=== PATIENT | male | born 1960 | race Caucasian/White ===

== ENCOUNTER → 2018-10-28 14:53 | Outpatient (CLI) | payer OTHER, SELFPAY ==
[2018-10-21 13:32] VITALS: BMI 32.8
[2018-10-28 18:16] LABS: Hemoglobin A1c 12.7 % (4.2-6.3)
[2018-10-28 18:32] LABS: Free T3 0.7 pg/mL (2.18-3.98); T4 Total, Thyroxin 1.6 ug/dL (4.5-12.1)
== END ==
PROVIDERS: Family Provider Family Medicine; PCP Family Medicine; Visit Provider Nurse Practitioner Family
DX: E89.0 Postprocedural hypothyroidism (principal); E11.9 Type 2 diabetes mellitus without complications
CPT/HCPCS: 36415; 83036; 84436; 84443; 84481

== ENCOUNTER 2018-11-03 07:32 | Observation (INO) | payer OTHER, SELFPAY ==
[2018-10-21 13:32] VITALS: BMI 32.8
[2018-11-03] VITALS (12 sets, daily range): BP systolic 90–141; BP diastolic 55–97; PULSE 57–110; RESP 10–18; TEMP 36.4–36.6; O2SAT 94–99; BMI 31.8; BMI 32.2
[2018-11-03 07:51] LABS: Bedside Glucose 177 mg/dL (70-110)
--- NOTE | 2018-11-03 07:53 | EKG12_ITS ---
Test Reason : NEURO Blood Pressure : / mmHG Vent. Rate : 104 BPM Atrial Rate : 104 BPM P-R Int : 180 ms QRS Dur : 088 ms QT Int : 304 ms P-R-T Axes : 075 -51 082 degrees QTc Int : 399 ms Sinus tachycardia Low voltage QRS Left anterior fascicular block Nonspecific T wave abnormality Abnormal ECG Confirmed by KB BENITEZ, LILY ([id number]), news assignment editor JENNY MARTINEZ ([id number]) on 11/05/2018 1:26:40 PM Referred By: Confirmed By:LILY QUILES MD
--- NOTE | 2018-11-03 07:54 | ED.DCSUM_ITS ---
- ER Visit Summary Date of Service: 11/03/18 Chief Complaint: Near syncope History of Present Illness: The patient is a 57 M who presents the emergency department with near syncope. From reviewing the chart and piecing together the patient's story-going the following. On October 21 he began Augmentin for a sinusitis. That was 13 days ago. 4 days ago (on ) he was at work coworkers stated that he did not look well and he had red spots on him. He was experiencing nausea. Later that day he was told that he had a reaction to the Augmentin and was placed on an unknown antibiotic for 3 days and some nausea medication. Over the next couple days he experienced lightheadedness and near syncopal symptoms. Continued nausea and sweating at times. He also notes at times he has a pulsing headache. He does not currently have a headache he spent a significant amount of time in bed. Once again today he got up use the bathroom and felt like he was going to pass out. So he out of fear of falling came to the emergency department. He also notes that he saw his doctor and was told his hemoglobin A1c was 12.7. He tells me that he had not been taking his diabetes medication because of the prohibitive cost. He has since restarted that medication beginning . He denies any diarrhea states he has not had a bowel movement for 2 days. He denies any abdominal or chest pain. No shortness of breath. He denies black or bloody stools. He states that he works at our to [employer] the office but is still warm he does not drink as much water as he should. Physical Examination: 125/89 heart rate of 101 respirations are 14 pulse ox 98% on room air temperature 97.8 Gen: Well-nourished well-developed Head: Normocephalic atraumatic Eyes: Perrl EOMI ENT: TMs clear no rhinorrhea moist mucous membranes Neck: Supple no lymphadenopathy no JVD nontender CVS: Regular rate tachycardic rhythm no murmurs normal S1-S2 Respiratory: No distress clear to auscultation bilaterally chest nontender Abdomen: Soft nontender nondistended normal bowel sounds no masses Back: Nontender Extremity: Nontender no edema Skin: Normal color no rash Neuro: alert orientated ?3 CN II-XII intact normal strength sensation cerebellar (specifically I do not see any facial droop on dynamic testing. The patient speaks out of the left side of his mouth and I suspect that this gives the appearance of a facial droop. Patient himself has not noticed any facial droop was Psych: Normal affect normal mood Test Results: Accu-Chek at 177. EKG sinus tachycardia at 104. There is no ectopy or concerning features of ACS. Emergency Department Course and Treatment: Pretreatment orthostatics are positive. Laying down 113/90 heart rate 97. Sitting up 94/74 heart rate 105. Standing 90/70 heart rate 110 with symptoms of nausea and lightheadedness. Patient is received over 2 L of normal saline fluids. He continues to feel symptomatic and blood pressure in the 90s with standing. Patient notes after being interviewed by Dr. Drake that he has been taking his Synthroid variably. Currently he is taking 2 pills a day. Could this be hyperthyroidism? We will add on TSH and T4. We will be observing in the hospital Impression: 1. Orthostatic hypotension This note was generated with [employer] dictation software. It may contain incorrect words, spelling, and punctuation that were not noted in review of the chart prior to signing ED Disposition - Plan for ED Patient: Referrals: Fabiana Peña MD [Primary Care Provider] -
[2018-11-03 08:04] LABS: Bacteria 0 SEEN /hpf (None Seen); Mucous, Urine 0 SEEN /hpf (<or=2+); Red Blood Cells-Urine 0 SEEN /hpf (0-5); Squamous Epithelial Cells - UA 0 SEEN /hpf (0-5); White Blood Cells 0 SEEN /hpf (0-5)
--- NOTE | 2018-11-03 08:05 | RAD_ITS ---
STUDY: X-RAY CHEST REASON FOR EXAM: Male, 57 years old. Weakness. TECHNIQUE: Single frontal view of the chest. COMPARISON: None. FINDINGS: The lungs are clear and expanded. There is no demonstrated pleural abnormality. Normal size heart. Normal mediastinum and colton. Normal visualized pulmonary arteries. There is atherosclerotic calcification of the aortic arch with tortuosity. Normal visualized thoracic spine. Likely old lateral seventh rib fracture with acute on chronic injury not excluded. There is no demonstrated abnormality of the visualized soft tissue structures of the upper abdomen. RAD/Chest 1 View (Portable) IMPRESSION: No evidence of acute cardiopulmonary process with likely left lateral seventh rib old injury with acute on chronic injury not excluded, clinically correlate. Electronically Signed: Mina Rodriguez DO at 8:25 EDT , Service support ,
[2018-11-03 08:10] LABS: Absolute Lymphocyte Count 2.47 X10^3/uL (0.83-4.51); Absolute Neutrophil Count 5.8 X10^3/uL (2.0-7.7); Basophil# 0.03 X10^3/uL; Basophil% 0.3 % (0-1); Eosinophil# 0.03 X10^3/uL; Eosinophils% 0.3 % (0-5); Hematocrit 43.3 % (40-54); Hemoglobin 14.3 g/dL (13.0-16.5); Lymphocyte # 2.47 X10^3/ul (4.0); Lymphocyte % 27.7 % (19-41); Mean Corpuscular Hgb 30.8 pg (27.0-32.0); Mean Corpuscular Volume 93.3 fL (80-94); Mean Platelet Vol. 10.1 fl (6.2-12.0); Monocyte% 5.6 % (0-10); NRBC Flagged by Analyzer 0 % (0-5); Neutrophil # 5.84 X10^3/uL (2.7-7.7); Neutrophil % 65.7 % (47-70); Platelet Count 233 K/mm3 (150-450); RBC Distribution Width CV 13.9 % (11.6-14.6); RBC Distribution Width SD 47.8 fl (35.1-43.9); Red Blood Count 4.64 M/mm3 (4.6-6.2); White Blood Count 8.9 K/mm3 (4.4-11.0)
[2018-11-03 08:23] LABS: AST(SGOT) 23 U/L (15-37); Alanine Aminotransfer ALT/SGPT 28 U/L (16-61); Albumin, Serum 3.5 g/dL (3.2-5.0); Alkaline Phosphatase 67 U/L (45-117); Anion Gap 7 (5-15); BUN 24 mg/dL (7-18); BUN/Creat Ratio 14.9 RATIO (10-20); Bilirubin, Direct 0.16 mg/dL (0.00-0.30); Calcium,Total 8.6 mg/dL (8.5-10.1); Chloride 97 mmol/L (98-107); Creatinine, Serum 1.61 mg/dL (0.70-1.30); EST Glomerular Filtration Rate 47 mL/min (>60); Est Glom Filt Rate - Afr Amer 57 mL/min (>60); Globulin 3.8 g/dL (2.2-4.2); Glucose 181 mg/dL (74-106); Lipase 62 U/L (73-393); Potassium 4.3 mmol/L (3.5-5.1); Protein, Total 7.3 g/dL (6.4-8.2); Sodium Level 133 mmol/L (136-145)
[2018-11-03] MEDS: 0.9% Normal Saline 1,000 ML 1000 ML IV (08:26)
[2018-11-03 09:09] LABS: Lactic Acid 0.9 mmol/L (0.4-2.0)
[2018-11-03 09:43] LABS: Color, Urine Yellow (Yellow); Glucose, Dipstick Normal (Normal); Ketone-Dipstick Negative (Negative); Leukocyte Esterase-Dipstick Negative /ul (Negative); Nitrite-Dipstick Negative (Negative); Occult Blood-Urine Negative /ul (Negative); Protein-Dipstick Negative (Negative); Specific Gravity, Urine 1.025 (1.002-1.030); Urine Bilirubin Dipstick Negative (Negative); Urine Clarity Clear (Clear); Urine Urobilinogen Normal (Normal)
[2018-11-03] MEDS: 0.9% Normal Saline 1,000 ML 200 ML IV ×2 (10:50→11:49)
--- NOTE | 2018-11-03 10:50 | ED.RN ---
dr fofana informed of + ortho's. new order to admin 1l ns bolus.
[2018-11-03 12:54] LABS: T4 Free Direct 0.64 ng/dL (0.76-1.46)
--- NOTE | 2018-11-03 13:07 | HP.PCM_ITS ---
<Justine Peoples - Last Filed: 11/03/18 13:21> Problem List (1) Sinusitis, acute Status: Resolved (2) Type 2 diabetes mellitus Status: Chronic (3) Hypothyroidism Status: Chronic (4) HTN (hypertension) Status: Chronic (5) Pre-syncope Status: Acute History of Present Illness Date of Admission: 11/03/18 Chief Complaint: Pre-syncope. The patient is a 57 year old M who presents to the ER due to pre-syncope. Patient reports he has felt lightheaded for the past two days and has been feeling like he was going to pass out. He reports he has not been taking his prescribed medications consistently due to caring for a grandson who has medical problems. He reports he recently started taking levothyroxine again and is unsure of what dose he is to be taking. He had also not been taking his diabetic medications. He denies loss of consciousness, chest pain or shortness of breath. Denies other associated symptoms. He does reports he had been on Augmentin for sinus infection and 7 days into taking the antibiotic he developed a rash and has had some nausea since that time. He was seen at urgent care 10/31/2018 and was told to discontinue Augmentin and given 3 days of prednisone. He has a past medical history of hypertension, type 2 diabetes mellitus, hypothyroidism status post thyroidectomy. Past Medical History Past Medical History (Chronic Problems): Chronic Problems (Last Reviewed 10/21/18 @ 13:40 by Isabell Cano) Type 2 diabetes mellitus (Chronic) Hypothyroidism (Chronic) HTN (hypertension) (Chronic) Medical History: Medical History (Last Reviewed 10/21/18 @ 13:40 by Isabell Cano) Diabetes E11.9 Diarrhea R19.7 Thyroid disease E07.9 Allergies amoxicillin Adverse Reaction (Verified 11/03/18 07:37) Nausea Home Medications: Ambulatory Orders Medication Instructions Recorded Aspirin E.C. [Ecotrin] 81 mg PO DAILY@0800 06/02/16 Dulaglutide [Trulicity] 1.5 mg SQ QWEEK 06/02/16 Ergocalciferol [Vitamin D] 50,000 unit PO QWEEK 06/02/16 Insulin Human 75/25 [Humalog Mix 18 unit SQ BID 06/02/16 75-25 Kwikpen] Lisinopril/Hydrochlorothiazide 1 tab PO DAILY 06/02/16 [Zestoretic 20/12.5 Tablet] metFORMIN (XR) [Glucophage Xr] 2,000 mg PO DAILY 06/02/16 ondansetron HCl 4 mg tablet 4 mg PO TID-QID PRN #20 tab 04/29/18 Levothyroxine Sodium [Levoxyl] 200 mcg PO DAILY 11/03/18 Surgical History: Surgical History (Last Reviewed 10/21/18 @ 13:40 by Isabell Cano) History of thyroidectomy Z98.890 Surgical History: - - Thyroidectomy, multiple sinus surgeries, left AC area laceration repair with tendon repair. Psychiatric History: No pertinent psych hx Lives: Spouse/ Significant Other Smoking Status: Current some day smoker Tobacco Use: Cigarettes Alcohol: None Drugs: None - *Family History Maternal History Items: - - Denies known maternal medical history including cardiac hist ory. Paternal History Items: - - Denies known paternal medical history including cardiac history. Review of Systems Constitutional: Denies: Chills, Fever, Weight Change HEENT: Denies: Head Aches, Sinus Congestion, Sinus Drainage Cardiovascular: Reports: Light Headedness, Syncope - Presyncope. Denies: Chest Pain, Edema, Palpitations Respiratory: Denies: Cough, Shortness of breath at rest, Sputum production Gastrointestinal: Denies: Abdominal Pain, Nausea, Vomiting Genitourinary: Denies: Dysuria Musculoskeletal: Denies: Joint Pain, Joint Tenderness Skin: Denies: Rash, Wounds Neurological: Denies: Numbness, Tingling, Focal weakness Psychiatric: Denies: Anxiety, Depression, Homicidal Ideations, Suicidal Ideations Hematologic/ Lymphatic: Denies: Easy Bruising, Easy Bleeding VTE Information - Inpt Only VTE Present on Admission: No VTE Mechan Device Prophylaxis: None VTE Pharm Prophylaxis ordered?: Yes Patient Problems: Active and Suspected Problems (Last Reviewed 10/21/18 @ 13:40 by Isabell Cano) Pre-syncope (Acute) - Physical Exam General: Alert, Oriented x3, Cooperative HEENT: Atraumatic, PERRLA, EOMI, Normocephalic Oral: Dry Mucosa Neck: Supple, No JVD, Negative Carotid Bruits Lungs: Clear to auscultation, Normal air movement Cardiovascular: Regular rate, Regular Rhythm, Normal S1, Normal S2, No murmurs Abdomen: Bowel Sounds Present, Soft, Non Tender, Non-Distended, Obese Extremities: No clubbing, No cyanosis, No edema, Capillary Refill Less than 3 Seconds Skin: No rashes, No breakdown Musculoskeletal: No Tenderness to Palpation of Joints or Extremities Neurological: Cranial nerves II-XII grossly intact, Neuro grossly intact Psych/Mental Status: Normal Affect, Appropriate Vital Signs Temp Pulse Resp BP Pulse Ox 97.8 F 89 11 L 103/78 97 11/03/18 07:33 11/03/18 12:04 11/03/18 12:04 11/03/18 12:04 11/03/18 12:04 Oxygen Delivery Method Room Air Weight: 255 lb 1.197 oz Body Mass Index (BMI) 31.8 Finger Stick Blood Glucose 177 Laboratory Tests Past 24 Hrs 11/03/18 11/03/18 11/03/18 07:40 07:40 07:40 WBC 8.9 RBC 4.64 Hgb 14.3 Hct 43.3 MCV 93.3 MCH 30.8 MCHC 33.0 RDW Std Deviation 47.8 H RDW Coeff of Marcellus 13.9 Plt Count 233 MPV 10.1 Immature Gran % (Auto) 0.400 Neut % (Auto) 65.7 Lymph % (Auto) 27.7 Powell % (Auto) 5.6 Eos % (Auto) 0.3 Baso % (Auto) 0.3 Absolute Neuts (auto) 5.8 Absolute Lymphs (auto) 2.47 Nucleated RBC % 0 Sodium 133 L Potassium 4.3 Chloride 97 L Carbon Dioxide 29.0 Anion Gap 7 BUN 24 H Creatinine 1.61 H Estim Creat Clear Calc 60.50 Est GFR (MDRD) Af Amer 57 L Est GFR (MDRD) Non-Af 47 L BUN/Creatinine Ratio 14.9 Glucose 181 H Lactic Acid Calcium 8.6 Total Bilirubin 0.70 Direct Bilirubin 0.16 AST 23 ALT 28 Alkaline Phosphatase 67 Troponin I < 0.015 Total Protein 7.3 Albumin 3.5 Globulin 3.8 Lipase 62 L TSH Free T4 Urine Color Yellow Urine Clarity Clear Urine pH 5.0 Ur Specific [place] 1.025 Urine Protein Negative Urine Glucose (UA) Normal Urine Ketones Negative Urine Occult Blood Negative Urine Nitrite Negative Urine Bilirubin Negative Urine Urobilinogen Normal Ur Leukocyte Esterase Negative Urine RBC 0 SEEN Urine WBC 0 SEEN Ur Squamous Epith Cells 0 SEEN Urine Bacteria 0 SEEN Urine Mucus 0 SEEN 11/03/18 11/03/18 07:40 08:25 WBC RBC Hgb Hct MCV MCH MCHC RDW Std Deviation RDW Coeff of Marcellus Plt Count MPV Immature Gran % (Auto) Neut % (Auto) Lymph % (Auto) Powell % (Auto) Eos % (Auto) Baso % (Auto) Absolute Neuts (auto) Absolute Lymphs (auto) Nucleated RBC % Sodium Potassium Chloride Carbon Dioxide Anion Gap BUN Creatinine Estim Creat Clear Calc Est GFR (MDRD) Af Amer Est GFR (MDRD) Non-Af BUN/Creatinine Ratio Glucose Lactic Acid 0.9 Calcium Total Bilirubin Direct Bilirubin AST ALT Alkaline Phosphatase Troponin I Total Protein Albumin Globulin Lipase TSH 35.40 H Free T4 0.64 L Urine Color Urine Clarity Urine pH Ur Specific [place] Urine Protein Urine Glucose (UA) Urine Ketones Urine Occult Blood Urine Nitrite Urine Bilirubin Urine Urobilinogen Ur Leukocyte Esterase Urine RBC Urine WBC Ur Squamous Epith Cells Urine Bacteria Urine Mucus POC Glucose 11/03/18 07:46 POC Glucose 177 H Assessment/Plan All Active Problems (Last Reviewed 10/21/18 @ 13:40 by Isabell Cano) Pre-syncope (Acute) Sinusitis, acute (Resolved) 1. Presyncope, orthostatic hypotension-suspect secondary to hypovolemia. IV fluids. Repeat orthostatic vitals in a.m. Trend enzymes. Obtain echocardiogram. 2. Acute kidney injury suspected secondary to dehydration-IV fluids, trend BMP. 3. Hypertension-hold home UGERLINE inhibitor given acute kidney injury. PRN hydra lazine for systolic blood pressure greater than 160. 4. Type 2 diabetes mellitus-hold oral regimen. Accu-Cheks before meals at bedtime with sliding scale insulin. 5. Hypothyroidism status post thyroidectomy-unclear what dose of levothyroxine patient is to be taking. TSH 35, free T4 0.64. Continue levothyroxine 200 mcg daily. 6. Obesity-encouraged diet lifestyle modifications. DVT prophylaxis- Lovenox sc This patient was seen by REKHA Olivarez under the supervision of Dr. Drake. <Edinson Drake - Last Filed: 11/03/18 14:14> History of Present Illness The patient is a 57 year old M [] Past Medical History Medical History: Medical History (Last Reviewed 10/21/18 @ 13:40 by Isabell Cano) Diabetes E11.9 Diarrhea R19.7 Thyroid disease E07.9 Allergies amoxicillin Adverse Reaction (Verified 11/03/18 07:37) Nausea Surgical History: Surgical History (Last Reviewed 10/21/18 @ 13:40 by Isabell Cano) History of thyroidectomy Z98.890 - Physical Exam Vital Signs Temp Pulse Resp BP Pulse Ox 97.6 F L 95 18 141/97 H 99 11/03/18 13:30 11/03/18 13:30 11/03/18 13:30 11/03/18 13:30 11/03/18 13:30 Oxygen Delivery Method Room Air Weight: 257 lb 14.4 oz Body Mass Index (BMI) 32.2 Finger Stick Blood Glucose 177 Intake and Output for Last 24 Hours 11/01/18 11/02/18 11/03/18 23:59 23:59 23:59 Output Total 700 / 700 Balance -700 / -700 Laboratory Tests Past 24 Hrs 11/03/18 11/03/18 11/03/18 07:40 07:40 07:40 WBC 8.9 RBC 4.64 Hgb 14.3 Hct 43.3 MCV 93.3 MCH 30.8 MCHC 33.0 RDW Std Deviation 47.8 H RDW Coeff of Marcellus 13.9 Plt Count 233 MPV 10.1 Immature Gran % (Auto) 0.400 Neut % (Auto) 65.7 Lymph % (Auto) 27.7 Powell % (Auto) 5.6 Eos % (Auto) 0.3 Baso % (Auto) 0.3 Absolute Neuts (auto) 5.8 Absolute Lymphs (auto) 2.47 Nucleated RBC % 0 Sodium 133 L Potassium 4.3 Chloride 97 L Carbon Dioxide 29.0 Anion Gap 7 BUN 24 H Creatinine 1.61 H Estim Creat Clear Calc 60.50 Est GFR (MDRD) Af Amer 57 L Est GFR (MDRD) Non-Af 47 L BUN/Creatinine Ratio 14.9 Glucose 181 H Lactic Acid Calcium 8.6 Total Bilirubin 0.70 Direct Bilirubin 0.16 AST 23 ALT 28 Alkaline Phosphatase 67 Troponin I < 0.015 Total Protein 7.3 Albumin 3.5 Globulin 3.8 Lipase 62 L TSH Free T4 Urine Color Yellow Urine Clarity Clear Urine pH 5.0 Ur Specific [place] 1.025 Urine Protein Negative Urine Glucose (UA) Normal Urine Ketones Negative Urine Occult Blood Negative Urine Nitrite Negative Urine Bilirubin Negative Urine Urobilinogen Normal Ur Leukocyte Esterase Negative Urine RBC 0 SEEN Urine WBC 0 SEEN Ur Squamous Epith Cells 0 SEEN Urine Bacteria 0 SEEN Urine Mucus 0 SEEN 11/03/18 11/03/18 07:40 08:25 WBC RBC Hgb Hct MCV MCH MCHC RDW Std Deviation RDW Coeff of Marcellus Plt Count MPV Immature Gran % (Auto) Neut % (Auto) Lymph % (Auto) Powell % (Auto) Eos % (Auto) Baso % (Auto) Absolute Neuts (auto) Absolute Lymphs (auto) Nucleated RBC % Sodium Potassium Chloride Carbon Dioxide Anion Gap BUN Creatinine Estim Creat Clear Calc Est GFR (MDRD) Af Amer Est GFR (MDRD) Non-Af BUN/Creatinine Ratio Glucose Lactic Acid 0.9 Calcium Total Bilirubin Direct Bilirubin AST ALT Alkaline Phosphatase Troponin I Total Protein Albumin Globulin Lipase TSH 35.40 H Free T4 0.64 L Urine Color Urine Clarity Urine pH Ur Specific [place] Urine Protein Urine Glucose (UA) Urine Ketones Urine Occult Blood Urine Nitrite Urine Bilirubin Urine Urobilinogen Ur Leukocyte Esterase Urine RBC Urine WBC Ur Squamous Epith Cells Urine Bacteria Urine Mucus POC Glucose 11/03/18 07:46 POC Glucose 177 H Code Visit Addendum: Dr. Drake I personally examined the patient and reviewed the chart. I agree with the above. 57-year-old male with diabetes, hypertension, hypothyroidism secondary to thyroidectomy presents with lightheadedness and dizziness for several days. He states that he has been not taking his medication secondary to expenses and only recently started taking his medications on . He presented to the ER with orthostatic hypotension and dizziness. He was given multiple liters of fluid and continued to be dizzy. He also states that he has been getting conflicting information in terms of his Synthroid prescription dosing and a TSH and a free T4 were obtained which demonstrated significant hypothyroidism. We will proceed with IV fluids and restarting all of his home medications as well as obtaining an echo tomorrow. Plan will be to discharge tomorrow if his symptoms resolve. OBSV E&M: [id number] Initial observation care L3
[2018-11-03] MEDS: Insulin Lispro 100 UNIT/ML INSULN.PEN SC (16:41)
[2018-11-03] MEDS: 0.9% Normal Saline 1,000 ML 125 ML IV (16:42)
[2018-11-03] MEDS: Insulin Human 75/25 Kwickpen 18 UNIT SC (16:42)
[2018-11-03 16:50] LABS: Bedside Glucose 262 mg/dL (70-110)
[2018-11-03 22:26] LABS: Bedside Glucose 73 mg/dL (70-110)
[2018-11-04] VITALS (7 sets, daily range): BP systolic 82–131; BP diastolic 53–84; PULSE 88–110; RESP 16–18; TEMP 36.6–36.8; O2SAT 92–98
[2018-11-04] MEDS: 0.9% Normal Saline 1,000 ML 125 ML IV ×2 (00:22→07:54)
[2018-11-04 02:21] LABS: Bedside Glucose 82 mg/dL (70-110)
[2018-11-04] MEDS: Levothyroxine 100 MCG Tablet 200 MCG PO (05:19)
[2018-11-04 05:39] LABS: Absolute Neutrophil Count 5.3 X10^3/uL (2.0-7.7); Basophil# 0.05 X10^3/uL; Basophil% 0.6 % (0-1); Eosinophil# 0.06 X10^3/uL; Eosinophils% 0.7 % (0-5); Hematocrit 40.3 % (40-54); Hemoglobin 13.3 g/dL (13.0-16.5); Lymphocyte % 29.3 % (19-41); Mean Corpuscular Hgb 30.8 pg (27.0-32.0); Mean Corpuscular Volume 93.3 fL (80-94); Mean Platelet Vol. 9.9 fl (6.2-12.0); Monocyte# 0.54 X10^3/uL; Monocyte% 6.3 % (0-10); NRBC Flagged by Analyzer 0 % (0-5); Neutrophil # 5.34 X10^3/uL (2.7-7.7); Neutrophil % 62.6 % (47-70); Platelet Count 197 K/mm3 (150-450); RBC Distribution Width CV 13.9 % (11.6-14.6); RBC Distribution Width SD 47.9 fl (35.1-43.9); Red Blood Count 4.32 M/mm3 (4.6-6.2); White Blood Count 8.5 K/mm3 (4.4-11.0)
[2018-11-04 05:55] LABS: Anion Gap 5 (5-15); BUN 21 mg/dL (7-18); BUN/Creat Ratio 13.2 RATIO (10-20); Calcium,Total 7.9 mg/dL (8.5-10.1); Chloride 105 mmol/L (98-107); Creatinine, Serum 1.59 mg/dL (0.70-1.30); EST Glomerular Filtration Rate 48 mL/min (>60); Est Glom Filt Rate - Afr Amer 58 mL/min (>60); Estimated Creatinine Clearance 61.26 ml/min; Glucose 75 mg/dL (74-106); Potassium 4.1 mmol/L (3.5-5.1); Sodium Level 139 mmol/L (136-145)
--- NOTE | 2018-11-04 05:55 | ECHOD_ITS ---
Reason For Study: Syncope Procedure This was a 2D Doppler, Color Flow transthoracic echocardiogram. Exam performed portable in patient room. Left Ventricle Normal LV size. The estimated ejection fraction is 30 %. Stage 3 diastolic dysfunction. There is moderate to severe global hypokinesis of the left ventricle. Right Ventricle Normal RV size. Mild hypertrophy of the right ventricle. Normal systolic function. Atria Normal left atrium. Normal right atrium. Mild collapse/invagination of the right atrium. Mitral Valve There is mild to moderate mitral annular calcification. Mild (1+) eccentric mitral valve insufficiency. Tricuspid Valve Normal tricuspid valve. Aortic Valve Trisinus/trileaflet aortic valve. Great Vessels Normal aortic root. The pulmonary artery is normal size. Normal inferior vena cava. Pericardium/Pleural Moderate pericardial effusion. Circumferential effusion. No obvious tamponade findings though early RA invagination is noted. MMode/2D Measurements & Calculations LVIDd: 5.7 cm IVSd: 1.1 cm Ao root diam: 4.0 cm LVIDs: 4.7 cm LVPWd: 1.5 cm RVDd: 3.4 cm FS: 17.3 % LAV(MOD-sp4): 49.8 ml LA A4 area: 18.5 cm2 LA dimension(2D): 3.7 cm RA A4 area: 10.7 cm2 Time Measurements MV dec time: 0.09 sec Doppler Measurements & Calculations MV E max eulogio: 88.4 cm/sec Lat Peak E' Eulogio: 3.9 cm/sec Med Peak E' Eulogio: 8.2 cm/sec MV A max eulogio: 40.8 cm/sec E/E' lat: 22.5 E/E' med: 10.8 MV E/A: 2.2 Ao V2 max: 69.6 cm/sec LV V1 max: 59.7 cm/sec TR max eulogio: 154.0 cm/sec Ao max P.9 mmHg LV V1 max P.4 mmHg TR max P.5 mmHg Interpretation Summary Normal LV size. The estimated ejection fraction is 30 %. Stage 3 diastolic dysfunction. Moderate pericardial effusion. Circumferential effusion. No obvious tamponade findings though early RA invagination is noted Ordering Physician: Edinson Drake Referring Physician: Fabiana Peña M.D. Performed By: Magy Minor RDCS, RVT
[2018-11-04] MEDS: Insulin Human 75/25 Kwickpen 18 UNIT SC (07:55)
[2018-11-04] MEDS: Aspirin E.C. 81 MG Tablet PO (07:55)
[2018-11-04] MEDS: Enoxaparin 40 MG/0.4 ML Syringe SC (07:56)
[2018-11-04 08:16] LABS: Bedside Glucose 98 mg/dL (70-110)
--- NOTE | 2018-11-04 10:03 | PCM.DC ---
- Discharge Diagnoses Current Active Problems: Current Active and Chronic Problems (Last Reviewed 10/21/18 @ 13:40 by Isabell Cano) Type 2 diabetes mellitus (Chronic) Hypothyroidism (Chronic) HTN (hypertension) (Chronic) Pre-syncope (Acute) You will use the following diet at home:: Calorie/Carbohydrate Controlled (specify 1200, 1400, etc), Cardiac Discharge Activity: Return to Normal Activity Call your doctor if you observe: Shortness of breath, Dizziness, Fainting spells, Chest pain Allergies/Adverse Reactions: Allergies amoxicillin Adverse Reaction (Verified 11/03/18 07:37) Nausea Medications to take at Discharge Aspirin E.C. [Ecotrin] 81 mg PO DAILY@0800 06/02/16 Dulaglutide [Trulicity] 1.5 mg SQ QWEEK 06/02/16 Ergocalciferol [Vitamin D] 50,000 unit PO QWEEK 06/02/16 Insulin Human 75/25 [Humalog Mix 75-25 Kwikpen] 18 unit SQ BID 06/02/16 Lisinopril/Hydrochlorothiazide [Zestoretic 20/12.5 Tablet] 1 tab PO DAILY 06/02/16 ondansetron HCl 4 mg tablet 4 mg PO TID-QID PRN #20 tab 04/29/18 Levothyroxine Sodium [Levoxyl] 200 mcg PO DAILY 11/03/18 Levothyroxine [Synthroid] 200 mcg PO DAILY@0600 #30 tab 11/04/18 metFORMIN (XR) [Glucophage Xr] 2,000 mg PO DAILY #60 tab 11/04/18 The following prescriptions were given: metFORMIN (XR) [Glucophage Xr] 2,000 mg PO DAILY #60 tab Transmission Status: Pending to [id number] Levothyroxine [Synthroid] 200 mcg PO DAILY@0600 #30 tab Transmission Status: Pending to [id number] Primary Care Physician: Fabiana Peña MD [Primary Care Provider] - Please follow up with your Primary Care Physician in: 1 Week Test Results: Test results from this visit will be discussed in further detail at your follow-up appointment, if applicable. Proposed Discharge Date: 11/04/18
--- NOTE | 2018-11-04 10:06 | DS.PCM_ITS ---
<Justine Peoples - Last Filed: 11/04/18 12:57> Discharge Date and Diagnosis Date of Admission: 11/03/18 Date of Discharge: 11/04/18 - Primary Discharge Diagnosis Active and Suspected Problems (Last Reviewed 10/21/18 @ 13:40 by Isabell Cano) 1. Presyncope, orthostatic hypotension-secondary to hypovolemia. 2. Acute kidney injury secondary to dehydration 3. Hypertension 4. Type 2 diabetes mellitus 5. Hypothyroidism status post thyroidectomy, significantly elevated TSH secondary to not taking thyroid medications for over 1 year 6. Obesity - Secondary Discharge Diagnosis Chronic Problems (Last Reviewed 10/21/18 @ 13:40 by Isabell Cano) Type 2 diabetes mellitus (Chronic) Hypothyroidism (Chronic) HTN (hypertension) (Chronic) Hospital Course and Treatment Imaging Results: Diagnostic Data Chest X-Ray 11/03/18 08:05 IMPRESSION: No evidence of acute cardiopulmonary process with likely left lateral seventh rib old injury with acute on chronic injury not excluded, clinically correlate. Electronically Signed: Mina Rodriguez DO at 8:25 EDT , Service support , Operations: None Procedures: 2-D Echocardiogram Summary of Care Provided: The patient is a 57 year old M admitted 11/03/2018 due to presyncope. 1. Presyncope, orthostatic hypotension-suspect secondary to hypovolemia. Patient received IV fluids. Repeat orthostatic vitals negative. Echocardiogram completed, report pending, will be reviewed prior to discharge. Suspect symptoms may also be secondary to severe hypothyroidism due to patient not taking his thyroid medication for over a year, he is status post thyroidectomy. TSH on admission 35. He is now back on thyroid medication and will need close outpatient follow-up. Follow-up with primary care physician in 1 week. 2. Acute kidney injury suspected secondary to dehydration-improved with IV fluids. Recommend repeat BMP by primary care provider in 1 week. 3. Hypertension-stable, continue home regimen. 4. Type 2 diabetes mellitus-continue home oral regimen. 5. Hypothyroidism status post thyroidectomy- TSH 35, free T4 0.64. Continue levothyroxine 200 mcg daily. Patient had been off of thyroid medication for over a year, just started taking again last week. Recommend repeat TSH by primary care provider in 4 weeks. Patient is going to establish with [facility] endocrinology in December. 6. Obesity-encouraged diet lifestyle modifications. General: Alert, Oriented x3, Cooperative HEENT: Atraumatic, PERRLA, EOMI, Normocephalic Oral: Dry Mucosa Neck: Supple, No JVD, Negative Carotid Bruits Lungs: Clear to auscultation, Normal air movement Cardiovascular: Regular rate, Regular Rhythm, Normal S1, Normal S2, No murmurs Abdomen: Bowel Sounds Present, Soft, Non Tender, Non-Distended, Obese Extremities: No clubbing, No cyanosis, No edema, Capillary Refill Less than 3 Seconds Skin: No rashes, No breakdown Musculoskeletal: No Tenderness to Palpation of Joints or Extremities Neurological: Cranial nerves II-XII grossly intact, Neuro grossly intact Psych/Mental Status: Normal Affect, Appropriate Patient seen and examined prior to discharge. Physical assessment as noted above. Patient is stable for discharge with follow up recommendations as noted above. This patient was seen by REKHA Olivarez under the supervision of Dr. Drake. - Physical Exam Vital Signs Temp Pulse Resp BP Pulse Ox 98.2 F 90 18 127/84 H 98 11/04/18 07:51 11/04/18 07:51 11/04/18 07:51 11/04/18 07:51 11/04/18 07:51 Oxygen Delivery Method Room Air Weight: 257 lb 14.4 oz Body Mass Index (BMI) 32.2 Finger Stick Blood Glucose 177 Orthostatic Vital Signs Start: 11/03/18 18:20 Freq: q24h Status: Active Protocol: Activity Type Activity Date Activity User E-Sign Co-Sign Detail Recorded Client Recorded Date Recorded By Document 11/04/18 02:00 [facility] [id number] 11/04/18 02:07 [facility] 11/04/18 02:00 Orthostatic Vitals Standing -Blood Pressure (90/60-120/80) 82/53 L -Extremity Use Right Arm -Pulse Rate (60-100) 104 H Sitting -Blood Pressure (90/60-120/80) 92/57 L -Extremity Use Right Arm -Pulse Rate (60-100) 98 Lying -Blood Pressure (90/60-120/80) 104/75 -Extremity Use Right Arm -Pulse Rate (60-100) 89 Intake and Output for Last 24 Hours 11/02/18 11/03/1811/04/19 23:59 23:59 23:59 Intake Total 2131 / 2131 796 / 796 Output Total 1825 / 1825 875 / 875 Balance 306 / 306 -79 / -79 Laboratory Tests Past 24 Hrs 11/03/18 11/04/18 11/04/18 07:40 05:05 05:05 WBC 8.5 RBC 4.32 L Hgb 13.3 Hct 40.3 MCV 93.3 MCH 30.8 MCHC 33.0 RDW Std Deviation 47.9 H RDW Coeff of Marcellus 13.9 Plt Count 197 MPV 9.9 Immature Gran % (Auto) 0.500 Neut % (Auto) 62.6 Lymph % (Auto) 29.3 [place] % (Auto) 6.3 Eos % (Auto) 0.7 Baso % (Auto) 0.6 Absolute Neuts (auto) 5.3 Absolute Lymphs (auto) 2.50 Nucleated RBC % 0 Sodium 139 Potassium 4.1 Chloride 105 Carbon Dioxide 29.0 Anion Gap 5 BUN 21 H Creatinine 1.59 H Estim Creat Clear Calc 61.26 Est GFR (MDRD) Af Amer 58 L Est GFR (MDRD) Non-Af 48 L BUN/Creatinine Ratio 13.2 Glucose 75 Calcium 7.9 L TSH 35.40 H Free T4 0.64 L POC Glucose 11/04/18 11/04/18 11/03/18 07:49 02:14 22:13 POC Glucose 98 82 73 11/03/18 16:36 POC Glucose 262 H Discharge Diet: Low fat/ Low Cholesterol, Carb Control Diet Discharge Activity: Return to Normal Activity Call your doctor if you observe: Shortness of breath, Dizziness, Fainting spells, Chest pain Home Medications: Medications to take at Discharge Aspirin E.C. [Ecotrin] 81 mg PO DAILY@0800 06/02/16 Dulaglutide [Trulicity] 1.5 mg SQ QWEEK 06/02/16 Ergocalciferol [Vitamin D] 50,000 unit PO QWEEK 06/02/16 Insulin Human 75/25 [Humalog Mix 75-25 Kwikpen] 18 unit SQ BID 06/02/16 Lisinopril/Hydrochlorothiazide [Zestoretic 20/12.5 Tablet] 1 tab PO DAILY 06/02/16 ondansetron HCl 4 mg tablet 4 mg PO TID-QID PRN #20 tab 04/29/18 Levothyroxine [Synthroid] 200 mcg PO DAILY@0600 #30 tab 11/04/18 metFORMIN (XR) [Glucophage Xr] 2,000 mg PO DAILY #60 tab 11/04/18 Following Prescrptions Were Given to Patient: metFORMIN (XR) [Glucophage Xr] 2,000 mg PO DAILY #60 tab Transmission Status: Received by [id number] Levothyroxine [Synthroid] 200 mcg PO DAILY@0600 #30 tab Transmission Status: Received by [id number] Primary Care Physician: Fabiana Peña MD [Primary Care Provider] - Please follow up with your Primary Care Physician in: 1 Week Disposition: Home Minutes spent on discharge:: 35 Patient Condition:: Stable Medical Necessity - Tobacco Use Smoking Status: Current some day smoker Tobacco Use: Cigarettes Meaningful Use Info Meaningful Use Diagnoses (Choose all that apply): None applicable <Edinson Drake - Last Filed: 11/04/18 13:31> Discharge Date and Diagnosis - Secondary Discharge Diagnosis Chronic Problems (Last Reviewed 10/21/18 @ 13:40 by Isabell Cano) Type 2 diabetes mellitus (Chronic) Hypothyroidism (Chronic) HTN (hypertension) (Chronic) Hospital Course and Treatment Imaging Results: 11/04/18 05:55 Echo Complete [ECHO] AM (NON MEDS) Summary of Care Provided: The patient is a 57 year old M [] - Physical Exam Vital Signs Temp Pulse Resp BP Pulse Ox 98.2 F 95 18 107/63 98 11/04/18 07:51 11/04/18 10:48 11/04/18 07:51 11/04/18 10:48 11/04/18 07:51 Oxygen Delivery Method Room Air Weight: 257 lb 14.4 oz Body Mass Index (BMI) 32.2 Finger Stick Blood Glucose 177 Orthostatic Vital Signs Start: 11/03/18 18:20 Freq: q24h Status: Active Protocol: Activity Type Activity Date Activity User E-Sign Co-Sign Detail Recorded Client Recorded Date Recorded By Document 11/04/18 10:48 [facility] [id number] 11/04/18 10:53 [facility] 11/04/18 10:48 Orthostatic Vitals Standing -Blood Pressure (90/60-120/80) 95/75 -Extremity Use Right Arm -Pulse Rate (60-100) 110 H Sitting -Blood Pressure (90/60-120/80) 106/70 -Extremity Use Right Arm -Pulse Rate (60-100) 101 H Lying -Blood Pressure (90/60-120/80) 107/63 -Extremity Use Right Arm -Pulse Rate (60-100) 95 Intake and Output for Last 24 Hours 11/02/18 11/03/18 11/04/18 23:59 23:59 23:59 Intake Total 2131 / 2131 2160 / 2160 Output Total 1825 / 1825 1850 / 1850 Balance 306 / 306 310 / 310 Laboratory Tests Past 24 Hrs 11/04/18 11/04/18 05:05 05:05 WBC 8.5 RBC 4.32 L Hgb 13.3 Hct 40.3 MCV 93.3 MCH 30.8 MCHC 33.0 RDW Std Deviation 47.9 H RDW Coeff of Marcellus 13.9 Plt Count 197 MPV 9.9 Immature Gran % (Auto) 0.500 Neut % (Auto) 62.6 Lymph % (Auto) 29.3 [place] % (Auto) 6.3 Eos % (Auto) 0.7 Baso % (Auto) 0.6 Absolute Neuts (auto) 5.3 Absolute Lymphs (auto) 2.50 Nucleated RBC % 0 Sodium 139 Potassium 4.1 Chloride 105 Carbon Dioxide 29.0 Anion Gap 5 BUN 21 H Creatinine 1.59 H Estim Creat Clear Calc 61.26 Est GFR (MDRD) Af Amer 58 L Est GFR (MDRD) Non-Af 48 L BUN/Creatinine Ratio 13.2 Glucose 75 Calcium 7.9 L POC Glucose 11/04/18 11/04/18 11/04/18 11:22 07:49 02:14 POC Glucose 61 L 98 82 11/03/18 11/03/18 22:13 16:36 POC Glucose 73 262 H Code Visit Addendum: Dr. Drake I personally examined the patient and reviewed the chart. I agree with the above. 57-year-old male with diabetes, hypertension, hypothyroidism secondary to thyroidectomy presents with lightheadedness and dizziness for several days. He states that he has been not taking his medication secondary to expenses and only recently started taking his medications on . He presented to the ER with orthostatic hypotension and dizziness. He was given multiple liters of fluid and continued to be dizzy. He also states that he has been getting conflicting information in terms of his Synthroid prescription dosing and a TSH and a free T4 were obtained which demonstrated significant hypothyroidism. He does feel little bit better today, and his echo is pending. He would for to go home today and therefore we will discharge him on his Synthroid 200 mcg daily until he follows up with a repeat TSH in 4 to 6 weeks as an outpatient. OBSV E&M: [id number] Observation care discharge
--- NOTE | 2018-11-04 11:06 | PHA.DC.MR ---
Pharmacy Service has performed discharge medication reconciliation for this patient. No new medications added to the patient's profile, medications reviewed based on previously reported medications. The patient's discharge medication list was reviewed for discrepancies and discrepancies were resolved. Home Medications Aspirin E.C. [Ecotrin] 81 mg PO DAILY@0800 06/02/16 Dulaglutide [Trulicity] 1.5 mg SQ QWEEK 06/02/16 Ergocalciferol [Vitamin D] 50,000 unit PO QWEEK 06/02/16 Insulin Human 75/25 [Humalog Mix 75-25 Kwikpen] 18 unit SQ BID 06/02/16 Lisinopril/Hydrochlorothiazide [Zestoretic 20/12.5 Tablet] 1 tab PO DAILY 06/02/16 ondansetron HCl 4 mg tablet 4 mg PO TID-QID PRN #20 tab 04/29/18 Levothyroxine [Synthroid] 200 mcg PO DAILY@0600 #30 tab 11/04/18 metFORMIN (XR) [Glucophage Xr] 2,000 mg PO DAILY #60 tab 11/04/18
[2018-11-04 11:51] LABS: Bedside Glucose 61 mg/dL (70-110)
--- NOTE | 2018-11-04 12:52 | PCM.WORK.EX ---
Work/School Excuse Work/School Excuse for:: Patient Please excuse this person from:: Work From: 11/03/18 through: 11/11/18
--- NOTE | 2018-11-04 15:13 | PCM.PROGNOTE ---
Subjective: Patient seen and examined. Feels improved. Denies further significant dizziness, lightheadedness. Denies chest pain, shortness of breath. - Physical Exam General: Alert, Oriented x3, Cooperative HEENT: Atraumatic, PERRLA, EOMI, Normocephalic Neck: Supple, No JVD, Negative Carotid Bruits Lungs: Clear to auscultation, Normal air movement Cardiovascular: Regular rate, Regular Rhythm, Normal S1, Normal S2, No murmurs Abdomen: Bowel Sounds Present, Soft, Non Tender, Non-Distended Extremities: No clubbing, No cyanosis, No edema, Capillary Refill Less than 3 Seconds Skin: No rashes, No breakdown Musculoskeletal: No Tenderness to Palpation of Joints or Extremities Neurological: Cranial nerves II-XII grossly intact, Neuro grossly intact Psych/Mental Status: Normal Affect, Appropriate Vital Signs Temp Pulse Resp BP Pulse Ox 98.2 F 94 16 131/75 H 97 11/04/18 13:47 11/04/18 13:47 11/04/18 13:47 11/04/18 13:47 11/04/18 13:47 Oxygen Delivery Method Room Air Weight: 257 lb 14.4 oz Body Mass Index (BMI) 32.2 Finger Stick Blood Glucose 177 Orthostatic Vital Signs Start: 11/03/18 18:20 Freq: q24h Status: Active Protocol: Activity Type Activity Date Activity User E-Sign Co-Sign Detail Recorded Client Recorded Date Recorded By Document 11/04/18 10:48 CAB [id number] 11/04/18 10:53 CAB 11/04/18 10:48 Orthostatic Vitals Standing -Blood Pressure (90/60-120/80 mm Hg) 95/75 -Extremity Use Right Arm -Pulse Rate (60-100 beats/min) 110 H Sitting -Blood Pressure (90/60-120/80 mm Hg) 106/70 -Extremity Use Right Arm -Pulse Rate (60-100 beats/min) 101 H Lying -Blood Pressure (90/60-120/80 mm Hg) 107/63 -Extremity Use Right Arm -Pulse Rate (60-100 beats/min) 95 Intake and Output for Last 24 Hours 11/02/18 11/03/18 11/04/18 23:59 23:59 23:59 Intake Total 2131 / 2131 2160 / 2160 Output Total 1825 / 1825 1850 / 1850 Balance 306 / 306 310 / 310 Laboratory Tests Past 24 Hrs 11/04/18 11/04/18 05:05 05:05 WBC 8.5 RBC 4.32 L Hgb 13.3 Hct 40.3 MCV 93.3 MCH 30.8 MCHC 33.0 RDW Std Deviation 47.9 H RDW Coeff of Marcellus 13.9 Plt Count 197 MPV 9.9 Immature Gran % (Auto) 0.500 Neut % (Auto) 62.6 Lymph % (Auto) 29.3 [place] % (Auto) 6.3 Eos % (Auto) 0.7 Baso % (Auto) 0.6 Absolute Neuts (auto) 5.3 Absolute Lymphs (auto) 2.50 Nucleated RBC % 0 Sodium 139 Potassium 4.1 Chloride 105 Carbon Dioxide 29.0 Anion Gap 5 BUN 21 H Creatinine 1.59 H Estim Creat Clear Calc 61.26 Est GFR (MDRD) Af Amer 58 L Est GFR (MDRD) Non-Af 48 L BUN/Creatinine Ratio 13.2 Glucose 75 Calcium 7.9 L POC Glucose 11/04/18 11/04/18 11/04/18 11:22 07:49 02:14 POC Glucose 61 L 98 82 11/03/18 11/03/18 22:13 16:36 POC Glucose 73 262 H Medical Necessity - Tobacco Use Smoking Status: Current some day smoker Tobacco Use: Cigarettes Assessment/Plan All Active Problems (Last Reviewed 10/21/18 @ 13:40 by Isabell Cano) Pre-syncope (Acute) Sinusitis, acute (Resolved) 1. Presyncope, orthostatic hypotension-suspect secondary to hypovolemia. Patient received IV fluids. Repeat orthostatic vitals negative. Echocardiogram completed, report pending. Suspect symptoms may also be secondary to severe hypothyroidism due to patient not taking his thyroid medication for over a year, he is status post thyroidectomy. TSH on admission 35. He is now back on thyroid medication and will need close outpatient follow-up. Further disposition pending echo results. 2. Acute kidney injury suspected secondary to dehydration-improved with IV fluids. Trend BMP. 3. Hypertension-stable, continue home regimen. 4. Type 2 diabetes mellitus-hold oral regimen. Accucheck ACHS with SSI. 5. Hypothyroidism status post thyroidectomy- TSH 35, free T4 0.64. Continue levothyroxine 200 mcg daily. Patient had been off of thyroid medication for over a year, just started taking again last week. Recommend repeat TSH by primary care provider in 4 weeks. 6. Obesity-encouraged diet and lifestyle modifications. DVT prophylaxis-Lovenox subcu This patient was seen by REKHA Olivarez under the supervision of Dr. Drake.
== END 2018-11-04 10:03 | disposition home or self-care (01) ==
LOC: PCU 11-04 07:33 → ED 11-05 11:06 → PCU 11-05 11:06
PROVIDERS: Admitting Provider Family Medicine; Emergency Provider Emergency Medicine; Family Provider Family Medicine; PCP Family Medicine; Visit Provider Family Medicine
DX: R55 Syncope and collapse (principal); N17.9 Acute kidney failure, unspecified; I10 Essential (primary) hypertension; E11.9 Type 2 diabetes mellitus without complications; E03.9 Hypothyroidism, unspecified; E55.9 Vitamin D deficiency, unspecified; Z68.31 Body mass index [BMI] 31.0-31.9, adult; Z79.82 Long term (current) use of aspirin; Z79.899 Other long term (current) drug therapy; Z79.84 Long term (current) use of oral hypoglycemic drugs; F17.210 Nicotine dependence, cigarettes, uncomplicated
CPT/HCPCS: 36415; 71045; 80048; 80076; 81001; 82962; 83605; 83690; 84439; 84443; 84484; 85025; 93005; 93306; 96360; 96361; 99218; 99285; 99406; J7030; J7040; A4216; G0378

== ENCOUNTER 2018-11-13 20:17 | Emergency (ER) | payer OTHER, SELFPAY ==
[2018-11-03 13:35] VITALS: BMI 32.2
[2018-11-13 20:17] VITALS: BP 90/55; PULSE 109; RESP 18; TEMP 36.1; O2SAT 98; BMI 30.6
--- NOTE | 2018-11-13 20:40 | RAD_ITS ---
STUDY: X-RAY - ABDOMEN/PELVIS REASON FOR EXAM: Male, 57 years old. Constipation TECHNIQUE: KUB COMPARISON: None. FINDINGS: Normal visualized lung bases. Nonspecific ileus with diffuse fecal retention in the colon.. There is no demonstrated free abdominal air. The visualized liver, spleen and kidneys are grossly normal in size and morphology. Normal soft tissue structures. Lumbar spine demonstrates mild scoliosis and degenerative change. RAD/Abdomen Single View IMPRESSION: Nonspecific ileus with diffuse fecal retention in the colon Electronically Signed: Caesar Hernandez MD at 21:02 EDT , Service support ,
--- NOTE | 2018-11-13 21:09 | ED.DCSUM_ITS ---
- ER Visit Summary Date of Service: 11/13/18 Chief Complaint: Abdominal pain History of Present Illness: The patient is a 57 M who has abdominal pain and constipation. He has had this for a couple of weeks. He has diffuse abdominal cramping. Nothing makes better or worse. Denies nausea, vomiting or diarrhea. His last good bowel movement was 2 weeks ago. He had a small bowel movement this morning but still feels like he is full of stool. He has tried ClearLax and milk of magnesia without any relief. He was hospitalized 2 weeks ago for near syncopal-like symptoms. He has no history of abdominal surgeries Physical Examination: Vital signs reviewed. HEENT exam unremarkable. Heart is regular rate and rhythm without murmurs. Lungs are clear to auscultation. Abdomen is soft and nontender. Bowel sounds are hyperactive. Extremities reveal no edema. Skin exam normal. Neurologic exam normal. Test Results: Abdominal x-ray reveals constipation Emergency Department Course and Treatment: The etiology of the patient's symptoms is likely constipation. His abdominal exam is benign. I will send him home with magnesium citrate to help get his bowels moving. He will call his doctor tomorrow for follow-up Treatment Plan: [] Disposition: Discharge Impression: Constipation This note was generated with [employer] dictation software. It may contain incorrect words, spelling, and punctuation that were not noted in review of the chart prior to signing ED Disposition - Plan for ED Patient: Referrals: Fabiana Peña MD [Primary Care Provider] -
--- NOTE | 2018-11-13 21:10 | ED.DEP ---
ED Disposition - Plan for ED Patient: Disposition: Home or Assisted Living Instructions: CONSTIPATION (Adult) Referrals: Fabiana Peña MD [Primary Care Provider] -
[2018-11-13] MEDS: Magnesium Citrate 300 ML PO (21:18)
[2018-11-13 21:19] VITALS: BP 105/80; PULSE 96; RESP 16; O2SAT 95
--- NOTE | 2018-11-13 21:19 | ED.RN ---
ENTERED ROOM TO D/C PT. PT STATES AREN'T YOU GOING TO DO SOMETHING ABOUT THE TINGLING IN MY FEET. PT STATES HE DID NOT TALK TO DOCTOR ABOUT THIS. NOTIFIED DR. HOYOS WHO STATES FOR PT TO FOLLOW UP WITH PCP. REVIEWED D/C INSTRUCTIONS, FOLLOW UP CARE, AND S/S THAT WOULD WARRANT A RETURN TO THE ED WITH PT. PT VERBALIZED AN UNDERSTANDING AND DENIES FURTHER QUESTIONS FOR THIS RN. PT SKIN P/W/D, REPS EVEN AND UNLABORED, PT A&O X 3, NO DISTRESS NOTED. PT AMBULATED OUT OF ED, GAIT STEADY.
== END 2018-11-13 21:22 | disposition home or self-care (01) ==
LOC: ED 21:13
PROVIDERS: Emergency Provider Emergency Medicine; Family Provider Family Medicine; PCP Family Medicine
DX: K59.00 Constipation, unspecified (principal); E11.9 Type 2 diabetes mellitus without complications; Z79.4 Long term (current) use of insulin; Z79.84 Long term (current) use of oral hypoglycemic drugs
CPT/HCPCS: 74018; 99282

== ENCOUNTER 2018-11-18 10:47 | Emergency (ER) | payer OTHER, SELFPAY ==
[2018-11-18 10:48] VITALS: BP 105/68; PULSE 110; RESP 17; TEMP 36.3; O2SAT 98; BMI 31.4
[2018-11-18 12:32] LABS: Absolute Lymphocyte Count 2.28 X10^3/uL (0.83-4.51); Absolute Neutrophil Count 2.7 X10^3/uL (2.0-7.7); Basophil# 0.03 X10^3/uL; Basophil% 0.5 % (0-1); Eosinophil# 0.12 X10^3/uL; Eosinophils% 2.2 % (0-5); Hematocrit 38.9 % (40-54); Hemoglobin 12.8 g/dL (13.0-16.5); Lymphocyte # 2.28 X10^3/ul (4.0); Mean Corp Hgb Conc 32.9 g/dL (32-36); Mean Corpuscular Hgb 30.8 pg (27.0-32.0); Mean Corpuscular Volume 93.7 fL (80-94); Mean Platelet Vol. 9.5 fl (6.2-12.0); Monocyte# 0.43 X10^3/uL; Monocyte% 7.7 % (0-10); NRBC Flagged by Analyzer 0 % (0-5); Neutrophil # 2.68 X10^3/uL (2.7-7.7); Neutrophil % 48.2 % (47-70); Platelet Count 181 K/mm3 (150-450); RBC Distribution Width CV 13.9 % (11.6-14.6); Red Blood Count 4.15 M/mm3 (4.6-6.2); White Blood Count 5.6 K/mm3 (4.4-11.0)
[2018-11-18 12:54] LABS: Anion Gap 5 (5-15); BUN 13 mg/dL (7-18); BUN/Creat Ratio 9.8 RATIO (10-20); Calcium,Total 8.3 mg/dL (8.5-10.1); Chloride 101 mmol/L (98-107); Creatinine, Serum 1.33 mg/dL (0.70-1.30); EST Glomerular Filtration Rate 59 mL/min (>60); Est Glom Filt Rate - Afr Amer 71 mL/min (>60); Estimated Creatinine Clearance 73.24 ml/min; Glucose 89 mg/dL (74-106); Potassium 4.2 mmol/L (3.5-5.1); Sodium Level 134 mmol/L (136-145)
[2018-11-18 14:18] VITALS: BP 110/83; RESP 18; O2SAT 92
--- NOTE | 2018-11-18 15:04 | ED.VISSUMM ---
- ER Visit Summary Date of Service: 11/18/18 Chief Complaint: Generalized malaise. History of Present Illness: The patient is a 57 M history of diabetes, hypertension and hypothyroidism. Had taken himself off his diabetic and thyroid medications but is recently been back on them. States he just has not felt well for last several weeks. Denies any chest pain. He was seen and had some constipation recently. Denies any dysuria. Denies any melena or fever. Physical Examination: White male. Vital signs are stable afebrile. He does not look septic toxic. No acute distress. HEENT exam unremarkable. Neck nontender no lymphadenopathy. Lungs clear to auscultation bilaterally. Heart regular rhythm no murmur rate about 100. Abdomen is soft and nontender normal bowel sounds no peritoneal signs. Extremities moves all 4. Calves nontender no edema. Neurologically is awake alert with no focal motor deficits. Test Results: CBC shows white count of 5. Hemoglobin 12.8. Electrolytes are unremarkable BUN 13 creatinine 1.3 normal gap. Glucose of 89. I did check a TSH is 18.4. Prior month it was 35 so it is actually improving and he is taking his thyroid medication now. Emergency Department Course and Treatment: Repeat exam patient is doing well at 1458. He and I discussed all his test results. He will continue his current medications. He has already doubled up on the thyroid medication his primary care physician has prescribed. Treatment Plan: Follow-up with PCP. Disposition: Discharge Impression: Acute malaise and generalized weakness secondary to hypothyroidism This note was generated with [employer] dictation software. It may contain incorrect words, spelling, and punctuation that were not noted in review of the chart prior to signing ED Disposition - Plan for ED Patient: Referrals: Fabiana Peña MD [Primary Care Provider] -
--- NOTE | 2018-11-18 15:10 | ED.DEP ---
ED Disposition - Plan for ED Patient: Disposition: Home or Assisted Living Diagnosis: Hypothyroidism Referrals: Fabiana Peña MD [Primary Care Provider] - 10-14 Days if not better Additional Instructions: Her current medications and the thyroid medication the dose that you are currently taking. I think a lot of your symptoms are from your thyroid and that will improve the longer you are on the medication. They can recheck it in 1 month. It has greatly improved from 1 month ago.
[2018-11-18 15:24] VITALS: BP 110/81; PULSE 79; RESP 14; O2SAT 97
== END 2018-11-18 15:25 | disposition home or self-care (01) ==
PROVIDERS: Emergency Provider Emergency Medicine; Family Provider Family Medicine; PCP Family Medicine
DX: E03.9 Hypothyroidism, unspecified (principal); E11.9 Type 2 diabetes mellitus without complications; I10 Essential (primary) hypertension; Z79.899 Other long term (current) drug therapy; Z79.4 Long term (current) use of insulin; Z79.82 Long term (current) use of aspirin; Z72.0 Tobacco use
CPT/HCPCS: 80048; 84443; 85025; 99283; A4216

== ENCOUNTER 2018-11-30 10:06 | Inpatient (IN) | payer OTHER, SELFPAY ==
[2018-11-30] VITALS (11 sets, daily range): BP systolic 88–127; BP diastolic 58–98; PULSE 98–115; RESP 14–28; TEMP 36.1–36.7; O2SAT 97–100; BMI 29.8; BMI 29.9
--- NOTE | 2018-11-30 10:28 | EKG12_ITS ---
Test Reason : FALL Blood Pressure : / mmHG Vent. Rate : 101 BPM Atrial Rate : 101 BPM P-R Int : 186 ms QRS Dur : 088 ms QT Int : 372 ms P-R-T Axes : 054 -46 079 degrees QTc Int : 482 ms Sinus tachycardia Left anterior fascicular block T wave abnormality, consider anterior ischemia Abnormal ECG Confirmed by SIMON BENITEZ, AMY ([id number]), photographic editor RIKY BOYD ([id number]) on 12/03/2018 11:52:18 AM Referred By: Josue Barnes Confirmed By:CRISPIN MONTES MD
--- NOTE | 2018-11-30 10:35 | RAD_ITS ---
STUDY: X-RAY CHEST REASON FOR EXAM: Male, 58 years old. Pain TECHNIQUE: 2 AP portable views of the chest. COMPARISON: May 06, 2018 chest x-ray FINDINGS: The lung markings are stable when compared to prior study there is minimal linear density or scarring within the right lower lobe. There is no demonstrated pleural abnormality. Normal size heart. Normal mediastinum and colton. Normal visualized pulmonary arteries. Normal visualized aortic arch and descending thoracic aorta. Normal visualized thoracic spine. Is an old left seventh rib fracture.. There is no demonstrated abnormality of the visualized soft tissue structures of the upper abdomen. RAD/Chest 1 View (Portable) IMPRESSION: Stable chest no evidence of acute focal infiltrate. Electronically Signed: Melissa Lucio MD at 11:30 EDT Tel , Service support ,
[2018-11-30 11:02] LABS: Absolute Lymphocyte Count 1.68 X10^3/uL (0.83-4.51); Absolute Neutrophil Count 3.1 X10^3/uL (2.0-7.7); Basophil# 0.03 X10^3/uL; Basophil% 0.6 % (0-1); Eosinophil# 0.06 X10^3/uL; Eosinophils% 1.1 % (0-5); Hematocrit 38.4 % (40-54); Hemoglobin 12.5 g/dL (13.0-16.5); Lymphocyte # 1.68 X10^3/ul (4.0); Lymphocyte % 31.2 % (19-41); Mean Corp Hgb Conc 32.6 g/dL (32-36); Mean Corpuscular Hgb 30.9 pg (27.0-32.0); Mean Corpuscular Volume 94.8 fL (80-94); Mean Platelet Vol. 9.3 fl (6.2-12.0); Monocyte# 0.53 X10^3/uL; Monocyte% 9.9 % (0-10); NRBC Flagged by Analyzer 0 % (0-5); Neutrophil # 3.07 X10^3/uL (2.7-7.7); Platelet Count 218 K/mm3 (150-450); RBC Distribution Width CV 13.6 % (11.6-14.6); RBC Distribution Width SD 47.8 fl (35.1-43.9); Red Blood Count 4.05 M/mm3 (4.6-6.2); White Blood Count 5.4 K/mm3 (4.4-11.0)
[2018-11-30] MEDS: 0.9% Normal Saline 1,000 ML 999 ML IV ×2 (11:11→11:12)
[2018-11-30 11:26] LABS: Anion Gap 5 (5-15); BUN 17 mg/dL (7-18); BUN/Creat Ratio 13.1 RATIO (10-20); Calcium,Total 8.7 mg/dL (8.5-10.1); Chloride 105 mmol/L (98-107); EST Glomerular Filtration Rate 60 mL/min (>60); Est Glom Filt Rate - Afr Amer 73 mL/min (>60); Estimated Creatinine Clearance 74.03 ml/min; Glucose 129 mg/dL (74-106); Potassium 4.1 mmol/L (3.5-5.1); Sodium Level 138 mmol/L (136-145); Thyroid Stim Hormone (TSH) 3.11 uIU/mL (0.358-3.74)
--- NOTE | 2018-11-30 13:13 | ED.VISSUMM ---
- ER Visit Summary Date of Service: 11/30/18 Chief Complaint: Near syncope History of Present Illness: The patient is a 58 M with near syncope. He has been having symptoms for days. He is having dizziness, nausea. He is falling at home. Today he caught himself from falling. He was recently admitted less than a month ago for similar symptoms. He was found to have a low ejection fraction which was attributed to untreated or undertreated hypothyroidism. He has a history of diabetes, hypertension. He takes no medications for hypertension. He is not on blood thinners. He was discharged and advised to follow-up with cardiology, he has not done so. He followed up with his primary care doctor. They are changing his diabetes medications. He increased his thyroid medication on his own. He increased from 100 mcg daily to 200 mcg daily. This was not under advisement by his physician. Physical Examination: Afebrile and vital signs unremarkable except for heart rate of 115. Patient in no acute distress. Head and neck atraumatic. Heart regular. Lungs clear. Abdomen soft. Extremities nontender. Test Results: EKG showed sinus rhythm at a rate of 101 with nonspecific T wave changes. Similar to previous. Hemoglobin 12.5. Glucose 129. Troponin normal. TSH decreased to 3.11. Chest x-ray stable. Emergency Department Course and Treatment: Patient was placed on a monitor. His orthostatics were positive. He was treated with 2 L of normal saline. On reevaluation, patient was still having dizziness and lightheadedness. His repeat orthostatics had improved. They dropped by less than 20 points. He was having dizziness still. I reviewed his previous admission and his symptoms with the hospitalist. He will need admission for further care. He will need evaluation for his low ejection fraction. He will be admitted to the PCU. Treatment Plan: As above Disposition: Admission Impression: 1. Orthostatic hypotension 2. Near syncope This note was generated with [employer] dictation software. It may contain incorrect words, spelling, and punctuation that were not noted in review of the chart prior to signing ED Disposition - Plan for ED Patient: Referrals: Fabiana Peña MD [Primary Care Provider] -
--- NOTE | 2018-11-30 13:14 | NURSING ---
PCU LIA NEAR SYNCOPE
[2018-11-30 15:30] LABS: Bedside Glucose 107 mg/dL (70-110)
[2018-11-30] MEDS: 0.9% Normal Saline 1,000 ML 100 ML IV (15:35)
--- NOTE | 2018-11-30 16:09 | HP.PCM_ITS ---
Problem List (1) Type 2 diabetes mellitus Status: Chronic (2) Hypothyroidism Status: Chronic (3) HTN (hypertension) Status: Chronic (4) Pre-syncope Status: Acute (5) Sinusitis, acute Status: Resolved Qualifiers: History of Present Illness Date of Admission: 11/30/18 Chief Complaint: Dizziness, recurrent falls. The patient is a 58 year old M who presents emergency room due to dizziness with recurrent falls. Patient reports this has been ongoing since his recent adm ission in October. He denies dizziness upon standing although reports his dizziness and falls typically occur while he is walking or standing. He denies injury related to fall or passing out. He denies chest pain, shortness of breath, palpitations. Patient was recently discharged October 2018 for presyncope where he was found to have orthostatic hypotension. He was also noted to have a TSH of 35 at that time. Echocardiogram demonstrated patient to have an EF of 30%, stage III diastolic dysfunction. Plan at that time was to treat hypothyroidism and repeat echocardiogram in 1 to 2 weeks. Patient reports he followed up with primary care physician and was told echocardiogram did not needed completed that soon. He has a past medical history of hypertension, chronic kidney disease stage II, type 2 diabetes mellitus, hypothyroidism and tobacco dependence. Past Medical History Past Medical History (Chronic Problems): Chronic Problems (Last Reviewed 10/21/18 @ 13:40 by Isabell Cano) Type 2 diabetes mellitus (Chronic) Hypothyroidism (Chronic) HTN (hypertension) (Chronic) Medical History: Medical History (Last Reviewed 10/21/18 @ 13:40 by Isabell Cano) Diabetes E11.9 Diarrhea R19.7 Thyroid disease E07.9 Allergies amoxicillin Adverse Reaction (Verified 11/30/18 10:06) Nausea Home Medications: Ambulatory Orders Medication Instructions Recorded Aspirin E.C. [Ecotrin] 81 mg PO DAILY@0800 06/02/16 Dulaglutide [Trulicity] 1.5 mg SQ QWEEK 06/02/16 Insulin Human 75/25 [Humalog Mix 18 unit SQ BID 06/02/16 75-25 Kwikpen] Levothyroxine [Synthroid] 200 mcg PO DAILY@0600 #30 tab 11/04/18 metFORMIN (XR) [Glucophage Xr] 2,000 mg PO DAILY #60 tab 11/04/18 Surgical History: Surgical History (Last Reviewed 10/21/18 @ 13:40 by Isabell Cano) History of thyroidectomy Z98.890 Surgical History: - - Thyroidectomy, multiple sinus surgeries, left AC area laceration repair with tendon repair. Psychiatric History: No pertinent psych hx Lives: Spouse/ Significant Other Smoking Status: Current every day smoker Tobacco Use: Cigarettes Alcohol: None Drugs: None - *Family History Maternal History Items: - - Denies known maternal medical history including cardiac history. Paternal History Items: - - Denies known paternal medical history including cardiac history. Review of Systems Constitutional: Denies: Chills, Fever, Weight Change HEENT: Denies: Head Aches, Sinus Congestion, Sinus Drainage Cardiovascular: Denies: Chest Pain, Palpitations Respiratory: Denies: Cough, Shortness of breath at rest, Sputum production Gastrointestinal: Denies: Abdominal Pain, Nausea, Vomiting Genitourinary: Denies: Dysuria Musculoskeletal: Denies: Joint Pain, Joint Tenderness Skin: Denies: Rash, Wounds Neurological: Reports: Balance problems, Incoordination. Denies: Double vision, Slurred speech, Focal weakness Psychiatric: Denies: Anxiety, Depression, Homicidal Ideations, Suicidal Ideations Hematologic/ Lymphatic: Denies: Easy Bruising, Easy Bleeding VTE Information - Inpt Only VTE Present on Admission: No VTE Mechan Device Prophylaxis: None VTE Pharm Prophylaxis ordered?: Yes - Physical Exam General: Alert, Oriented x3, Cooperative HEENT: Atraumatic, PERRLA, EOMI, Normocephalic Neck: Supple, No JVD, Negative Carotid Bruits Lungs: Clear to auscultation, Normal air movement Cardiovascular: Regular rate, Regular Rhythm, Normal S1, Normal S2, No murmurs Abdomen: Bowel Sounds Present, Soft, Non Tender, Non-Distended Extremities: No clubbing, No cyanosis, No edema, Capillary Refill Less than 3 Seconds Skin: No rashes, No breakdown Musculoskeletal: No Tenderness to Palpation of Joints or Extremities Neurological: Cranial nerves II-XII grossly intact, Neuro grossly intact Psych/Mental Status: Normal Affect, Appropriate Vital Signs Temp Pulse Resp BP Pulse Ox 97.0 F L 108 H 16 106/64 98 11/30/18 14:13 11/30/18 14:13 11/30/18 14:13 11/30/18 14:13 11/30/18 14:13 Oxygen Flow Rate (L/min) 2 Oxygen Delivery Method Room Air Weight: 239 lb Body Mass Index (BMI) 29.8 Finger Stick Blood Glucose 177 Intake and Output for Last 24 Hours 11/28/18 11/29/18 11/30/18 23:59 23:59 23:59 Intake Total 1016.65 / 1016.65 Balance 1016.65 / 1016.65 Laboratory Tests Past 24 Hrs 11/30/18 11/30/18 10:52 10:52 WBC 5.4 RBC 4.05 L Hgb 12.5 L Hct 38.4 L MCV 94.8 H MCH 30.9 MCHC 32.6 RDW Std Deviation 47.8 H RDW Coeff of [place] 13.6 Plt Count 218 MPV 9.3 Immature Gran % (Auto) 0.200 Neut % (Auto) 57.0 Lymph % (Auto) 31.2 [place] % (Auto) 9.9 Eos % (Auto) 1.1 Baso % (Auto) 0.6 Absolute Neuts (auto) 3.1 Absolute Lymphs (auto) 1.68 Nucleated RBC % 0 Sodium 138 Potassium 4.1 Chloride 105 Carbon Dioxide 28.0 Anion Gap 5 BUN 17 Creatinine 1.30 Estim Creat Clear Calc 74.03 Est GFR (MDRD) Af Amer 73 Est GFR (MDRD) Non-Af 60 BUN/Creatinine Ratio 13.1 Glucose 129 H Calcium 8.7 Troponin I 0.020 TSH 3.11 POC Glucose 11/30/18 15:23 POC Glucose 107 Assessment/Plan All Active Problems (Last Reviewed 10/21/18 @ 13:40 by Isabell Cano) Pre-syncope (Acute) Sinusitis, acute (Resolved) 1. Presyncope, orthostatic hypotension-initial orthostatic vitals in ER positive. Patient received IV fluids, repeat orthostatic vitals negative. Continue IV fluids. Repeat in a.m. cardiology following. Cortisol level ordered. Cardiology following. If patient continues to have orthostatic hypotension despite fluid replacement, may need treatment with midodrine or Florinef pending further test results. Given dizziness with recurrent falls, feel patient should undergo brain CT. 2. Cardiomyopathy-echocardiogram October 2017 with EF 30%, stage III diastolic dysfunction, moderate pericardial effusion. No prior studies for comparison. Cardiology following. Plan for repeat echocardiogram on Sunday. Further evaluation pending results of repeat echocardiogram. 3. CKD stage II-at baseline. 4. Hypertension-no longer on regimen. 5. Type 2 diabetes mellitus-hold oral regimen. Accu-Cheks ACHS with sliding scale insulin. Continue home scheduled insulin regimen. 6. Hypothyroidism status post thyroidectomy-TSH 11/18/18 18. Now 3.1. Continue Synthroid 100 mcg daily. 7. Obesity-encouraged diet lifestyle modifications. DVT prophylaxis-heparin subcu. This patient was seen by REKHA Olivarez under the supervision of Dr. Barnes.
--- NOTE | 2018-11-30 16:44 | PCM.CONS.C ---
Problem List (1) Pre-syncope Status: Acute Reason for Consult Date of Consultation: 11/30/18 History of Present Illness: The patient is a 58 M with near syncope. He has been having symptoms for days. He is having dizziness, nausea. He is falling at home. Today he caught himself from falling. He was recently admitted less than a month ago for similar symptoms. He was found to have a low ejection fraction which was attributed to untreated or undertreated hypothyroidism. He has a history of diabetes, hypertension. He takes no medications for hypertension. He is not on blood thinners. He was discharged and advised to follow-up with cardiology, he has not done so. He followed up with his primary care doctor. They are changing his diabetes medications. He increased his thyroid medication on his own. He increased from 100 mcg daily to 200 mcg daily. This was not under advise by his physician. In the ER he had orthostatic drop in blood pressure. He was given IV fluids and his dizziness has improved. His TSH is now within normal limits. Review of systems: All systems reviewed. All else is negative except that in the HPI. [] Past Medical History Allergies/Adverse Reactions: Allergies amoxicillin Adverse Reaction (Verified 11/30/18 10:06) Nausea Home Medications: Ambulatory Orders Medication Instructions Recorded Aspirin E.C. [Ecotrin] 81 mg PO DAILY@0800 06/02/16 Dulaglutide [Trulicity] 1.5 mg SQ QWEEK 06/02/16 Insulin Human 75/25 [Humalog Mix 18 unit SQ BID 06/02/16 75-25 Kwikpen] Levothyroxine [Synthroid] 200 mcg PO DAILY@0600 #30 tab 11/04/18 metFORMIN (XR) [Glucophage Xr] 2,000 mg PO DAILY #60 tab 11/04/18 Past Medical History (Chronic Problems): Chronic Problems (Last Reviewed 10/21/18 @ 13:40 by Isabell Cano) Type 2 diabetes mellitus (Chronic) Hypothyroidism (Chronic) HTN (hypertension) (Chronic) Surgical History: - - Thyroidectomy, multiple sinus surgeries, left AC area laceration repair with tendon repair. Psychiatric History: No pertinent psych hx - *Family History Maternal History Items: - - Denies known maternal medical history including cardiac history. Paternal History Items: - - Denies known paternal medical history including cardiac history. Lives: Spouse/ Significant Other Smoking Status: Current every day smoker Tobacco Use: Cigarettes Alcohol: None Drugs: None Objective: Vital Signs Temp Pulse Resp BP Pulse Ox 97.0 F L 105 H 16 106/64 98 11/30/18 14:13 11/30/18 16:13 11/30/18 14:13 11/30/18 14:13 11/30/18 14:13 Oxygen Flow Rate (L/min) 2 Oxygen Delivery Method Room Air Weight: 239 lb Body Mass Index (BMI) 29.8 Finger Stick Blood Glucose 177 Intake and Output for Last 24 Hours 11/28/18 11/29/18 11/30/18 23:59 23:59 23:59 Intake Total 1016.65 / 1016.65 Balance 1016.65 / 1016.65 General: Awake, Alert, Oriented x 3 HEENT: Atraumatic Oral: Moist Mucosa Neck: Supple Lungs: Clear to auscultation Cardiovascular: Regular Rhythm, Normal S1, Normal S2 Abdomen: Soft Extremities: No edema Skin: No Rashes Psych/Mental Status: Appropriate 11/30/18 10:52: WBC 5.4, RBC 4.05 L, Hgb 12.5 L, Hct 38.4 L, MCV 94.8 H, MCH 30.9, MCHC 32.6, Plt Count 218, MPV 9.3, Immature Gran % (Auto) 0.200, Neut % (Auto) 57.0, Lymph % (Auto) 31.2, [place] % (Auto) 9.9, Eos % (Auto) 1.1, Baso % (Auto) 0.6, Absolute Neuts (auto) 3.1, Nucleated RBC % 0 11/30/18 10:52: Sodium 138, Potassium 4.1, Chloride 105, Carbon Dioxide 28.0, Anion Gap 5, BUN 17, Creatinine 1.30, Est GFR (MDRD) Af Amer 73, Est GFR (MDRD) Non-Af 60, BUN/Creatinine Ratio 13.1, Glucose 129 H, Calcium 8.7, Troponin I 0.020 Rhythm: EKG: ECHO: Stress Test: Cardiac Cath: PCI: CT Surgery: Holter monitor: EPS: PPM: CXR: Chest CT Scan: Assessment/Plan 1. Dizziness: This is orthostatic by history. He had orthostatic drop in blood pressure in the emergency room and is responding well to IV fluids. I will order an a.m. cortisol level. Because of his orthostatic hypotension we are unable to start him on any GUERLINE inhibitors or beta-blockers for his low EF. He may need Florinef or Midodrine if he continues to have orthostatic dizziness despite IV fluid replacement. 2. LV dysfunction: Patient had an EF of 30% at the time of last admission. His TSH at that time was over 30. The plan was to first treat as hypothyroidism and then recheck an echocardiogram. Currently his TSH is within normal limits. I will go ahead and order a 2D echo. If he has persistent LV dysfunction then he may need coronary angiography. As mentioned above due to orthostatic hypotension we are unable to start him on GUERLINE or beta blockers at this time.
[2018-11-30 17:21] LABS: Bedside Glucose 150 mg/dL (70-110)
[2018-11-30 18:11] LABS: Bedside Glucose 143 mg/dL (70-110)
[2018-11-30] MEDS: Heparin Injection (Vial) 5,000 UNIT/ML VIAL 5000 UNIT SC (22:50)
[2018-11-30 23:01] LABS: Bedside Glucose 135 mg/dL (70-110)
[2018-12-01] VITALS (9 sets, daily range): BP systolic 92–129; BP diastolic 68–92; PULSE 104–116; RESP 14–25; TEMP 36.6–36.9; O2SAT 96–98
[2018-12-01] MEDS: 0.9% Normal Saline 1,000 ML 100 ML IV ×2 (01:28→12:17)
[2018-12-01] MEDS: Levothyroxine 100 MCG Tablet PO (05:45)
--- NOTE | 2018-12-01 05:49 | NURSING ---
Pt placed call light on from bathroom, pt assisted back to bed. This nurse noted pt's face w/a slight droop. All lights turned on for examination, right eyebrow noted w/lower height and less ability to close right eye tightly. Smile uneven, w/greater curvature on the left and tongue deviates toward the left when protruded. Jonathan shoulder shrugs equal, hand television engineer equal, no ataxia, no aphasia. Pt questioned regarding past medical history:pt denies ever having a stroke, no TIAs, no migraines, no neuro events of any kind. Pt informed that current assessment was new to this nurse and needed to be shared w/ hospitalist on duty in order to protect/prevent possible future deficits.
[2018-12-01 05:51] LABS: Bedside Glucose 129 mg/dL (70-110)
--- NOTE | 2018-12-01 05:54 | CT_ITS ---
We are attempting to reach an attending provider to discuss findings. An addendum with communication details will be sent when the communication is complete. STUDY: CT BRAIN WITHOUT CONTRAST REASON FOR EXAM: Male, 58 years old. Possible stroke RADIATION DOSAGE (If Supplied By Facility): CTDIvol = ( 44.99 ) mGy, DLP = ( 846.73 ) mGycm TECHNIQUE: Transaxial CT imaging of the brain was performed without administration of intravenous contrast material. Individualized dose optimization techniques were used for this CT. COMPARISON: No relevant priors. FINDINGS: Normal soft tissue structures. Normal calvarium. Normal size ventricles and extra-axial spaces for the patient's age. Normal white matter tracts of the cerebral hemispheres. Normal basal ganglia and thalami. Normal brainstem. Normal cerebellum. There is no intracranial hemorrhage. There are no findings of an acute ischemic infarction. There is postsurgical changes right mastoid air cells and/or congenital deformity. There is soft tissue density within the right middle ear likely cerumen. There is deformity of middle ear structures, postsurgical and/or infectious/inflammatory dystrophic changes.. CT/Brain/Head without Contrast IMPRESSION: Normal unenhanced CT scan of the brain. If there is clinical concern for acute infarct further evaluation with MRI brain could be performed. postsurgical changes right mastoid air cells and/or congenital deformity. There is soft tissue density within the right middle ear likely cerumen. There is deformity of middle ear structures, postsurgical and/or infectious/inflammatory dystrophic changes Electronically Signed: Vish De Luna, at 6:26 EDT Tel , Service support ,
--- NOTE | 2018-12-01 06:00 | CT_ITS ---
STUDY: CTA HEAD AND NECK WITH CONTRAST REASON FOR EXAM: Male, 58 years old. Right-sided facial droop RADIATION DOSAGE (If Supplied By Facility): CTDIvol = ( 34.76 ) mGy, DLP = ( 837.47 ) mGycm TECHNIQUE: CT angiography was performed with a multi-detector CT scanner. Data acquisition was obtained from the skull base through the vertex following intravenous administration of 100CC IV Isovue 370. MIP images were reconstructed from the axial data set. Post-processing of the angiographic images was performed, with multiplanar reformation and 3D reconstruction. Individualized dose optimization techniques were used for this CT. COMPARISON: Head CT same day FINDINGS: Normal bilateral petrous carotid arteries. There is calcified plaques with mild atheromatous bilateral narrowing of the cavernous and supraclinoid internal carotid arteries Normal right A1 segments of the anterior cerebral artery. Normal left A1 segments of the anterior cerebral artery. Hypoplastic anterior communicating artery. Normal bilateral A2 segments of the anterior cerebral arteries. Normal right M1 and M2 segments of the middle cerebral arteries, with a normal M1 bifurcation. Normal left M1 and M2 segments of the middle cerebral arteries, with a normal M1 bifurcation. Normal right posterior communicating artery (PCOM). Normal left posterior communicating artery (PCOM). Normal bilateral vertebral arteries. Normal basilar artery with a normal basilar bifurcation. The visualized bilateral superior cerebellar (SCA) arteries are normal. Normal bilateral P1, P2 and visualized P3 segments of the posterior cerebral arteries. There is no demonstrated aneurysm of the [place]. There is no demonstrated abnormality of the visualized brain. AORTIC ARCH: Normal visualized aortic arch. Normal origins of the brachiocephalic, left common carotid, and left subclavian arteries. RIGHT CAROTID ARTERIES: Normal right common carotid artery (CCA). Normal right common carotid bulb. Normal origin of the right internal carotid (ICA) artery without a hemodynamically significant stenosis. Normal visualized cervical portion of the right internal carotid artery. Normal origin of the right external carotid artery (ECA). LEFT CAROTID ARTERIES: Normal left common carotid artery (CCA). Normal left common carotid bulb. Normal origin of the left internal carotid (ICA) artery without a hemodynamically significant stenosis. Normal visualized cervical portion of the left internal carotid artery. Normal origin of the left external carotid artery (ECA). VERTEBRAL ARTERIES: Normal bilateral vertebral arteries. CT/CTA Head AND Neck W/ Contrast IMPRESSION: No significant stenoses within the head or neck, no aneurysms calcified plaques with mild atheromatous bilateral narrowing of the cavernous and supraclinoid internal carotid arteries Electronically Signed: Vish De Luna, at 7:21 EDT Tel , Service support ,
--- NOTE | 2018-12-01 06:01 | NURSING ---
returned page; notified of pt's current assessment findings, but lacking any other deficit than facial droop and deviating tongue. ordered a stat head CT and she would meet this nurse and pt in CT.
--- NOTE | 2018-12-01 06:08 | PCM.HOSP.N ---
Hospitalist Note RN call with concern for new onset R facial droop. Noted last normal 4-4:30 pm, noted upon patient attempted synthroid administration, ~ 5:55 am. Immediately requested STROKE call and transport patient to the CT scan. Review of history with ASA only, normal renal function, added CTA head and neck. Upon evaluation R facial droop completely resolved, patient admits to prior similar history with quick resolution.
--- NOTE | 2018-12-01 06:27 | MRI_ITS ---
STUDY: MRI BRAIN WITHOUT CONTRAST REASON FOR EXAM: Male, 58 years old. Right facial droop this a.m., syncope and dizziness. TECHNIQUE: Standardized multiplanar fat and water weighted pulse sequences were obtained. COMPARISON: [address] head FINDINGS: Normal size of the ventricles and extra-axial spaces for the patient's age. There are a limited number of small white matter hyperintensities, distributed throughout the deep white matter tracts of the cerebral hemispheres, consistent with mild chronic white matter ischemic changes. Within the DWI images there are punctate regions of increased DWI signal within the left inferior and posterior cerebral abdominal as seen on series 4 image 8 with largest measuring approximately 3 to 4 mm. Normal T2* images of the brain without demonstrated susceptibility artifact. There is no demonstrated hemosiderin stain. Normal bilateral basal ganglia. Normal thalami. There is no extra-axial fluid accumulation. Normal flow voids within the major intracranial circulation suggesting patency by spin echo criteria. Normal sella turcica, pituitary gland, infundibular stalk, optic chiasm and hypothalamus. Normal tectal plate and pineal gland. Normal midbrain, [place] and medulla. Normal cerebellum. Normal basal cisterns. Normal bilateral temporal bones. Normal bilateral internal auditory canals. No demonstrated orbital abnormality, within the constraints of a routine brain study. Normal visualized paranasal sinuses. Normal calvarium and skull base. Normal visualized soft tissue structures. Normal visualized upper cervical spine. MRI/Brain without Contrast IMPRESSION: 1. Punctate DWI signal within the left inferior posterior cerebellum consistent with small distal infarcts possibly secondary to emboli given appearance. No evidence of large territorial ischemia on DWI imaging. Additional senescent changes as above. Electronically Signed: Mina Rodriguez DO at 10:33 EDT , Service support ,
[2018-12-01] MEDS: 0.9% Normal Saline 1,000 ML 999 ML IV (10:29)
[2018-12-01] MEDS: Aspirin 81 MG TAB.CHEW PO (10:30)
[2018-12-01] MEDS: Heparin Injection (Vial) 5,000 UNIT/ML VIAL 5000 UNIT SC (10:30)
[2018-12-01] MEDS: 0.9% NaCl Peripheral Flush Adult/Peds IV (10:30)
[2018-12-01 12:30] LABS: Bedside Glucose 121 mg/dL (70-110)
--- NOTE | 2018-12-01 14:10 | PCM.DC.SUM ---
Discharge Date and Diagnosis Date of Admission: 11/30/18 Date of Discharge: 12/01/18 - Primary Discharge Diagnosis 1. Acute stroke 2. Presyncope, orthostatic hypotension 3. Cardiomyopathy-EF 30% 4. CKD stage II 5. Hypertension 6. Type 2 diabetes mellitus 7. Hypothyroidism status post thyroidectomy 8. Obesity - Secondary Discharge Diagnosis Chronic Problems (Last Reviewed 10/21/18 @ 13:40 by Isabell Cano) Type 2 diabetes mellitus (Chronic) Hypothyroidism (Chronic) HTN (hypertension) (Chronic) Hospital Course and Treatment Imaging Results: Diagnostic Data Chest X-Ray 11/30/18 10:35 IMPRESSION: Stable chest no evidence of acute focal infiltrate. Electronically Signed: Melissa Lucio MD at 11:30 EDT Tel , Service support , Brain CT 12/01/18 05:54 IMPRESSION: Normal unenhanced CT scan of the brain. If there is clinical concern for acute infarct further evaluation with MRI brain could be performed. postsurgical changes right mastoid air cells and/or congenital deformity. There is soft tissue density within the right middle ear likely cerumen. There is deformity of middle ear structures, postsurgical and/or infectious/inflammatory dystrophic changes Electronically Signed: Vish De Luna at 6:26 EDT Tel , Service support , ADDENDUM: 12/01/18 0653 IMPRESSION: Normal unenhanced CT scan of the brain. If there is clinical concern for acute infarct further evaluation with MRI brain could be performed. postsurgical changes right mastoid air cells and/or congenital deformity. There is soft tissue density within the right middle ear likely cerumen. There is deformity of middle ear structures, postsurgical and/or infectious/inflammatory dystrophic changes N.B. : The above information has been verbally conveyed by Vish De Luna to Rosi Garcia on 12/01/2018 06:46:55 (ET). Electronically Signed: Vish De Luna at 6:26 EDT Tel , Service support , Head/Neck CTA 12/01/18 06:00 IMPRESSION: No significant stenoses within the head or neck, no aneurysms calcified plaques with mild atheromatous bilateral narrowing of the cavernous and supraclinoid internal carotid arteries Electronically Signed: Vish De Luna, at 7:21 EDT Tel , Service support , Brain MRI 12/01/18 06:27 IMPRESSION: 1. Punctate DWI signal within the left inferior posterior cerebellum consistent with small distal infarcts possibly secondary to emboli given appearance. No evidence of large territorial ischemia on DWI imaging. Additional senescent changes as above. Electronically Signed: Mina Rodriguez, DO at 10:33 EDT , Service support , Dr. Almanza-Cardiology Operations: None Procedures: None Summary of Care Provided: The patient is a 58 year old M admitted 11/30/2018 due to dizziness, recurrent falls. 1. Acute stroke-stroke alert called during admission due to new onset right facial droop. Brain CT normal. MRI of the brain showed small distal infarcts within the left inferior posterior cerebellum, suspected embolic in nature. Head and neck CTA showed no significant stenosis. Given no neurology coverage, transfer initiated to [facility] for further evaluation. 2. Presyncope, orthostatic hypotension-Continue IV fluids. Cortisol level pending. Cardiology following. If patient continues to have orthostatic hypotension despite fluid replacement, may need treatment with midodrine or Florinef pending further test results. 3. Cardiomyopathy-echocardiogram October 2017 with EF 30%, stage III diastolic dysfunction, moderate pericardial effusion. No prior studies for comparison. Initially plan for repeat echocardiogram, cardiology following during admission however transfer as noted above. 4. CKD stage II-at baseline. 5. Hypertension-no longer on regimen. 6. Type 2 diabetes mellitus-hold oral regimen. Accu-Cheks ACHS with sliding scale insulin. Continue home scheduled insulin regimen. 7. Hypothyroidism status post thyroidectomy-TSH 11/18/18 18. Now 3.1. Continue Synthroid 100 mcg daily. 8. Obesity-encouraged diet lifestyle modifications. General: Alert, Oriented x3, Cooperative HEENT: Atraumatic, PERRLA, EOMI, Normocephalic Neck: Supple, No JVD, Negative Carotid Bruits Lungs: Clear to auscultation, Normal air movement Cardiovascular: Regular rate, Regular Rhythm, Normal S1, Normal S2, No murmurs Abdomen: Bowel Sounds Present, Soft, Non Tender, Non-Distended Extremities: No clubbing, No cyanosis, No edema, Capillary Refill Less than 3 Seconds Skin: No rashes, No breakdown Musculoskeletal: No Tenderness to Palpation of Joints or Extremities Neurological: Cranial nerves II-XII grossly intact, minimal right facial droop, neuro otherwise grossly intact. Psych/Mental Status: Normal Affect, Appropriate Patient seen and examined prior to discharge. Physical assessment as noted above. Stable at time of transfer to [facility] for further neurologic evaluation. This patient was seen by REKHA Olivarez under the supervision of Dr. Barnes. - Physical Exam Vital Signs Temp Pulse Resp BP Pulse Ox 98.1 F 115 H 16 125/80 H 97 12/01/18 12:00 12/01/18 12:00 12/01/18 12:00 12/01/18 13:32 12/01/18 12:00 Oxygen Flow Rate (L/min) 2 Oxygen Delivery Method Room Air Weight: 238 lb 15.697 oz Body Mass Index (BMI) 29.8 Finger Stick Blood Glucose 129 Intake and Output for Last 24 Hours 11/29/18 11/30/18 12/01/18 23:59 23:59 23:59 Intake Total 1496.65 / 1496.65 3428.33 / 3428.33 Output Total 700 / 700 Balance 1496.65 / 1096.65 2728.33 / 2728.33 Laboratory Tests Past 24 Hrs 12/01/18 05:58 Cortisol Pending POC Glucose 12/01/18 12/01/18 11/30/18 12:14 05:43 22:49 POC Glucose 121 H 129 H 135 H 11/30/18 11/30/18 11/30/18 18:03 17:13 15:23 POC Glucose 143 H 150 H 107 Home Medications: Medications to take at Discharge Aspirin E.C. [Ecotrin] 81 mg PO DAILY@0800 06/02/16 Dulaglutide [Trulicity] 1.5 mg SQ QWEEK 06/02/16 Insulin Human 75/25 [Humalog Mix 75-25 Kwikpen] 18 unit SQ BID 06/02/16 Levothyroxine [Synthroid] 200 mcg PO DAILY@0600 #30 tab 11/04/18 metFORMIN (XR) [Glucophage Xr] 2,000 mg PO DAILY #60 tab 11/04/18 Primary Care Physician: Fabiana Peña MD [Primary Care Provider] - Disposition: Acute care Hospital Minutes spent on discharge:: 35 Patient Condition:: Stable Medical Necessity - Tobacco Use Smoking Status: Current every day smoker Tobacco Use: Cigarettes Meaningful Use Info Meaningful Use Diagnoses (Choose all that apply): Ischemic CVA - CVA Therapy Assessed for PT,OT and/or ST?: Yes - Ischemic Stroke Antithrombotic order at d/c?: Yes Dx of Atrial fib/flutter?: No Statins at discharge?: Yes Primary Dx Acute Ischemic CVA?: Yes IV tPA ordered during stay?: No Reason IV t-PA not ordered: Medical Contraindication
== END 2018-12-01 14:58 | disposition short-term general hospital (02) | DRG 65 ==
LOC: ED 11:01 → PCU 13:54
PROVIDERS: Specialist; Admitting Provider Internal Medicine; Emergency Provider Emergency Medicine; Family Provider Family Medicine; PCP Family Medicine; Referring Provider Internal Medicine; Visit Provider Internal Medicine
DX: I63.442 Cerebral infarction due to embolism of left cerebellar artery (principal); I42.9 Cardiomyopathy, unspecified; I13.0 Hypertensive heart and chronic kidney disease with heart failure and stage 1 through stage 4 chronic kidney disease, or unspecified chronic kidney disease; R29.810 Facial weakness; E11.22 Type 2 diabetes mellitus with diabetic chronic kidney disease; N18.2 Chronic kidney disease, stage 2 (mild); I95.1 Orthostatic hypotension; R29.6 Repeated falls; E89.0 Postprocedural hypothyroidism; F17.210 Nicotine dependence, cigarettes, uncomplicated; E66.9 Obesity, unspecified; Z68.29 Body mass index [BMI] 29.0-29.9, adult; Z79.82 Long term (current) use of aspirin; Z79.4 Long term (current) use of insulin; Z79.84 Long term (current) use of oral hypoglycemic drugs; Z79.899 Other long term (current) drug therapy
CPT/HCPCS: 36415; 70450; 70496; 70498; 70551; 71045; 80048; 82533; 82962; 84443; 84484; 85025; 92610; 93005; 97162; 97166; 97802; 99285; 99406; J7030; Q9967; A4216

== ENCOUNTER 2018-12-13 08:50 | Day surgery (SDC) | payer OTHER, SELFPAY ==
[2018-12-11 10:39] VITALS: BMI 28.2
[2018-12-11 14:08] LABS: Absolute Lymphocyte Count 2.23 X10^3/uL (0.83-4.51); Absolute Neutrophil Count 4.4 X10^3/uL (2.0-7.7); Basophil# 0.04 X10^3/uL; Basophil% 0.5 % (0-1); Eosinophil# 0.08 X10^3/uL; Eosinophils% 1.1 % (0-5); Hematocrit 41.4 % (40-54); Hemoglobin 13.4 g/dL (13.0-16.5); Lymphocyte # 2.23 X10^3/ul (4.0); Lymphocyte % 29.5 % (19-41); Mean Corp Hgb Conc 32.4 g/dL (32-36); Mean Corpuscular Hgb 29.9 pg (27.0-32.0); Mean Corpuscular Volume 92.4 fL (80-94); Mean Platelet Vol. 9.7 fl (6.2-12.0); Monocyte% 10.6 % (0-10); NRBC Flagged by Analyzer 0 % (0-5); Neutrophil # 4.39 X10^3/uL (2.7-7.7); Platelet Count 323 K/mm3 (150-450); RBC Distribution Width CV 13.3 % (11.6-14.6); RBC Distribution Width SD 45.3 fl (35.1-43.9); Red Blood Count 4.48 M/mm3 (4.6-6.2); White Blood Count 7.6 K/mm3 (4.4-11.0)
[2018-12-11 14:14] LABS: Prothrombin Time (Protime)PT. 13.4 SECONDS (11.7-14.9)
[2018-12-11 14:15] LABS: Partial Thromboplast Time 32.6 Seconds (24.1-36.2)
[2018-12-11 14:47] LABS: Anion Gap 5 (5-15); BUN 13 mg/dL (7-18); BUN/Creat Ratio 11.5 RATIO (10-20); Calcium,Total 8.9 mg/dL (8.5-10.1); Chloride 101 mmol/L (98-107); Creatinine, Serum 1.13 mg/dL (0.70-1.30); EST Glomerular Filtration Rate 71 mL/min (>60); Est Glom Filt Rate - Afr Amer 86 mL/min (>60); Glucose 80 mg/dL (74-106); Potassium 3.8 mmol/L (3.5-5.1); Sodium Level 135 mmol/L (136-145)
[2018-12-13] VITALS (20 sets, daily range): BP systolic 98–131; BP diastolic 76–94; PULSE 92–101; RESP 10–19; TEMP 36.4–36.6; O2SAT 94–100; BMI 28.2; BMI 28.5
--- NOTE | 2018-12-13 12:00 | EKG12_ITS ---
Test Reason : AM EKG Blood Pressure : / mmHG Vent. Rate : 099 BPM Atrial Rate : 099 BPM P-R Int : 190 ms QRS Dur : 088 ms QT Int : 384 ms P-R-T Axes : 055 -46 075 degrees QTc Int : 492 ms Normal sinus rhythm Left anterior fascicular block Prolonged QT Abnormal ECG Confirmed by REJI BENITEZ, CHRISTINE ([id number]), slot editor JOSE CALDERÓN ([id number]) on 12/25/2018 2:22:58 PM Referred By: Sebastián Almanza Confirmed By:CHRISTINE MENDOZA MD
[2018-12-13] MEDS: 0.9% Normal Saline 1,000 ML 60 ML IV (12:45)
[2018-12-13 13:23] LABS: Hematocrit 43.7 % (40-54); Hemoglobin 13.9 g/dL (13.0-16.5); Mean Corp Hgb Conc 31.8 g/dL (32-36); Mean Corpuscular Hgb 29.6 pg (27.0-32.0); Mean Corpuscular Volume 93.2 fL (80-94); Mean Platelet Vol. 9.1 fl (6.2-12.0); Platelet Count 322 K/mm3 (150-450); RBC Distribution Width CV 13.2 % (11.6-14.6); RBC Distribution Width SD 45.2 fl (35.1-43.9); Red Blood Count 4.69 M/mm3 (4.6-6.2); White Blood Count 8.3 K/mm3 (4.4-11.0)
--- NOTE | 2018-12-13 14:54 | CRPHASE1 ---
Patient Communication Former Patient:: Phase I, Phase II PHII Cardiac Rehab Discussed with Patient:: Yes Guide to Cardiac Rehab Given to Patient:: Yes Cardiac Rehab Facility Choice List Given to Patient:: Yes Choice Program [facility] CR PHII:: Communication Given to CR, Refer to [facility] Choice Program Other:: Communication Given to CR, With permission faxed order and referral information Textile Machine Mechanic:: Sebastián Almanza Refer Phase II Cardiac Rehab:: Yes Sessions:: 36 sessions - 3 days/wk, 12 weeks Risk Factors/Lifestyle Smoking Status: Former smoker Hx Diabetes Mellitus Type 2: Yes Hx Metabolic Disorders: Yes Hx Dyslipidemia: No Hx Obesity: Yes Height: 6 ft 3 in - BMI 28.6 Risk Factor for Sedentary Lifestyle: Moderate Risk Family History: Family History (Last Reviewed 12/11/18 @ 16:34 by Sebastián Almanza MD) Mother Arrhythmia Father CAD (coronary artery disease) Phase I Education Given On:: [place], Nutrition, Antiplatelet medication, Diabetes - Type II Issues Affecting Care:: None Knowledge of Condition:: Yes Learning Preferences: Verbal, Written Hospital Course Presenting Symptoms:: ABNORMAL STRESS Medical/Surgical History NC:: No CAD:: No Diabetes:: Yes Diabetes Type II:: Yes Hypertension:: Yes Dyslipidemia:: No CEA:: Yes - HX Thyroid:: Yes - HYPO Discharge/Home/Social Eval Discharge Disposition: Home Cardiac Rehabilitation Info Cardiac Rehabilitation Program Information: Cardiac Rehabilitation is important for patients like you who are recovering from a heart problem. Cardiac rehabilitation programs are recognized as integral to the continued care of the patient with coronary heart disease. The cardiac rehabilitation program is designed to optimize a patient's physical, psychological, and social functioning. Health lawn care professional work in cardiac rehabilitation programs and assist you with getting the treatments you need to get stronger and healthier - like exercise, healthy eating habits, and medications. Cardiac rehabilitation has been show to help people with heart problems live longer and have better life enjoyment than people who do not go to cardiac rehabilitation. Please contact the Cardiac Rehabilitation Program at [facility] at in two weeks if you have not heard from them.
--- NOTE | 2018-12-13 14:57 | CRPH1.INSTRU ---
General Education CAD and cardiac anatomy and function:: Patient communicates acknowledgment Explanation of diagnoses and procedures:: Patient communicates acknowledgment Sign/Symptoms of [place]:: Patient communicates acknowledgment Antiplatelet therapy: Patient communicates acknowledgment Proper use of NTG-SL: Not instructed Emergency procedures and activation of EMS: Patient communicates acknowledgment Compliance of all prescribed medications: Patient communicates acknowledgment Smoking Recommendations Include:: Previous smoker; encourage continued cessation Nicotine/Smoking Response Code:: Patient communicates acknowledgment Dyslipidemia Patient Dyslipidemia Risk Factors Are:: HDL Recommendations Include:: Lipid profile provided, Reviewed NCEP/ATP guidelines, Therapeutic Lifestyle Change dietary guidelines Dyslipidemia Response Code:: Patient communicates acknowledgment Overweight/Obesity Patient Overweight/Obesity Risk Factors Are:: Overweight = 26-29 Recommendations Include:: Weight loss of 5-10%, Reduced calorie diet, Exercise 5-7 times/week Overweight/Obesity:: Patient communicates acknowledgment Hypertension Patient Hypertension Risk Factors Are:: No documented hx of HTN Heart Disease Heart Disease Response Code:: Patient communicates acknowledgment Diabetes Patient Diabetes Risk Factors Are:: Elevated blood sugars Date of HgbA1c:: 03/27/17 - 12.7 Recommendations Include:: Maintain fasting blood sugars 70-110 md/dL, Maintain HgbA1c of 6% or less, Monitor blood sugar as prescribed, Diabetic dietary guidelines, Decrease/maintain body weight Diabetes:: Patient communicates acknowledgment Metabolic Syndrome Patient Metabolic Syndrome Risk Factors Are [3 of 5]:: Fasting blood sugar > 100 mg/dL, Hypertension, Low HDL <40 [male] or < 50 [female] Recommendations Include:: Reinforce compliance to risk factor modifications, Patient is diabetic, Encouraged follow-up with Primary Care Physician Metabolic Syndrome Response Code:: Patient communicates acknowledgment Sedentary Patient Sedentary Risk Factors Are:: Lack of regular exercise Recommendations Include:: Aerobic exercise 5-7 times/week for 20-30 minutes continuously, Benefits of regular exercise, Discussed home walking program, Monitored Outpatient Cardiac Rehab Sedentary Response Code:: Patient communicates acknowledgment Stress Recommendations Include:: Identification of stressors, and assessment of coping skills, Stress management techniques Stress Response Code:: Patient communicates acknowledgment
--- NOTE | 2018-12-13 15:14 | PCM.DC.CCA ---
<Jagdeep Parish - Last Filed: 12/13/18 15:14> Discharge Diet: Low fat/ Low Cholesterol Discharge Activity: Return to Normal Activity May shower in (days): 1 - no tub baths for 5 days Lifting Restrictions: Do not lifting anything greater than 10 pounds for 3 days Call your doctor if your incision/area has: Continuous Slow Oozing, Sudden Increased Bleeding, Increased Pain/ Swelling, Increased Redness, Foul Smelling Discharge, Swelling at the incision site Call your doctor if you observe: Fever of 101 or Higher, Shortness of breath, Chest pain Remove Dressing in (days):: 1 Cleanse incision/area with: Soap & Water Additional Instructions: He will continue with aspirin and Plavix therapy. You will remain on Plavix for at least one year. If any when asked you to stop your Plavix please call the [facility] office at [phone]. You are scheduled for an office appointment on 12/25/[address] at [address] Almanza. Allergies/Adverse Reactions: Allergies amoxicillin Adverse Reaction (Verified 12/11/18 10:43) Nausea Medications to take at Discharge Aspirin E.C. [Ecotrin] 81 mg PO DAILY@0800 06/02/16 Dulaglutide [Trulicity] 1.5 mg SQ QWEEK 06/02/16 Insulin Human 75/25 [Humalog Mix 75-25 Kwikpen] 18 unit SQ BID 06/02/16 metFORMIN (XR) [Glucophage Xr] 2,000 mg PO DAILY #60 tab 11/04/18 nitroglycerin 0.4 mg sublingual tablet 0.4 mg SUBLINGUAL Q5-15M PRN 12/10/18 levothyroxine 100 mcg tablet 100 mcg PO DAILY@0600 tab 12/11/18 metoclopramide 5 mg tablet 5 mg PO Q6H PRN tab 12/11/18 ondansetron HCl 4 mg tablet 4 mg PO Q6H PRN tab 12/11/18 Atorvastatin Calcium [Lipitor] 40 mg PO QHS #30 tab 12/14/18 Clopidogrel Bisulfate [Plavix] 75 mg PO DAILY #30 tab 12/14/18 The following prescriptions were given: Atorvastatin Calcium [Lipitor] 40 mg PO QHS #30 tab Transmission Status: Pending to [id number] Clopidogrel Bisulfate [Plavix] 75 mg PO DAILY #30 tab Transmission Status: Pending to [id number] Primary Care Physician: Fabiana Peña MD [Primary Care Provider] - Test Results: Test results from this visit will be discussed in further detail at your follow-up appointment, if applicable. Please Follow Up With: Sebastián Almanza MD When: 12/25/2018 at 10 AM Proposed Discharge Date: 12/14/18 Cardiac Rehabilitation Info Cardiac Rehabilitation Program Information: Cardiac Rehabilitation is important for patients like you who are recovering from a heart problem. Cardiac rehabilitation programs are recognized as integral to the continued care of the patient with coronary heart disease. The cardiac rehabilitation program is designed to optimize a patient's physical, psychological, and social functioning. Health healthcare consultant work in cardiac rehabilitation programs and assist you with getting the treatments you need to get stronger and healthier - like exercise, healthy eating habits, and medications. Cardiac rehabilitation has been show to help people with heart problems live longer and have better life enjoyment than people who do not go to cardiac rehabilitation. Please contact the Cardiac Rehabilitation Program at [facility] at in two weeks if you have not heard from them. <Arnold Duke - Last Filed: 12/14/18 11:30> Discharge Diet: 1800 Calorie Control Diet Additional Instructions: Medications: Hold metformin until 12/16/2018 and then resume. Blood test: Obtained blood test (BMP: Arranged by the outpatient office) on 12/16/2018. Test Results: Test results from this visit will be discussed in further detail at your follow-up appointment, if applicable. Cardiac Rehabilitation Info Cardiac Rehabilitation Program Information: Cardiac Rehabilitation is important for patients like you who are recovering from a heart problem. Cardiac rehabilitation programs are recognized as integral to the continued care of the patient with coronary heart disease. The cardiac rehabilitation program is designed to optimize a patient's physical, psychological, and social functioning. Health healthcare consultant work in cardiac rehabilitation programs and assist you with getting the treatments you need to get stronger and healthier - like exercise, healthy eating habits, and medications. Cardiac rehabilitation has been show to help people with heart problems live longer and have better life enjoyment than people who do not go to cardiac rehabilitation. Please contact the Cardiac Rehabilitation Program at [facility] at in two weeks if you have not heard from them.
--- NOTE | 2018-12-13 18:12 | CL.I_ITS ---
Patient Name: DEREK PINA Study Date: 12/13/2018 Performing: Chino Almanza MD Ht: 75 inches 191 cm : 1960 Wt: 221.3 lbs 100.24 kg Age: 58 Gender: male BSA: 2.29 PROCEDURE(S) PERFORMED NM87-QEX/COR/LV EX86-OPW W OR WO PTCA, SINGLE CORONARY ARTERY CLINICAL PROFILE AND CO-MORBIDITIES Indications: Cardiomyopathy Heart Failure: NYHA Class: 2, Newly Diagnosed: Yes, Heart Failure Type: Systolic Stress/Imaging Stress Test w/SPECT MPI: Yes Result: Positive High Risk Stress Test with SPECT MPI : Positive High Risk CAD Presentations: Other: CHF CONCLUSIONS CAD as described. Severe LV dysfunction out of proportion to CAD. No significant or MR. Successful PCI of dLCx with FELY RECOMMENDATIONS ASA Indefinitley Plavix for at least 12 months Routine post interventional care Follow up with primary farm management teacher DESCRIPTION OF PROCEDURE The patient arrived to the procedure lab. The risks and benefits of the procedure as well as a full d escription of our services here and lack of surgical backup were fully explained to the patient and/o r their significant other prior to the catheterization. The Timeout was completed, verifying the breonna ect patient and procedure. The patient's procedural site was prepped and draped in the usual fashion. Local anesthetic was given subcutaneously to right radial region with Lidocaine 2%. Using a modified Seldinger technique, arterial access was obtained via the right radial artery, a 6Fr sheath was inse rted.. Left Coronary Artery selective angiography was performed in multiple views using a 5 Fr. JL3. 5 catheter. Left Ventriculography was performed in MARION projection using a 5 Fr. JR4. LV to AO pullbac k pressures were then recorded. Right Coronary Artery selective angiography was then performed in mul tiple views using a 5 Fr. JR 4 catheterThe images were reviewed and options discussed. A decision was then made to proceed with an Intervention, IVUS or other adjunct procedure. XB 3.5 Guide catheter was inserted and engaged into the LCA. [employer] [place] Guide wire was advance d to the Circumflex. Emerge 2.0 x 15 Balloon catheter was inserted. Balloon catheter was advanced acr oss lesion in the circumflex, distal. PTCA balloon inflated at 10 atms for 20 secs. PTCA balloon infl ated at 10 atms for 22 secs. Angiogram performed post balloon dilatation. Elunir 2.5 x 33 Drug Elutin g stent was inserted. Drug Eluting stent was advanced across the lesion in the circumflex, distal. An giogram performed pre stent deployment. Angiogram performed post stent deployment. The arterial she ath was pulled and a TR Band was applied for hemostasis CORONARY ANGIOGRAPHY DOMINANCE: Left Dominant LEFT HEART ASSESSMENT Left Ventricular Ejection Fraction: by LV Gram 20 % Global Hypokinesis - Severe LEFT MAIN: Mild luminal irregularities LEFT ANTERIOR DESCENDING ARTERY: MID LAD: 60 % Stenosis CIRCUMFLEX ARTERY: DISTAL CIRC: 95 % Stenosis RIGHT CORONARY ARTERY: MID RCA: 65 % Stenosis VALVE FINDINGS: No Aortic Valve Stenosis No Mitral Insufficency INTERVENTION INFORMATION LESION SITE: Circumflex (Distal) Lesion Complexity: High/C, chronic total occlusion: No, lesion at bifurcation: No, thrombus present: No, lesion length: 30 mm, culprit lesion: Yes, Previously treated lesion: No Pre Stenosis: 95 % Pre intervention HARJINDER flow: 3 PROCEDURE: Drug Eluting Stent with pre dilatation. Post Stenosis: 0 % Post intervention HARJINDER flow: 3 Lesion Devices: Cordis 6 Fr XB3.5 100cm Guide Catheter Esquivel .014 [employer] [place] Straight 190cm Trey Sci EMERGE MR 2.00x15 BALLOON Cardinal Elunir FELY RX 2.5x33 COMPLICATIONS No Complications PROCEDURE MEDICATIONS Fentanyl 50 mcg IV Versed 1 mg IV Versed 1 mg IV Oxygen: 2 L/min via nasal cannula Heparin given IA 12/13/2018 10:36:54 Heparin 4000 unit(s) IV 12/13/2018 10:50:12 Plavix 600 mg PO 12/13/2018 11:13:37 Verapamil 2.5mg, Ntg 100mcgs, 3000 units of Heparin given IA 12/13/2018 10:36:54 IV Bolus: .9 NaCl 300 ml total 12/13/2018 11:33:11 SUMMARY OF HEMODYNAMIC DATA Time AIR REST ECG 09:09:19 AO 83/52 (65) SA 10:39:11 LV 95/-1, 8 10:45:51 LV 93/-2, 5 10:45:58 LV 94/-2, 7 10:46:41 LV 92/-1, 6 10:46:47 LVp 100/-1, 5 10:46:53 AO 86/64 (72) 10:46:58 AO 95/74 (82) 10:54:44 Signed By Chino Almanza MD On 12/13/2018 6:11:18 PM Chino Almanza MD
[2018-12-13 18:20] LABS: Bedside Glucose 96 mg/dL (70-110)
[2018-12-13] MEDS: Atorvastatin Calcium 40 MG Tablet PO (20:43)
[2018-12-13] MEDS: Docusate Sodium 100 MG Capsule PO (22:56)
[2018-12-13] MEDS: Temazepam 15 MG Capsule PO (22:56)
[2018-12-14] VITALS (12 sets, daily range): BP systolic 90–139; BP diastolic 59–98; PULSE 98–107; RESP 13–17; TEMP 36.6–36.7; O2SAT 94–99
[2018-12-14 04:41] LABS: Hemoglobin 13.3 g/dL (13.0-16.5); Mean Corp Hgb Conc 33.3 g/dL (32-36); Mean Corpuscular Hgb 30.2 pg (27.0-32.0); Mean Corpuscular Volume 90.7 fL (80-94); Mean Platelet Vol. 9.2 fl (6.2-12.0); Platelet Count 273 K/mm3 (150-450); RBC Distribution Width CV 13.1 % (11.6-14.6); RBC Distribution Width SD 43.9 fl (35.1-43.9); Red Blood Count 4.41 M/mm3 (4.6-6.2); White Blood Count 7.2 K/mm3 (4.4-11.0)
[2018-12-14 05:01] LABS: ALB/GLOB Ratio 0.9 RATIO (0.9-2.4); AST(SGOT) 16 U/L (15-37); Alanine Aminotransfer ALT/SGPT 17 U/L (16-61); Albumin, Serum 3.3 g/dL (3.2-5.0); Alkaline Phosphatase 88 U/L (45-117); Anion Gap 9 (5-15); BUN 11 mg/dL (7-18); Calcium,Total 8.2 mg/dL (8.5-10.1); Chloride 103 mmol/L (98-107); Creatinine, Serum 0.92 mg/dL (0.70-1.30); EST Glomerular Filtration Rate 90 mL/min (>60); Est Glom Filt Rate - Afr Amer 109 mL/min (>60); Globulin 3.5 g/dL (2.2-4.2); Glucose 103 mg/dL (74-106); Potassium 4.1 mmol/L (3.5-5.1); Protein, Total 6.8 g/dL (6.4-8.2); Sodium Level 136 mmol/L (136-145)
[2018-12-14] MEDS: Levothyroxine 100 MCG Tablet PO (06:34)
[2018-12-14 06:46] LABS: Bedside Glucose 100 mg/dL (70-110)
[2018-12-14] MEDS: Clopidogrel Bisulfate 75 MG Tablet PO (11:07)
[2018-12-14] MEDS: Aspirin E.C. 81 MG Tablet PO (11:07)
--- NOTE | 2018-12-14 11:30 | PCM.DC.SUM ---
Discharge Date and Diagnosis Date of Admission: 12/13/18 Date of Discharge: 12/14/18 - Primary Discharge Diagnosis CAD status post PCI - Secondary Discharge Diagnosis Chronic Problems (Last Reviewed 12/11/18 @ 16:34 by Sebastián Almanza MD) Chronic combined systolic and diastolic heart failure (Chronic) Essential hypertension (Chronic) Hospital Course and Treatment Operations: None Procedures: Cardiac catheterization, - - Cardiac intervention Summary of Care Provided: The patient is a 58 year old white male with a history of an underlying cardiomyopathy presented for further evaluation with diagnostic cardiac catheterization. Dr. Almanza performed diagnostic cardiac catheterization which subsequently led to LCx PCI/FELY. The patient was monitored in the hospital overnight. He appeared to be symptomatically and hemodynamically stable. On 12-14-18 it was felt the patient could be released home for continued outpatient cardiovascular follow-up. [] Subjective: The patient appears to be awake and alert and in no acute distress. - Physical Exam General: Alert, Oriented x3, Cooperative, No apparent distress HEENT: Atraumatic, PERRLA, Normocephalic Oral: Moist Mucosa Neck: Supple Lungs: Clear to auscultation Cardiovascular: Regular rate, Normal S1, Normal S2 Abdomen: Bowel Sounds Present, Soft, Non Tender Extremities: No edema Neurological: Neuro grossly intact Psych/Mental Status: Normal Affect Comment: Right radial artery area: Pulse 2+/4+; no bruit; no hematoma Vital Signs Temp Pulse Resp BP Pulse Ox 97.9 F 103 H 13 139/96 H 99 12/14/18 04:00 12/14/18 11:00 12/14/18 11:00 12/14/18 11:00 12/14/18 11:00 Oxygen Flow Rate (L/min) 97 Oxygen Delivery Method Room Air Weight: 229 lb 11.547 oz Body Mass Index (BMI) 28.5 Finger Stick Blood Glucose 129 Intake and Output for Last 24 Hours 12/12/18 12/13/18 12/14/18 23:59 23:59 23:59 Intake Total 955 / 1697 982 / 982 Output Total 550 / 800 600 / 600 Balance 405 / 897 382 / 382 Laboratory Tests Past 24 Hrs 12/13/18 12/14/18 12/14/18 13:00 04:25 04:25 WBC 8.3 7.2 RBC 4.69 4.41 L Hgb 13.9 13.3 Hct 43.7 40.0 MCV 93.2 90.7 MCH 29.6 30.2 MCHC 31.8 L 33.3 RDW Std Deviation 45.2 H 43.9 RDW Coeff of Marcellus 13.2 13.1 Plt Count 322 273 MPV 9.1 9.2 Sodium 136 Potassium 4.1 Chloride 103 Carbon Dioxide 24.0 Anion Gap 9 BUN 11 Creatinine 0.92 Estim Creat Clear Calc 104.60 Est GFR (MDRD) Af Amer 109 Est GFR (MDRD) Non-Af 90 BUN/Creatinine Ratio 12.0 Glucose 103 Calcium 8.2 L Total Bilirubin 0.90 AST 16 ALT 17 Alkaline Phosphatase 88 Total Protein 6.8 Albumin 3.3 Globulin 3.5 Albumin/Globulin Ratio 0.9 POC Glucose 12/14/18 12/13/18 06:34 18:16 POC Glucose 100 96 Discharge Diet: 1800 Calorie Control Diet Discharge Activity: Return to Normal Activity May shower in (days): 1 - no tub baths for 5 days Call your doctor if your incision/area has: Continuous Slow Oozing, Sudden Increased Bleeding, Increased Pain/ Swelling, Increased Redness, Foul Smelling Discharge, Swelling at the incision site Call your doctor if you observe: Fever of 101 or Higher, Shortness of breath, Chest pain Remove Dressing in (days):: 1 Cleanse incision/area with: Soap & Water Home Medications: Medications to take at Discharge Aspirin E.C. [Ecotrin] 81 mg PO DAILY@0800 06/02/16 Dulaglutide [Trulicity] 1.5 mg SQ QWEEK 06/02/16 Insulin Human 75/25 [Humalog Mix 75-25 Kwikpen] 18 unit SQ BID 06/02/16 metFORMIN (XR) [Glucophage Xr] 2,000 mg PO DAILY #60 tab 11/04/18 nitroglycerin 0.4 mg sublingual tablet 0.4 mg SUBLINGUAL Q5-15M PRN 12/10/18 levothyroxine 100 mcg tablet 100 mcg PO DAILY@0600 tab 12/11/18 metoclopramide 5 mg tablet 5 mg PO Q6H PRN tab 12/11/18 ondansetron HCl 4 mg tablet 4 mg PO Q6H PRN tab 12/11/18 Atorvastatin Calcium [Lipitor] 40 mg PO QHS #30 tab 12/14/18 Clopidogrel Bisulfate [Plavix] 75 mg PO DAILY #30 tab 12/14/18 Following Prescrptions Were Given to Patient: Atorvastatin Calcium [Lipitor] 40 mg PO QHS #30 tab Transmission Status: Pending to [facility] [id number] Clopidogrel Bisulfate [Plavix] 75 mg PO DAILY #30 tab Transmission Status: Pending to [facility] [id number] Primary Care Physician: Fabiana Peña MD [Primary Care Provider] - Please Follow Up With: Sebastián Almanza MD When: 12/25/2018 at 10 AM Additional Instructions: Medications: Hold metformin until 12/16/2018 and then resume. Blood test: Obtained blood test (BMP: Arranged by the outpatient office) on 12/16/2018. Disposition: Home Minutes spent on discharge:: 45 Patient Condition:: Stable Medical Necessity - Tobacco Use Smoking Status: Former smoker Meaningful Use Info Meaningful Use Diagnoses (Choose all that apply): None applicable
== END 2018-12-14 11:29 | disposition home or self-care (01) ==
LOC: CLSP 08:50 → ICU 11:30
PROVIDERS: Family Provider Family Medicine; PCP Family Medicine; Referring Provider Specialist; Visit Provider Specialist
DX: I25.10 Atherosclerotic heart disease of native coronary artery without angina pectoris (principal); I11.0 Hypertensive heart disease with heart failure; I50.42 Chronic combined systolic (congestive) and diastolic (congestive) heart failure; I42.9 Cardiomyopathy, unspecified; R42 Dizziness and giddiness; R94.39 Abnormal result of other cardiovascular function study; E03.9 Hypothyroidism, unspecified; E11.9 Type 2 diabetes mellitus without complications; Z79.02 Long term (current) use of antithrombotics/antiplatelets; Z79.82 Long term (current) use of aspirin; Z79.4 Long term (current) use of insulin; Z79.84 Long term (current) use of oral hypoglycemic drugs; Z79.899 Other long term (current) drug therapy; Z87.891 Personal history of nicotine dependence; Z86.73 Personal history of transient ischemic attack (TIA), and cerebral infarction without residual deficits
CPT/HCPCS: 36415; 80048; 80053; 82962; 85025; 85027; 85610; 85730; 92928; 93005; 93458; 99152; 99153; J7030; J7040; C1725; C1769; C1874; C1887; C1894; C9600; J1327; Q9967

== ENCOUNTER → 2018-12-16 13:22 | Outpatient (CLI) | payer OTHER, SELFPAY ==
[2018-12-13 11:40] VITALS: BMI 28.5
[2018-12-16 14:55] LABS: Anion Gap 7 (5-15); BUN 14 mg/dL (7-18); BUN/Creat Ratio 12.8 RATIO (10-20); Calcium,Total 8.7 mg/dL (8.5-10.1); Chloride 105 mmol/L (98-107); Creatinine, Serum 1.09 mg/dL (0.70-1.30); EST Glomerular Filtration Rate 74 mL/min (>60); Est Glom Filt Rate - Afr Amer 89 mL/min (>60); Glucose 111 mg/dL (74-106); Potassium 3.9 mmol/L (3.5-5.1); Sodium Level 136 mmol/L (136-145)
== END ==
PROVIDERS: Family Provider Family Medicine; PCP Family Medicine; Referring Provider Specialist; Visit Provider Specialist
DX: I25.10 Atherosclerotic heart disease of native coronary artery without angina pectoris (principal); I11.0 Hypertensive heart disease with heart failure; I50.42 Chronic combined systolic (congestive) and diastolic (congestive) heart failure; Z95.5 Presence of coronary angioplasty implant and graft
CPT/HCPCS: 36415; 80048

== ENCOUNTER → 2018-12-24 10:36 | Outpatient (CLI) | payer OTHER, SELFPAY ==
[2018-12-13 11:40] VITALS: BMI 28.5
--- NOTE | 2018-12-24 10:39 | NM_ITS ---
CLINICAL: 58-year-old diabetic male with reported history of postprandial nausea. SEMI-SOLID PHASE 99m Tc SULFUR COLLOID GASTRIC EMPTYING STUDY COMPARISON: None available FINDINGS: The patient was administered 1.0 mCi of 99m Tc sulfur colloid mixed with oatmeal and consumed per os. Image acquisitions in the anterior-posterior projections for a total of 60 minutes. There is prompt visualization of the stomach. There is no gastroesophageal reflux identified. The T1/2 linear fit was calculated to be 50.06 minutes, (Normal: 12-56 minutes). NM/Gastric Emptying Study IMPRESSION: 1. NORMAL 99m Tc sulfur colloid semi-solid phase (oatmeal) gastric emptying imaging examination. A. There is normal and preserved semi-solid phase gastric emptying compared to normal controls. (Maryam et al, J Nucl Med Tech 38: 186, 2010). Electronically Signed: Quentin Rosales DO at 23:48 EDT Tel , Service support ,
== END ==
PROVIDERS: Family Provider Family Medicine; PCP Family Medicine; Referring Provider Internal Medicine Endocrinology, Diabetes & Metabolism; Visit Provider Internal Medicine Endocrinology, Diabetes & Metabolism
DX: R68.81 Early satiety (principal); E11.65 Type 2 diabetes mellitus with hyperglycemia
CPT/HCPCS: 78264; A9541

== ENCOUNTER → 2019-01-07 09:44 | Outpatient (CLI) | payer OTHER, SELFPAY ==
[2018-12-25 10:17] VITALS: BMI 28.3
[2019-01-07 12:57] LABS: Absolute Lymphocyte Count 2.12 X10^3/uL (0.83-4.51); Absolute Neutrophil Count 3.8 X10^3/uL (2.0-7.7); Basophil# 0.06 X10^3/uL; Basophil% 0.9 % (0-1); Eosinophil# 0.19 X10^3/uL; Eosinophils% 2.9 % (0-5); Hematocrit 40.3 % (40-54); Hemoglobin 13.1 g/dL (13.0-16.5); Lymphocyte # 2.12 X10^3/ul (4.0); Lymphocyte % 31.9 % (19-41); Mean Corp Hgb Conc 32.5 g/dL (32-36); Mean Corpuscular Hgb 29.7 pg (27.0-32.0); Mean Corpuscular Volume 91.4 fL (80-94); Mean Platelet Vol. 9.7 fl (6.2-12.0); Monocyte# 0.52 X10^3/uL; Monocyte% 7.8 % (0-10); NRBC Flagged by Analyzer 0 % (0-5); Neutrophil # 3.75 X10^3/uL (2.7-7.7); Neutrophil % 56.3 % (47-70); Platelet Count 229 K/mm3 (150-450); RBC Distribution Width CV 13.5 % (11.6-14.6); RBC Distribution Width SD 45.5 fl (35.1-43.9); Red Blood Count 4.41 M/mm3 (4.6-6.2); White Blood Count 6.7 K/mm3 (4.4-11.0)
[2019-01-07 13:07] LABS: Vitamin B12 462 pg/mL (211-911)
[2019-01-07 13:21] LABS: Microalbumin:Creatinine Ratio 11.4 mg/g CRE (<30 mg/g CRE)
[2019-01-07 14:22] LABS: AST(SGOT) 14 U/L (15-37); Alanine Aminotransfer ALT/SGPT 20 U/L (16-61); Albumin, Serum 3.5 g/dL (3.2-5.0); Alkaline Phosphatase 75 U/L (45-117); Anion Gap 9 (5-15); BUN 14 mg/dL (7-18); BUN/Creat Ratio 14.5 RATIO (10-20); Calcium,Total 8.7 mg/dL (8.5-10.1); Chloride 103 mmol/L (98-107); Creatinine, Serum 0.97 mg/dL (0.70-1.30); EST Glomerular Filtration Rate 85 mL/min (>60); Est Glom Filt Rate - Afr Amer 103 mL/min (>60); Ferritin 196 ng/mL (26-388); Free T3 1.9 pg/mL (2.18-3.98); Globulin 3.4 g/dL (2.2-4.2); Glucose 103 mg/dL (74-106); Iron 49 ug/dL (65-175); Iron Binding Capacity,Total 295 ug/dL (250-450); PERCENT IRON SATURATION 16.6 % (15.0-55.0); Potassium 4.1 mmol/L (3.5-5.1); Protein, Total 6.9 g/dL (6.4-8.2); Sodium Level 135 mmol/L (136-145)
[2019-01-08 22:03] LABS: Anti-Thyroglobulin AB < 1.0 IU/mL (0.0-0.9); Thyroglobulin, Serum Qt. 3.9 ng/mL (1.4-29.2)
[2019-01-10 11:37] LABS: ANTINUCLEAR ANTIBODIES DIRECT NEGATIVE
[2019-01-10 11:38] LABS: Methylmalonic Acid Bld 201
== END ==
PROVIDERS: Family Provider Family Medicine; PCP Family Medicine; Referring Provider Family Medicine; Visit Provider Internal Medicine Endocrinology, Diabetes & Metabolism
DX: G62.9 Polyneuropathy, unspecified (principal); E89.0 Postprocedural hypothyroidism
CPT/HCPCS: 36415; 80053; 82043; 82533; 82570; 82607; 82728; 82746; 83540; 83550; 83921; 84432; 84443; 84481; 85025; 86038; 86800

== ENCOUNTER → 2019-01-08 16:19 | Outpatient (CLI) | payer OTHER, SELFPAY ==
[2019-01-07 13:27] VITALS: BMI 28.5
[2019-01-10 16:08] LABS: Folate, RBC (Hct) Test 37.9 % (37.5-51.0)
[2019-01-13 13:20] LABS: Folates, RBC Test 995 ng/mL (>498)
== END ==
PROVIDERS: Family Provider Family Medicine; PCP Family Medicine; Referring Provider Family Medicine; Visit Provider Internal Medicine Endocrinology, Diabetes & Metabolism
DX: G62.9 Polyneuropathy, unspecified (principal); E89.0 Postprocedural hypothyroidism
CPT/HCPCS: 82747; 85014

== ENCOUNTER → 2019-01-14 11:14 | Outpatient (CLI) | payer OTHER, SELFPAY ==
[2019-01-07 13:27] VITALS: BMI 28.5
[2019-01-14 12:08] LABS: T4 Free Direct 1.18 ng/dL (0.76-1.46)
== END ==
PROVIDERS: Family Provider Family Medicine; PCP Family Medicine; Referring Provider Internal Medicine Endocrinology, Diabetes & Metabolism; Visit Provider Internal Medicine Endocrinology, Diabetes & Metabolism
DX: E89.0 Postprocedural hypothyroidism (principal)
CPT/HCPCS: 36415; 84439; 84443; 84481

== ENCOUNTER → 2019-01-14 11:27 | Outpatient (CLI) | payer OTHER, SELFPAY ==
[2019-01-07 13:27] VITALS: BMI 28.5
--- NOTE | 2019-01-14 11:32 | CR.HP_ITS ---
CR - History & Physical - General Arrival date:: 01/14/19 Arrival time:: 11:30 Date of Referral:: 12/13/18 Date of CR Evaluation:: 01/14/19 Referring Physician: DR ALMANZA Primary Diagnosis: STENT X1 - History of Present Cardiac Event Onset Date: Enter Onset Date of cardiac illnesses in Comment field below Current stable Angina Pectoris:: No Acute Myocardial Infarction within 12 months:: No Coronary Artery Bypass Graft:: No Heart valve replacement or repair:: No PTCA or coronary stenting:: Yes - X1 Heart or Heart-Lung Transplant:: No Heart Failure EF <35%:: Yes Type of Symptoms:: HAD 2 STROKES, THEN HEART CATH Interventions with present event:: STENT X1 Were there any complications?: NONE - Medications Home Medications: Ambulatory Orders Medication Instructions Recorded Aspirin E.C. [Ecotrin] 81 mg PO DAILY@0800 06/02/16 nitroglycerin 0.4 mg sublingual 0.4 mg SUBLINGUAL Q5-15M PRN 12/10/18 tablet metoclopramide 5 mg tablet 5 mg PO Q6H PRN tab 12/11/18 ondansetron HCl 4 mg tablet 4 mg PO Q6H PRN tab 12/11/18 Atorvastatin Calcium [Lipitor] 40 mg PO QHS #30 tab 12/14/18 Clopidogrel Bisulfate [Plavix] 75 mg PO DAILY #30 tab 12/14/18 insulin lispro protamine-lispro 28 unit SC TID ml 12/25/18 100 unit/mL (75-25) subcutaneous pen meclizine 25 mg tablet 25 mg PO TID PRN 12/25/18 metformin ER 500 mg 500 mg PO BID tab 12/25/18 tablet,extended release 24 hr midodrine 10 mg tablet 10 mg PO TID #90 tab 12/25/18 fludrocortisone 0.1 mg tablet 0.1 mg PO DAILY #30 tab 01/07/19 Liothyronine Sodium 25 PO BID 01/14/19 - Allergies Allergies/Adverse Reactions: Allergies amoxicillin Adverse Reaction (Verified 01/07/19 13:35) Nausea - Sleep Disorder Evaluation Hx of Sleep Apnea: No Do you snore loudly (louder than talking or can be heard through closed doors)?: No Do you often feel tired/ fatigued/ sleepy during daytime?: No Has anyone observed you stop breathing during sleep?: No History of Hypertension (for STOP score): Yes STOP Results: Negative Advanced Directives - Advanced Directives Power of Motorcycle Delivery Driver: No Living Will: No Advance Directives Information Provided: Yes Advance Directives on File: No DNR Order?:: No Past Medical History - Past Medical Illness Medical History: Past Medical History (Last Reviewed 01/07/19 @ 14:25 by Sebastián Almanza MD) Atherosclerosis of coronary artery of [place] heart without angina pectoris (Chronic) I25.10 2.5 x 33 mm Elunir FELY to dLCx 12/13/18 Abnormal stress test (Chronic) R94.39 Chronic combined systolic and diastolic heart failure (Chronic) I50.42 CVA (cerebral vascular accident) (Chronic) I63.9 Essential hypertension (Chronic) I10 Hypothyroidism E03.9 Nausea & vomiting R11.2 Nicotine use disorder F17.200 Type 2 diabetes mellitus without complication E11.9 Diarrhea R19.7 Pre-syncope (Resolved) R55 Sinusitis, acute (Resolved) J01.90 Thyroid disease E07.9 - Past Surgical History Surgical History: Past Surgical History (Last Reviewed 01/07/19 @ 14:25 by Sebastián Almanza MD) Presence of stent in coronary artery (Chronic) Z95.5 2.5 x 33 mm Elunir FELY to dLCx 12/13/18 History of ear surgery Z98.890 inner ear reconstruction as a child History of surgery on arm Z98.890 artery and tendon repair after industrial accident History of thyroidectomy Z98.890 Surgical History: - - Thyroidectomy, multiple sinus surgeries, left AC area laceration repair with tendon repair. - Family History Summary Family History: Family History (Last Reviewed 01/07/19 @ 14:25 by Sebastián Almanza MD) Mother Arrhythmia Father CAD (coronary artery disease) possible bypass Social History - Smoking History Smoking Status: Former smoker Years Smokin Packs Smoked per Day: 1 Hx Smoking Cessation Date: 12/13/2018 - Alcohol Use Alcohol Usage: Yes - JUAR OCCASIONAL - Substance Abuse Hx Substance Use: No - Occupation Occupation (List type of work in comments):: Employed - [employer] Hours worked per day:: 8 - Hobbies, Recreation, Social Activities Hobbies: Watch TV Recreational Activities: I am able to engage in a few activities Social Environment - Status Marital Status: - Current Living Arrangements Living Environment:: Spouse - Children How many children do you have?: 3 Do any of your children live nearby?: Yes - Safety Do you feel safe in your surroundings?: Yes - Assistance Do you need any assistance at home?: CANE OR WALKER PERIODICALLY Review of Systems - Review of Systems Hints: Right click = Denies (Slash). Left click = Reports ([place]) Review of Present Symptoms: Reports: Dizziness/Lightheadedness - PT HAD LIGHTHEADED/DIZZINESS PRIOR TO STENT, Appetite - Normal. Denies: Shortness of Breath at Rest, Shortness of Breath with Exertion, PVD, Operative Discomfort, Angina, Wound Healing, Fatigue, Heart Arrhythmia/Irregularities, Sleep - Normal - DIFFICULT TIME STAYING ASLEEP, AVE 2 HRS PER NIGHT - Pain Is Patient Pain Free?: Yes Risk Factor Assessment - Chief Complaint Chief Complaint: CURRENT PCI PT WHO PRESENTS TODAY FOR CR INITIAL EVALUATION - Vital Signs Temperature: 98.6 F Respiratory Rate: 16 Nailbeds:: PINK - Pulse Pulse Rhythm: Regular - Hypertension How long have you been treated?: 'YEARS' On medication(s)?: NONE AT PRESENT Blood Pressure Sitting - Left Arm: 100/76 - Stress Stress: Recent, Long-standing, Work-related, Home/Family - Diabetes Diabetic History: Type II Nutrition Referral for Diabetes: No - Obesity Height: 6 ft 3 in Weight:: 228 lb Weight in Pounds: 228.0 lbs Body Mass Index (BMI): 28.5 Nutritional Referral for Obesity: No - Physical Inactivity Physical Inactivity: Physically demanding job - AT TIMES - Risk Stratification Risk Guidelines: Lowest Risk: Risk Factor for Smoking, Risk Factor for Obesity, Risk Factor for Hypertension, Risk Factor for Sedentary Lifestyle, Risk Factor for Depression, Highest Risk: Risk Factor for Diabetes - For Smoking Smoking Risk Guidelines: Smoking Low Risk: None or quit greater than 6 months ago. Smoking Moderate Risk: Smoker or quit 6 months or less ago. Smoking High Risk: Smoker - For Dyslipidemia Dyslipidemia Risk Guidelines: Low Risk: Moderate Risk: High Risk: 15-25% fat 25.1-29% fat >/= 30% fat. <7% sat fat 7-9% sat fat >9% sat fat. <150 mg chol 150-299 mg chol >/= 300 mg chol. LDL <100 LDL 100-129 LDL >/= 130. Chol/HDL ratio <5.0 Chol/HDL ratio 5.0-6.0 Chol/HDL ratio >6.0. Triglycerides <100 Triglycerides 100- 149 Triglycerides >/= 150 - For Diabetes Mellitus Diabetes Risk Guidelines: Diabetes Low Risk: HgA1c <6.5% and/or FBG <120. Diabetes Moderate Risk: HgA1c 6.6-7.9% and/or FBG 120-180. Diabetes High Risk: HgA1c >/= 8% and/or FBG >180 - For Obesity/Overweight Obesity/Overweight Risk Guidelines: Obesity Low Risk: BMI <25.0. Obesity Moderate Risk: BMI 25-29.9. Obesity High Risk: BMI >/= 30.0 - For Hypertension Hypertension Risk Guidelines: Hypertension Low Risk: Systolic <120 and Diastolic <80. Hypertension Moderate Risk: Systolic 120-139 and Diastolic 80-89. Hypertension High Risk: Systolic >/= 140 and Diastolic >/= 90 - For Sedentary Lifestyle Sedentary Lifestyle Risk Guidelines: Sedentary Lifestyle Low Risk: >/= 1,500 kcal/week. Sedentary Lifestyle Moderate Risk: 700-1,499 kcal/week. Sedentary Lifestyle High Risk: < 700 kcal/week - For Depression Depression Risk Guidelines: Depression Low Risk: Not clinically depressed. Depression Moderate Risk: Mildly depressed. Depression High Risk: Clinically depressed - Family History Family History: Family History (Last Reviewed 01/07/19 @ 14:25 by Sebastián Almanza MD) Mother Arrhythmia Father CAD (coronary artery disease) Motivation - Motivation to Participate On a scale of 1 to 10, how prepared are you to commit to attending program?: 10 What do you see as barriers to successfully being able to complete the program?: NONE What do you see as the benefits of succesfully completing the program? In other words, what do you hope to get out of participating in the program?: GET HEALTHY AGAIN Are there issues you are dealing with that will interfere with completing the program?: LOSS OF BALANCE Do you have a spouse or signficant other, family or friends who will help support you to complete the program?: SPOUSE
[2019-01-14 12:04] VITALS: BP 100/76; RESP 16; TEMP 37; BMI 28.5
--- NOTE | 2019-01-14 12:07 | CR.ITP_ITS ---
General Information - General Information Admitting Diagnosis: PCI WITH STENT - Education/Goals Barriers to Learning: None Individual Counseling: Initial Assessment: Diabetes, Stress Cardiac Rehabilitation Goals: 1. Maintain the individual as the primary focus of care. 2. To improve the patient's quality of life. 3. Identification of cardiac risk factors and provide cardiac risk factor management. 4. Enhance the psychosocial status of the patient. 5. Reconditioning enough to allow the patient to resume customary activities. 6. Control symptoms of cardiac disease Scale for measuring improvement of personal goals: Enter appropriate number in Comments. 2 = Unchanged. 3 = Slightly Better. 4 = Moderate Improvement. 5 = Met my Goal Personal Goals: Initial Assessment: Improve energy level, Get back to work, or to resume activities faster, Improve knowledge of cardiac disease, Improve muscle strength and endurance, Improve diet and eating habits (eat healthier), Control risk factors (learn risk factor modification) Exercise - Initial Assessment - Visit Date of Eval: 01/14/19 - Stages of Change Stages of Change:: Action - Physician Prescribed Exercise Modalities: Biodyne, Airdyne, NuStep, SciFit - PT HAS DIZZINESS/LIGHTHEADED AND USES AND AND WALKER AT TIMES FOR STABILITY Frequency (days/week): 3x/week for 12 weeks [36 sessions] Intensity: 60-80% maximum heart rate reserve from GXT Target Heart Rate:: 105-138 - Hypertension Do any of the following apply?: Yes - PT IS CURRENTLY OFF MEDICATION DUE TO LOW B/P Resting Blood Pressure:: 100/76 - Intervention Home Exercise/Activity Goal:: Sitting Time <3 hrs/day - Education Goals:: Warm-up, RPE ADIEL Scale, S/S, Safe Exercise, Self-Monitoring Nutrition - Initial Assessment - Program Goals Nutrition Program Goals: LDL <70. Total Cholesterol <200. HDL >45. Triglycerides <150. HgbA1C <7%. BMI <25 - Stages of Change Stages of Change:: Action - Diabetes Diabetes:: Yes Hgb A1C: 7.8 Insulin: Yes Do you monitor your blood sugar at home?: Yes - YES AND ENCOURAGE TO BRING TO CR - Weight Management Height: 6 ft 3 in Weight:: 228 lb - Intervention Referral to dietitian:: No Referral to Diabetic Clinic:: No Will attend diet classes:: Yes - CR CLASSES - Education Gave educational materials for:: Signs & symptoms of hypoglycemia, Signs & symptoms of hyperglycemia, Relate diabetes to coronary artery disease, Healthy eating - INFORMED ABOUT CR EDUCATION ON-LINE AVAILABLE ON WEB-SITE Tobacco - Initial Assessment - Program Goals Tobacco Program Goals: Complete smoking cessation. Attend education classes. Improve Knowledge Test score - Stage of Change Stages of Change:: Action - Learning Barriers Learning Barriers: Ready to Learn - Family Support Do you have family support?: Yes - Tobacco Use Tobacco Use: Non-smoker - QUIT IN SEPT THIS YEAR How long ago did you quit using tobacco products?: Less than 6 months ago How many cigarettes do you smoke per day?: 20 Years Smokin - Intervention Smoking Cessation Referral:: No - PT DOES NOT WANT AT THIS TIME Education Schedule Given:: Yes Psychosocial - Initial Assess - Target Goals Target Goals: Assess presence or absence of depression. Using a valid screening tool, maximizes coping skills. Positive support system - Stages of Change Stages of Change:: Action - Psychosocial Test Tool Used:: HANDS Depression Questionnaire - Intervention PS - Interventions: Yes Attend Stress Management Classes - CR CVLASSES, Yes Uses Stress Management Skills - CR CLASSES, No Referral to Mental Health, No Referral to [facility] Case Management, No Referral to Physician - Patient/Program Goal Preventative Medication(s):: Aspirin, Clopidogrel, Statin/lipid - Assistive Devices Assistive Devices:: Cane, Walker - USES NEEDED FOR BALANCE Fall Risk Assessed:: Yes - PT USES CANE/WALKER NEEDED WHEN 'BALANCE OFF' Patient Health Questionnaire Initial Assessment 1. Little interest or pleasure in doing things: Several days 2. Feeling down, depressed, or hopeless: Several days 3. Trouble falling or staying asleep, or sleeping too much: Nearly every day 4. Feeling tired or having little energy: Several days 5. Poor appetite or overeating: Not at all 6. Feeling bad about yourself -- or that you are a failure or have let yourself or your family down: More than half the days 7. Trouble concentrating on things, such as reading the newspaper or watching television: Several days 8. Moving or speaking so slowly that other people could have noticed. Or the opposite - being so fidgety or restless that you have been moving around a lot more than usual: Several days 9. Thoughts that you would be better off , or of hurting yourself in some way: Not at all How difficult have these problems made it for you to do your work, take care of things at home, or get along with other people?: Somewhat difficult Total Score: 10 ESTEE-Q SV Test - Statements CAD is a disease of the arteries in the heart: I Don't Know Examples of risk factors for heart disease: True Angina is chest pain or discomfort: I Don't Know The benefits of resistance training include: True Eating more meat and dairy products: True Anti-platelet medications such as aspirin are important: I Don't Know The only effective way to manage stress: False An exercise warm-up slowly increases heart rate: True Prepared, processed foods usually have high sodium: True Depression is common after a heart attack: I Don't Know The statin medications lower cholesterol: I Don't Know To control blood pressure, lower the amount of sodium: True If someone gets chest discomfort during walking: True Transfats are partially hydrogenated vegetable oils: I Don't Know Sleep apnea that is not treated increases the risk: I Don't Know To control cholesterol, one should become a vegetarian: False Someone knows if he/she is exercising at the right level: True Diabetes cannot be prevented with exercise & health eating: False Stress is a large risk for heart attack: True A diet that can help lower blood pressure is rich in: True - Total Score Total Correct Responses: 11 Self-Efficacy Initial Assessment We would like to know how confident you are in doing certain activities. Please select your confidence level for:: Select your confidence level for the following using the scale 1-10 where 1 is not at all confident and 10 is totally confident. Your score is the average of all 6 responses. Fatigue: How confident are you that you can keep the fatigue caused by your disease from interfering with the things you want to do? Select Number: 7 Physical Discomfort or Pain: How confident are you that you can keep the physical discomfort or pain of your disease from interfering with the things you want to do? Select Number: 7 Emotional Distress: How confident are you that you can keep the emotional distress caused by your disease from interfering with the things you want to do? Select Number: 7 Other Symptoms or Health Problems: How confident are you that you can keep other symptoms or health problems from interfering with the things you want to do? Select Number: 9 Different Tasks and Activities: How confident are you that you can do the different tasks and activities needed to manage your health condition so as to reduce your need to see a doctor? Select Number: 9 Medication: How confident are you that you can do things other than just taking medication to reduce how much your illness affects your everyday life? Select Number: 9 Total Score:: 8 Nutrition Survey - Nutrition Survey Instructions Scoring Instructions: Scoring is as follows: Yes = 1 points. No = 0 point. Patient score that is >/=12 is considered to be at potential nutritional risk and could benefit from a referral to a registered dietitian. - Nutrition Survey Initial Have you lost >10 lbs over the past 2 months without trying?: Yes Are you following a special diet at home for diabetes, low fat, or low salt?: Yes Are you interested in meeting with a dietitian for help understanding your diet?: Yes Do you eat less than 3 meals a day?: Yes Do you eat fatty meats (novak, sausage, ribs, etc), fried foods, desserts, large amounts of salad dressings, margarine, butter, or cheese most days?: Yes Do you have food allergies? [Enter types in comment field]: No Do you eat in restaurants more than 3 times a week?: No Do you season food with salt, seasoning salt, or garlic salt?: Yes Do you used canned, boxed, frozen meals, or soups, seasoning packets?: Yes Total Score:: 7
[2019-01-14 12:21] VITALS: BP 100/76
== END ==
PROVIDERS: Family Provider Family Medicine; PCP Family Medicine; Visit Provider Specialist
DX: Z95.5 Presence of coronary angioplasty implant and graft (principal)

== ENCOUNTER 2019-01-20 10:43 | Outpatient (RCR) | payer OTHER, SELFPAY ==
[2019-01-14 12:04] VITALS: BMI 28.5
[2019-01-19 09:23] VITALS: BMI 28.5
== END 2019-02-15 23:59 ==
LOC: CR 10:43
PROVIDERS: Family Provider Family Medicine; PCP Family Medicine; Referring Provider Specialist; Visit Provider Specialist
DX: I25.10 Atherosclerotic heart disease of native coronary artery without angina pectoris (principal); I11.0 Hypertensive heart disease with heart failure; I50.42 Chronic combined systolic (congestive) and diastolic (congestive) heart failure; Z95.5 Presence of coronary angioplasty implant and graft
CPT/HCPCS: 93798

== ENCOUNTER → 2019-01-22 11:25 | Outpatient (CLI) | payer OTHER, SELFPAY ==
[2019-01-14 12:04] VITALS: BMI 28.5
[2019-01-19 09:23] VITALS: BMI 28.5
--- NOTE | 2019-01-22 11:31 | US_ITS ---
STUDY: THYROID ULTRASOUND REASON FOR EXAM: Male, 58 years old. Status post thyroidectomy. TECHNIQUE: Ultrasound evaluation of the thyroid was performed with real-time and static mcnally-scale imaging. COMPARISON: July 03, 2016 FINDINGS: The thyroid is absent keeping with history of thyroidectomy. In the left thyroid bed there is a hypoechoic lesion measuring 0.8 x 0.5 x 0.6 cm thought to represent a lymph node. This appears decreased in size when compared to the previous examination. US/Thyroid IMPRESSION: No evidence of recurrent disease. Electronically Signed: Avinash Cedillo DO at 17:49 EST Tel [phone], Service support ,
== END ==
PROVIDERS: Family Provider Family Medicine; PCP Family Medicine; Referring Provider Internal Medicine Endocrinology, Diabetes & Metabolism; Visit Provider Internal Medicine Endocrinology, Diabetes & Metabolism
DX: E89.0 Postprocedural hypothyroidism (principal)
CPT/HCPCS: 76536

== ENCOUNTER → 2019-02-19 10:05 | Outpatient (CLI) | payer OTHER, SELFPAY ==
[2019-02-10 13:25] VITALS: BMI 27.1
--- NOTE | 2019-02-19 10:08 | NM_ITS ---
CLINICAL: 58-year-old male with reported history of primary thyroid carcinoma status post I-131 ablation, presenting for restaging examination. I-131 WHOLE BODY SCINTIGRAPHY COMPARISON: None available FINDINGS: Following the oral administration of 4.1 mCi of I-131, whole body images obtained at 48 hours post radiopharmaceutical administration reveal: 1. There is no definitive scintigraphic evidence of abnormal increased radiopharmaceutical concentration on review of whole body acquisitions. 2. Normal physiologic distribution of the radiopharmaceutical is identified in the oral cavity, distribution of the right-left parotid glands, stomach and urinary bladder. NM/Thyroid Whole Body I-131 Scan IMPRESSION: 1. NEGATIVE EXAMINATION. There is no definitive scintigraphic evidence of iodine avid local regional-distant metastatic disease on the current evaluation. Electronically Signed: Quentin Rosales DO at 10:58 EST Tel , Service support ,
== END ==
PROVIDERS: Family Provider Family Medicine; PCP Family Medicine; Referring Provider Internal Medicine Endocrinology, Diabetes & Metabolism; Visit Provider Internal Medicine Endocrinology, Diabetes & Metabolism
DX: C73 Malignant neoplasm of thyroid gland (principal)
CPT/HCPCS: 78018; A9528

== ENCOUNTER → 2019-02-21 11:37 | Outpatient (CLI) | payer OTHER, SELFPAY ==
[2019-02-10 13:25] VITALS: BMI 27.1
[2019-02-24 17:26] LABS: Anti-Thyroglobulin AB < 1.0 IU/mL (0.0-0.9); Thyroglobulin, Serum Qt. 6.1 ng/mL (1.4-29.2); Thyroid Peroxidase AB 15 IU/mL (0-34)
== END ==
PROVIDERS: Family Provider Family Medicine; PCP Family Medicine; Referring Provider Internal Medicine Endocrinology, Diabetes & Metabolism; Visit Provider Internal Medicine Endocrinology, Diabetes & Metabolism
DX: E11.65 Type 2 diabetes mellitus with hyperglycemia (principal)
CPT/HCPCS: 36415; 84432; 86376; 86800

== ENCOUNTER 2019-03-06 08:30 | Outpatient (RCR) | payer OTHER, SELFPAY ==
[2019-01-19 09:23] VITALS: BMI 28.5
--- NOTE | 2019-01-31 13:50 | HP.PTEVAL_ITS ---
Patient's Visit Information DEREK PINA is a 58 year old M referred to Physical Therapy by Willem Collins MD with a diagnosis of ataxia. Date of Evaluation: 01/31/19 Physical Therapist: Vidal Stephenson DPT, OCS, CSCS - Visit Plan Frequency: 2x /Week Duration: 2 Months Plan: 2x/week for 4-8 weeks for. balance and gait on faom and with head movements, bending. progression of adaptation VOR ex via HEP as tolerated. - Subjective Findings: Was in hospital mid November for unsteady gait and losing balance and said he had two strokes in hospital. Fell a couple time uncharacteristically prior to hospital stay. Strokes caused imblaance and nausea. Sent to [place] and back to [place] for heart stent. saw neurology. Doesn't feel unsteady now but more nauseous. Taking meclizine daily. No spinning or dizzyness but does get nauseous. Gets it every otherday when up and about alot. R arm numb, no numbness in legs. Sleep isn't good. Work as [employer] on feet 50% [employer] 8 hour shifts. 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 Working from home right now starting this week. is 60% better. 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 - Objective Walks I on firm flat surface, Trasnfers I sit adn supine. c/s aROM mod limited to 30 ext adn 40 rotation but no symptoms. LE reflexes patella adna chilles 2/3. Sensation LE WNL to gross light touch. strength LE 4/5 B. Ocuomotor: no nystagmus with gaze or head shake. pursuit adn saccades appear normal. VOR give symptoms 7/10 after 30 seconds horiz for 1-2 minutes. - head thrust. - skew eyedeviation - Balance Scores Functional Gait Assessment Score: 25 % Disability: 16.6700 CATSIB Score (Max score 120 seconds): 102 - Goals Goal 1:: 2930 FGA to return to work safely. Goal Time Frame: 6-8 Weeks Goal 2:: Patient feel nausea 90% better Goal Time Frame: 6-8 Weeks Goal 3:: DHI < 10% disability. Goal Time Frame: 4-6 Weeks - Rehabilitation Potential Physical Therapy Diagnosis: Unsteady gait adn nausea Rehabilitation Potential: Fair - Anticipated Interventions Patient/Client Instruction: Educate patient on: Condition, Plan of Care For the Purpose of:: To increase tolerance to activity/condition/position, To improve ability of physical actions for home/community/work/leisure, To improve balance Therapeutic Exercise to Include: Balance training Comment: adapataion For the Purpose of:: To increase tolerance to activity/condition/position, To decrease level of supervision to perform tasks, To improve balance, To improve safety with gait Thank you for the opportunity to evaluate your patient. For Medicare and Medicare HMO plans, please review the plan of care and approve it. It will need to be FAXED BACK to us at [phone] for Medicare purposes. For Medicare only, by signing this I certify the plan of care. Please let me know if there are questions or concerns regarding this plan of care. Physician Signature: Date:
--- NOTE | 2019-04-25 07:26 | HP.PT.NRP ---
HP - Discharge Summary (1) - Patient Information DEREK PINA was seen in my office for initial evaluation on 01/31/19. The following Plan of Care was established for this patient: Initial Frequency: 2x /Week Initial Duration: 2 Months - Anticipated Interventions Patient/Client Instruction: Educate patient on: Condition, Plan of Care For the Purpose of:: To increase tolerance to activity/condition/position, To improve ability of physical actions for home/community/work/leisure, To improve balance Therapeutic Exercise to Include: Balance training For the Purpose of:: To increase tolerance to activity/condition/position, To decrease level of supervision to perform tasks, To improve balance, To improve safety with gait This patient was last seen in our office 03/06/19. Pertinent comments regarding their Physical therapy will appear below: Pt seen 6 visits of POC but no showed for his last visit and neglected to reschedule. At this point, it has been nearly two months and I will discontinue due to nonattendance. At this point I will be discontinuing this patient from physical therapy. I would be happy to see this patient again in the future if found appropriate by the physician. Thank you! Vidal Stephenson, DPT, OCS, CSCS
== END 2019-03-06 19:00 | disposition home or self-care (01) ==
LOC: PT 08:30
PROVIDERS: Family Provider Family Medicine; PCP Family Medicine; Referring Provider Psychiatry & Neurology Neurology; Visit Provider Psychiatry & Neurology Neurology
DX: R27.0 Ataxia, unspecified (principal)
CPT/HCPCS: 97110; 97162; 97530

== ENCOUNTER → 2019-03-25 08:39 | Outpatient (CLI) | payer OTHER, SELFPAY ==
[2019-02-10 13:25] VITALS: BMI 27.1
[2019-03-25 10:09] LABS: Anion Gap 2 (5-15); BUN 14 mg/dL (7-18); BUN/Creat Ratio 14.7 RATIO (10-20); Calcium,Total 8.1 mg/dL (8.5-10.1); Chloride 113 mmol/L (98-107); Creatinine, Serum 0.96 mg/dL (0.70-1.30); EST Glomerular Filtration Rate 86 mL/min (>60); Est Glom Filt Rate - Afr Amer 104 mL/min (>60); Glucose 122 mg/dL (74-106); Potassium 3.5 mmol/L (3.5-5.1); Sodium Level 143 mmol/L (136-145)
== END ==
LOC: LAB.FUTURE 08:40 → LAB 03-26 06:24
PROVIDERS: Family Provider Family Medicine; PCP Family Medicine; Referring Provider Internal Medicine Endocrinology, Diabetes & Metabolism; Visit Provider Internal Medicine Endocrinology, Diabetes & Metabolism
DX: C73 Malignant neoplasm of thyroid gland (principal)
CPT/HCPCS: 36415; 80048

== ENCOUNTER → 2019-03-25 16:43 | Outpatient (CLI) | payer OTHER, SELFPAY ==
--- NOTE | 2019-03-25 15:15 | ASPS_PTH ---
PATIENT: DEREK PINA LOC: [facility] U#:[id number] AGE/SX: 64/M ROOM: RE03/25/[address]: Dr. Vish Warner MD : 1960 BED: DIS: SPEC #: [id number] RECD: 03/25/19 16:39 STATUS: KAYCEE HOA #: [id number] DENZEL: 03/25/19 15:[address]: Vish Warner DEPT: CYTOLOGY RECD BY: Navneet Anthony ENTERED: 03/26/19 10:28 SP TYPE: ASPIRATION OTHR DR: Dr. Fabiana Peña MD Tissues: Thyroid gland, NOS Procedures: Special Stain Group II Cytology Other HEADER OPERATION: Left thyroid FNA PRE-OP DIAGNOSIS: Left thyroid nodule TISSUE SUBMITTED: Left thyroid (8 slides) DIAGNOSIS CYTOLOGY Left thyroid nodule, FNA (smears): Lymph node tissue, positive for malignant cells consistent with metastatic papillary carcinoma of thyroid. Adequate for evaluation. See comment. SUNDAY:rg 03/27/19 COMMENT Immediate cytologic evaluation to determine adequacy is not applicable. Please make reference to previous specimen ([id number]) central compartment lymph nodes, biopsy with diagnosis of two out of five lymph nodes positive for metastatic carcinoma, left inferior lymph node, biopsy with diagnosis of one lymph node positive for metastatic carcinoma and thyroid, total thyroidectomy with diagnosis of papillary carcinoma, multifocal and two out of three lymph nodes positive for metastatic carcinoma. Case has been reviewed in consultation with Dr. Archibald who concurs with the above diagnosis. IDC:AM CYTOLOGY STUDY Slides are reviewed. CYTOLOGY GROSS Received are 8 smears labeled with the patient's name and designated per the requisition as left thyroid. Submitted for staining. / cc 03/26/19 TC:0 CPT: 84441
[2019-03-25 15:40] VITALS: BMI 32.6
== END ==
PROVIDERS: Family Provider Family Medicine; PCP Family Medicine; Referring Provider Surgery; Visit Provider Surgery
DX: E04.1 Nontoxic single thyroid nodule (principal)
CPT/HCPCS: 88161; 88313

== ENCOUNTER → 2019-04-09 09:38 | Outpatient (CLI) | payer OTHER, SELFPAY ==
[2019-03-31 14:33] VITALS: BMI 32.4
[2019-04-09 10:40] LABS: Absolute Lymphocyte Count 1.53 X10^3/uL (0.83-4.51); Absolute Neutrophil Count 4.1 X10^3/uL (2.0-7.7); Basophil# 0.04 X10^3/uL; Basophil% 0.6 % (0-1); Eosinophil# 0.12 X10^3/uL; Eosinophils% 1.9 % (0-5); Hemoglobin 12.4 g/dL (13.0-16.5); Lymphocyte # 1.53 X10^3/ul (4.0); Lymphocyte % 24.4 % (19-41); Mean Corpuscular Hgb 27.7 pg (27.0-32.0); Mean Corpuscular Volume 89.3 fL (80-94); Mean Platelet Vol. 10.8 fl (6.2-12.0); Monocyte# 0.47 X10^3/uL; Monocyte% 7.5 % (0-10); NRBC Flagged by Analyzer 0 % (0-5); Neutrophil # 4.09 X10^3/uL (2.7-7.7); Neutrophil % 65.3 % (47-70); Platelet Count 198 K/mm3 (150-450); RBC Distribution Width CV 15.9 % (11.6-14.6); RBC Distribution Width SD 52.8 fl (35.1-43.9); Red Blood Count 4.48 M/mm3 (4.6-6.2); White Blood Count 6.3 K/mm3 (4.4-11.0)
[2019-04-09 11:08] LABS: Hemoglobin A1c 6.8 % (4.2-6.3)
[2019-04-09 11:13] LABS: AST(SGOT) 34 U/L (15-37); Alanine Aminotransfer ALT/SGPT 51 U/L (16-61); Albumin, Serum 2.9 g/dL (3.2-5.0); Alkaline Phosphatase 116 U/L (45-117); Anion Gap 3 (5-15); BUN 15 mg/dL (7-18); BUN/Creat Ratio 15.1 RATIO (10-20); Calcium,Total 7.9 mg/dL (8.5-10.1); Chloride 109 mmol/L (98-107); Creatinine, Serum 0.99 mg/dL (0.70-1.30); EST Glomerular Filtration Rate 82 mL/min (>60); Est Glom Filt Rate - Afr Amer 100 mL/min (>60); Free T3 3.1 pg/mL (2.18-3.98); Glucose 168 mg/dL (74-106); Potassium 3.7 mmol/L (3.5-5.1); Protein, Total 5.9 g/dL (6.4-8.2); Sodium Level 143 mmol/L (136-145); T4 Free Direct 1.57 ng/dL (0.76-1.46)
== END ==
PROVIDERS: PCP Family Medicine; Referring Provider Internal Medicine Endocrinology, Diabetes & Metabolism; Visit Provider Internal Medicine Endocrinology, Diabetes & Metabolism
DX: E11.65 Type 2 diabetes mellitus with hyperglycemia (principal); C73 Malignant neoplasm of thyroid gland
CPT/HCPCS: 36415; 80053; 83036; 84439; 84443; 84481; 85025

== ENCOUNTER → 2019-06-10 10:59 | Outpatient (CLI) | payer OTHER, SELFPAY ==
[2019-05-06 13:00] VITALS: BMI 28.2
--- NOTE | 2019-06-10 11:18 | US_ITS ---
STUDY: THYROID ULTRASOUND REASON FOR EXAM: Male, 58 years old. X THYROID CA S/P THYROIDECTOMY TECHNIQUE: Ultrasound evaluation of the thyroid was performed with real-time and static mcnally-scale imaging. COMPARISON: Comparison is made with prior study dated January 22, 2019. FINDINGS: Once again, the patient is status post bilateral thyroidectomy. There is a 1.5 cm x 0.8 cm x 0.2 cm benign-appearing lymph node in the right cervical region. 2. Lymph nodes are also seen in the left cervical region.. US/Thyroid IMPRESSION: Status post total thyroidectomy. Small bilateral cervical lymphadenopathy. Electronically Signed: Evgeny Corral, at 13:21 EDT , Service support ,
[2019-06-10 12:38] LABS: Vitamin D,25 Hydroxy 57.3 ng/mL
[2019-06-10 13:09] LABS: ALB/GLOB Ratio 0.9 RATIO (0.9-2.4); AST(SGOT) 16 U/L (15-37); Alanine Aminotransfer ALT/SGPT 20 U/L (16-61); Albumin, Serum 3.2 g/dL (3.2-5.0); Alkaline Phosphatase 92 U/L (45-117); Anion Gap 8 (5-15); BUN 17 mg/dL (7-18); BUN/Creat Ratio 20.6 RATIO (10-20); Calcium,Total 8.3 mg/dL (8.5-10.1); Chloride 106 mmol/L (98-107); Cholesterol 117 mg/dL (200); Creatinine, Serum 0.83 mg/dL (0.70-1.30); EST Glomerular Filtration Rate 102 mL/min (>60); Est Glom Filt Rate - Afr Amer 123 mL/min (>60); Ferritin 158 ng/mL (26-388); Globulin 3.4 g/dL (2.2-4.2); Glucose 250 mg/dL (74-106); High Density Lipoprotein 36 mg/dL; Iron 85 ug/dL (65-175); Iron Binding Capacity,Total 308 ug/dL (250-450); PERCENT IRON SATURATION 27.6 % (15.0-55.0); Potassium 3.7 mmol/L (3.5-5.1); Protein, Total 6.6 g/dL (6.4-8.2); Sodium Level 140 mmol/L (136-145); T4 Free Direct 2.06 ng/dL (0.76-1.46); Thyroid Stim Hormone (TSH) < 0.01 uIU/mL (0.358-3.74); Triglycerides 121 mg/dL; Very Low Density Lipoprotein 24 mg/dL (5-40)
[2019-06-10 17:43] LABS: Hemoglobin A1c 7.6 % (4.2-6.3)
[2019-06-11 14:35] LABS: Anti-Thyroglobulin AB < 1.0 IU/mL (0.0-0.9); Thyroglobulin, Serum Qt. 1.2 ng/mL (1.4-29.2); Thyroid Peroxidase AB 9 IU/mL (0-34)
== END ==
PROVIDERS: PCP Family Medicine; Referring Provider Internal Medicine Endocrinology, Diabetes & Metabolism; Visit Provider Internal Medicine Endocrinology, Diabetes & Metabolism
DX: C73 Malignant neoplasm of thyroid gland (principal); E55.9 Vitamin D deficiency, unspecified; D64.9 Anemia, unspecified; E89.0 Postprocedural hypothyroidism; E11.65 Type 2 diabetes mellitus with hyperglycemia
CPT/HCPCS: 36415; 76536; 80053; 80061; 82306; 82728; 83036; 83540; 83550; 84432; 84439; 84443; 84481; 86376; 86800

== ENCOUNTER → 2019-09-15 12:30 | Outpatient (CLI) | payer OTHER, SELFPAY ==
[2019-08-18 08:48] VITALS: BMI 32.6
[2019-09-15 16:38] LABS: Microalbumin,Random Urine < 5.0 mg/L (NO RANGE EST.)
[2019-09-15 16:39] LABS: ALB/GLOB Ratio 0.9 RATIO (0.9-2.4); AST(SGOT) 22 U/L (15-37); Alanine Aminotransfer ALT/SGPT 28 U/L (16-61); Albumin, Serum 3.4 g/dL (3.2-5.0); Alkaline Phosphatase 105 U/L (45-117); Anion Gap 7 (5-15); BUN 16 mg/dL (7-18); Calcium,Total 8.2 mg/dL (8.5-10.1); Chloride 104 mmol/L (98-107); Creatinine, Serum 1.07 mg/dL (0.70-1.30); EST Glomerular Filtration Rate 75 mL/min (>60); Est Glom Filt Rate - Afr Amer 91 mL/min (>60); Free T3 2.7 pg/mL (2.18-3.98); Globulin 3.6 g/dL (2.2-4.2); Glucose 259 mg/dL (74-106); Potassium 3.8 mmol/L (3.5-5.1); Sodium Level 139 mmol/L (136-145); T4 Free Direct 1.74 ng/dL (0.76-1.46); Thyroid Stim Hormone (TSH) < 0.01 uIU/mL (0.358-3.74)
== END ==
PROVIDERS: PCP Family Medicine; Referring Provider Internal Medicine Endocrinology, Diabetes & Metabolism; Visit Provider Internal Medicine Endocrinology, Diabetes & Metabolism
DX: C73 Malignant neoplasm of thyroid gland (principal); E89.0 Postprocedural hypothyroidism; Z79.4 Long term (current) use of insulin; Z91.19 Patient's noncompliance with other medical treatment and regimen
CPT/HCPCS: 36415; 80053; 82043; 83036; 84439; 84443; 84481

== ENCOUNTER → 2019-12-29 13:14 | Outpatient (CLI) | payer OTHER, SELFPAY ==
[2019-10-15 13:15] VITALS: BMI 28.7
[2019-12-29 14:33] LABS: Hemoglobin A1c 9.4 % (3.8-5.6)
[2019-12-29 14:34] LABS: AST(SGOT) 21 U/L (15-37); Alanine Aminotransfer ALT/SGPT 36 U/L (16-61); Albumin, Serum 3.5 g/dL (3.2-5.0); Alkaline Phosphatase 114 U/L (45-117); Anion Gap 3 (5-15); BUN 23 mg/dL (7-18); BUN/Creat Ratio 22.5 RATIO (10-20); Calcium,Total 8.3 mg/dL (8.5-10.1); Chloride 106 mmol/L (98-107); Cholesterol 133 mg/dL (200); Creatinine, Serum 1.02 mg/dL (0.70-1.30); EST Glomerular Filtration Rate 79 mL/min (>60); Est Glom Filt Rate - Afr Amer 96 mL/min (>60); Globulin 3.6 g/dL (2.2-4.2); Glucose 179 mg/dL (74-106); High Density Lipoprotein 47 mg/dL; Potassium 3.9 mmol/L (3.5-5.1); Protein, Total 7.1 g/dL (6.4-8.2); Sodium Level 138 mmol/L (136-145); T4 Free Direct 1.28 ng/dL (0.76-1.46); Thyroid Stim Hormone (TSH) < 0.01 uIU/mL (0.358-3.74); Triglycerides 68 mg/dL; Very Low Density Lipoprotein 14 mg/dL (5-40)
[2019-12-31 09:07] LABS: Thyroid Peroxidase AB < 9 IU/mL (0-34)
[2019-12-31 12:07] LABS: Thyroglobulin Antibody < 1.0 IU/mL (0.0-0.9)
[2019-12-31 16:10] LABS: Anti-Thyroglobulin AB < 1.0 IU/mL (0.0-0.9); Thyroglobulin, Serum Qt. 1.5 ng/mL (1.4-29.2)
== END ==
PROVIDERS: PCP Family Medicine; Referring Provider Internal Medicine Endocrinology, Diabetes & Metabolism; Visit Provider Internal Medicine Endocrinology, Diabetes & Metabolism
DX: C73 Malignant neoplasm of thyroid gland (principal); E11.65 Type 2 diabetes mellitus with hyperglycemia; E03.9 Hypothyroidism, unspecified; E55.9 Vitamin D deficiency, unspecified; Z79.4 Long term (current) use of insulin
CPT/HCPCS: 36415; 80053; 80061; 83036; 84432; 84439; 84443; 84481; 86376; 86800

== ENCOUNTER → 2020-03-22 14:36 | Outpatient (CLI) | payer OTHER, SELFPAY ==
[2019-10-15 13:15] VITALS: BMI 28.7
[2020-03-22 18:07] LABS: Hemoglobin A1c 9.1 % (3.8-5.6)
[2020-03-22 18:40] LABS: ALB/GLOB Ratio 0.9 RATIO (0.9-2.4); AST(SGOT) 20 U/L (15-37); Albumin, Serum 3.5 g/dL (3.2-5.0); Alkaline Phosphatase 134 U/L (45-117); BUN 22 mg/dL (7-18); BUN/Creat Ratio 19.1 RATIO (10-20); Calcium,Total 8.3 mg/dL (8.5-10.1); Creatinine, Serum 1.15 mg/dL (0.70-1.30); EST Glomerular Filtration Rate 69 mL/min (>60); Est Glom Filt Rate - Afr Amer 84 mL/min (>60); Globulin 3.9 g/dL (2.2-4.2); Glucose 163 mg/dL (74-106); Protein, Total 7.4 g/dL (6.4-8.2)
[2020-03-22 18:41] LABS: Alanine Aminotransfer ALT/SGPT 37 U/L (16-61); Anion Gap 9 (5-15); Chloride 105 mmol/L (98-107); Free T3 2.2 pg/mL (2.18-3.98); Potassium 3.5 mmol/L (3.5-5.1); Sodium Level 141 mmol/L (136-145); T4 Free Direct 1.57 ng/dL (0.76-1.46); Thyroid Stim Hormone (TSH) < 0.01 uIU/mL (0.358-3.74)
[2020-03-24 16:08] LABS: Thyroid Peroxidase AB 11 IU/mL (0-34)
[2020-03-24 21:03] LABS: Thyroglobulin Antibody < 1.0 IU/mL (0.0-0.9)
[2020-03-24 21:05] LABS: Anti-Thyroglobulin AB < 1.0 IU/mL (0.0-0.9); Thyroglobulin, Serum Qt. 1.4 ng/mL (1.4-29.2); Thyroid Peroxidase AB 10 IU/mL (0-34)
== END ==
PROVIDERS: PCP Family Medicine; Referring Provider Internal Medicine Endocrinology, Diabetes & Metabolism; Visit Provider Internal Medicine Endocrinology, Diabetes & Metabolism
DX: C73 Malignant neoplasm of thyroid gland (principal); E11.65 Type 2 diabetes mellitus with hyperglycemia; E03.9 Hypothyroidism, unspecified; E55.9 Vitamin D deficiency, unspecified; Z79.4 Long term (current) use of insulin
CPT/HCPCS: 36415; 80053; 83036; 84432; 84439; 84443; 84481; 86376; 86800

== ENCOUNTER → 2020-05-07 14:49 | Outpatient (CLI) | payer OTHER, SELFPAY ==
[2020-04-26 15:04] VITALS: BMI 32.6
[2020-05-07 17:54] LABS: PSA,Total - Annual Screen 1.42 ng/mL (0.00-4.00)
== END ==
PROVIDERS: PCP Family Medicine; Referring Provider Family Medicine; Visit Provider Family Medicine
DX: Z00.00 Encounter for general adult medical examination without abnormal findings (principal)
CPT/HCPCS: 36415; 84153; G0103

== ENCOUNTER → 2020-05-25 13:20 | Outpatient (CLI) | payer OTHER, SELFPAY ==
[2020-05-24 14:44] VITALS: BMI 32.8
== END ==
PROVIDERS: PCP Family Medicine; Visit Provider Physician Assistant Medical
DX: I25.10 Atherosclerotic heart disease of native coronary artery without angina pectoris (principal); I42.9 Cardiomyopathy, unspecified; I10 Essential (primary) hypertension; I48.91 Unspecified atrial fibrillation
CPT/HCPCS: 93225; 93226

== ENCOUNTER → 2020-06-18 08:43 | Outpatient (CLI) | payer OTHER, SELFPAY ==
[2019-10-15 13:15] VITALS: BMI 28.7
[2020-05-24 14:44] VITALS: BMI 32.8
--- NOTE | 2020-06-18 08:58 | ECHOD_ITS ---
Reason For Study: CMP Procedure This was a 2D Doppler, Color Flow transthoracic echocardiogram. Myocardial strain analysis was performed in this exam to aid in the assessment of cardiac function. The exam was of adequate technical quality. Exam performed in department. Left Ventricle Normal LV size. Left ventricular systolic function is lower limits of normal. The estimated ejection fraction is 50 %. The global longitudinal strain = -14% (abnormal). Transmitral doppler flow suggestive of impaired relaxation of left ventricle. No regional wall motion abnormalities noted. Right Ventricle Normal RV size. Normal systolic function. Atria Normal left atrium. Normal right atrium. No doppler evidence for ASD. Mitral Valve There is mild mitral annular calcification. Normal mitral valve. Mild (1+) mitral valve insufficiency. Tricuspid Valve Normal tricuspid valve. Trivial tricuspid valve insufficiency. Unable to estimate RV systolic pressure due to insufficient tricuspid regurgitant envelope. Aortic Valve Trisinus/trileaflet aortic valve. Moderate focal aortic valve calcification. Pulmonic Valve The pulmonic valve is not well visualized. Trivial pulmonic valve insufficiency. Great Vessels Mildly dilated aortic root. Pericardium/Pleural Trivial pericardial effusion. There are no echocardiographic indications of cardiac tamponade. MMode/2D Measurements & Calculations LVIDd: 5.4 cm IVSd: 1.1 cm Ao root diam: 4.0 cm LVIDs: 3.8 cm LVPWd: 1.1 cm RVDd: 3.0 cm FS: 30.6 % LAV(MOD-bp): 56.4 ml LA A4 area: 18.2 cm2 LA dimension(2D): 4.1 cm LAV(MOD-bp) Indexed: 22.9 ml/m2 LAV(MOD-sp2): 58.3 ml LAV(MOD-sp4): 50.3 ml RA A4 area: 14.6 cm2 Time Measurements MV dec time: 0.29 sec Doppler Measurements & Calculations MV E max eulogio: 78.2 cm/sec Lat Peak E' Eulogio: 7.5 cm/sec Med Peak E' Eulogio: 6.0 cm/sec MV A max eulogio: 123.9 cm/sec E/E' lat: 10.4 E/E' med: 13.0 MV E/A: 0.63 Ao V2 max: 131.8 cm/sec LV V1 max: 100.9 cm/sec PA V2 max: 93.2 cm/sec Ao max P.0 mmHg LV V1 max P.1 mmHg ECHO/Echo Complete Interpretation Summary Left ventricular systolic function is lower limits of normal. The estimated ejection fraction is 50 %. The global longitudinal strain = -14% (abnormal). There is mild mitral annular calcification. Mild (1+) mitral valve insufficiency. Trivial tricuspid valve insufficiency. Moderate focal aortic valve calcification. Trivial pulmonic valve insufficiency. Mildly dilated aortic root. Trivial pericardial effusion. There are no echocardiographic indications of cardiac tamponade. Unable to estimate RV systolic pressure due to insufficient tricuspid regurgita nt envelope. Transmitral doppler flow suggestive of impaired relaxation of left ventricle Ordering Physician: Jessy Harris Referring Physician: PHYLLIS SEO Performed By: Magy Minor, JIHAN, RVT
--- NOTE | 2020-06-18 08:59 | US_ITS ---
INDICATION: HX OF THYROID CANCER and thyroidectomy EXAMINATION: US Thyroid (eg thyroid, parathyroid, parotid) TECHNIQUE: Barrera scale and color doppler imaging was performed of the thyroid gland. COMPARISON: 06/10/2019. FINDINGS: Status post total thyroidectomy. In the left thyroid bed there is a hypoechoic lesion measuring 0.7 x 0.5 x 0.5 cm. Bilateral non-enlarged cervical lymph nodes are seen. US/Thyroid IMPRESSION: In the left thyroid bed there is a 7 mm hypoechoic lesion, similar in appearance to prior studies, most likely a lymph node. Recommend close attention on follow up. Otherwise, no evidence of recurrent disease. Electronically Signed: Macario Farley MD at 18:01 EDT Tel , Service support ,
[2020-06-18 09:42] LABS: Hemoglobin A1c 8.6 % (3.8-5.6)
[2020-06-18 10:19] LABS: Vitamin D,25 Hydroxy 33.7 ng/mL
[2020-06-18 10:23] LABS: ALB/GLOB Ratio 0.9 RATIO (0.9-2.4); AST(SGOT) 15 U/L (15-37); Alanine Aminotransfer ALT/SGPT 34 U/L (16-61); Albumin, Serum 3.4 g/dL (3.2-5.0); Alkaline Phosphatase 124 U/L (45-117); Anion Gap 5 (5-15); BUN 23 mg/dL (7-18); BUN/Creat Ratio 23.5 RATIO (10-20); Calcium,Total 8.4 mg/dL (8.5-10.1); Chloride 108 mmol/L (98-107); Cholesterol 140 mg/dL (200); Creatinine, Serum 0.98 mg/dL (0.70-1.30); EST Glomerular Filtration Rate 83 mL/min (>60); Est Glom Filt Rate - Afr Amer 101 mL/min (>60); Globulin 3.9 g/dL (2.2-4.2); Glucose 182 mg/dL (74-106); High Density Lipoprotein 43 mg/dL; Protein, Total 7.3 g/dL (6.4-8.2); Sodium Level 141 mmol/L (136-145); Thyroid Stim Hormone (TSH) 0.02 uIU/mL (0.358-3.74); Triglycerides 71 mg/dL; Very Low Density Lipoprotein 14 mg/dL (5-40)
== END ==
PROVIDERS: Internal Medicine Endocrinology, Diabetes & Metabolism; PCP Family Medicine; Referring Provider Physician Assistant Medical; Visit Provider Physician Assistant Medical
DX: C73 Malignant neoplasm of thyroid gland (principal); E11.65 Type 2 diabetes mellitus with hyperglycemia; E03.9 Hypothyroidism, unspecified; E55.9 Vitamin D deficiency, unspecified; I42.9 Cardiomyopathy, unspecified
CPT/HCPCS: 36415; 76536; 80053; 80061; 82306; 83036; 84439; 84443; 84481; 93306

== ENCOUNTER → 2020-09-27 16:19 | Outpatient (CLI) | payer OTHER, SELFPAY ==
[2020-08-31 14:41] VITALS: BMI 33.0
[2020-09-27 17:39] LABS: Hemoglobin A1c 9.3 % (3.8-5.6)
[2020-09-27 17:52] LABS: AST(SGOT) 16 U/L (15-37); Alanine Aminotransfer ALT/SGPT 23 U/L (16-61); Albumin, Serum 3.7 g/dL (3.2-5.0); Alkaline Phosphatase 123 U/L (45-117); Anion Gap 7 (5-15); BUN 22 mg/dL (7-18); BUN/Creat Ratio 15.9 RATIO (10-20); Calcium,Total 8.4 mg/dL (8.5-10.1); Chloride 105 mmol/L (98-107); Creatinine, Serum 1.38 mg/dL (0.70-1.30); EST Glomerular Filtration Rate 56 mL/min (>60); Est Glom Filt Rate - Afr Amer 68 mL/min (>60); Free T3 1.9 pg/mL (2.18-3.98); Globulin 3.7 g/dL (2.2-4.2); Glucose 241 mg/dL (74-106); Potassium 3.8 mmol/L (3.5-5.1); Protein, Total 7.4 g/dL (6.4-8.2); Sodium Level 140 mmol/L (136-145)
[2020-09-29 16:09] LABS: Thyroid Peroxidase AB 15 IU/mL (0-34)
[2020-09-30 16:08] LABS: Anti-Thyroglobulin AB < 1.0 IU/mL (0.0-0.9); Thyroglobulin, Serum Qt. 1.5 ng/mL (1.4-29.2); Thyroid Peroxidase AB 19 IU/mL (0-34)
[2020-09-30 16:22] LABS: Thyroglobulin Antibody < 1.0 IU/mL (0.0-0.9)
== END ==
PROVIDERS: PCP Family Medicine; Visit Provider Internal Medicine Endocrinology, Diabetes & Metabolism
DX: E11.65 Type 2 diabetes mellitus with hyperglycemia (principal); C73 Malignant neoplasm of thyroid gland; E03.9 Hypothyroidism, unspecified; E55.9 Vitamin D deficiency, unspecified
CPT/HCPCS: 36415; 80053; 83036; 84432; 84439; 84443; 84481; 86376; 86800

== ENCOUNTER 2020-11-23 07:34 | Inpatient (IN) | payer OTHER, SELFPAY ==
[2020-11-23] VITALS (34 sets, daily range): BP systolic 77–151; BP diastolic 53–93; PULSE 80–942; RESP 15–23; TEMP 35.6–37.1; O2SAT 96–100; BMI 32.3; BMI 31.1
[2020-11-23 08:13] LABS: Absolute Lymphocyte Count 2.99 X10^3/uL (0.83-4.51); Absolute Neutrophil Count 8.8 X10^3/uL (2.0-7.7); Basophil# 0.06 X10^3/uL; Basophil% 0.5 % (0-1); Eosinophil# 0.23 X10^3/uL; Eosinophils% 1.8 % (0-5); Hematocrit 28.7 % (40-54); Hemoglobin 9.4 g/dL (13.0-16.5); Lymphocyte # 2.99 X10^3/ul (0.83-4.51); Lymphocyte % 23.2 % (19-41); Mean Corp Hgb Conc 32.8 g/dL (32-36); Mean Corpuscular Hgb 29.7 pg (27.0-32.0); Mean Corpuscular Volume 90.5 fL (80-94); Mean Platelet Vol. 10.2 fl (6.2-12.0); Monocyte% 6.2 % (0-10); NRBC Flagged by Analyzer 0 % (0-5); Neutrophil # 8.75 X10^3/uL (2.7-7.7); Neutrophil % 67.8 % (47-70); Platelet Count 176 K/mm3 (150-450); Red Blood Count 3.17 M/mm3 (4.6-6.2); White Blood Count 12.9 K/mm3 (4.4-11.0)
[2020-11-23 08:31] LABS: ALB/GLOB Ratio 0.9 RATIO (0.9-2.4); AST(SGOT) 15 U/L (15-37); Alanine Aminotransfer ALT/SGPT 25 U/L (16-61); Alkaline Phosphatase 93 U/L (45-117); Anion Gap 5 (5-15); BUN 31 mg/dL (7-18); BUN/Creat Ratio 29.2 RATIO (10-20); Calcium,Total 7.6 mg/dL (8.5-10.1); Chloride 104 mmol/L (98-107); Creatinine, Serum 1.06 mg/dL (0.70-1.30); EST Glomerular Filtration Rate 76 mL/min (>60); Est Glom Filt Rate - Afr Amer 92 mL/min (>60); Estimated Creatinine Clearance 92.12 ml/min; Globulin 3.5 g/dL (2.2-4.2); Glucose 227 mg/dL (74-106); Potassium 3.8 mmol/L (3.5-5.1); Protein, Total 6.5 g/dL (6.4-8.2); Sodium Level 134 mmol/L (136-145)
[2020-11-23 08:39] LABS: International Normalized Ratio 1.2; Prothrombin Time (Protime)PT. 14.1 SECONDS (11.7-14.9)
--- NOTE | 2020-11-23 08:58 | EX.ED.DYSGE1 ---
HPI History of Present Illness Chief Complaint: GI Bleed Narrative Narrative: Patient is on Eliquis for atrial fibrillation, he presents with dark stools and now dark black diarrhea, he does feel somewhat lightheaded. He has no abdominal pain. He has no back pain or tearing sensation he tells me he is allergic to ibuprofen but may have taken something similar to it in the past few days. He denies alcohol. No fever or chills. No chest pain or shortness of breath. [facility] Medical History (Updated 11/23/20 @ 09:[address] Arnold Verdin MD) Atherosclerosis of coronary artery of [place] heart without angina pectoris Cardiomyopathy Chronic combined systolic and diastolic heart failure CVA (cerebral vascular accident) Diarrhea Essential hypertension Hypothyroidism Nausea & vomiting Nicotine use disorder PAF (paroxysmal atrial fibrillation) Pre-syncope Sinusitis, acute Thyroid cancer (03/25/19) Thyroid disease Type 2 diabetes mellitus without complication Vasectomy planned Home Medications aspirin 81 mg PO DAILY@0800 06/02/16 [History Last Taken 12/13/18] folic acid 400 mcg tablet 800 mcg PO DAILY 03/31/19 [History Last Taken Unknown] cholecalciferol (vitamin D3) 125 mcg (5,000 unit) tablet 125 mcg PO DAILY 07/16/19 [History Last Taken Unknown] mecobalamin (vitamin B12) 1,000 mcg disintegrating tablet,sublingual 1,000 mcg SUBLINGUAL DAILY 07/16/19 [History Last Taken Unknown] metformin 500 mg tablet,extended release 24 hr 1,000 mg PO BID tab 07/16/19 [History Last Taken Unknown] NeuropAway 1 tab PO BID 10/15/19 [History Last Taken Unknown] dapagliflozin 5 mg tablet 5 mg PO DAILY tab 10/15/19 [History Last Taken Unknown] insulin lispro protamine-lispro 100 unit/mL (75-25) subcutaneous pen 24 unit SC TID ml 10/15/19 [History Last Taken Unknown] apixaban 5 mg tablet 5 mg PO BID #60 tab 05/24/20 [Rx Last Taken Unknown] pregabalin 100 mg capsule 150 mg PO BID cap 05/24/20 [History Last Taken Unknown] levothyroxine 200 mcg tablet 200 mcg PO DAILY tab 08/31/20 [History Last Taken Unknown] atorvastatin 40 mg tablet 40 mg PO QHS #90 tab 11/05/20 [Rx Last Taken Unknown] carvedilol 25 mg tablet 25 mg PO BID #180 tab 11/05/20 [Rx Last Taken Unknown] furosemide 40 mg tablet 40 mg PO DAILY #90 tab 11/05/20 [Rx Last Taken Unknown] Allergy/AdvReac Type Severity Reaction Status Date / Time No Known Allergies Allergy Verified 11/23/20 07:38 Family History (Updated 11/11/20 @ 14:18 by Carlotta Washington) Mother Arrhythmia Father CAD (coronary artery disease) possible bypass Other Cancer Diabetes Heart disease Thyroid disorder Surgical History History of ear surgery History of surgery on arm History of thyroidectomy Presence of stent in coronary artery Social History Smoking Status: Current every day smoker tobacco type: cigarettes how long ago did patient quit smokin year ago alcohol intake: current alcohol intake frequency: holidays/special occasions only substance use type: does not use caffeine: Yes Type: carbonated beverages ROS ROS ED ROS Narrative Past medical history: Reviewed, includes A. fib, history of cardiomyopathy, hypertension and hypercholesterolemia, diabetes CHF. Medications: Reviewed Social history: Noncontributory Review of systems: All systems negative except as indicated General: No fever Eyes: No visual changes ENT: No upper airway congestion, normal voice Neck: No neck pain Cardiovascular: No chest pain Respiratory: No shortness of breath or cough Gastrointestinal: No abdominal pain. Nausea as in HPI. Rectal bleeding as in HPI Genitourinary: No dysuria Musculoskeletal: Denies myalgias no difficulty with ambulation Skin: No rash Neurological: No memory loss, confusion or any focal weakness Psych: No recent behavioral changes Hematologic: No easy bleeding or easy bruising EXAM Physical Exam Narrative Exam Narrative: Physical exam General: Well nourished, Well developed, No Acute Distress Head: Normocephalic, Atraumatic Eyes: Conjunctiva slightly pale ENT: Moist mucous membranes Neck: Supple, Nontender, No lymphadenopathy Cardiovascular: Regular rate, Regular rhythm Respiratory: No distress, CTA bilaterally Abdomen: Soft, Nontender, Nondistended Rectal: No hemorrhoids, black stool noted. Back: Nontender, Normal Inspection. Negative for: CVA tenderness Extremities: Nontender, No edema Skin: Normal color, No rash Neurological: Alert, Normal Strength, Normal Sensation Psychological: Normal affect Const Vital Signs: 11/23/20 07:35 Temperature 98.2 F Temperature Source Temporal Pulse Rate 100 Respiratory Rate 16 Blood Pressure 151/93 H Blood Pressure Mean 112 Pulse Ox 100 Oxygen Delivery Method Room Air MDM MDM MDM Narrative Medical decision making narrative: Patient has a drop in hemoglobin from prior hemoglobin however he does not meet criteria for transfusion. Protonix IV was given. I discussed with surgery and medicine for admission. He is lightheaded when he stands up thus he I believe clinically he is orthostatically positive. He has no risk factors for varicosities, I believe this is likely peptic ulcer in origin. Lab Data Labs: Laboratory Results - last 24 hr 11/23/20 11/23/20 11/23/20 07:50 07:50 07:50 WBC 12.9 H RBC 3.17 L Hgb 9.4 L Hct 28.7 L MCV 90.5 MCH 29.7 MCHC 32.8 RDW Std Deviation 46.0 H RDW Coeff of Marcellus 14.0 Plt Count 176 MPV 10.2 Immature Gran % (Auto) 0.500 Neut % (Auto) 67.8 Lymph % (Auto) 23.2 Troup % (Auto) 6.2 Eos % (Auto) 1.8 Baso % (Auto) 0.5 Absolute Neuts (auto) 8.8 H Absolute Lymphs (auto) 2.99 Nucleated RBC % 0 PT INR Sodium 134 L Potassium 3.8 Chloride 104 Carbon Dioxide 25.0 Anion Gap 5 BUN 31 H Creatinine 1.06 Estim Creat Clear Calc 92.12 Est GFR (MDRD) Af Amer 92 Est GFR (MDRD) Non-Af 76 BUN/Creatinine Ratio 29.2 H Glucose 227 H Calcium 7.6 L Total Bilirubin 0.40 AST 15 ALT 25 Alkaline Phosphatase 93 Total Protein 6.5 Albumin 3.0 L Globulin 3.5 Albumin/Globulin Ratio 0.9 Blood Type A POSITIVE Antibody Screen NEGATIVE 11/23/20 08:20 WBC RBC Hgb Hct MCV MCH MCHC RDW Std Deviation RDW Coeff of Marcellus Plt Count MPV Immature Gran % (Auto) Neut % (Auto) Lymph % (Auto) Troup % (Auto) Eos % (Auto) Baso % (Auto) Absolute Neuts (auto) Absolute Lymphs (auto) Nucleated RBC % PT 14.1 INR 1.2 Sodium Potassium Chloride Carbon Dioxide Anion Gap BUN Creatinine Estim Creat Clear Calc Est GFR (MDRD) Af Amer Est GFR (MDRD) Non-Af BUN/Creatinine Ratio Glucose Calcium Total Bilirubin AST ALT Alkaline Phosphatase Total Protein Albumin Globulin Albumin/Globulin Ratio Blood Type Antibody Screen Critical Care Time Critical care time (excluding procedures): - (Critical care time of 30 minutes. Patient has GI bleed with drop in hemoglobin. I spent time discussing with the patient, at the bedside, documenting and discussing with consultants.) Discharge Plan Triage Chief Complaint: GI Bleed ED Provider: Arnold Verdin Dx/Rx/DC Orders Clinical Impression: Acute upper GI bleed Prescriptions: No Action metformin 500 mg tablet extended release 24 hr 1,000 mg PO BID RF: 0 folic acid 400 mcg tablet 800 mcg PO DAILY RF: 0 mecobalamin (vitamin B12) 1,000 mcg tablet,disintegrating 1,000 mcg SUBLINGUAL DAILY RF: 0 cholecalciferol (vitamin D3) 125 mcg (5,000 unit) tablet 125 mcg PO DAILY RF: 0 dapagliflozin 5 mg tablet 5 mg PO DAILY RF: 0 NeuropAway tablet 1 tab PO BID RF: 0 levothyroxine 200 mcg tablet 200 mcg PO DAILY RF: 0 pregabalin 100 mg capsule 150 mg PO BID RF: 0 Eliquis 5 mg tablet 5 mg PO BID Qty: 60 RF: 6 aspirin 81 MG tablet 81 mg PO DAILY@0800 RF: 0 insulin lispro protamin-lispro 100 unit/mL (75-25) insulin pen 24 unit SC TID RF: 0 atorvastatin 40 mg tablet 40 mg PO QHS Qty: 90 RF: 3 carvedilol 25 mg tablet 25 mg PO BID Qty: 180 RF: 3 furosemide 40 mg tablet 40 mg PO DAILY Qty: 90 RF: 3 Primary Care Provider: Fabiana Peña Referrals: Fabiana Peña MD [Primary Care Provider] - Disposition Disposition: Acute Care [facility]
--- NOTE | 2020-11-23 09:09 | NURSING ---
DR RAFA CEJA
--- NOTE | 2020-11-23 09:34 | NURSING ---
DR CRAIG IN ER
--- NOTE | 2020-11-23 09:46 | HP.PCM.HOS_ITS ---
[facility] - General General Date of Admission: 11/23/20 HPI Narrative DEREK PINA, is a 59 M who presented to the emergency department [facility] on 11/23/2020 with a chief complaint of melena. The patient is on Eliquis for atrial fibrillation at baseline which she started in May. He also takes aspirin. Upon presentation he stated that he had maroon-colored stool starting on Sunday for which he started taking Pepto-Bismol for and now they are dark and tarry. He has had frequent bowel movements. He complained of some mild abdominal pain and nausea but no emesis. He reports lightheadedness when he is standing and walking. He has been taking something for pain but is unclear exactly what it is. He has no chest pain or shortness of breath, no vomiting or hematemesis, no tingling numbness or weakness. He was hemodynamically stable in the emergency department. Orthostatic vitals were not assessed. CBC showed a mild leukocytosis which I expect is reactive and a drop in hemoglobin from 9.4 from 12.4 a year and a half ago. His INR was within normal limits. His CBC shows mild hyponatremia with a serum sodium of 134 and an elevated BUN with a normal serum creatinine which I expect is related to an upper GI bleed. His LFTs were within normal limits. In the emergency department he was given IV Protonix in the case was discussed with general surgery who agreed to be on consult with admission. He will be admitted to the ICU as stepdown status for further work-up and evaluation [facility] Medical History Atherosclerosis of coronary artery of [place] heart without angina pectoris Cardiomyopathy Chronic combined systolic and diastolic heart failure CVA (cerebral vascular accident) Diarrhea Essential hypertension Hypothyroidism Nausea & vomiting Nicotine use disorder PAF (paroxysmal atrial fibrillation) Pre-syncope Sinusitis, acute Thyroid cancer (03/25/19) Thyroid disease Type 2 diabetes mellitus without complication Vasectomy planned Home Medications aspirin 81 mg PO DAILY@0800 06/02/16 [History Last Taken 12/13/18] folic acid 400 mcg tablet 800 mcg PO DAILY 03/31/19 [History Last Taken Unknown] cholecalciferol (vitamin D3) 125 mcg (5,000 unit) tablet 125 mcg PO DAILY 07/16/19 [History Last Taken Unknown] mecobalamin (vitamin B12) 1,000 mcg disintegrating tablet,sublingual 1,000 mcg SUBLINGUAL DAILY 07/16/19 [History Last Taken Unknown] metformin 500 mg tablet,extended release 24 hr 1,000 mg PO BID tab 07/16/19 [History Last Taken Unknown] NeuropAway 1 tab PO BID 10/15/19 [History Last Taken Unknown] dapagliflozin 5 mg tablet 5 mg PO DAILY tab 10/15/19 [History Last Taken Unkno wn] insulin lispro protamine-lispro 100 unit/mL (75-25) subcutaneous pen 24 unit SC TID ml 10/15/19 [History Last Taken Unknown] apixaban 5 mg tablet 5 mg PO BID #60 tab 05/24/20 [Rx Last Taken Unknown] pregabalin 100 mg capsule 150 mg PO BID cap 05/24/20 [History Last Taken Unknown] levothyroxine 200 mcg tablet 200 mcg PO DAILY tab 08/31/20 [History Last Taken Unknown] atorvastatin 40 mg tablet 40 mg PO QHS #90 tab 11/05/20 [Rx Last Taken Unknown] carvedilol 25 mg tablet 25 mg PO BID #180 tab 11/05/20 [Rx Last Taken Unknown] furosemide 40 mg tablet 40 mg PO DAILY #90 tab 11/05/20 [Rx Last Taken Unknown] Allergy/AdvReac Type Severity Reaction Status Date / Time No Known Allergies Allergy Verified 11/23/20 07:38 Family History Mother Arrhythmia Father CAD (coronary artery disease) possible bypass Other Cancer Diabetes Heart disease Thyroid disorder Surgical History History of ear surgery History of surgery on arm History of thyroidectomy Presence of stent in coronary artery Social History (Updated 11/23/20 @ 09:[address] Junie Tatum DO) Smoking Status: Former smoker how long ago did patient quit smokin year ago alcohol intake: current alcohol intake frequency: holidays/special occasions only substance use type: does not use caffeine: Yes Type: carbonated beverages ROS Constitutional Constitutional: Reports weakness; Denies anorexia, change in weight, chills, fatigue, fever(s), malaise, night sweats or other Eyes Eyes: Denies blurry vision, change in eye color, change in vision, discharge from eye(s), double vision, erythema, eye pain, loss of vision or other ENT HEENT: Denies abnormal hearing, dysphagia, ear pain, epistaxis, headache(s), hearing loss, nasal congestion, nasal discharge, post nasal drip, sinus pressure, sore throat or other Cardiovascular Cardiovascular: Reports lightheadedness; Denies chest pain, claudication, dys pnea on exertion, edema, orthopnea, palpitations, paroxysmal nocturnal dyspnea, rapid heart rate, syncope or other Respiratory/Chest Respiratory/Chest: Denies cough, dyspnea, excessive phlegm production, hemoptysis, productive cough, shortness of breath at rest, shortness of breath with exertion, wheezing or other Gastrointestinal Gastrointestinal: Reports abdominal pain, diarrhea, dyspepsia, loose stools, melena and nausea; Denies coffee ground emesis, constipation, hematemesis, hematochezia, vomiting or other Genitourinary Genitourinary: Denies burning urination, difficulty urinating, dysuria, hematuria, nocturia, urinary frequency, urinary hesitancy, urinary incontinence, urinary urgency or other Musculoskeletal Musculoskeletal: Reports joint pain and joint stiffness; Denies arthralgias, back pain, joint swelling, myalgias, neck pain or other Neurologic Neurologic: Denies abnormal gait, abnormal speech, confusion, disequilibrium, dizziness, focal weakness, headache(s), numbness, paresthesias, seizure-like activity, seizures, syncope, tingling, tremor(s) or other Psychiatric Psychiatric: Denies anxiety, depression, homicidal ideation, suicidal ideation or other Endocrine Endocrinology: Denies change in body appearance, cold intolerance, excessive sweating, heat intolerance, polydipsia, polyuria or other Hematologic/Lymphatic Hematologic/Lymphatic: Denies anemia, easy bleeding, easy bruising, lymphadenopathy or other Allergic/Immunologic Allergic/Immunologic: Denies rhinitis, hives, eczemia, asthma or other Vital Signs Vital Signs Vital Signs: 11/23/20 07:35 Temperature 98.2 F Temperature Source Temporal Pulse Rate 100 Respiratory Rate 16 Blood Pressure 151/93 H Blood Pressure Mean 112 Pulse Ox 100 Oxygen Delivery Method Room Air Weight Weight: 120.656 kg Body Mass Index (BMI) 32.3 Physical Exam Const alert and oriented x3 Constitutional Narrative: Overweight, upper middle-aged white male sitting in bed, appears older than stated age, nontoxic HEENT normocephalic, head/scalp atraumatic, hearing grossly normal bilaterally, moist oral mucous membranes and oropharynx normal HEENT Narrative: Mallampati 2, no thrush Mouth: oral and palatal mucosa normal Eyes PERRL and EOMs intact bilaterally Eyes Narrative: Pale conjunctiva Neck no lymphadenopathy, supple and no JVD Neck Narrative: Trachea midline Resp normal respiratory effort, no retractions, no use of accessory muscles and clear to auscultation bilaterally Resp Narrative: Diffusely diminished but clear Auscultation: Negative for crackles, rales, rhonchi or wheezes Cardio regular rate, regular rhythm, S1 normal heart sound, S2 normal heart sound, no murmurs, no rub, no gallops, no clicks and no JVD GI normal to inspection, nondistended, normoactive bowel sounds and soft to palpation GI Narrative: Mild epigastric tenderness Auscultation: hyperactive bowel sounds Palpation: tender; Negative for guarding or hernia Extremity no clubbing, cyanosis or edema Peripheral Pulses: Yes pulses 2+ throughout Skin no rashes or lesions noted, no wounds, skin turgor normal, no jaundice, no petechiae and no mottling Neuro oriented x3, CN's II-XII intact bilaterally, moves all extremities and no focal motor deficits Sensorium / Orientation: awake and alert Speech: speech normal Psych Mood & Affect: anxious Results Lab / Micro Data Result Diagrams: 11/23/20 07:50 11/23/20 07:50 Labs: Laboratory Results - last 24 hr 11/23/20 07:50: WBC 12.9 H, RBC 3.17 L, Hgb 9.4 L, Hct 28.7 L, MCV 90.5, MCH 29.7, MCHC 32.8, RDW Std Deviation 46.0 H, RDW Coeff of Marcellus 14.0, Plt Count 176, MPV 10.2, Immature Gran % (Auto) 0.500, Neut % (Auto) 67.8, Lymph % (Auto) 23.2, [place] % (Auto) 6.2, Eos % (Auto) 1.8, Baso % (Auto) 0.5, Absolute Neuts (auto) 8.8 H, Absolute Lymphs (auto) 2.99, Nucleated RBC % 0 11/23/20 07:50: Sodium 134 L, Potassium 3.8, Chloride 104, Carbon Dioxide 25.0, Anion Gap 5, BUN 31 H, Creatinine 1.06, Estim Creat Clear Calc 92.12, Est GFR (MDRD) Af Amer 92, Est GFR (MDRD) Non-Af 76, BUN/Creatinine Ratio 29.2 H, Glucose 227 H, Calcium 7.6 L, Total Bilirubin 0.40, AST 15, ALT 25, Alkaline Phosphatase 93, Total Protein 6.5, Albumin 3.0 L, Globulin 3.5, Albumin/Globulin Ratio 0.9 11/23/20 07:50: Blood Type A POSITIVE, Antibody Screen NEGATIVE 11/23/20 08:20: PT 14.1, INR 1.2 Micro: Microbiology 11/23/20 08:35 Nasal Secretion SARS-CoV-2 Antigen (Rapid) - Final 11/23/20 07:45 Stool Stool Occult Blood (MARCELL) - Final Occult Blood Positive Assessment & Plan Assessment/Plan (1) Acute upper GI bleed: (2) Acute blood loss anemia: (3) Leukocytosis: (4) Hyponatremia: (5) PAF (paroxysmal atrial fibrillation): PLAN: Acute upper GI bleed -IV Protonix drip -Bolus was given in the emergency department -Every 4 hour H&H -N.p.o. -Last dose of Eliquis was last evening -Type and screen completed -Transfuse for rapid bleed or hemoglobin less than 7 -Check orthostatic vitals with lightheadedness -Hold aspirin and Eliquis -Consult general surgery for scope Acute blood loss anemia -Hemoglobin 1.5 years ago was 12.4 and today hemoglobin is 9.4 -Cycle H&H every 4 hours -Transfuse as noted above Leukocytosis -Suspect reactive -Continue to monitor -No signs of infection Mild hyponatremia -Continue to monitor -Sodium was 134 -May be related to volume depletion with frequent stools Paroxysmal atrial fibrillation -Currently in normal sinus rhythm -Hold Eliquis -Patient is currently hemodynamically stable and therefore we will continue carvedilol at this point History of cardiomyopathy -Patient has had a repeat echocardiogram that shows an EF of 50% done in June of this year -Continue goal-directed therapy -Appears that patient had a previous EF of 30% History of thyroid cancer/hypothyroidism -Patient with history of total thyroidectomy in 2019 -Continue Synthroid -Follows as an outpatient CAD/HPL/HTN -Hold apixaban secondary to bleed -Hold aspirin secondary to bleed -Continue atorvastatin -Continue carvedilol 25 mg twice daily but watch pressures closely -Continue home Lasix DM-2 uncontrolled -Post recent hemoglobin A1c was 9.3 (10/06) -Continue home subcu insulin 75/25 -We will half the dose for now as patient is n.p.o. to 12 units 3 times daily from 24 units 3 times daily -Accu-Cheks every 6 while n.p.o. -Low moderate dose sliding scale every 6 while n.p.o. -Hold Metformin -Hold dapagliflozin Diabetic neuropathy -Continue Lyrica DVT prophylaxis -SCDs CODE STATUS -Full code Charges/Coding Visit Charges Inpatient E&M: 71796 Init Hosp L3
--- NOTE | 2020-11-23 09:49 | NURSING ---
ICU 7
[2020-11-23] MEDS: 0.9% Normal Saline 1,000 ML 50 ML IV ×2 (11:45→23:21)
[2020-11-23 12:16] LABS: Hematocrit 25.4 % (40-54)
[2020-11-23 12:16] LABS: Bedside Glucose 146 mg/dL (70-110)
--- NOTE | 2020-11-23 12:35 | HP.PCM_ITS ---
HPI - General General Date of Admission: 11/23/20 HPI Narrative DEREK VO, is a 59 M who presented to [facility] ER early this morning with complaints of GI bleed and lightheadedness. Patient states that this issue began 3 days ago with bloody bowel movements. However it was just yesterday that he began with the lightheadedness. Laboratories drawn in the ER were consistent with a progressive anemia. Patient's hemoglobin was 9.4 grams per deciliter today from a 2020 level of 12.4 g/dL. Mr. Vo exhibits no acute distress, but expresses frustration that this issue has ruined his weekend and anniversary. He does state that he has had 2 additional bloody bowel movements since his ER evaluation this morning. Mr. Vo denies any vomiting of blood or coffee grounds. He states that he was using NSAIDs for a short while as he had developed a musculoskeletal pain of his right shoulder. He has not had any ibuprofen though for the last 2 to 3 weeks. Mr. Vo states this is not the first time that he is dealt with this issue. He reports that it last occurred approximately 10 years ago on . With that episode, however, he had bleeding which developed quickly but just as quickly stopped. A subsequent colonoscopy with Dr. Warner did not demonstrate a clear cause of bleeding. 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 Mr. Vo admits he has not been on any fiber supplementation aside from 1 dose yesterday. Mr. Vo denies any significant alcohol intake. He states his last drink was a couple weeks ago. Historically he admits to more frequent drinking, but never to any excessive degree. [facility] Medical History Atherosclerosis of coronary artery of [place] heart without angina pectoris Cardiomyopathy Chronic combined systolic and diastolic heart failure CVA (cerebral vascular accident) Diarrhea Essential hypertension Hypothyroidism Nausea & vomiting Nicotine use disorder PAF (paroxysmal atrial fibrillation) Pre-syncope Sinusitis, acute Thyroid cancer (03/25/19) Thyroid disease Type 2 diabetes mellitus without complication Vasectomy planned Home Medications aspirin 81 mg PO DAILY@0800 06/02/16 [History Last Taken 12/13/18] folic acid 400 mcg tablet 800 mcg PO DAILY 03/31/19 [History Last Taken Unknown] cholecalciferol (vitamin D3) 125 mcg (5,000 unit) tablet 125 mcg PO DAILY 07/16/19 [History Last Taken Unknown] mecobalamin (vitamin B12) 1,000 mcg disintegrating tablet,sublingual 1,000 mcg SUBLINGUAL DAILY 07/16/19 [History Last Taken Unknown] metformin 500 mg tablet,extended release 24 hr 1,000 mg PO BID tab 07/16/19 [History Last Taken Unknown] NeuropAway 1 tab PO TID 10/15/19 [History Last Taken Unknown] dapagliflozin 5 mg tablet 5 mg PO DAILY tab 10/15/19 [History Last Taken Unknown] insulin lispro protamine-lispro 100 unit/mL (75-25) subcutaneous pen 24 unit SC TID ml 10/15/19 [History Last Taken Unknown] apixaban 5 mg tablet 5 mg PO BID #60 tab 05/24/20 [Rx Last Taken Unknown] pregabalin 100 mg capsule 150 mg PO BID cap 05/24/20 [History Last Taken Unknown] levothyroxine 200 mcg tablet 200 mcg PO DAILY tab 08/31/20 [History Last Taken Unknown] atorvastatin 40 mg tablet 40 mg PO QHS #90 tab 11/05/20 [Rx Last Taken Unknown] carvedilol 25 mg tablet 25 mg PO BID #180 tab 11/05/20 [Rx Last Taken Unknown] furosemide 40 mg tablet 40 mg PO DAILY #90 tab 11/05/20 [Rx Last Taken Unknown] Allergy/AdvReac Type Severity Reaction Status Date / Time No Known Allergies Allergy Verified 11/23/20 07:38 Family History Mother Arrhythmia Father CAD (coronary artery disease) possible bypass Other Cancer Diabetes Heart disease Thyroid disorder Surgical History History of ear surgery History of surgery on arm History of thyroidectomy Presence of stent in coronary artery Social History (Updated 11/23/20 @ 09:[address] Junie Tatum DO) Smoking Status: Light Smoker (<10/day) how long ago did patient quit smokin year ago alcohol intake: current alcohol intake frequency: holidays/special occasions only substance use type: does not use caffeine: Yes Type: carbonated beverages Vital Signs Vital Signs Vital Signs: 11/23/20 07:35 11/23/20 10:32 11/23/20 12:19 Temperature 98.2 F 97.6 F L Temperature Source Temporal Oral Pulse Rate 100 87 Pulse Rate [Lying] 87 Pulse Rate [Sitting] 102 H Pulse Rate [Standing] 106 H Respiratory Rate 16 16 Blood Pressure 151/93 H 121/72 H Blood Pressure [Lying] 124/73 H Blood Pressure [Sitting] 96/62 Blood Pressure [Standing] 77/53 L Blood Pressure Mean 112 88 Blood Pressure Mean [Lying] 90 Blood Pressure Mean [Sitting] 73 Blood Pressure Mean [Standing] 61 Pulse Ox 100 97 Oxygen Delivery Method Room Air Weight Weight: 255 lb 11.779 oz Body Mass Index (BMI) 31.1 Physical Exam Const alert, oriented x3 and no apparent distress General Appearance: cooperative GI soft to palpation, non-tender and non-distended GI Narrative: No scar, no hernia Inspection: Negative for abdominal distention Palpation: Negative for guarding Results Lab / Micro Data Result Diagrams: 11/23/20 12:00 11/23/20 07:50 Labs: Laboratory Results - last 24 hr 11/23/20 07:50: WBC 12.9 H, RBC 3.17 L, Hgb 9.4 L, Hct 28.7 L, MCV 90.5, MCH 29.7, MCHC 32.8, RDW Std Deviation 46.0 H, RDW Coeff of Marcellus 14.0, Plt Count 176, MPV 10.2, Immature Gran % (Auto) 0.500, Neut % (Auto) 67.8, Lymph % (Auto) 23.2, [place] % (Auto) 6.2, Eos % (Auto) 1.8, Baso % (Auto) 0.5, Absolute Neuts (auto) 8.8 H, Absolute Lymphs (auto) 2.99, Nucleated RBC % 0 11/23/20 07:50: Sodium 134 L, Potassium 3.8, Chloride 104, Carbon Dioxide 25.0, Anion Gap 5, BUN 31 H, Creatinine 1.06, Estim Creat Clear Calc 92.12, Est GFR (MDRD) Af Amer 92, Est GFR (MDRD) Non-Af 76, BUN/Creatinine Ratio 29.2 H, Glucose 227 H, Calcium 7.6 L, Total Bilirubin 0.40, AST 15, ALT 25, Alkaline Phosphatase 93, Total Protein 6.5, Albumin 3.0 L, Globulin 3.5, Albumin/Globulin Ratio 0.9 11/23/20 07:50: Blood Type A POSITIVE, Antibody Screen NEGATIVE 11/23/20 08:20: PT 14.1, INR 1.2 11/23/20 12:00: Hgb 8.0 L, Hct 25.4 L 11/23/20 12:09: POC Glucose 146 H Micro: Microbiology 11/23/20 08:35 Nasal Secretion SARS-CoV-2 Antigen (Rapid) - Final 11/23/20 07:45 Stool Stool Occult Blood (MARCELL) - Final Occult Blood Positive Assessment & Plan Assessment/Plan (1) Acute blood loss anemia: PLAN: Patient is a 59-year-old male who presents with acute blood loss anemia secondary to GI source. He is currently anticoagulated with apixaban for history of paroxysmal atrial fibrillation. Last dose was the evening of 11/22/2020. Bleeding began approximately 3 days ago. Patient now symptomatic with some presyncope. Losses ongoing with 2 bowel movements already today. Patient's history does not clearly point to upper or lower source since he states bowel movements begin bloody, but became darker after initiating Pepto- Bismol. He does have a history of this problem and underwent colonoscopy approximately 9 years ago where he was found to have significant diverticulosis. Therefore this must be included in the differential. The following plan is recommended: ?Agree with serial H&H's ?Agree with transfusion threshold ?Agree with Protonix drip and holding anticoagulation ?Plan for upper and lower endoscopy on 11/25/2020 for the patient's anticoagulated status. Patient may begin a clear liquid diet if hemoglobin stabilizes. We will hold on initiating a prep and reevaluate this tomorrow. Charges/Coding Visit Charges Inpatient E&M: 68163 Init Hosp L3
--- NOTE | 2020-11-23 14:16 | CASEMGMT ---
As per RN, pt's grandson is in the ED with pt's , and is being sent to [facility] for heart issues. He and the grandmother have custody of this grandson Je. SW spoke w/pt in room in regard to grandson, support given. Pt explains Je is 4, has been in the hospital in the past for heart issues. He was in [facility] for 22 days at one point, said he had Fontan. SW spoke w/pt about both his grandson's health issues and his own issues. SW will continue to follow, remains available for support to pt. JUD Chou
[2020-11-23 17:10] LABS: Bedside Glucose 146 mg/dL (70-110)
[2020-11-23] MEDS: Bisacodyl 5 MG Tablet 20 MG PO (17:13)
[2020-11-23] MEDS: Insulin Human 75/25 Kwickpen 12 UNIT SC (17:14)
[2020-11-23] MEDS: Polyethylene Glycol 3350 BOWEL PREP PO (17:54)
[2020-11-23 19:28] LABS: Hematocrit 25.1 % (40-54)
[2020-11-23] MEDS: Atorvastatin Calcium 40 MG Tablet PO (21:27)
[2020-11-23] MEDS: Pregabalin 75 MG Capsule 150 MG PO (21:27)
[2020-11-23] MEDS: Carvedilol 25 MG Tablet PO (21:27)
--- NOTE | 2020-11-23 22:22 | NURSING ---
pt up to bsc . c/o feeling dizzy. pt asst back to bed. bedpan placed. pt had 600ml of red black liquid stool. pt cleaned up and diaper applied
[2020-11-23] MEDS: HUMAN PROTHROMBIN COMPLX(PCC) 3,500 UNIT in Viaflex Bag 1 BAG 8.4 UNIT IV (22:33)
[2020-11-23] MEDS: Insulin Lispro 100 UNIT/ML INSULN.PEN SC (23:27)
[2020-11-23 23:31] LABS: Bedside Glucose 203 mg/dL (70-110)
[2020-11-24] VITALS (26 sets, daily range): BP systolic 96–142; BP diastolic 48–88; PULSE 63–84; RESP 16–23; TEMP 36.2–36.8; O2SAT 97–100
[2020-11-24 02:17] LABS: Absolute Lymphocyte Count 2.03 X10^3/uL (0.83-4.51); Absolute Neutrophil Count 6.9 X10^3/uL (2.0-7.7); Basophil# 0.04 X10^3/uL; Basophil% 0.4 % (0-1); Eosinophil# 0.07 X10^3/uL; Eosinophils% 0.7 % (0-5); Hematocrit 27.7 % (40-54); Hemoglobin 9.1 g/dL (13.0-16.5); Lymphocyte # 2.03 X10^3/ul (0.83-4.51); Lymphocyte % 20.6 % (19-41); Mean Corp Hgb Conc 32.9 g/dL (32-36); Mean Corpuscular Hgb 29.8 pg (27.0-32.0); Mean Corpuscular Volume 90.8 fL (80-94); Mean Platelet Vol. 10.1 fl (6.2-12.0); Monocyte# 0.84 X10^3/uL; Monocyte% 8.5 % (0-10); NRBC Flagged by Analyzer 0 % (0-5); Neutrophil # 6.85 X10^3/uL (2.7-7.7); Neutrophil % 69.5 % (47-70); Platelet Count 134 K/mm3 (150-450); RBC Distribution Width CV 14.3 % (11.6-14.6); RBC Distribution Width SD 47.8 fl (35.1-43.9); Red Blood Count 3.05 M/mm3 (4.6-6.2); White Blood Count 9.9 K/mm3 (4.4-11.0)
[2020-11-24 02:45] LABS: ALB/GLOB Ratio 0.8 RATIO (0.9-2.4); AST(SGOT) 14 U/L (15-37); Alanine Aminotransfer ALT/SGPT 19 U/L (16-61); Albumin, Serum 2.3 g/dL (3.2-5.0); Alkaline Phosphatase 69 U/L (45-117); Anion Gap 4 (5-15); BUN 22 mg/dL (7-18); BUN/Creat Ratio 26.1 RATIO (10-20); Calcium,Total 6.7 mg/dL (8.5-10.1); Chloride 112 mmol/L (98-107); Creatinine, Serum 0.84 mg/dL (0.70-1.30); EST Glomerular Filtration Rate 99 mL/min (>60); Est Glom Filt Rate - Afr Amer 119 mL/min (>60); Estimated Creatinine Clearance 113.17 ml/min; Globulin 2.8 g/dL (2.2-4.2); Glucose 174 mg/dL (74-106); Magnesium 1.8 mg/dL (1.6-2.6); Phosphorus 2.8 mg/dL (2.5-4.9); Potassium 3.4 mmol/L (3.5-5.1); Protein, Total 5.1 g/dL (6.4-8.2); Sodium Level 140 mmol/L (136-145); Thyroid Stim Hormone (TSH) 0.15 uIU/mL (0.358-3.74)
[2020-11-24] MEDS: 0.9% Saline Lock 10 ML Syringe IV ×2 (05:14→08:40)
[2020-11-24] MEDS: Levothyroxine 100 MCG Tablet 200 MCG PO (05:14)
[2020-11-24 05:26] LABS: Bedside Glucose 140 mg/dL (70-110)
[2020-11-24 05:28] LABS: Hematocrit 27.4 % (40-54); Hemoglobin 8.9 g/dL (13.0-16.5)
--- NOTE | 2020-11-24 08:14 | PCM.PN.SRG ---
Subjective Subjective Patient seen and examined during AM rounds. He reports an uneventful overnight course. He states he stopped consuming his bowel prep approximately midnight and has not had a bowel movement since 1 AM. He is frustrated with his inability to find sleep, but is otherwise feeling fine. He has not attempted to ambulate today. He is eager to join his in the care of their grandson who is currently hospitalized. Objective Data Objective Data Vital Signs: Vital Signs Temp Pulse Resp BP Pulse Ox 97.7 F L 76 21 H 111/77 100 11/24/20 03:08 11/24/20 05:00 11/24/20 05:00 11/24/20 05:00 11/24/20 05:00 Oxygen Flow Rate (L/min) 2 Oxygen Delivery Method Room Air Weight: 264 lb 15.93 oz Body Mass Index (BMI) 31.1 Intake & Output: Intake and Output for Last 24 Hours 11/22/20 11/23/20 11/24/20 23:59 23:59 23:59 Intake Total 1861 / 1861 150 / 150 Output Total 3600 / 3600 1000 / 1000 Balance -1739 / -1739 -850 / -850 Lab / Micro Data Result Diagrams: 11/24/20 05:15 11/24/20 02:10 Labs: Laboratory Results - last 24 hr 11/23/20 07:50: Sodium 134 L, Potassium 3.8, Chloride 104, Carbon Dioxide 25.0, Anion Gap 5, BUN 31 H, Creatinine 1.06, Estim Creat Clear Calc 92.12, Est GFR (MDRD) Af Amer 92, Est GFR (MDRD) Non-Af 76, BUN/Creatinine Ratio 29.2 H, Glucose 227 H, Calcium 7.6 L, Total Bilirubin 0.40, AST 15, ALT 25, Alkaline Phosphatase 93, Total Protein 6.5, Albumin 3.0 L, Globulin 3.5, Albumin/Globulin Ratio 0.9 11/23/20 07:50: Blood Type A POSITIVE, Antibody Screen NEGATIVE 11/23/20 07:50: Crossmatch See Detail 11/23/20 07:50: Crossmatch See Detail 11/23/20 08:20: PT 14.1, INR 1.2 11/23/20 12:00: Hgb 8.0 L, Hct 25.4 L 11/23/20 12:09: POC Glucose 146 H 11/23/20 17:05: POC Glucose 146 H 11/23/20 19:10: Hgb 8.0 L, Hct 25.1 L 11/23/20 23:24: POC Glucose 203 H 11/24/20 02:10: WBC 9.9, RBC 3.05 L, Hgb 9.1 L, Hct 27.7 L, MCV 90.8, MCH 29.8, MCHC 32.9, RDW Std Deviation 47.8 H, RDW Coeff of Marcellus 14.3, Plt Count 134 L, MPV 10.1, Immature Gran % (Auto) 0.300, Neut % (Auto) 69.5, Lymph % (Auto) 20.6, [place] % (Auto) 8.5, Eos % (Auto) 0.7, Baso % (Auto) 0.4, Absolute Neuts (auto) 6.9, Absolute Lymphs (auto) 2.03, Nucleated RBC % 0 11/24/20 02:10: Sodium 140, Potassium 3.4 L, Chloride 112 H, Carbon Dioxide 24.0, Anion Gap 4 L, BUN 22 H, Creatinine 0.84, Estim Creat Clear Calc 113.17, Est GFR (MDRD) Af Amer 119, Est GFR (MDRD) Non-Af 99, BUN/Creatinine Ratio 26.1 H, Glucose 174 H, Calcium 6.7 L, Phosphorus 2.8, Magnesium 1.8, Total Bilirubin 0.60, AST 14 L, ALT 19, Alkaline Phosphatase 69, Total Protein 5.1 L, Albumin 2.3 L, Globulin 2.8, Albumin/Globulin Ratio 0.8 L, TSH 0.15 L 11/24/20 05:15: Hgb 8.9 L, Hct 27.4 L 11/24/20 05:17: POC Glucose 140 H Micro: Microbiology 11/23/20 08:35 Nasal Secretion SARS-CoV-2 Antigen (Rapid) - Final 11/23/20 07:45 Stool Stool Occult Blood (MARCELL) - Final Occult Blood Positive Physical Exam Const oriented x3 and no apparent distress Resp normal respiratory effort Resp Narrative: On room air GI soft to palpation and non-tender GI Narrative: Slight abdominal distention Inspection: abdominal distention Assessment & Plan Assessment/Plan (1) GI bleed: QUALIFIERS: GI bleed type/associated pathology: unspecified gastrointestinal hemorrhage type Qualified Code(s): K92.2 - Gastrointestinal hemorrhage, unspecified PLAN: Patient is hospital day 2 for admission for gastrointestinal bleed. Yesterday I took the patient for an emergent EGD given concerns for more rapid blood loss. Unfortunately there were no findings to point to an etiology for his bleed with this exam. Patient was thus returned to the ICU and initiated on a bowel prep in anticipation of a colonoscopy this afternoon. Patient was also administered 3 units of packed RBCs and Kcentra to assist with his anemia and anticoagulation status, respectively. Patient appears to be clinically stable. However, he had an inappropriate response to the transfusions noted above with his hemoglobin returning this morning at 8.9 g/dL. ?Maintain n.p.o. ?Could consider transition off of Protonix drip to 40 mg daily given the negative EGD yesterday ?Transfusion threshold of 7 g/dL or with increased outputs ?Planning for diagnostic colonoscopy this afternoon Charges/Coding Visit Charges Inpatient E&M: 80449 Subs Hosp L2
[2020-11-24 08:22] LABS: T4 Free Direct 1.24 ng/dL (0.76-1.46)
[2020-11-24] MEDS: Potassium Chloride 10mEq/100mL 10 MEQ/100 ML IV.SOLN. 100 MEQ IV BOLUS ×4 (09:38→13:24)
[2020-11-24] MEDS: Carvedilol 25 MG Tablet PO ×2 (09:38→21:12)
[2020-11-24] MEDS: Folic Acid 1 MG Tablet PO (09:38)
[2020-11-24] MEDS: Furosemide 40 MG Tablet PO (09:38)
[2020-11-24] MEDS: Pregabalin 75 MG Capsule 150 MG PO ×2 (09:40→21:12)
--- NOTE | 2020-11-24 10:00 | CASEMGMT ---
RN CAYLA Face to Face with patient for initial transition planning/care coordination assessment. RN CM introduced self and role at [facility]. Patient lying in bed, alert and oriented. Patient willing to participate in assessment and is able to answer all questions appropriately. Care providers, pharmacy, and demographics verified. Patient wishes to discharge home, denies need for home health at this time. Patient states he has no further needs or concerns at this time. CM to follow for discharge planning needs that may arise. 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 Patient states he is independent at home and able to ambulate stairs. Transportation: self, DME/HHC: Patient states he has cane and walker at home. Patient denied further DME. No previous HHC Disposition Plan: Patient to discharge home with family support and follow-up plans in place. Lor FERRARA, RN, CM
--- NOTE | 2020-11-24 13:50 | PN.HOSP_ITS ---
Subjective Subjective Patient states he is feeling much better since his blood transfusion. He would like to be able to go home today but understands that that is likely not possible. He has completed prep for colonoscopy which is later this afternoon. Objective Data Objective Data Vital Signs: Vital Signs Temp Pulse Resp BP Pulse Ox 98.1 F 74 18 125/54 H 100 11/24/20 11:35 11/24/20 12:12 11/24/20 12:12 11/24/20 12:12 11/24/20 12:12 Oxygen Flow Rate (L/min) 2 Oxygen Delivery Method Room Air Weight: 120.2 kg Body Mass Index (BMI) 31.1 Intake & Output: Intake and Output for Last 24 Hours 11/22/20 11/23/20 11/24/20 23:59 23:59 23:59 Intake Total 1861 / 1861 1210 / 1210 Output Total 3600 / 3600 1999 Balance -1739 / -1739 -790 / -790 Lab / Micro Data Result Diagrams: 11/24/20 05:15 11/24/20 02:10 Labs: Laboratory Results - last 24 hr 11/23/20 07:50: Crossmatch See Detail 11/23/20 07:50: Crossmatch See Detail 11/23/20 17:05: POC Glucose 146 H 11/23/20 19:10: Hgb 8.0 L, Hct 25.1 L 11/23/20 23:24: POC Glucose 203 H 11/24/20 02:10: WBC 9.9, RBC 3.05 L, Hgb 9.1 L, Hct 27.7 L, MCV 90.8, MCH 29.8, MCHC 32.9, RDW Std Deviation 47.8 H, RDW Coeff of Marcellus 14.3, Plt Count 134 L, MPV 10.1, Immature Gran % (Auto) 0.300, Neut % (Auto) 69.5, Lymph % (Auto) 20.6, [place] % (Auto) 8.5, Eos % (Auto) 0.7, Baso % (Auto) 0.4, Absolute Neuts (auto) 6.9, Absolute Lymphs (auto) 2.03, Nucleated RBC % 0 11/24/20 02:10: Sodium 140, Potassium 3.4 L, Chloride 112 H, Carbon Dioxide 24.0, Anion Gap 4 L, BUN 22 H, Creatinine 0.84, Estim Creat Clear Calc 113.17, Est GFR (MDRD) Af Amer 119, Est GFR (MDRD) Non-Af 99, BUN/Creatinine Ratio 26.1 H, Glucose 174 H, Calcium 6.7 L, Phosphorus 2.8, Magnesium 1.8, Total Bilirubin 0.60, AST 14 L, ALT 19, Alkaline Phosphatase 69, Total Protein 5.1 L, Albumin 2.3 L, Globulin 2.8, Albumin/Globulin Ratio 0.8 L, TSH 0.15 L 11/24/20 02:10: Free T4 1.24 11/24/20 05:15: Hgb 8.9 L, Hct 27.4 L 11/24/20 05:17: POC Glucose 140 H Micro: Microbiology 11/23/20 08:35 Nasal Secretion SARS-CoV-2 Antigen (Rapid) - Final 11/23/20 07:45 Stool Stool Occult Blood (MARCELL) - Final Occult Blood Positive Physical Exam Const alert, oriented x3, no apparent distress and average body habitus Constitutional Narrative: Overweight, upper middle-aged white male sitting in bed, appears older than stated age, nontoxic, appears more comfortable than yesterday Exam Limitations: no limitations Nutritional Appearance: obese HEENT normocephalic, head/scalp atraumatic, hearing grossly normal bilaterally, moist oral mucous membranes and oropharynx normal Head and Scalp: normocephalic Resp normal respiratory effort, no retractions, no use of accessory muscles and clear to auscultation bilaterally Resp Narrative: Diffusely diminished but clear Auscultation: Negative for crackles, rales, rhonchi or wheezes Cardio regular rate, regular rhythm, S1 normal heart sound, S2 normal heart sound, no murmurs, no rub, no gallops, no clicks and no JVD GI normal to inspection, nondistended, normoactive bowel sounds and soft to palpation GI Narrative: Mild epigastric tenderness Auscultation: hyperactive bowel sounds Palpation: tender; Negative for guarding or hernia Extremity no clubbing, cyanosis or edema Neuro oriented x3, moves all extremities and no focal motor deficits Sensorium / Orientation: awake and alert Speech: speech normal Psych affect normal Assessment & Plan Assessment/Plan (1) GI bleed: QUALIFIERS: GI bleed type/associated pathology: unspecified gastrointestinal hemorrhage type Qualified Code(s): K92.2 - Gastrointestinal hemorrhage, unspecified (2) Acute blood loss anemia: (3) Acute upper GI bleed: (4) Leukocytosis: (5) Hyponatremia: (6) PAF (paroxysmal atrial fibrillation): PLAN: GI bleed -Discontinue Protonix -Discontinue serial H&H's as hemoglobin appears to have stabilized -Continue n.p.o. until colonoscopy can be performed -EGD done 11/23/2020 and showed no source of bleeding -Last dose of Eliquis was p.m. of 11/22/2020 -Patient was given Kcentra as he had continued bleeding -Status post transfusion of 3 units -Continue to hold aspirin and Eliquis -Colonoscopy later today Acute blood loss anemia -Hemoglobin 1.5 years ago was 12.4 and today hemoglobin is 9.4 -Hemoglobin continued to drop and therefore the patient was transfused with a total of 3 units packed red blood cells -It appears that his bleeding has at this time ceased as his hemoglobin appears to have stabilized -Continue to monitor Leukocytosis -Resolved -Suspect reactive from bleed Thrombocytopenia -Mild -Suspect consumptive -Repeat in a.m. Mild hyponatremia -Resolved Hypokalemia -IV 40 mEq since patient is n.p.o. -Repeat in a.m. -Mag levels within normal limits Hypocalcemia -A.m. calcium was 6.7 -2 g calcium gluconate and repeat in a.m. Paroxysmal atrial fibrillation -Remains in normal sinus rhythm -Hold Eliquis -Patient is currently hemodynamically stable and therefore we will continue carvedilol at this point History of cardiomyopathy -Patient has had a repeat echocardiogram that shows an EF of 50% done in June of this year -Continue goal-directed therapy -Appears that patient had a previous EF of 30% History of thyroid cancer/hypothyroidism -Patient with history of total thyroidectomy in 2019 -Continue Synthroid -Follows as an outpatient CAD/HPL/HTN -Hold apixaban secondary to bleed -Hold aspirin secondary to bleed -Continue atorvastatin -Continue carvedilol 25 mg twice daily -Continue home Lasix DM-2 uncontrolled -Post recent hemoglobin A1c was 9.3 (10/06) -Continue home subcu insulin 75/25 -We will half the dose for now as patient is n.p.o. to 12 units 3 times daily from 24 units 3 times daily -Will start regular dosing once patient is back on regular diet -Accu-Cheks every 6 while n.p.o. -Low moderate dose sliding scale every 6 while n.p.o. -Hold Metformin -Hold dapagliflozin Diabetic neuropathy -Continue Lyrica DVT prophylaxis -SCDs CODE STATUS -Full code Charges/Coding Visit Charges Inpatient E&M: 95543 Subs Hosp L2
[2020-11-24] MEDS: Lactated Ringers 1,000 ML 100 ML IV ×2 (14:15→18:18)
--- NOTE | 2020-11-24 15:16 | OP.COLON_ITS ---
Patient Name: Toni Vo Procedure Date: 11/24/2020 1:35 PM Date of : 1960 Age: 59 Procedure: Colonoscopy Indications: Melena, Gastrointestinal bleeding Providers: Yusef Paniagua MD Medicines: See the Anesthesia note for documentation of the administered medications Patient Profile: Refer to note in patient chart for documentation of history and physical. Last Colonoscopy: 9 years. Complications: No immediate complications. Estimated blood loss: None. Procedure: Pre-Anesthesia Assessment: - Prior to the procedure, a History and Physical was performed, and patient medications and allergies were reviewed. The patient's tolerance of previous anesthesia was also reviewed. The risks and benefits of the procedure and the sedation options and risks were discussed with the patient. All questions were answered, and informed consent was obtained. Prior Anticoagulants: The patient last took aspirin 2 days and Eliquis (apixaban) 2 days prior to the procedure. After reviewing the risks and benefits, the patient was deemed in satisfactory condition to undergo the procedure. - Monitored anesthesia care under the supervision of a INTELLIGENCE OPERATIONS SPECIALIST was determined to be medically necessary for this procedure based on severe comorbidity (greater than ASA Grade II). After I obtained informed consent, the scope was passed under direct vision. Throughout the procedure, the patient's blood pressure, pulse, and oxygen saturations were monitored continuously. The adult colonoscope was introduced through the anus and advanced to the cecum, identified by the ileocecal valve. The colonoscopy was technically difficult and complex due to poor bowel prep. Successful completion of the procedure was aided by lavage. The patient tolerated the procedure well. The colonoscopy was technically difficult and complex due to abnormal anatomy. Successful completion of the procedure was aided by performing the maneuvers documented (below) in this report. The entire colon was examined. Scope In: 1:51:04 PM Scope Withdrawal Time 0 hours 54 minutes 9 seconds Scope Out: 2:58:58 PM Total Procedure Duration Time 1 hour 7 minutes 54 seconds Findings: Many large-mouthed diverticula were found in the sigmoid colon and ascending colon. There was no evidence of diverticular bleeding. The patient was repositioned because of difficulty passing the scope. Impression: - Severe diverticulosis in the sigmoid colon and in the ascending colon. There was no evidence of diverticular bleeding. - No specimens collected. Recommendation: - Return patient to ICU for ongoing care. - Clear liquid diet today. - Continue present medications. - Repeat colonoscopy in 5 years for surveillance. Procedure Code(s): --- Professional --- 72067, Colonoscopy, flexible; diagnostic, including collection of specimen(s) by brushing or washing, when performed (separate procedure) Diagnosis Code(s): --- Professional --- K92.1, Melena (includes Hematochezia) K92.2, Gastrointestinal hemorrhage, unspecified K57.30, Diverticulosis of large intestine without perforation or abscess without bleeding CPT copyright 2017 [employer]. All rights reserved. The codes documented in this report are preliminary and upon dust collector treater review may be revised to meet current compliance requirements. Yusef Paniagua MD 11/24/2020 3:16:03 PM This report has been signed electronically. Number of Addenda: 0 Note Initiated On: 11/24/2020 1:35 PM
--- NOTE | 2020-11-24 15:17 | OP.CCLET_ITS ---
11/24/2020 Fabiana [address]ña [address] [place] [address] Re : Colonoscopy procedure for Toni Vo Dear Dr. Peña This procedure was performed on Tuesday, November 24, 2020. My impressions and recommendations are as follows: Impressions : - Severe diverticulosis in the sigmoid colon and in the ascending colon. There was no evidence of diverticular bleeding. - No specimens collected. Recommendations : - Return patient to ICU for ongoing care. - Clear liquid diet today. - Continue present medications. - Repeat colonoscopy in 5 years for surveillance. My findings are described in the full procedure note, which is enclosed. If I can be of further assistance, please feel free to contact me at Doctor phone number(s): , Work: . Sincerely, Yusef Paniagua MD 11/24/2020 3:16:03 PM This report has been signed electronically.
--- NOTE | 2020-11-24 15:37 | SUR.PHASEI ---
Patient is in normal sinus rhythm during time in PACU.
--- NOTE | 2020-11-24 15:44 | SUR.PHASEI ---
soap suds enema performed in pre-op
[2020-11-24 16:45] LABS: Bedside Glucose 171 mg/dL (70-110)
[2020-11-24] MEDS: Insulin Lispro 100 UNIT/ML INSULN.PEN SC ×2 (18:11→21:18)
[2020-11-24] MEDS: Insulin Human 75/25 Kwickpen 12 UNIT SC (18:12)
[2020-11-24] MEDS: Atorvastatin Calcium 40 MG Tablet PO (21:12)
[2020-11-24 21:26] LABS: Bedside Glucose 172 mg/dL (70-110)
[2020-11-25] VITALS (12 sets, daily range): BP systolic 100–119; BP diastolic 50–70; PULSE 65–97; RESP 16–20; TEMP 35.9–36.6; O2SAT 95–100
[2020-11-25 03:38] LABS: Absolute Lymphocyte Count 1.34 X10^3/uL (0.83-4.51); Absolute Neutrophil Count 6.8 X10^3/uL (2.0-7.7); Basophil# 0.01 X10^3/uL; Basophil% 0.1 % (0-1); Hematocrit 24.4 % (40-54); Hemoglobin 7.9 g/dL (13.0-16.5); Lymphocyte # 1.34 X10^3/ul (0.83-4.51); Lymphocyte % 15.3 % (19-41); Mean Corp Hgb Conc 32.4 g/dL (32-36); Mean Corpuscular Hgb 30.4 pg (27.0-32.0); Mean Corpuscular Volume 93.8 fL (80-94); Monocyte# 0.54 X10^3/uL; Monocyte% 6.2 % (0-10); NRBC Flagged by Analyzer 0.3 % (0-5); Neutrophil # 6.82 X10^3/uL (2.7-7.7); Neutrophil % 77.6 % (47-70); Platelet Count 140 K/mm3 (150-450); RBC Distribution Width CV 15.1 % (11.6-14.6); RBC Distribution Width SD 49.8 fl (35.1-43.9); White Blood Count 8.8 K/mm3 (4.4-11.0)
[2020-11-25 04:14] LABS: ALB/GLOB Ratio 0.8 RATIO (0.9-2.4); AST(SGOT) 15 U/L (15-37); Alanine Aminotransfer ALT/SGPT 21 U/L (16-61); Albumin, Serum 2.2 g/dL (3.2-5.0); Alkaline Phosphatase 72 U/L (45-117); Anion Gap 5 (5-15); BUN 10 mg/dL (7-18); BUN/Creat Ratio 13.3 RATIO (10-20); Chloride 110 mmol/L (98-107); Creatinine, Serum 0.75 mg/dL (0.70-1.30); EST Glomerular Filtration Rate 113 mL/min (>60); Est Glom Filt Rate - Afr Amer 136 mL/min (>60); Estimated Creatinine Clearance 126.75 ml/min; Globulin 2.8 g/dL (2.2-4.2); Glucose 150 mg/dL (74-106); Potassium 3.6 mmol/L (3.5-5.1); Sodium Level 140 mmol/L (136-145)
[2020-11-25] MEDS: Lactated Ringers 1,000 ML 100 ML IV (04:18)
[2020-11-25] MEDS: Levothyroxine 100 MCG Tablet 200 MCG PO (05:41)
[2020-11-25 05:50] LABS: Bedside Glucose 139 mg/dL (70-110)
--- NOTE | 2020-11-25 08:07 | PN.SURG_ITS ---
Subjective Subjective Patient seen and examined during AM rounds. He reports no acute events overnight. He has tolerated his clear liquids without issue. He states he had a runny bowel movement this morning but denies noting any blood with this bowel movement. He also reports that while he was up having his bowel movement he felt no lightheadedness and his blood pressure remained stable on the monitor. Objective Data Objective Data Vital Signs: Vital Signs Temp Pulse Resp BP Pulse Ox 97.9 F 67 17 100/50 L 100 11/25/20 03:46 11/25/20 07:38 11/25/20 03:46 11/25/20 03:46 11/25/20 03:46 Oxygen Flow Rate (L/min) 2 Oxygen Delivery Method Room Air Weight: 266 lb 15.677 oz Body Mass Index (BMI) 31.1 Intake & Output: Intake and Output for Last 24 Hours 11/23/20 11/24/20 11/25/20 23:59 23:59 23:59 Intake Total 1861 / 1861 3632.17 / 3632.17 1220 / 1220 Output Total 3600 / 3600 4750 / 4750 Balance -1739 / -1739 -1117.83 / -1117.83 1220 / 1220 Lab / Micro Data Result Diagrams: 11/25/20 03:30 11/25/20 03:30 Labs: Laboratory Results - last 24 hr 11/24/20 02:10: Free T4 1.24 11/24/20 16:38: POC Glucose 171 H 11/24/20 21:17: POC Glucose 172 H 11/25/20 03:30: WBC 8.8, RBC 2.60 L, Hgb 7.9 L, Hct 24.4 L, MCV 93.8, MCH 30.4, MCHC 32.4, RDW Std Deviation 49.8 H, RDW Coeff of Marcellus 15.1 H, Plt Count 140 L, MPV 10.0, Immature Gran % (Auto) 0.800, Neut % (Auto) 77.6 H, Lymph % (Auto) 15.3 L, [place] % (Auto) 6.2, Eos % (Auto) 0.0, Baso % (Auto) 0.1, Absolute Neuts (auto) 6.8, Absolute Lymphs (auto) 1.34, Nucleated RBC % 0.3 11/25/20 03:30: Sodium 140, Potassium 3.6, Chloride 110 H, Carbon Dioxide 25.0, Anion Gap 5, BUN 10, Creatinine 0.75, Estim Creat Clear Calc 126.75, Est GFR (MDRD) Af Amer 136, Est GFR (MDRD) Non-Af 113, BUN/Creatinine Ratio 13.3, Gluc ose 150 H, Calcium 7.0 L, Total Bilirubin 0.40, AST 15, ALT 21, Alkaline Phosphatase 72, Total Protein 5.0 L, Albumin 2.2 L, Globulin 2.8, Albumin/Globulin Ratio 0.8 L 11/25/20 05:40: POC Glucose 139 H Micro: Microbiology 11/23/20 08:35 Nasal Secretion SARS-CoV-2 Antigen (Rapid) - Final 11/23/20 07:45 Stool Stool Occult Blood (MARCELL) - Final Occult Blood Positive Physical Exam Const oriented x3 and no apparent distress GI soft to palpation and non-tender Inspection: Negative for abdominal distention Assessment & Plan Assessment/Plan (1) GI bleed: QUALIFIERS: GI bleed type/associated pathology: unspecified gastrointestinal hemorrhage type Qualified Code(s): K92.2 - Gastrointestinal hemorrhage, unspecified PLAN: Patient now status post colonoscopic evaluation yesterday and EGD the day prior?both negative for findings to explain source of GI bleed. While patient's hemoglobin has down trended slightly to 7.9 g/dL this morning, I horacio pect this may be a delayed representation of earlier bleeding since patient's orthostatics have resolved and he is no longer noting blood with recent bowel movements. However since this is not completely stable, I would like to continue an inpatient stay to observe his labs and hemodynamic status for another 24 hours. Would plan to recheck hemoglobin in another 6 to 12 hours?continuing clear liquid diet during this time. If recheck lab is stable, then would plan to advance diet. Charges/Coding Visit Charges Inpatient E&M: 58928 Subs Hosp L2
[2020-11-25] MEDS: Pregabalin 75 MG Capsule 150 MG PO ×2 (09:36→22:44)
[2020-11-25] MEDS: Carvedilol 25 MG Tablet PO (09:37)
[2020-11-25] MEDS: Furosemide 40 MG Tablet PO (09:37)
[2020-11-25] MEDS: Folic Acid 1 MG Tablet PO (09:37)
[2020-11-25 09:50] LABS: Hematocrit 25.2 % (40-54); Hemoglobin 8.1 g/dL (13.0-16.5)
--- NOTE | 2020-11-25 11:07 | PN.HOSP_ITS ---
Subjective Subjective Patient states he is feeling much better. Hemoglobin did drop 1 g overnight. The patient reports that he has had bowel movements with no dark tarry or red stool any longer. Unfortunately no source of bleeding was observed on either the EGD or colonoscopy. Diverticular bleed is suspected. Objective Data Objective Data Vital Signs: Vital Signs Temp Pulse Resp BP Pulse Ox 97.5 F L 69 16 111/58 L 96 11/25/20 08:46 11/25/20 08:46 11/25/20 08:46 11/25/20 08:46 11/25/20 08:46 Oxygen Flow Rate (L/min) 2 Oxygen Delivery Method Room Air Weight: 121.1 kg Body Mass Index (BMI) 31.1 Intake & Output: Intake and Output for Last 24 Hours 11/23/20 11/24/20 11/25/20 23:59 23:59 23:59 Intake Total 1861 / 1861 3632.17 / 3632.17 1220 / 1220 Output Total 3600 / 3600 4750 / 4750 Balance -1739 / -1739 -1117.83 / -1117.83 1220 / 1220 Lab / Micro Data Result Diagrams: 11/25/20 09:35 11/25/20 03:30 Labs: Laboratory Results - last 24 hr 11/24/20 16:38: POC Glucose 171 H 11/24/20 21:17: POC Glucose 172 H 11/25/20 03:30: WBC 8.8, RBC 2.60 L, Hgb 7.9 L, Hct 24.4 L, MCV 93.8, MCH 30.4, MCHC 32.4, RDW Std Deviation 49.8 H, RDW Coeff of Marcellus 15.1 H, Plt Count 140 L, MPV 10.0, Immature Gran % (Auto) 0.800, Neut % (Auto) 77.6 H, Lymph % (Auto) 15.3 L, [place] % (Auto) 6.2, Eos % (Auto) 0.0, Baso % (Auto) 0.1, Absolute Neuts ( auto) 6.8, Absolute Lymphs (auto) 1.34, Nucleated RBC % 0.3 11/25/20 03:30: Sodium 140, Potassium 3.6, Chloride 110 H, Carbon Dioxide 25.0, Anion Gap 5, BUN 10, Creatinine 0.75, Estim Creat Clear Calc 126.75, Est GFR (MDRD) Af Amer 136, Est GFR (MDRD) Non-Af 113, BUN/Creatinine Ratio 13.3, Glucose 150 H, Calcium 7.0 L, Total Bilirubin 0.40, AST 15, ALT 21, Alkaline Phosphatase 72, Total Protein 5.0 L, Albumin 2.2 L, Globulin 2.8, Albumin/Globulin Ratio 0.8 L 11/25/20 05:40: POC Glucose 139 H 11/25/20 09:35: Hgb 8.1 L, Hct 25.2 L Micro: Microbiology 11/23/20 08:35 Nasal Secretion SARS-CoV-2 Antigen (Rapid) - Final 11/23/20 07:45 Stool Stool Occult Blood (MARCELL) - Final Occult Blood Positive Physical Exam Const alert, oriented x3, no apparent distress and average body habitus Constitutional Narrative: Overweight, upper middle-aged white male sitting in bed, appears older than stated age, nontoxic, appears well this morning Exam Limitations: no limitations Nutritional Appearance: obese HEENT normocephalic, head/scalp atraumatic, hearing grossly normal bilaterally, moist oral mucous membranes and oropharynx normal Head and Scalp: normocephalic Resp normal respiratory effort, no retractions, no use of accessory muscles and clear to auscultation bilaterally Resp Narrative: Diffusely diminished but clear Auscultation: Negative for crackles, rales, rhonchi or wheezes Cardio regular rate, regular rhythm, S1 normal heart sound, S2 normal heart sound, no m urmurs, no rub, no gallops, no clicks and no JVD GI normal to inspection, nondistended, normoactive bowel sounds and soft to palpation GI Narrative: Mild epigastric tenderness Auscultation: hyperactive bowel sounds Palpation: tender; Negative for guarding or hernia Extremity no clubbing, cyanosis or edema Peripheral Pulses: Yes pulses 2+ throughout Skin no rashes or lesions noted, no wounds, skin turgor normal, no jaundice, no petechiae and no mottling Neuro oriented x3, moves all extremities and no focal motor deficits Sensorium / Orientation: awake and alert Speech: speech normal Psych affect normal Assessment & Plan Assessment/Plan (1) GI bleed: QUALIFIERS: GI bleed type/associated pathology: unspecified gastrointestinal hemorrhage type Qualified Code(s): K92.2 - Gastrointestinal hemorrhage, unspecified (2) Acute blood loss anemia: (3) Acute upper GI bleed: (4) Leukocytosis: (5) Hyponatremia: (6) PAF (paroxysmal atrial fibrillation): PLAN: GI bleed -Repeat hemoglobin in 6 hours from a.m. and if stable advance diet from clear liquids -EGD done 11/23/2020 and showed no source of bleeding -Colonoscopy done on 11/24/2020 and showed no source of bleeding although patient has severe diverticular disease -Most likely that this is a diverticular bleed -Last dose of Eliquis was p.m. of 11/22/2020 -Continue to hold Eliquis--> patient will need to follow-up with cardiology and discussed risk/benefits -Okay to restart aspirin on 11/29/2020 -If patient remains stable with a regular diet okay to discharge tomorrow morning 11/26/2020 per discussion with general surgery Acute blood loss anemia -Hemoglobin 1.5 years ago was 12.4 and today hemoglobin is 9.4 -Patient status post 3 units transfusion of packed red blood cells -Repeat hemoglobin pending 6 hours after a.m. draw to confirm stability as there was a 1 g drop Thrombocytopenia -Mild -Suspect consumptive -Repeat in a.m. Mild hyponatremia -Resolved Hypokalemia -Resolved Hypocalcemia -Calcium is 7.0 -When corrected for albumin calcium is within normal limits Paroxysmal atrial fibrillation -Remains in normal sinus rhythm -Hold Eliquis -Patient is currently hemodynamically stable and therefore we will continue carvedilol at this point History of cardiomyopathy -Patient has had a repeat echocardiogram that shows an EF of 50% done in June of this year -Continue goal-directed therapy -Appears that patient had a previous EF of 30% History of thyroid cancer/hypothyroidism -Patient with history of total thyroidectomy in 2019 -Continue Synthroid -Follows as an outpatient CAD/HPL/HTN -Hold apixaban -Hold aspirin secondary to bleed--> restart Sunday -Continue atorvastatin -Continue carvedilol 25 mg twice daily -Continue home Lasix DM-2 uncontrolled -Post recent hemoglobin A1c was 9.3 (10/06) -Continue home subcu insulin 75/25 -Restart normal 24 units 3 times daily as patient will be placed on an regular diet now -Accu-Cheks before meals and at bedtime -Low moderate dose sliding scale -Hold Metformin -Hold dapagliflozin Diabetic neuropathy -Continue Lyrica DVT prophylaxis -SCDs CODE STATUS -Full code Charges/Coding Visit Charges Inpatient E&M: 07341 Subs Hosp L2
[2020-11-25 11:46] LABS: Bedside Glucose 138 mg/dL (70-110)
--- NOTE | 2020-11-25 12:11 | CASEMGMT ---
Social Work SW met with pt and provided support regaurding hospitalization of grandson which he has custody of. Pt openly discussed his grandson's issues and states his and son are with grandson and pt has been face timing with his and grandson. Pt confident grandson is ok, no further concerns at this time. SW will remain available if needs arise. DEON Sorensen
[2020-11-25] MEDS: Insulin Human 75/25 Kwickpen 24 UNIT SC ×2 (12:19→17:32)
[2020-11-25 16:35] LABS: Bedside Glucose 204 mg/dL (70-110)
[2020-11-25] MEDS: Insulin Lispro 100 UNIT/ML INSULN.PEN SC (17:27)
[2020-11-25] MEDS: Atorvastatin Calcium 40 MG Tablet PO (22:44)
[2020-11-25] MEDS: 0.9% Saline Lock 10 ML Syringe IV (22:45)
[2020-11-25 23:25] LABS: Bedside Glucose 162 mg/dL (70-110)
[2020-11-26] VITALS (7 sets, daily range): BP systolic 110–136; BP diastolic 59–70; PULSE 60–72; RESP 11–18; TEMP 35.9–36.6; O2SAT 92–98
[2020-11-26] MEDS: Levothyroxine 100 MCG Tablet 200 MCG PO (04:43)
[2020-11-26 06:42] LABS: Absolute Lymphocyte Count 3.09 X10^3/uL (0.83-4.51); Absolute Neutrophil Count 5.9 X10^3/uL (2.0-7.7); Basophil# 0.04 X10^3/uL; Basophil% 0.4 % (0-1); Eosinophil# 0.21 X10^3/uL; Eosinophils% 2.1 % (0-5); Hematocrit 25.9 % (40-54); Hemoglobin 8.2 g/dL (13.0-16.5); Lymphocyte # 3.09 X10^3/ul (0.83-4.51); Lymphocyte % 30.4 % (19-41); Mean Corp Hgb Conc 31.7 g/dL (32-36); Mean Corpuscular Hgb 29.5 pg (27.0-32.0); Mean Corpuscular Volume 93.2 fL (80-94); Mean Platelet Vol. 10.1 fl (6.2-12.0); Monocyte% 8.8 % (0-10); NRBC Flagged by Analyzer 0.4 % (0-5); Neutrophil # 5.89 X10^3/uL (2.7-7.7); Neutrophil % 57.8 % (47-70); Platelet Count 171 K/mm3 (150-450); RBC Distribution Width CV 16.2 % (11.6-14.6); RBC Distribution Width SD 48.6 fl (35.1-43.9); Red Blood Count 2.78 M/mm3 (4.6-6.2); White Blood Count 10.2 K/mm3 (4.4-11.0)
[2020-11-26 07:07] LABS: Anion Gap 4 (5-15); BUN 12 mg/dL (7-18); BUN/Creat Ratio 14.2 RATIO (10-20); Calcium,Total 7.6 mg/dL (8.5-10.1); Chloride 110 mmol/L (98-107); Creatinine, Serum 0.84 mg/dL (0.70-1.30); EST Glomerular Filtration Rate 98 mL/min (>60); Est Glom Filt Rate - Afr Amer 119 mL/min (>60); Estimated Creatinine Clearance 113.17 ml/min; Glucose 100 mg/dL (74-106); Potassium 3.2 mmol/L (3.5-5.1); Sodium Level 141 mmol/L (136-145)
[2020-11-26 08:06] LABS: Bedside Glucose 105 mg/dL (70-110)
--- NOTE | 2020-11-26 08:26 | PN.SURG_ITS ---
Subjective Subjective Patient seen and examined during AM rounds. He is upbeat, feels well, and is anxious for discharge home. He states that he had several bowel movements without noting any blood overnight. He tolerated his regular diet yesterday without subsequent nausea or vomiting. Objective Data Objective Data Vital Signs: Vital Signs Temp Pulse Resp BP Pulse Ox 96.7 F L 67 11 L 136/70 H 96 11/26/20 08:15 11/26/20 08:15 11/26/20 08:15 11/26/20 08:15 11/26/20 08:15 Oxygen Flow Rate (L/min) 2 Oxygen Delivery Method Room Air Weight: 265 lb 10.512 oz Body Mass Index (BMI) 31.1 Intake & Output: Intake and Output for Last 24 Hours 11/24/20 11/25/20 11/26/20 23:59 23:59 23:59 Intake Total 3632.17 / 3632.17 2206.5 / 2206.5 Output Total 4750 / 4750 Balance -1117.83 / -1117.83 2206.5 / 2206.5 Lab / Micro Data Result Diagrams: 11/26/20 05:54 11/26/20 05:54 Labs: Laboratory Results - last 24 hr 11/25/20 09:35: Hgb 8.1 L, Hct 25.2 L 11/25/20 11:24: POC Glucose 138 H 11/25/20 16:29: POC Glucose 204 H 11/25/20 22:40: POC Glucose 162 H 11/26/20 05:54: WBC 10.2, RBC 2.78 L, Hgb 8.2 L, Hct 25.9 L, MCV 93.2, MCH 29.5, MCHC 31.7 L, RDW Std Deviation 48.6 H, RDW Coeff of Marcellus 16.2 H, Plt Count 171, MPV 10.1, Immature Gran % (Auto) 0.500, Neut % (Auto) 57.8, Lymph % (Auto) 30.4, [place] % (Auto) 8.8, Eos % (Auto) 2.1, Baso % (Auto) 0.4, Absolute Neuts (auto) 5.9, Absolute Lymphs (auto) 3.09, Nucleated RBC % 0.4 11/26/20 05:54: Sodium 141, Potassium 3.2 L, Chloride 110 H, Carbon Dioxide 27.0, Anion Gap 4 L, BUN 12, Creatinine 0.84, Estim Creat Clear Calc 113.17, Est GFR (MDRD) Af Amer 119, Est GFR (MDRD) Non-Af 98, BUN/Creatinine Ratio 14.2, Glucose 100, Calcium 7.6 L 11/26/20 07:54: POC Glucose 105 Micro: Microbiology 11/23/20 08:35 Nasal Secretion SARS-CoV-2 Antigen (Rapid) - Final 11/23/20 07:45 Stool Stool Occult Blood (MARCELL) - Final Occult Blood Positive Physical Exam Const oriented x3 and no apparent distress Resp normal respiratory effort GI soft to palpation and non-tender Inspection: Negative for abdominal distention Assessment & Plan Assessment/Plan (1) GI bleed: QUALIFIERS: GI bleed type/associated pathology: unspecified ga strointestinal hemorrhage type Qualified Code(s): K92.2 - Gastrointestinal hemorrhage, unspecified PLAN: Is hospital day 4 for admission for GI bleed. He is status post upper and lower endoscopies without clear findings of bleeding source. However over the last several lab checks his hemoglobin has slowly risen. Additionally, he has had multiple bowel movements without evidence of bleeding. And through the past 48 hours his vital signs have been stable. He is advanced to a regular diet yesterday without difficulty. Given the above, I deemed Mr. Vo fit for discharge home. The following are recommended on discharge: ?High-fiber diet with plenty of fluid intake ?Hold on resuming aspirin for another 48 hours ?Hold EliTrippin In for medicine/cards recs (patient due for follow-up cardiology appointment on December 24, 2020 and instructed to discuss this admission and his need for anticoagulation for paroxysmal atrial fibrillation) Charges/Coding Visit Charges Inpatient E&M: 34454 Subs Hosp L1
[2020-11-26] MEDS: Carvedilol 25 MG Tablet PO (09:11)
[2020-11-26] MEDS: Furosemide 40 MG Tablet PO (09:11)
[2020-11-26] MEDS: Insulin Human 75/25 Kwickpen 24 UNIT SC ×2 (09:11→11:57)
[2020-11-26] MEDS: Folic Acid 1 MG Tablet PO (09:11)
[2020-11-26] MEDS: Pregabalin 75 MG Capsule 150 MG PO (09:17)
[2020-11-26 11:50] LABS: Bedside Glucose 186 mg/dL (70-110)
[2020-11-26] MEDS: Insulin Lispro 100 UNIT/ML INSULN.PEN SC (11:59)
--- NOTE | 2020-11-26 14:08 | PCM.DC ---
Discharge Instructions Diet Discharge Diet: 1800 Calorie Control Diet Activity Discharge Activity: Return to Normal Activity Weight Bearing Status: Full weight bearing Follow Up Care Test Results: Test results from this visit will be discussed in further detail at your follow-up appointment, if applicable. Discharge Plan Admission Admit Date/Time: 11/23/20 09:07 Primary Reason for Your Visit: lower GI bleeding Attending Provider: Josue Barnes Primary Care Provider: Fabiana Peña Consulting Providers: Yusef Paniagua Discharge Orders/Prescriptions Prescriptions: Continued metformin 500 mg tablet extended release 24 hr 1,000 mg PO BID RF: 0 folic acid 400 mcg tablet 800 mcg PO DAILY RF: 0 mecobalamin (vitamin B12) 1,000 mcg tablet,disintegrating 1,000 mcg SUBLINGUAL DAILY RF: 0 cholecalciferol (vitamin D3) 125 mcg (5,000 unit) tablet 125 mcg PO DAILY RF: 0 dapagliflozin 5 mg tablet 5 mg PO DAILY RF: 0 NeuropAway tablet 1 tab PO TID RF: 0 levothyroxine 200 mcg tablet 200 mcg PO DAILY RF: 0 pregabalin 100 mg capsule 150 mg PO BID RF: 0 aspirin 81 MG tablet 81 mg PO DAILY@0800 RF: 0 insulin lispro protamin-lispro 100 unit/mL (75-25) insulin pen 24 unit SC TID RF: 0 atorvastatin 40 mg tablet 40 mg PO QHS Qty: 90 RF: 3 carvedilol 25 mg tablet 25 mg PO BID Qty: 180 RF: 3 furosemide 40 mg tablet 40 mg PO DAILY Qty: 90 RF: 3 Discontinued Eliquis 5 mg tablet 5 mg PO BID Qty: 60 RF: 6 Referrals / Follow Up: Fabiana Peña MD [Primary Care Provider] - Within 1 Week (Get your blood count rechecked) Arnold Duke MD [STAFF PHYSICIAN] - See Referral Note (as scheduled-discuss if you should resume Eliquis) Disposition Disposition (needs filled in before D/C Order can be placed): Home, Self Care
--- NOTE | 2020-11-26 18:00 | PCM.DC.SUM ---
Providers Date of Admission: 11/23/20 Date of Discharge: 11/26/20 Primary Care Physician: Dr. Fabiana Peña MD Consultations 11/23/20 11:02 Consult: General Surgery Routine Consulting Provider: Yusef Paniagua Reason for Consult: GIB EMERGENT Consult: No MD Notified: Yes Date Notified: 11/23/20 Time Notified: 09:05 Method of Notification: Verbal Reason For Visit: GIB Diagnosis Discharge Diagnosis (1) GI bleed: Status: Acute Code(s): K92.2 - Gastrointestinal hemorrhage, unspecified Qualifiers: GI bleed type/associated pathology: unspecified gastrointestinal hemorrhage type Qualified Code(s): K92.2 - Gastrointestinal hemorrhage, unspecified Plan: Discharge diagnosis #1 lower gastrointestinal hemorrhage-secondary to diverticular bleeding #2 acute blood loss anemia requiring blood transfusion #3 paroxysmal atrial fibrillation #4 hyponatremia Medications at Discharge Home Medications aspirin 81 mg PO DAILY@0800 06/02/16 folic acid 400 mcg tablet 800 mcg PO DAILY 03/31/19 cholecalciferol (vitamin D3) 125 mcg (5,000 unit) tablet 125 mcg PO DAILY 07/16/19 mecobalamin (vitamin B12) 1,000 mcg disintegrating tablet,sublingual 1,000 mcg SUBLINGUAL DAILY 07/16/19 metformin 500 mg tablet,extended release 24 hr 1,000 mg PO BID tab 07/16/19 NeuropAway 1 tab PO TID 10/15/19 dapagliflozin 5 mg tablet 5 mg PO DAILY tab 10/15/19 insulin lispro protamine-lispro 100 unit/mL (75-25) subcutaneous pen 24 unit SC TID ml 10/15/19 pregabalin 100 mg capsule 150 mg PO BID cap 05/24/20 levothyroxine 200 mcg tablet 200 mcg PO DAILY tab 08/31/20 atorvastatin 40 mg tablet 40 mg PO QHS #90 tab 11/05/20 carvedilol 25 mg tablet 25 mg PO BID #180 tab 11/05/20 furosemide 40 mg tablet 40 mg PO DAILY #90 tab 11/05/20 Hospital Course Operations None Procedures Colonoscopy and EGD Summary of Care Provided Minutes Spent on Discharge: 32 Hospital Course: This 60-year-old white male was seen in the emergency room at [facility] with complaints of seeing dark stools and having diarrhea. Patient complained of feeling lightheaded. Lab obtained in the ER showed his hemoglobin to be 9.4, chemistry profile was remarkable for a slightly low sodium at 134 and a BUN of 31. Glucose was also abnormal at 227. Patient was admitted to [place] [address], he was seen in consultation by general surgery and his blood work was monitored. Patient required transfusion due to dropping hemoglobin, patient was kept off his Eliquis due to the lower GI bleed. Patient was seen by general surgery who performed an EGD and a colonoscopy, EGD showed no evidence of any ulcerations gastritis or bleeding, colonoscopy showed diverticular disease and it was felt that the patient had GI bleeding from a diverticular source. On 11/26/2020, patient was seen and examined: On examination he appeared in good health and spirits. Vital signs as documented. Skin warm and dry and without overt rashes. Neck without JVD, neck was supple, trachea midline, thyroid was normal. Lungs clear bilaterally, normal air movement was noted. Heart exam notable for regular rhythm, normal sounds and absence of murmurs, rubs or gallops. Abdomen unremarkable and without evidence of organomegaly, masses, or abdominal aortic enlargement. Bowel sounds are present, abdomen is not distended. Extremities nonedematous, no cyanosis was noted, no clubbing was noted. Neuro: Cranial nerves II through XII are grossly intact, no focal motor deficits were noted, sensation to light touch and pinprick intact, motor exam 5/5 throughout. Psych: Patient is alert and oriented x3, he does not appear anxious or depressed, he does not appear agitated. Patient was discharged in stable condition on 12/01/20 Weight / BMI Weight Weight: 120.5 kg Body Mass Index (BMI) 31.1 ABG / Lab / Microbiology Data Result Diagrams: 11/26/20 05:54 11/26/20 05:54 Laboratory: Laboratory Results - last 24 hr 11/25/20 22:40: POC Glucose 162 H 11/26/20 05:54: WBC 10.2, RBC 2.78 L, Hgb 8.2 L, Hct 25.9 L, MCV 93.2, MCH 29.5, MCHC 31.7 L, RDW Std Deviation 48.6 H, RDW Coeff of Marcellus 16.2 H, Plt Count 171, MPV 10.1, Immature Gran % (Auto) 0.500, Neut % (Auto) 57.8, Lymph % (Auto) 30.4, [place] % (Auto) 8.8, Eos % (Auto) 2.1, Baso % (Auto) 0.4, Absolute Neuts (auto) 5.9, Absolute Lymphs (auto) 3.09, Nucleated RBC % 0.4 11/26/20 05:54: Sodium 141, Potassium 3.2 L, Chloride 110 H, Carbon Dioxide 27.0, Anion Gap 4 L, BUN 12, Creatinine 0.84, Estim Creat Clear Calc 113.17, Est GFR (MDRD) Af Amer 119, Est GFR (MDRD) Non-Af 98, BUN/Creatinine Ratio 14.2, Glucose 100, Calcium 7.6 L 11/26/20 07:54: POC Glucose 105 11/26/20 11:25: POC Glucose 186 H Microbiology: Microbiology 11/23/20 08:35 Nasal Secretion SARS-CoV-2 Antigen (Rapid) - Final 11/23/20 07:45 Stool Stool Occult Blood (MARCELL) - Final Occult Blood Positive D/C Instructions Discharge Diet: 1800 Calorie Control Diet Weight Bearing Status: Full weight bearing Meaningful Use Info Meaningful Use Diagnoses (Choose all that apply): None applicable Discharge Plan Admission Admit Date/Time: 11/23/20 09:07 Primary Reason for Your Visit: lower GI bleeding Attending Provider: Josue Barnes Primary Care Provider: Fabiana Peña Consulting Providers: Yusef Paniagua Instructions Forms: Work / School Excuse Discharge Orders/Prescriptions Prescriptions: Continued metformin 500 mg tablet extended release 24 hr 1,000 mg PO BID RF: 0 folic acid 400 mcg tablet 800 mcg PO DAILY RF: 0 mecobalamin (vitamin B12) 1,000 mcg tablet,disintegrating 1,000 mcg SUBLINGUAL DAILY RF: 0 cholecalciferol (vitamin D3) 125 mcg (5,000 unit) tablet 125 mcg PO DAILY RF: 0 dapagliflozin 5 mg tablet 5 mg PO DAILY RF: 0 NeuropAway tablet 1 tab PO TID RF: 0 levothyroxine 200 mcg tablet 200 mcg PO DAILY RF: 0 pregabalin 100 mg capsule 150 mg PO BID RF: 0 aspirin 81 MG tablet 81 mg PO DAILY@0800 RF: 0 insulin lispro protamin-lispro 100 unit/mL (75-25) insulin pen 24 unit SC TID RF: 0 atorvastatin 40 mg tablet 40 mg PO QHS Qty: 90 RF: 3 carvedilol 25 mg tablet 25 mg PO BID Qty: 180 RF: 3 furosemide 40 mg tablet 40 mg PO DAILY Qty: 90 RF: 3 Discontinued Eliquis 5 mg tablet 5 mg PO BID Qty: 60 RF: 6 Referrals / Follow Up: Fabiana Peña MD [Primary Care Provider] - Within 1 Week (Get your blood count rechecked) Arnold Duke MD [STAFF PHYSICIAN] - See Referral Note (as scheduled-discuss if you should resume Eliquis) Disposition Disposition (needs filled in before D/C Order can be placed): Home, Self Care Charges/Coding Visit Charges Inpatient E&M: 64842 Disch Hosp
--- NOTE | 2020-12-01 16:52 | CASEMGMT ---
TENA CM Discharge Follow-Up Phone Call. Lace: 11 Strata: 3 Discharge Date: 11/26/20 Adm Dx: GIB Attempted discharge f/u phone call. No answer. Non-identifying VM received. Non-descript VM left requesting return call if there are any questions or concerns. Phone number provided. Marshal FERRARA RN CM
== END 2020-11-26 15:25 | disposition home or self-care (01) | DRG 378 ==
LOC: ED 09:10 → ICU 12:14 → MS3 11-25 16:36
PROVIDERS: Family Medicine; Surgery; Admitting Provider Internal Medicine; Emergency Provider Emergency Medicine; PCP Family Medicine; Visit Provider Internal Medicine
PROC: 0DJ08ZZ Inspection of Upper Intestinal Tract, Via Natural or Artificial Opening Endoscopic (ICD-10-PCS; CPT 43235; principal; 2020-11-23 14:40)
PROC: 0DJD8ZZ Inspection of Lower Intestinal Tract, Via Natural or Artificial Opening Endoscopic (ICD-10-PCS; CPT 45378; principal; 2020-11-24 12:50)
DX: K57.31 Diverticulosis of large intestine without perforation or abscess with bleeding (principal); I50.42 Chronic combined systolic (congestive) and diastolic (congestive) heart failure; I42.9 Cardiomyopathy, unspecified; E87.1 Hypo-osmolality and hyponatremia; D62 Acute posthemorrhagic anemia; I25.10 Atherosclerotic heart disease of native coronary artery without angina pectoris; I48.0 Paroxysmal atrial fibrillation; I11.0 Hypertensive heart disease with heart failure; E89.0 Postprocedural hypothyroidism; E78.5 Hyperlipidemia, unspecified; D69.6 Thrombocytopenia, unspecified; E87.6 Hypokalemia; E83.51 Hypocalcemia; E11.40 Type 2 diabetes mellitus with diabetic neuropathy, unspecified; F17.210 Nicotine dependence, cigarettes, uncomplicated; Z79.899 Other long term (current) drug therapy; Z79.82 Long term (current) use of aspirin; Z79.84 Long term (current) use of oral hypoglycemic drugs; Z79.01 Long term (current) use of anticoagulants; Z95.5 Presence of coronary angioplasty implant and graft
CPT/HCPCS: 36415; 80048; 80053; 82274; 82962; 83735; 84100; 84439; 84443; 85014; 85018; 85025; 85610; 86850; 86900; 86901; 86920; 87426; 94762; 97162; 97802; 99251; 99284; J7030; J7120; J7168; P9016; A4216; G0463; J0610; J2405; J3490

== ENCOUNTER → 2020-11-29 13:56 | Outpatient (CLI) | payer OTHER, SELFPAY ==
[2020-11-29 17:54] LABS: Absolute Lymphocyte Count 3.19 X10^3/uL (0.83-4.51); Absolute Neutrophil Count 4.7 X10^3/uL (2.0-7.7); Basophil# 0.04 X10^3/uL; Basophil% 0.4 % (0-1); Eosinophil# 0.52 X10^3/uL; Eosinophils% 5.6 % (0-5); Hematocrit 28.9 % (40-54); Lymphocyte # 3.19 X10^3/ul (0.83-4.51); Lymphocyte % 34.2 % (19-41); Mean Corp Hgb Conc 31.1 g/dL (32-36); Mean Corpuscular Hgb 29.8 pg (27.0-32.0); Mean Corpuscular Volume 95.7 fL (80-94); Mean Platelet Vol. 10.5 fl (6.2-12.0); Monocyte% 8.6 % (0-10); NRBC Flagged by Analyzer 0 % (0-5); Neutrophil # 4.74 X10^3/uL (2.7-7.7); Neutrophil % 50.8 % (47-70); Platelet Count 241 K/mm3 (150-450); RBC Distribution Width CV 16.4 % (11.6-14.6); RBC Distribution Width SD 55.7 fl (35.1-43.9); Red Blood Count 3.02 M/mm3 (4.6-6.2); White Blood Count 9.3 K/mm3 (4.4-11.0)
== END ==
PROVIDERS: PCP Family Medicine; Referring Provider Family Medicine; Visit Provider Family Medicine
DX: Z09 Encounter for follow-up examination after completed treatment for conditions other than malignant neoplasm (principal)
CPT/HCPCS: 36415; 85025

== ENCOUNTER → 2020-12-06 09:23 | Outpatient (CLI) | payer OTHER, SELFPAY ==
[2020-12-06 09:59] LABS: Absolute Lymphocyte Count 1.91 X10^3/uL (0.83-4.51); Absolute Neutrophil Count 5.3 X10^3/uL (2.0-7.7); Basophil# 0.04 X10^3/uL; Basophil% 0.5 % (0-1); Eosinophil# 0.26 X10^3/uL; Eosinophils% 3.2 % (0-5); Hematocrit 34.6 % (40-54); Hemoglobin 10.6 g/dL (13.0-16.5); Lymphocyte # 1.91 X10^3/ul (0.83-4.51); Lymphocyte % 23.8 % (19-41); Mean Corp Hgb Conc 30.6 g/dL (32-36); Mean Corpuscular Hgb 29.7 pg (27.0-32.0); Mean Corpuscular Volume 96.9 fL (80-94); Mean Platelet Vol. 9.3 fl (6.2-12.0); Monocyte# 0.56 X10^3/uL; NRBC Flagged by Analyzer 0 % (0-5); Neutrophil # 5.25 X10^3/uL (2.7-7.7); Neutrophil % 65.3 % (47-70); Platelet Count 286 K/mm3 (150-450); RBC Distribution Width CV 16.8 % (11.6-14.6); RBC Distribution Width SD 59.5 fl (35.1-43.9); Red Blood Count 3.57 M/mm3 (4.6-6.2)
== END ==
PROVIDERS: PCP Family Medicine; Visit Provider Family Medicine
DX: K92.2 Gastrointestinal hemorrhage, unspecified (principal)
CPT/HCPCS: 36415; 85025

== ENCOUNTER → 2021-03-07 09:38 | Outpatient (CLI) | payer OTHER, SELFPAY ==
[2021-03-07 12:22] LABS: Absolute Lymphocyte Count 2.92 X10^3/uL (0.83-4.51); Absolute Neutrophil Count 6.4 X10^3/uL (2.0-7.7); Basophil# 0.04 X10^3/uL; Basophil% 0.4 % (0-1); Eosinophil# 0.14 X10^3/uL; Eosinophils% 1.4 % (0-5); Hematocrit 50.7 % (40-54); Hemoglobin 16.3 g/dL (13.0-16.5); Lymphocyte # 2.92 X10^3/ul (0.83-4.51); Lymphocyte % 28.4 % (19-41); Mean Corp Hgb Conc 32.1 g/dL (32-36); Mean Corpuscular Hgb 28.1 pg (27.0-32.0); Mean Corpuscular Volume 87.3 fL (80-94); Mean Platelet Vol. 10.8 fl (6.2-12.0); Monocyte# 0.74 X10^3/uL; Monocyte% 7.2 % (0-10); NRBC Flagged by Analyzer 0 % (0-5); Neutrophil # 6.43 X10^3/uL (2.7-7.7); Neutrophil % 62.4 % (47-70); Platelet Count 208 K/mm3 (150-450); RBC Distribution Width CV 14.5 % (11.6-14.6); RBC Distribution Width SD 46.2 fl (35.1-43.9); Red Blood Count 5.81 M/mm3 (4.6-6.2); White Blood Count 10.3 K/mm3 (4.4-11.0)
[2021-03-07 12:47] LABS: ALB/GLOB Ratio 0.9 RATIO (0.9-2.4); AST(SGOT) 17 U/L (15-37); Alanine Aminotransfer ALT/SGPT 30 U/L (16-61); Albumin, Serum 3.7 g/dL (3.2-5.0); Alkaline Phosphatase 111 U/L (45-117); Anion Gap 10 (5-15); BUN 28 mg/dL (7-18); BUN/Creat Ratio 21.4 RATIO (10-20); Chloride 105 mmol/L (98-107); Creatinine, Serum 1.31 mg/dL (0.70-1.30); EST Glomerular Filtration Rate 59 mL/min (>60); Est Glom Filt Rate - Afr Amer 72 mL/min (>60); Globulin 4.3 g/dL (2.2-4.2); Glucose 171 mg/dL (74-106); Potassium 3.7 mmol/L (3.5-5.1); Sodium Level 142 mmol/L (136-145); T4 Free Direct 1.68 ng/dL (0.76-1.46); Thyroid Stim Hormone (TSH) 0.04 uIU/mL (0.358-3.74)
[2021-03-08 16:15] LABS: Anti-Thyroglobulin AB < 1.0 IU/mL (0.0-0.9); Thyroglobulin, Serum Qt. 0.9 ng/mL (1.4-29.2)
== END ==
PROVIDERS: PCP Family Medicine; Visit Provider Internal Medicine Endocrinology, Diabetes & Metabolism
DX: D64.9 Anemia, unspecified (principal); E11.9 Type 2 diabetes mellitus without complications; C73 Malignant neoplasm of thyroid gland
CPT/HCPCS: 36415; 80053; 84432; 84439; 84443; 85025; 86800

== ENCOUNTER 2021-09-04 06:46 | Inpatient (IN) | payer OTHER, SELFPAY ==
[2021-09-04] VITALS (14 sets, daily range): BP systolic 93–142; BP diastolic 52–104; PULSE 93–107; RESP 16–20; TEMP 36.4–37.4; O2SAT 95–100; BMI 30.4; BMI 30.2
--- NOTE | 2021-09-04 07:14 | EKG12_ITS ---
Test Reason : DIZZINESS Blood Pressure : / mmHG Vent. Rate : 102 BPM Atrial Rate : 102 BPM P-R Int : 192 ms QRS Dur : 088 ms QT Int : 356 ms P-R-T Axes : 068 -04 074 degrees QTc Int : 463 ms Sinus tachycardia Low voltage QRS Borderline ECG Confirmed by KB BENITEZ, LILY ([id number]), news video editor LILLY OLIVERA ([id number]) on 09/05/2021 10:41:20 AM Referred By: SARAH Confirmed By:LILY QUILES MD
--- NOTE | 2021-09-04 07:14 | RAD_ITS ---
STUDY: X-RAY CHEST REASON FOR EXAM: Male, 60 years old. chest pain TECHNIQUE: Single AP portable view of the chest. COMPARISON: 11/30/2018 FINDINGS: The lungs are clear and expanded. There is no demonstrated pleural abnormality. Normal size heart. Normal mediastinum and colton. Normal visualized pulmonary arteries. Normal visualized aortic arch and descending thoracic aorta. Normal visualized thoracic spine. Normal visualized ribs, clavicles, and shoulders. There is no demonstrated abnormality of the visualized soft tissue structures of the upper abdomen. RAD/Chest 1 View (Portable) IMPRESSION: Normal x-ray examination of the chest. Electronically Signed: Quentin Duncan MD at 8:01 EDT ,
--- NOTE | 2021-09-04 07:15 | EDS_ITS ---
HPI History of Present Illness Chief Complaint: Dizziness Informant: patient Onset/Context/Timing Onset: Days Context: Sudden Onset Timing: Intermittent Current Severity: Gone Maximum Severity: Moderate Narrative Narrative: 60-year-old male extensive past medical history of prior stroke, diabetes, coronary disease with stent on Plavix. History of A. fib and prior GI bleed. Last several days he has had episodes of lightheadedness. Primarily when he is in the upright position. Last night he got so dizzy he fell. Hit his left lower rib cage on a counter when he went down. No loss conscious. No head injury. Says had nausea but no vomiting. No diarrhea or melena. Said has been drinking fluids normally. Denies any fever. Prior similar symptoms: Yes Recent Illness/Hospitalization: No PFSH PFSH Medical History Abnormal stress test Acute diffuse otitis externa of right ear Atherosclerosis of coronary artery of [place] heart without angina pectoris Cardiomyopathy Chronic combined systolic and diastolic heart failure CVA (cerebral vascular accident) Diabetes Diarrhea Essential hypertension HLD (hyperlipidemia) Hypothyroidism Nausea & vomiting Nicotine use disorder Obesity PAF (paroxysmal atrial fibrillation) Polyneuropathy due to type 2 diabetes mellitus Postoperative primary hypothyroidism Pre-syncope Presence of stent in coronary artery (~12/13/18) Sinusitis, acute Thyroid cancer (03/25/19) Thyroid disease Vasectomy planned Home Medications aspirin 81 mg tablet,delayed release 81 mg PO DAILY@0800 Check with primary doctor 06/02/16 [History Last Taken 12/13/18] folic acid 400 mcg tablet 800 mcg PO DAILY Check with primary doctor 03/31/19 [History Last Taken Unknown] cholecalciferol (vitamin D3) 125 mcg (5,000 unit) tablet 125 mcg PO DAILY Check with primary doctor 07/16/19 [History Last Taken Unknown] mecobalamin (vitamin B12) 1,000 mcg disintegrating tablet,sublingual 1,000 mcg sublingual DAILY Check with primary doctor 07/16/19 [History Last Taken Unknown] metformin 500 mg tablet,extended release 24 hr 1,000 mg PO BID Check with primary doctor 07/16/19 [History Last Taken Unknown] pregabalin 100 mg capsule 150 mg PO BID Check with primary doctor 05/24/20 [History Last Taken Unknown] atorvastatin 40 mg tablet 40 mg PO QHS #90 tabs 11/05/20 [Rx Last Taken Unknown] carvedilol 25 mg tablet 25 mg PO BID #180 tabs 11/05/20 [Rx Last Taken Unknown] furosemide 40 mg tablet 40 mg PO DAILY #90 tabs 11/05/20 [Rx Last Taken Unknown] ferrous sulfate 325 mg (65 mg iron) tablet (FeroSul) 325 mg PO DAILY 12/23/20 [History Last Taken Unknown] dapagliflozin 10 mg tablet (Farxiga) 10 mg PO DAILY #30 tabs 03/07/21 [Rx Last Taken Unknown] insulin lispro protamine-lispro 100 unit/mL (75-25) subcutaneous pen 24 unit (0.24 mL) subcut Q6H Check with primary doctor #28.8 mL 05/26/21 [Rx Last Taken Unknown] clopidogrel 75 mg tablet 75 tab PO DAILY 09/04/21 [History Last Taken Unknown] levothyroxine 175 mcg tablet 200 mcg PO DAILY 09/04/21 [History Last Taken Unknown] Allergy/AdvReac Type Severity Reaction Status Date / Time No Known Allergies Allergy Verified 09/04/21 06:49 Family History Mother Arrhythmia Father CAD (coronary artery disease) possible bypass Other Cancer Diabetes Heart disease Thyroid disorder Surgical History History of ear surgery History of surgery on arm History of thyroidectomy Presence of coronary angioplasty implant and graft (~12/13/18) Social History Smoking Status: Light Smoker (<10/day) how long ago did patient quit smokin year ago alcohol intake: current alcohol intake frequency: holidays/special occasions only substance use type: does not use caffeine: Yes Type: carbonated beverages ROS ROS ED ROS Narrative Nausea. Lightheaded. Review of Systems ROS Unobtainable: Denies due to encephalopathy Constitutional Constitutional ED: Denies chills or fever(s) Eyes Eyes: Denies blurry vision ENT ENT ED: Denies ear pain Cardiovascular Cardiovascular: Denies chest pain Respiratory/Chest Respiratory/Chest: Denies cough or dyspnea Gastrointestinal Gastrointestinal: Reports nausea; Denies abdominal pain, constipation, diarrhea, melena or vomiting Genitourinary Genitourinary ED: Denies dysuria or hematuria Musculoskeletal Musculoskeletal: Denies arthralgias Integumentary Denies abscess Neurologic Neurologic: Denies headache(s) Psychiatric Psychiatric: Denies anxiety Endocrine Endocrinology: Denies cold intolerance Allergic/Immunologic Allergic/Immunologic ED: Denies mouth swelling EXAM Physical Exam Narrative Exam Narrative: 60-year-old male no acute distress. at bedside. Vital signs are stable and afebrile. His pulse ox is 99% on room air no signs hypoxia. He is in no distress. H EENT exam pupils round reactive light no facial droop. No signs of trauma. Nontender. Neck nontender. Lungs clear to auscultation bilaterally. Heart tachycardic rate of 101. No murmur appreciated. Chest wall is mild left lower rib cage tenderness and abrasion to his upper abdomen from where he fell. There is really no significant abdominal pain. No peritoneal signs. No bruising. Normal bowel sounds. Back is and spine are nontender. He is moving all 4 extremities. No deformity. Nontender. Normal high raw sugar boiler strength. Normal dorsi plantar flexion. Neurologically is awake and alert with no focal motor deficits. Const Vital Signs: 09/04/21 06:47 09/04/21 06:49 09/04/21 06:54 Temperature 97.8 F 97.8 F Temperature Source Temporal Temporal Pulse Rate 101 H 101 H Respiratory Rate 16 16 Respiratory Effort Normal Non-Labored Respiratory Pattern Normal Blood Pressure 141/83 H 141/83 H Blood Pressure Mean 102 102 Pulse Ox 99 99 Oxygen Delivery Method Room Air Room Air 09/04/21 08:03 Temperature Temperature Source Pulse Rate Respiratory Rate Respiratory Effort Respiratory Pattern Blood Pressure Blood Pressure Mean Pulse Ox Oxygen Delivery Method Room Air Positive well nourished and well developed; Negative for cachectic or contractures General Appearance ED: well developed; Negative for cachectic or contractures Nutritional Appearance: Negative for cachectic HEENT Reports moist mucous membranes; Denies dry mucous membranes Negative for trauma or tenderness Mouth ED: No dry mucous membranes Mouth: No dry mucous membranes Eyes PERRL and EOMs intact bilaterally General Eye ED: Negative for pale conjunctiva or scleral icterus Neck no lymphadenopathy, supple and no JVD General: Negative for tenderness Chest Wall inspection of chest normal; Negative for palpation of chest normal Chest Narrative: Tenderness left lateral chest wall where he struck his rib. No obvious crepitus or deformity. Resp normal respiratory effort and clear to auscultation bilaterally Effort and Inspection: Negative for retractions or pain with movement Auscultation: Negative for rales, rhonchi or wheezes Cardio Rate: tachycardic GI normal to inspection, nondistended, normoactive bowel sounds, non-tender, non- distended and no masses; Negative for hepatosplenomegaly GI Narrative: Abrasion left upper lateral abdominal wall and flank. Inspection: Negative for abdominal distention Auscultation: normoactive bowel sounds Palpation: soft; Negative for tender, guarding, splenomegaly, mass or rebound tenderness present Back/Spine no CVA tenderness Extremity normal to inspection General Extremety ED: Negative for edema or tenderness General Extremity: Negative for edema Neuro Sensorium / Orientation: alert Motor Exam: strength 5/5 throughout; Negative for general weakness Psych mental status grossly normal Attitude: No agitated Mood & Affect: Negative for depressed, anxious or tearful Skin no rashes or lesions noted and No no wounds Skin Narrative: Abrasion left upper abdominal wall and flank. Rashes: No rashes noted Trauma: abrasion MDM MDM MDM Narrative Medical decision making narrative: 60-year-old with multiple medical problems with lightheadedness with standing. This may or may not be orthostatic. He has had a history of a prior GI bleed but no symptoms currently. He is on Plavix. Screening labs orthostatic vital signs will be obtained. He has a normal neurologic exam I do not think he needs a head CT at this time. Patient's orthostatic vital signs were positive. Lying supine he was 108/74 with a heart rate of 105 sitting up 41-70 9/67 heart rate went up to 115. He could not stand because he became too dizzy. Patient will be treated with a liter normal saline for his dehydration. There is also a concern due to his anemia that that also involved with his orthostatic hypotension and he may have a recurrent GI bleed. That was not seen however on rectal exam. I have already spoken to the hospitalist patient was admitted. He is being typed and screened but they will determine if he needs blood products. Lab Data Attestation: I reviewed the patient's lab results. Lab results narrative: CBC shows a white count 12.6. H&H 8.2 and 26.1. He does run anemic at times. His last 1 was 16 but I think that may have been partially elevated due to dehydration. But I do feel that he points to his lower than his baseline. Electrolytes unremarkable BUN of 58 creatinine of 1 consistent with dehydration. Due to his low blood count I did a rectal exam there is no gross blood. Brown stool. Labs: Laboratory Results - last 24 hr 09/04/21 09/04/21 07:32 07:32 WBC 12.6 H RBC 2.77 L Hgb 8.2 L Hct 26.1 L MCV 94.2 H MCH 29.6 MCHC 31.4 L RDW Std Deviation 45.7 H RDW Coeff of Marcellus 13.7 Plt Count 192 MPV 10.5 Immature Gran % (Auto) 0.600 Neut % (Auto) 72.2 H Lymph % (Auto) 19.5 [place] % (Auto) 6.6 Eos % (Auto) 0.7 Baso % (Auto) 0.4 Absolute Neuts (auto) 9.1 H Absolute Lymphs (auto) 2.46 Nucleated RBC % 0.2 Sodium 140 Potassium 3.9 Chloride 108 H Carbon Dioxide 22.0 Anion Gap 10 BUN 58 H Creatinine 1.01 Estim Creat Clear Calc 92.96 Est GFR (MDRD) Af Amer 97 Est GFR (MDRD) Non-Af 80 BUN/Creatinine Ratio 57.4 H Glucose 256 H Calcium 8.5 Radiography Chest X-Ray - ED: 1 View, Read by ED Physician, Heart, Lungs, Mediastinum, Bony Structures, No Acute Disease and Chronic Changes Diagnostic Testing: Clinical Impression(s) from Imaging Studies Chest X-Ray 09/04/21 07:14 IMPRESSION: Normal x-ray examination of the chest. Electronically Signed: Quentin Duncan MD at 8:01 EDT , Rhythm Strip Rhythm Strip: Sinus Tach Rate: 102 EKG Initial EKG: Attestation: I personally reviewed and interpreted this EKG as follows: Interpretation: No Acute Injury Pattern and Sinus Tachycardia Comments: Sinus tachycardia rate of 102. No signs of MT or ischemia. Treatment and Re-Evaluation Narrative: Chest x-ray, portable, single view interpreted by myself and radiologist shows no acute abnormality. Normal cardiac silhouette mediastinum. Normal lung [place]. No obvious rib fractures from where he fell last night. Discharge Plan Triage Chief Complaint: Dizziness ED Provider: Tanner Shah Dx/Rx/DC Orders Clinical Impression: Dizziness, Fall, Orthostatic hypotension, Anemia, History of GI bleed Prescriptions: No Action metformin 500 mg tablet extended release 24 hr 1,000 mg PO BID folic acid 400 mcg tablet 800 mcg PO DAILY mecobalamin (vitamin B12) 1,000 mcg tablet,disintegrating 1,000 mcg SUBLINGUAL DAILY Rx Instructions: place tablet under tongue and allow to dissolve for at least30 secs before swallowing cholecalciferol (vitamin D3) 125 mcg (5,000 unit) tablet 125 mcg PO DAILY pregabalin 100 mg capsule 150 mg PO BID ferrous sulfate [FeroSul] 325 mg (65 mg iron) tablet 325 mg PO DAILY Farxiga 10 mg tablet 10 mg PO DAILY Qty: 30 5RF aspirin 81 MG tablet 81 mg PO DAILY@0800 Label Comments: heart health clopidogrel 75 mg tablet 75 tab PO DAILY Label Comments: TAKE 1 TABLET BY MOUTH ONCE DAILY. TAKE FOR FOUR MONTHS THEN DISCONTINUE. levothyroxine 175 mcg tablet 200 mcg PO DAILY atorvastatin 40 mg tablet 40 mg PO QHS Qty: 90 3RF carvedilol 25 mg tablet 25 mg PO BID Qty: 180 3RF Rx Instructions: must administer with a meal/food furosemide 40 mg tablet 40 mg PO DAILY Qty: 90 3RF insulin lispro protamin-lispro 100 unit/mL (75-25) insulin pen 24 unit SC Q6H Qty: 28.8 3RF Primary Care Provider: Fabiana Peña Referrals: Fabiana Peña MD [Primary Care Provider] - Disposition Disposition: Home, Self Care
[2021-09-04 07:44] LABS: Absolute Lymphocyte Count 2.46 X10^3/uL (0.83-4.51); Absolute Neutrophil Count 9.1 X10^3/uL (2.0-7.7); Basophil# 0.05 X10^3/uL; Basophil% 0.4 % (0-1); Eosinophil# 0.09 X10^3/uL; Eosinophils% 0.7 % (0-5); Hematocrit 26.1 % (40-54); Hemoglobin 8.2 g/dL (13.0-16.5); Lymphocyte # 2.46 X10^3/ul (0.83-4.51); Lymphocyte % 19.5 % (19-41); Mean Corp Hgb Conc 31.4 g/dL (32-36); Mean Corpuscular Hgb 29.6 pg (27.0-32.0); Mean Corpuscular Volume 94.2 fL (80-94); Mean Platelet Vol. 10.5 fl (6.2-12.0); Monocyte# 0.83 X10^3/uL; Monocyte% 6.6 % (0-10); NRBC Flagged by Analyzer 0.2 % (0-5); Neutrophil # 9.13 X10^3/uL (2.7-7.7); Neutrophil % 72.2 % (47-70); Platelet Count 192 K/mm3 (150-450); RBC Distribution Width CV 13.7 % (11.6-14.6); RBC Distribution Width SD 45.7 fl (35.1-43.9); Red Blood Count 2.77 M/mm3 (4.6-6.2); White Blood Count 12.6 K/mm3 (4.4-11.0)
[2021-09-04 07:57] LABS: Anion Gap 10 (5-15); BUN 58 mg/dL (7-18); BUN/Creat Ratio 57.4 RATIO (10-20); Calcium,Total 8.5 mg/dL (8.5-10.1); Chloride 108 mmol/L (98-107); Creatinine, Serum 1.01 mg/dL (0.70-1.30); EST Glomerular Filtration Rate 80 mL/min (>60); Est Glom Filt Rate - Afr Amer 97 mL/min (>60); Estimated Creatinine Clearance 92.96 ml/min; Glucose 256 mg/dL (74-106); Potassium 3.9 mmol/L (3.5-5.1); Sodium Level 140 mmol/L (136-145)
[2021-09-04] MEDS: 0.9% Normal Saline 1,000 ML 999 ML IV (08:17)
[2021-09-04] MEDS: 0.9% Normal Saline 1,000 ML 100 ML IV (10:41)
[2021-09-04 12:16] LABS: Bedside Glucose 179 mg/dL (74-106)
--- NOTE | 2021-09-04 13:27 | HP.PCM.HOS_ITS ---
HPI - General General Date of Admission: 09/04/21 HPI Narrative DEREK PINA, is a 60 M who presents to the hospital with worsening fatigue and dizziness today. He states that they have been fairly busy because her grandson had to have a heart transplant. But his noticed that he was looking much more pale over the last 2 days than he normally does and he says he has been feeling more fatigued and easily winded with activity. Denies any blood in his stools but he did have a GI bleed about a year ago thought to be a diverticular bleed. Since that time he had a maze surgery done for his A. fib and so is no longer on anticoagulation. In the ER rectal was performed and it d id not appear to be grossly bloody. Looking at his hemoglobin, it is where it was last year during his GI bleed which is still lower than his baseline of 12- 13. [facility] Medical History (Updated 09/04/21 @ 10:00 by Cynthia Reddy) Abnormal stress test Acute diffuse otitis externa of right ear Atherosclerosis of coronary artery of [place] heart without angina pectoris Cardiomyopathy Chronic combined systolic and diastolic heart failure CVA (cerebral vascular accident) Diabetes Essential hypertension HLD (hyperlipidemia) Hypothyroidism Nausea & vomiting Nicotine use disorder Obesity PAF (paroxysmal atrial fibrillation) Polyneuropathy due to type 2 diabetes mellitus Postoperative primary hypothyroidism Pre-syncope Presence of stent in coronary artery (~12/13/18) Presence of Watchman left atrial appendage closure device Sinusitis, acute Thyroid cancer (03/25/19) Thyroid disease Vasectomy planned Home Medications aspirin 81 mg tablet,delayed release 81 mg PO DAILY@0800 heart 06/02/16 [History Last Taken 09/03/21 10:00] folic acid 400 mcg tablet 400 mcg PO QHS Check with primary doctor 03/31/19 [History Last Taken 09/03/21 22:00] cholecalciferol (vitamin D3) 125 mcg (5,000 unit) tablet 25 mcg PO DAILY vitamin 07/16/19 [History Last Taken 09/03/21] mecobalamin (vitamin B12) 1,000 mcg disintegrating tablet,sublingual 500 mcg PO DAILY vitamin 07/16/19 [History Last Taken Unknown] metformin 500 mg tablet,extended release 24 hr 1,000 mg PO BID diabetes 07/16/19 [History Last Taken 09/03/21] pregabalin 100 mg capsule 150 mg PO BID Check with primary doctor 05/24/20 [History Last Taken 09/03/21] atorvastatin 40 mg tablet 40 mg PO QHS #90 tabs 11/05/20 [Rx Last Taken 09/03/21 22:00] carvedilol 25 mg tablet 25 mg PO BID blood pressure 09/04/21 [History Last Taken 09/03/21 21:30] clopidogrel 75 mg tablet 75 mg PO DAILY heart 09/04/21 [History Last Taken 09/03/21 10:00] dapagliflozin 10 mg tablet (Farxiga) 10 mg PO DAILY diabetes 09/04/21 [History Last Taken 09/03/21] furosemide 40 mg tablet 40 mg PO DAILY diuretic 09/04/21 [History Last Taken 09/03/21 10:00] insulin lispro protamine-lispro 100 unit/mL (75-25) subcutaneous pen 26 unit subcut BREAKFAST diabetes 09/04/21 [History Last Taken 09/03/21] insulin lispro protamine-lispro 100 unit/mL (75-25) subcutaneous pen (Humalog Mix 75-25 KwikPen) 22 unit subcut DINNER diabetes 09/04/21 [History Last Taken 09/03/21] insulin lispro protamine-lispro 100 unit/mL (75-25) subcutaneous pen (Humalog Mix 75-25 KwikPen) 24 unit subcut LUNCH diabetes 09/04/21 [History Last Taken 09/03/21] insulin lispro protamine-lispro 100 unit/mL (75-25) subcutaneous pen (Humalog Mix 75-25 KwikPen) 31 unit subcut DAILY diabetes 09/04/21 [History Last Taken 09/03/21] levothyroxine 175 mcg tablet 175 mcg PO DAILY thyroid 09/04/21 [History Last T aken 09/03/21] vitamin B6-vitamin E-magnesium tablet 1 tab PO DAILY vitamin 09/04/21 [History Last Taken 09/03/21] Allergy/AdvReac Type Severity Reaction Status Date / Time No Known Allergies Allergy Verified 09/04/21 09:52 Family History Mother Arrhythmia Father CAD (coronary artery disease) possible bypass Other Cancer Diabetes Heart disease Thyroid disorder Surgical History (Updated 09/04/21 @ 10:00 by Cynthia Reddy) History of ear surgery History of thyroidectomy Presence of coronary angioplasty implant and graft (~12/13/18) Social History Smoking Status: Light Smoker (<10/day) how long ago did patient quit smokin year ago alcohol intake: current alcohol intake frequency: holidays/special occasions only substance use type: does not use caffeine: Yes Type: carbonated beverages ROS Constitutional Constitutional: Reports fatigue; Denies chills, fever(s) or malaise Eyes Eyes: Denies blurry vision ENT HEENT: Denies headache(s) or nasal discharge Cardiovascular Cardiovascular: Denies chest pain, dyspnea on exertion or syncope Respiratory/Chest Respiratory/Chest: Denies cough, shortness of breath at rest or shortness of breath with exertion Gastrointestinal Gastrointestinal: Denies constipation, diarrhea, hematemesis, hematochezia, melena, nausea or vomiting Genitourinary Genitourinary: Denies dysuria Neurologic Neurologic: Denies focal weakness, numbness or tremor(s) Psychiatric Psychiatric: Denies anxiety or depression Vital Signs Vital Signs Vital Signs: 09/04/21 06:47 09/04/21 06:49 09/04/21 06:54 Temperature 97.8 F 97.8 F Temperature Source Temporal Temporal Pulse Rate 101 H 101 H Pulse Rate [Lying] Pulse Strength Respiratory Rate 16 16 Respiratory Effort Normal Non-Labored Respiratory Pattern Normal Blood Pressure 141/83 H 141/83 H Blood Pressure [Lying] Blood Pressure Mean 102 102 Blood Pressure Mean [Lying] Blood Pressure Source Blood Pressure Position Blood Pressure Location Pulse Ox 99 99 Oxygen Delivery Method Room Air Room Air 09/04/21 08:03 09/04/21 09:01 09/04/21 09:05 Temperature 98 F Temperature Source Temporal Pulse Rate 105 H Pulse Rate [Lying] 105 H Pulse Strength Respiratory Rate 20 H Respiratory Effort Respiratory Pattern Blood Pressure 116/76 Blood Pressure [Lying] 108/74 Blood Pressure Mean 89 Blood Pressure Mean [Lying] 85 Blood Pressure Source Blood Pressure Position Blood Pressure Location Pulse Ox 95 Oxygen Delivery Method Room Air 09/04/21 09:30 09/04/21 10:00 Temperature 97.9 F Temperature Source Oral Pulse Rate 107 H Pulse Rate [Lying] Pulse Strength Normal (2+) Respiratory Rate 18 Respiratory Effort Respiratory Pattern Blood Pressure 97/62 Blood Pressure [Lying] Blood Pressure Mean 73 Blood Pressure Mean [Lying] Blood Pressure Source Monitor Blood Pressure Position Semi-Fowlers Blood Pressure Location Left Arm Pulse Ox 97 Oxygen Delivery Method Room Air Weight Weight: 244 lb 11.41 oz Body Mass Index (BMI) 30.2 Physical Exam Const alert, oriented x3 and no apparent distress Constitutional Narrative: Pale General Appearance: cooperative HEENT normocephalic and moist oral mucous membranes Eyes PERRL, EOMs intact bilaterally and conjunctivae normal Neck supple and no JVD Resp normal respiratory effort, no retractions, no use of accessory muscles and clear to auscultation bilaterally Auscultation: Negative for crackles, rales, rhonchi or wheezes Cardio regular rate, regular rhythm, S1 normal heart sound, S2 normal heart sound and no murmurs GI soft to palpation, non-tender and non-distended; Negative for hepatosplenomegaly Extremity no clubbing, cyanosis or edema Skin no rashes or lesions noted Neuro no focal motor deficits and no sensory deficits noted Psych affect normal Appearance: appropriate Results Lab / Micro Data Result Diagrams: 09/04/21 07:32 09/04/21 07:32 Labs: Laboratory Results - last 24 hr 09/04/21 07:32: WBC 12.6 H, RBC 2.77 L, Hgb 8.2 L, Hct 26.1 L, MCV 94.2 H, MCH 29.6, MCHC 31.4 L, RDW Std Deviation 45.7 H, RDW Coeff of Marcellus 13.7, Plt Count 192, MPV 10.5, Immature Gran % (Auto) 0.600, Neut % (Auto) 72.2 H, Lymph % (Auto) 19.5, [place] % (Auto) 6.6, Eos % (Auto) 0.7, Baso % (Auto) 0.4, Absolute Neuts (auto) 9.1 H, Absolute Lymphs (auto) 2.46, Nucleated RBC % 0.2 09/04/21 07:32: Sodium 140, Potassium 3.9, Chloride 108 H, Carbon Dioxide 22.0, Anion Gap 10, BUN 58 H, Creatinine 1.01, Estim Creat Clear Calc 92.96, Est GFR (MDRD) Af Amer 97, Est GFR (MDRD) Non-Af 80, BUN/Creatinine Ratio 57.4 H, Glucose 256 H, Calcium 8.5 09/04/21 08:20: Blood Type A POSITIVE, Antibody Screen NEGATIVE 09/04/21 12:10: POC Glucose 179 H Rhythm Strip Rhythm Strip: Sinus Tach Rate: 102 Radiology Impression Chest X-Ray 09/04/21 07:14 IMPRESSION: Normal x-ray examination of the chest. Electronically Signed: Quentin Duncan MD at 8:01 EDT , Assessment & Plan Assessment/Plan (1) Dizziness: (2) Orthostatic hypotension: (3) Anemia: PLAN: Plan 1. Orthostatic hypotension with dizziness and anemia ? Unsure as to the source of his anemia at this time he does have a history of a GI bleed therefore will obtain a repeat hemoglobin at around 2 PM ? BUN is elevated which could indicate an upper GI bleed source ? Continue with IV fluids ? We will hold his aspirin and Plavix but he can resume his other home medicatio ns ? Clear liquid diet for now 2. CAD status post stent/paroxysmal A. fib status post Maze procedure/chronic combined systolic and diastolic CHF/HTN/HLD ? No longer on anticoagulation ? Hold his antiplatelets ? Continue with his Lipitor but will hold his Lasix and his Coreg for now 3. DM2 ? We will hold his home oral hypoglycemics ? We will continue with sliding scale insulin ? Accu-Cheks AC at bedtime we will make adjustments as necessary 4. Hypothyroidism ? Stable ? Continue with Synthroid DVT: SCDs Charges/Coding Visit Charges Inpatient E&M: 92775 Init Hosp L2
[2021-09-04 14:32] LABS: Hematocrit 21.5 % (40-54)
[2021-09-04 17:06] LABS: Bedside Glucose 175 mg/dL (74-106)
[2021-09-04] MEDS: Insulin Lispro 100 UNIT/ML INSULN.PEN SC ×2 (17:09→21:51)
[2021-09-04] MEDS: Cholecalciferol (Vit D3) 125 MCG CAPSULE (5,000 UNITS) PO (18:08)
--- NOTE | 2021-09-04 19:20 | NURSING ---
IV Protonix late d/t PRBC's transfusing with a single IV site.
[2021-09-04] MEDS: Acetaminophen 325 MG Tablet 650 MG PO (20:46)
[2021-09-04] MEDS: Ondansetron 4 MG/2 ML Vial IV (21:03)
[2021-09-04] MEDS: 0.9% Saline Lock 10 ML Syringe IV (21:03)
[2021-09-04] MEDS: MELATONIN 3 MG TABLET PO (21:07)
[2021-09-04] MEDS: Atorvastatin Calcium 40 MG Tablet PO (21:07)
[2021-09-04 22:01] LABS: Bedside Glucose 188 mg/dL (74-106)
[2021-09-05] VITALS (7 sets, daily range): BP systolic 95–133; BP diastolic 56–85; PULSE 86–95; RESP 18; TEMP 36.6–37; O2SAT 93–100
[2021-09-05 04:34] LABS: Absolute Lymphocyte Count 2.76 X10^3/uL (0.83-4.51); Absolute Neutrophil Count 6.3 X10^3/uL (2.0-7.7); Basophil# 0.05 X10^3/uL; Basophil% 0.5 % (0-1); Eosinophil# 0.11 X10^3/uL; Eosinophils% 1.1 % (0-5); Hematocrit 22.5 % (40-54); Hemoglobin 7.3 g/dL (13.0-16.5); Lymphocyte # 2.76 X10^3/ul (0.83-4.51); Lymphocyte % 26.9 % (19-41); Mean Corp Hgb Conc 32.4 g/dL (32-36); Mean Corpuscular Hgb 29.9 pg (27.0-32.0); Mean Corpuscular Volume 92.2 fL (80-94); Mean Platelet Vol. 10.4 fl (6.2-12.0); Monocyte# 0.93 X10^3/uL; Monocyte% 9.1 % (0-10); NRBC Flagged by Analyzer 0.9 % (0-5); Neutrophil # 6.27 X10^3/uL (2.7-7.7); Platelet Count 147 K/mm3 (150-450); RBC Distribution Width CV 14.8 % (11.6-14.6); RBC Distribution Width SD 48.3 fl (35.1-43.9); Red Blood Count 2.44 M/mm3 (4.6-6.2); White Blood Count 10.3 K/mm3 (4.4-11.0)
[2021-09-05 04:56] LABS: Anion Gap 5 (5-15); BUN 41 mg/dL (7-18); BUN/Creat Ratio 54.8 RATIO (10-20); Calcium,Total 7.3 mg/dL (8.5-10.1); Chloride 111 mmol/L (98-107); Creatinine, Serum 0.75 mg/dL (0.70-1.30); EST Glomerular Filtration Rate 113 mL/min (>60); Est Glom Filt Rate - Afr Amer 137 mL/min (>60); Estimated Creatinine Clearance 125.19 ml/min; Glucose 175 mg/dL (74-106); Potassium 3.9 mmol/L (3.5-5.1); Sodium Level 141 mmol/L (136-145)
[2021-09-05] MEDS: 0.9% Normal Saline 1,000 ML 100 ML IV ×2 (06:38→18:47)
[2021-09-05] MEDS: Insulin Lispro 100 UNIT/ML INSULN.PEN SC ×2 (06:46→17:26)
[2021-09-05] MEDS: Levothyroxine 100 MCG Tablet 200 MCG PO (06:49)
[2021-09-05 06:56] LABS: Bedside Glucose 182 mg/dL (74-106)
--- NOTE | 2021-09-05 08:48 | CT_ITS ---
EXAM: CT ABDOMEN AND PELVIS WITH INTRAVENOUS CONTRAST CLINICAL INDICATION: anemia TECHNIQUE: Helically acquired images were obtained of the abdomen and pelvis with intravenous contrast. This CT exam was performed using one or more of the following dose reduction techniques: automated exposure control, adjustment of the mA and/or kV according to patient size, and/or use of iterative reconstruction technique. This report was created using [employer] report generation technology. CONTRAST: IV 100mL Isovue-300 COMPARISON: None. FINDINGS: LOWER THORAX: Small pericardial effusion is present. ABDOMEN: LIVER: 3 cm hypodense lesions are noted within hepatic segments 1 and 3. The segment 3 lesion appears to contain central calcification. 6 mm cyst noted within hepatic segment 6. GALLBLADDER AND BILE DUCTS: Unremarkable. No calcified gallstones. No gallbladder distention or wall edema. No intra- or extrahepatic biliary ductal dilation. PANCREAS: Unremarkable. No focal cystic or solid mass. SPLEEN: Unremarkable. Normal size without focal cystic or solid mass. ADRENALS: Unremarkable. No nodules. KIDNEYS AND URETERS: Unremarkable. Normal renal size and position. No hydronephrosis. STOMACH AND BOWEL: Diverticulosis of the colon noted without evidence of acute diverticulitis. Mild stool burden noted throughout the large bowel. PELVIS: APPENDIX: Appendix is visualized and normal in appearance. BLADDER: Unremarkable. REPRODUCTIVE: Unremarkable as visualized. No mass. ABDOMEN and PELVIS: INTRAPERITONEAL SPACE: Unremarkable. No ascites or other fluid collection. No free air. BONES/JOINTS: Unremarkable. No suspicious lytic or blastic abnormality. SOFT TISSUES: Fat-containing bilateral inguinal hernias are noted. VASCULATURE: Unremarkable. Abdominal aorta is non-dilated. LYMPH NODES: Unremarkable. No enlarged lymph nodes. CT/Abdomen/Pelvis W IV Cont ONLY IMPRESSION: 1. 3 cm hepatic lesions within segments 1 and 3 are indeterminate. Follow-up dynamic scanning with MRI recommended. 2. Small pericardial effusion. 3. Diverticulosis coli. Electronically Signed: Norman Jean MD at 9:52 EDT ,
--- NOTE | 2021-09-05 09:21 | PCM.PN.HOSP ---
Subjective Subjective Feels little bit better today, however he was transfused 2 units yesterday and his hemoglobin went from 7.0 yesterday morning to 7.3. We will give him another unit today and continue to monitor. Objective Data Objective Data Vital Signs: Vital Signs Temp Pulse Resp BP Pulse Ox 98.2 F 95 18 104/65 99 09/05/21 07:46 09/05/21 07:46 09/05/21 07:46 09/05/21 07:46 09/05/21 07:46 Oxygen Delivery Method Room Air Weight: 244 lb 11.41 oz Body Mass Index (BMI) 30.2 Intake & Output: Intake and Output for Last 24 Hours 09/04/21 09/05/21 09/06/21 03:59 03:59 03:59 Intake Total 4810.00 / 4810.00 356.67 / 356.67 Output Total 2600 / 2600 950 / 950 Balance 2210.00 / 2210.00 -593.33 / -593.33 Lab / Micro Data Result Diagrams: 09/05/21 03:37 09/05/21 03:37 Labs: Laboratory Results - last 24 hr 09/04/21 08:20: Blood Type A POSITIVE, Antibody Screen NEGATIVE 09/04/21 08:20: Crossmatch See Detail 09/04/21 12:10: POC Glucose 179 H 09/04/21 14:24: Hgb 7.0 L, Hct 21.5 L 09/04/21 16:55: POC Glucose 175 H 09/04/21 21:50: POC Glucose 188 H 09/05/21 03:37: WBC 10.3, RBC 2.44 L, Hgb 7.3 L, Hct 22.5 L, MCV 92.2, MCH 29.9, MCHC 32.4, RDW Std Deviation 48.3 H, RDW Coeff of Marcellus 14.8 H, Plt Count 147 L, MPV 10.4, Immature Gran % (Auto) 1.400 H, Neut % (Auto) 61.0, Lymph % (Auto) 26.9, [place] % (Auto) 9.1, Eos % (Auto) 1.1, Baso % (Auto) 0.5, Absolute Neuts (auto) 6.3, Absolute Lymphs (auto) 2.76, Nucleated RBC % 0.9 09/05/21 03:37: Sodium 141, Potassium 3.9, Chloride 111 H, Carbon Dioxide 25.0, Anion Gap 5, BUN 41 H, Creatinine 0.75, Estim Creat Clear Calc 125.19, Est GFR (MDRD) Af Amer 137, Est GFR (MDRD) Non-Af 113, BUN/Creatinine Ratio 54.8 H, Glucose 175 H, Calcium 7.3 L 09/05/21 06:44: POC Glucose 182 H Rhythm Strip Rhythm Strip: Sinus Tach Rate: 102 Physical Exam Const alert, oriented x3 and no apparent distress Constitutional Narrative: Pale General Appearance: cooperative HEENT normocephalic and moist oral mucous membranes Eyes PERRL, EOMs intact bilaterally and conjunctivae normal Neck supple and no JVD Resp normal respiratory effort, no retractions, no use of accessory muscles and clear to auscultation bilaterally Auscultation: Negative for crackles, rales, rhonchi or wheezes Cardio regular rate, regular rhythm, S1 normal heart sound, S2 normal heart sound and no murmurs GI soft to palpation, non-tender and non-distended; Negative for hepatosplenomegaly Extremity no clubbing, cyanosis or edema Skin no rashes or lesions noted Neuro no focal motor deficits and no sensory deficits noted Psych affect normal Appearance: appropriate Assessment & Plan Assessment/Plan (1) Dizziness: (2) Orthostatic hypotension: (3) Anemia: PLAN: Plan 1. Orthostatic hypotension with dizziness and anemia ? Hemoglobin dropped to 7.0 yesterday afternoon she was transfused 2 units this morning at 7.3, will type and cross for another 2 units and transfuse 1 and hold 1 ? BUN is elevated which could indicate an upper GI bleed source ? Appreciate GIs input ? CT of the abdomen pelvis is pending read ? Continue with IV fluids and PPI ? We will hold his aspirin and Plavix but he can resume his other home medications ? N.p.o. 2. CAD status post stent/paroxysmal A. fib status post Maze procedure/chronic combined systolic and diastolic CHF/HTN/HLD ? No longer on anticoagulation ? Hold his antiplatelets ? Continue with his Lipitor but will hold his Lasix and his Coreg for now 3. DM2 ? We will hold his home oral hypoglycemics ? We will continue with sliding scale insulin ? Accu-Cheks AC at bedtime we will make adjustments as necessary 4. Hypothyroidism ? Stable ? Continue with Synthroid DVT: SCDs Charges/Coding Visit Charges Inpatient E&M: 17286 Subs Hosp L2
--- NOTE | 2021-09-05 09:45 | CASEMGMT ---
TENA KULKARNI Assessment: Face to Face with pt for initial transition planning/care coordination assessment. RN CAYLA introduced self and role at [facility], pt voices understanding and consents to assessment. Pt is A/O x4 and answers all questions appropriately at this time. Pt lying in bed in no distress. Care providers, pharmacy, and demographics verified/updated. Admitting Dx: GIB with dizziness and anemia PCP:[facility]y Specialists:chhaya Vega; [facility], cardio Preferred Pharmacy: [facility] Insurance: MMO Prescription Benefit: yes LW/HPOA: Pt denies having a LW/DPOA and denies need for info regarding AD. LNOK: [place], Living Arrangements: Pt lives with in a split level house with 6 steps to enter with a rail. Pt reports he is I in ADL's and denies concerns at home. Transportation: Pt drives self and denies concerns with transportation. DME/HHC/SNF: Pt has a BGM and checks his blood sugars 2-3x/day. He states he has sufficient supplies for BGM as well as insulin. Pt has a cane and walker at home but does not use either. Pt denies hx of HHC or SNF stays. Pt states no concerns with going home at time of dc. Pt states no further concerns/needs. CM to follow. Advised pt to ask CM if any further question/concerns/needs arise, voices understanding. Pt Goal: Home Plan: Home
[2021-09-05 09:54] LABS: Platelet Count 161 K/mm3 (150-450); RET-HE 36.4 pg (30-35); Reticulocyte Count 4.98 % (0.5-1.5)
[2021-09-05 10:29] LABS: Ferritin 54 ng/mL (26-388); Iron 80 ug/dL (65-175); Iron Binding Capacity,Total 304 ug/dL (250-450); PERCENT IRON SATURATION 26.3 % (15.0-55.0)
[2021-09-05 10:30] LABS: Vitamin B12 476 pg/mL (211-911)
[2021-09-05 10:38] LABS: CPK Total, Creatine Kinase 60 U/L (39-308); LDH 124 U/L (87-241)
[2021-09-05] MEDS: Ferrous Sulfate 325 MG Tablet PO (10:45)
[2021-09-05] MEDS: 0.9% Saline Lock 10 ML Syringe IV (10:45)
[2021-09-05 10:53] LABS: Erythrocyte Sedimentation Rate < 1 mm/hr (0-20)
[2021-09-05] MEDS: Cosyntropin 0.25 MG in 0.9% Normal Saline (Pres. free 1 ML 30 MG IV (11:24)
[2021-09-05 11:36] LABS: Bedside Glucose 128 mg/dL (74-106)
--- NOTE | 2021-09-05 13:51 | MRI_ITS ---
EXAM: MR ABDOMEN WITHOUT AND WITH INTRAVENOUS CONTRAST CLINICAL INDICATION: hepatic lesions ANEMIA TECHNIQUE: Multiplanar and multisequence MR images of the abdomen without and with intravenous contrast. This report was created using [employer] report [employer] technology. CONTRAST: IV dotarem 20ml COMPARISON: ct Ellis 2021 9:16am FINDINGS: LOWER THORAX: Unremarkable. No pleural effusion. LIVER: 26 mm T2 intense lesion in the posterior medial right lobe of the liver Se 4 IM: 13. 29 mm T2 intense lesion in the left lobe of the liver Se 4 IM: 12. These have low T1 signal. These are indeterminate. They do not completely fill in as would a hemangioma. This maybe an atypical hemangioma but this does not completely exclude neoplasm. ACR White Paper guidelines (Joanna, et al. JACR 2017; 14(11):3784-5838.) suggest the following. For patients with high risk of malignancy (known malignancy with a propensity to metastasize to the liver, cirrhosis, and/or other hepatic risk factors), recommend core biopsy. There are a total of 4 lesions in the liver. 6.8mm T2 intense lesion in the posterior right lobe of the liver Se 4 IM: 16. This is a cyst and no follow up required. 9.8mm T2 intense lesion in the mid right lobe of the liver Se 4 IM: 13. This is indeterminate. GALLBLADDER AND BILE DUCTS: Unremarkable. No gallstones. No gallbladder distention or wall edema. No intra- or extrahepatic biliary ductal dilation. PANCREAS: Unremarkable. No focal cystic or solid mass. SPLEEN: Unremarkable. Normal size without focal cystic or solid mass. ADRENALS: Unremarkable. No nodules. KIDNEYS AND URETERS: Unremarkable. Normal renal size and position. No hydronephrosis. INTRAPERITONEAL SPACE: Unremarkable. No ascites or other fluid collection. No free air. SOFT TISSUES: There is an umbilical hernia containing fat. There are diffuse degenerative changes of the visualized lumbar spine. VASCULATURE: There are calcifications of the abdominal aorta. This is consistent for atherosclerotic disease. There is NO abdominal aortic aneurysm. Vascular workup can be obtained based on clinical correlation. LYMPH NODES: No enlarged lymph nodes. MRI/MRI Abd WITH and W/O Contrast IMPRESSION: 26 mm T2 intense lesion in the posterior medial right lobe of the liver Se 4 IM: 13. 29 mm T2 intense lesion in the left lobe of the liver Se 4 IM: 12. These have low T1 signal. These are indeterminate. They do not completely fill in as would a hemangioma. This maybe an atypical hemangioma but this does not completely exclude neoplasm. ACR White Paper guidelines (Joanna, et al. JACR 2017; 14(11):1904-0344.) suggest the following. For patients with high risk of malignancy (known malignancy with a propensity to metastasize to the liver, cirrhosis, and/or other hepatic risk factors), recommend core biopsy. Electronically Signed: Camden Prescott MD at 16:27 EDT ,
[2021-09-05] MEDS: Ondansetron 4 MG/2 ML Vial IV (14:26)
[2021-09-05 16:36] LABS: Bedside Glucose 169 mg/dL (74-106)
--- NOTE | 2021-09-05 17:05 | CON.PCM_ITS ---
Assessment & Plan Assessment/Plan (1) Anemia: PLAN: His iron studies showed that he is not very iron deficient and his labs are more consistent with anemia of chronic disease. However he should respond to blood transfusion and it was an inappropriate increase in his hemoglobin and hematocrit with 2 units of packed red blood cells. And waiting on celiac studies as a cause of his chronic anemia. He should also get a push enteroscopy to evaluate his small bowel along with a capsule endoscopy. He had a history of a previous GI bleed was possibly secondary to diverticular bleed. I do not have the report or the previous endoscopy pictures. (2) History of GI bleed: PLAN: Previous GI bleed thought to be secondary to diverticular bleed in the setting of Eliquis therapy. He is not on anticoagulation at this time he is on antiplatelet therapy. (3) Dizziness: PLAN: I elis a serum cortisol level along with the ACTH stimulation test. His ACTH stimulation was appropriate as his cortisol level did go up to 33. He may also benefit from a tilt table test to see if he is experiencing orthostatic hypotension and I want to give him either midodrine or fludrocortisone in the interim to prevent him from possibly developing presyncope or syncopal symptoms. (4) Liver lesion: PLAN: I am not sure of the etiology of the lesions in his liver. There are possibly hemangiomas. Also the differential diagnosis would be hepatic cysts, focal nodular hyperplasia and less likely metastatic lesions. I will draw an AFP, CEA, CA 19-9 and a PSA. HPI Consult Data Date of Consult: 09/05/21 HPI Narrative Reason for Consultation: anemia HPI Narrative: DEREK PINA, is a 60 M who presents LEILA PINA, is a 60 M who has as history of CAD, status post PCI (LCx-2019), cardiomyopathy, CHF (previously ported this combined systolic/diastolic), paroxysmal atrial fibrillation (currently not on anticoagulant therapy secondary to recent gastrointestinal bleeding process requiring PRBCs), and hyper lipidemia.? In November 2020, he was hospitalized at [facility].? He was thought to have a gastrointestinal bleeding process.? He underwent GI evaluation with endoscopy procedures without any definitive findings-per his report.? He did require PRBC transfusions.? He was released home with no anticoagulant therapy.? In the setting of atrial fibrillation and GI bleed, his been referred to [facility] nursing resident, Dr. Reyes for consideration for watchman device. He underwent a watchman procedure in March 2021. He was placed on Plavix and aspirin after the procedure. He has to be on Plavix therapy for approximately 3 months. He came into the hospital with syncope. ?Last several days he has had episodes of lightheadedness.? Primarily when he is in the upright position.? Last night he got so dizzy he fell.? Hit his left lower rib cage on a counter when he went down.? No loss conscious.? No head injury.? Says had nausea but no vomiting.? No diarrhea or melena.? . Given to the hospitalist hemoglobin was 8.2 and dropped down to 7.0. He was transfused 2 units of packed red blood cells and only went up to 7.3. [facility] Medical History (Updated 09/05/21 @ 17:[address] Lucas Friend, DO) Abnormal stress test Acute diffuse otitis externa of right ear Atherosclerosis of coronary artery of [place] heart without angina pectoris Cardiomyopathy Chronic combined systolic and diastolic heart failure CVA (cerebral vascular accident) Diabetes Essential hypertension HLD (hyperlipidemia) Hypothyroidism Nausea & vomiting Nicotine use disorder Obesity PAF (paroxysmal atrial fibrillation) Polyneuropathy due to type 2 diabetes mellitus Postoperative primary hypothyroidism Pre-syncope Presence of stent in coronary artery (~12/13/18) Presence of Watchman left atrial appendage closure device Sinusitis, acute Thyroid cancer (03/25/19) Thyroid disease Vasectomy planned Home Medications aspirin 81 mg tablet,delayed release 81 mg PO DAILY@0800 heart 06/02/16 [History Last Taken 09/03/21 10:00] folic acid 400 mcg tablet 400 mcg PO QHS Check with primary doctor 03/31/19 [History Last Taken 09/03/21 22:00] cholecalciferol (vitamin D3) 125 mcg (5,000 unit) tablet 25 mcg PO DAILY vitamin 07/16/19 [History Last Taken 09/03/21] mecobalamin (vitamin B12) 1,000 mcg disintegrating tablet,sublingual 500 mcg PO DAILY vitamin 07/16/19 [History Last Taken Unknown] metformin 500 mg tablet,extended release 24 hr 1,000 mg PO BID diabetes 07/16/19 [History Last Taken 09/03/21] pregabalin 100 mg capsule 150 mg PO BID Check with primary doctor 05/24/20 [History Last Taken 09/03/21] atorvastatin 40 mg tablet 40 mg PO QHS #90 tabs 11/05/20 [Rx Last Taken 09/03/21 22:00] carvedilol 25 mg tablet 25 mg PO BID blood pressure 09/04/21 [History Last Taken 09/03/21 21:30] clopidogrel 75 mg tablet 75 mg PO DAILY heart 09/04/21 [History Last Taken 09/03/21 10:00] dapagliflozin 10 mg tablet (Farxiga) 10 mg PO DAILY diabetes 09/04/21 [History Last Taken 09/03/21] furosemide 40 mg tablet 40 mg PO DAILY diuretic 09/04/21 [History Last Taken 09/03/21 10:00] insulin lispro protamine-lispro 100 unit/mL (75-25) subcutaneous pen 26 unit subcut BREAKFAST diabetes 09/04/21 [History Last Taken 09/03/21] insulin lispro protamine-lispro 100 unit/mL (75-25) subcutaneous pen (Humalog Mix 75-25 KwikPen) 22 unit subcut DINNER diabetes 09/04/21 [History Last Taken 09/03/21] insulin lispro protamine-lispro 100 unit/mL (75-25) subcutaneous pen (Humalog Mix 75-25 KwikPen) 24 unit subcut LUNCH diabetes 09/04/21 [History Last Taken 09/03/21] insulin lispro protamine-lispro 100 unit/mL (75-25) subcutaneous pen (Humalog Mix 75-25 KwikPen) 31 unit subcut DAILY diabetes 09/04/21 [History Last Taken 09/03/21] levothyroxine 175 mcg tablet 175 mcg PO DAILY thyroid 09/04/21 [History Last Taken 09/03/21] vitamin B6-vitamin E-magnesium tablet 1 tab PO DAILY vitamin 09/04/21 [History Last Taken 09/03/21] Allergy/AdvReac Type Severity Reaction Status Date / Time No Known Allergies Allergy Verified 09/04/21 09:52 Family History Mother Arrhythmia Father CAD (coronary artery disease) possible bypass Other Cancer Diabetes Heart disease Thyroid disorder Surgical History (Updated 09/04/21 @ 10:00 by Cynthia Reddy) History of ear surgery History of thyroidectomy Presence of coronary angioplasty implant and graft (~12/13/18) Social History Smoking Status: Light Smoker (<10/day) how long ago did patient quit smokin year ago alcohol intake: current alcohol intake frequency: holidays/special occasions only substance use type: does not use caffeine: Yes Type: carbonated beverages ROS Constitutional Constitutional: Reports fatigue; Denies chills, fever(s) or malaise Eyes Eyes: Denies blurry vision ENT HEENT: Denies headache(s) or nasal discharge Cardiovascular Cardiovascular: Denies chest pain, dyspnea on exertion or syncope Respiratory/Chest Respiratory/Chest: Denies cough, shortness of breath at rest or shortness of breath with exertion Gastrointestinal Gastrointestinal: Denies constipation, diarrhea, hematemesis, hematochezia, shea sheyla, nausea or vomiting Genitourinary Genitourinary: Denies dysuria Neurologic Neurologic: Denies focal weakness, numbness or tremor(s) Psychiatric Psychiatric: Denies anxiety or depression Lab / Micro Data Result Diagrams: 09/05/21 03:37 09/05/21 03:37 Labs: Laboratory Results - last 24 hr 09/04/21 08:20: Crossmatch See Detail 09/04/21 08:20: Crossmatch See Detail 09/04/21 08:20: Direct Antiglob Test NEG w/POLYSPECIFIC 09/04/21 16:55: POC Glucose 175 H 09/04/21 21:50: POC Glucose 188 H 09/05/21 03:37: WBC 10.3, RBC 2.44 L, Hgb 7.3 L, Hct 22.5 L, MCV 92.2, MCH 29.9, MCHC 32.4, RDW Std Deviation 48.3 H, RDW Coeff of Marcellus 14.8 H, Plt Count 147 L, MPV 10.4, Immature Gran % (Auto) 1.400 H, Neut % (Auto) 61.0, Lymph % (Auto) 26.9, [place] % (Auto) 9.1, Eos % (Auto) 1.1, Baso % (Auto) 0.5, Absolute Neuts (auto) 6.3, Absolute Lymphs (auto) 2.76, Nucleated RBC % 0.9 09/05/21 03:37: Sodium 141, Potassium 3.9, Chloride 111 H, Carbon Dioxide 25.0, Anion Gap 5, BUN 41 H, Creatinine 0.75, Estim Creat Clear Calc 125.19, Est GFR (MDRD) Af Amer 137, Est GFR (MDRD) Non-Af 113, BUN/Creatinine Ratio 54.8 H, Glucose 175 H, Calcium 7.3 L 09/05/21 06:44: POC Glucose 182 H 09/05/21 08:20: Direct Antiglob Test NEG w/POLYSPECIFIC 09/05/21 09:35: Retic Count 4.98 H, Immature Retic Fraction 50.20 H, Retic Hgb Equivalent 36.4 H 09/05/21 09:35: Vitamin B12 476 09/05/21 09:35: Iron 80, TIBC 304, Iron Saturation 26.3, Ferritin 54, Folate 16.00 09/05/21 09:35: Cortisol 8.50 09/05/21 09:35: ESR < 1 09/05/21 09:35: Lactate Dehydrogenase 124, Total Creatine Kinase 60, C-React Prot Ext Range 3.10 H 09/05/21 11:22: POC Glucose 128 H 09/05/21 12:35: Cortisol 30.70 H 09/05/21 13:10: Cortisol 33.30 H 09/05/21 16:19: POC Glucose 169 H Rhythm Strip Rhythm Strip: Sinus Tach Rate: 102 Radiology Impression Abdomen/Pelvis CT 09/05/21 08:48 IMPRESSION: 1. 3 cm hepatic lesions within segments 1 and 3 are indeterminate. Follow-up dynamic scanning with MRI recommended. 2. Small pericardial effusion. 3. Diverticulosis coli. Electronically Signed: Norman Jean MD at 9:52 EDT , Abdomen MRI 09/05/21 13:51 IMPRESSION: 26 mm T2 intense lesion in the posterior medial right lobe of the liver Se 4 IM: 13. 29 mm T2 intense lesion in the left lobe of the liver Se 4 IM: 12. These have low T1 signal. These are indeterminate. They do not completely fill in as would a hemangioma. This maybe an atypical hemangioma but this does not completely exclude neoplasm. ACR White Paper guidelines (Joanna, et al. JACR 2017; 14(11):2600-9480.) suggest the following. For patients with high risk of malignancy (known malignancy with a propensity to metastasize to the liver, cirrhosis, and/or other hepatic risk factors), recommend core biopsy. Electronically Signed: Camden Prescott MD at 16:27 EDT Reading Location ID and State: [facility] / [place] , Service support , Charges/Coding Visit Charges Inpatient E&M: 28787 Init Hosp L3
[2021-09-05 19:29] LABS: Hematocrit 24.6 % (40-54); Hemoglobin 7.9 g/dL (13.0-16.5)
[2021-09-05] MEDS: MELATONIN 3 MG TABLET PO (21:56)
[2021-09-05] MEDS: Atorvastatin Calcium 40 MG Tablet PO (21:56)
[2021-09-05 22:11] LABS: Bedside Glucose 134 mg/dL (74-106)
[2021-09-06] VITALS (13 sets, daily range): BP systolic 99–141; BP diastolic 54–89; PULSE 68–81; RESP 16–18; TEMP 36.3–37.4; O2SAT 96–100; BMI 30.2
[2021-09-06] MEDS: 0.9% Normal Saline 1,000 ML 100 ML IV ×2 (04:30→18:35)
[2021-09-06 06:45] LABS: Bedside Glucose 114 mg/dL (74-106)
[2021-09-06 06:47] LABS: Absolute Neutrophil Count 5.8 X10^3/uL (2.0-7.7); Basophil# 0.05 X10^3/uL; Basophil% 0.5 % (0-1); Eosinophils% 1.1 % (0-5); Hematocrit 22.7 % (40-54); Hemoglobin 7.3 g/dL (13.0-16.5); Lymphocyte % 25.9 % (19-41); Mean Corp Hgb Conc 32.2 g/dL (32-36); Mean Corpuscular Hgb 30.4 pg (27.0-32.0); Mean Corpuscular Volume 94.6 fL (80-94); Mean Platelet Vol. 10.1 fl (6.2-12.0); Monocyte# 0.78 X10^3/uL; Monocyte% 8.4 % (0-10); NRBC Flagged by Analyzer 0.9 % (0-5); Neutrophil # 5.77 X10^3/uL (2.7-7.7); Neutrophil % 62.4 % (47-70); Platelet Count 166 K/mm3 (150-450); RBC Distribution Width CV 16.7 % (11.6-14.6); RBC Distribution Width SD 50.1 fl (35.1-43.9); White Blood Count 9.3 K/mm3 (4.4-11.0)
[2021-09-06 07:16] LABS: Anion Gap 9 (5-15); BUN 17 mg/dL (7-18); BUN/Creat Ratio 24.3 RATIO (10-20); Calcium,Total 7.2 mg/dL (8.5-10.1); Chloride 111 mmol/L (98-107); EST Glomerular Filtration Rate 122 mL/min (>60); Est Glom Filt Rate - Afr Amer 147 mL/min (>60); Estimated Creatinine Clearance 134.13 ml/min; Glucose 132 mg/dL (74-106); Potassium 3.4 mmol/L (3.5-5.1); Sodium Level 144 mmol/L (136-145)
[2021-09-06] MEDS: Ferrous Sulfate 325 MG Tablet PO (07:50)
[2021-09-06] MEDS: Cholecalciferol (Vit D3) 125 MCG CAPSULE (5,000 UNITS) PO (07:50)
[2021-09-06 09:38] LABS: Thyroid Stim Hormone (TSH) 8.37 uIU/mL (0.358-3.74)
[2021-09-06 09:44] LABS: International Normalized Ratio 1.1; Partial Thromboplast Time 25.5 Seconds (24.1-36.2); Prothrombin Time (Protime)PT. 13.7 SECONDS (11.7-14.9)
[2021-09-06 09:54] LABS: Hemoglobin A1c 7.3 % (3.8-5.6)
--- NOTE | 2021-09-06 10:39 | PCM.PN.HOSP ---
Subjective Subjective Continues to have difficulty maintaining his hemoglobin. Stools remain brown, will transfuse again and plan is for scope today Objective Data Objective Data Vital Signs: Vital Signs Temp Pulse Resp BP Pulse Ox 98.0 F 80 18 119/81 H 98 09/06/21 07:45 09/06/21 07:45 09/06/21 07:45 09/06/21 07:45 09/06/21 07:45 Oxygen Delivery Method Room Air Weight: 244 lb 11.41 oz Body Mass Index (BMI) 30.2 Intake & Output: Intake and Output for Last 24 Hours 09/05/21 09/06/21 09/07/21 03:59 03:59 03:59 Intake Total 4810.00 / 4810.00 1271.83 / 1271.83 1541.67 / 1541.67 Output Total 2600 / 2600 1650 / 1650 350 / 350 Balance 2210.00 / 2210.00 -378.17 / -378.17 1191.67 / 1191.67 Lab / Micro Data Result Diagrams: 09/06/21 06:40 09/06/21 06:40 Labs: Laboratory Results - last 24 hr 09/04/21 08:20: Crossmatch See Detail 09/04/21 08:20: Direct Antiglob Test NEG w/POLYSPECIFIC 09/05/21 08:20: Direct Antiglob Test NEG w/POLYSPECIFIC 09/05/21 09:35: ESR < 1 09/05/21 11:22: POC Glucose 128 H 09/05/21 12:35: Cortisol 30.70 H 09/05/21 13:10: Cortisol 33.30 H 09/05/21 16:19: POC Glucose 169 H 09/05/21 19:25: Hgb 7.9 L, Hct 24.6 L 09/05/21 21:53: POC Glucose 134 H 09/06/21 04:29: POC Glucose 114 H 09/06/21 06:40: WBC 9.3, RBC 2.40 L, Hgb 7.3 L, Hct 22.7 L, MCV 94.6 H, MCH 30.4, MCHC 32.2, RDW Std Deviation 50.1 H, RDW Coeff of Marcellus 16.7 H, Plt Count 166, MPV 10.1, Immature Gran % (Auto) 1.700 H, Neut % (Auto) 62.4, Lymph % (Auto) 25.9, [place] % (Auto) 8.4, Eos % (Auto) 1.1, Baso % (Auto) 0.5, Absolute Neuts (auto) 5.8, Absolute Lymphs (auto) 2.40, Nucleated RBC % 0.9 09/06/21 06:40: Sodium 144, Potassium 3.4 L, Chloride 111 H, Carbon Dioxide 24.0, Anion Gap 9, BUN 17, Creatinine 0.70, Estim Creat Clear Calc 134.13, Est GFR (MDRD) Af Amer 147, Est GFR (MDRD) Non-Af 122, BUN/Creatinine Ratio 24.3 H, Glucose 132 H, Calcium 7.2 L 09/06/21 06:40: TSH 8.37 H 09/06/21 06:40: Hemoglobin A1c 7.3 H 09/06/21 09:20: PT 13.7, INR 1.1, APTT 25.5 Radiography Diagnostic Testing: Radiology Impression Abdomen MRI 09/05/21 13:51 IMPRESSION: 26 mm T2 intense lesion in the posterior medial right lobe of the liver Se 4 IM: 13. 29 mm T2 intense lesion in the left lobe of the liver Se 4 IM: 12. These have low T1 signal. These are indeterminate. They do not completely fill in as would a hemangioma. This maybe an atypical hemangioma but this does not completely exclude neoplasm. ACR White Paper guidelines (Joanna et al. JACR 2017; 14(11):6789-0600.) suggest the following. For patients with high risk of malignancy (known malignancy with a propensity to metastasize to the liver, cirrhosis, and/or other hepatic risk factors), recommend core biopsy. Electronically Signed: Camden Prescott MD at 16:27 EDT , Rhythm Strip Rhythm Strip: Sinus Tach Rate: 102 Physical Exam Narrative Const alert, oriented x3 and no apparent distress Constitutional Narrative: Pale General Appearance: cooperative HEENT normocephalic and moist oral mucous membranes Eyes PERRL, EOMs intact bilaterally and conjunctivae normal Neck supple and no JVD Resp normal respiratory effort, no retractions, no use of accessory muscles and clear to auscultation bilaterally Auscultation: Negative for crackles, rales, rhonchi or wheezes Cardio regular rate, regular rhythm, S1 normal heart sound, S2 normal heart sound and no murmurs GI soft to palpation, non-tender and non-distended; Negative for hepatosplenomegaly Extremity no clubbing, cyanosis or edema Skin no rashes or lesions noted Neuro no focal motor deficits and no sensory deficits noted Psych affect normal Appearance: appropriate Assessment & Plan Assessment/Plan (1) Dizziness: (2) Orthostatic hypotension: (3) Anemia: PLAN: Plan 1. Orthostatic hypotension with dizziness and anemia which is multifactorial including blood loss, chronic disease, and iron deficiency ? Hemoglobin dropped to 7.0 yesterday afternoon she was transfused 2 units this morning at 7.3, will type and cross for another 2 units and transfuse 1 and hold 1 ? BUN is elevated which could indicate an upper GI bleed source ? Appreciate GIs input ? CT of the abdomen pelvis with 2 liver lesions therefore an MRI was obtained which read as atypical hemangiomas, he will likely need biopsies in his outpatient for further evaluation and ? Continue with IV fluids and PPI ? We will hold his aspirin and Plavix but he can resume his other home medications ? Iron studies are normal however he does have some inflammatory markers with elevations and his ferritin is low normal therefore he likely is iron deficient and the studies were obtained after blood transfusions therefore we will also treat him as an iron deficiency anemia as well as anemia of chronic disease as well as possible blood loss anemia. We will transfuse him 1 more unit and also give him IV iron as well as his reticulocyte count is elevated ? N.p.o. plan for EGD and colonoscopy today 2. CAD status post stent/paroxysmal A. fib status post Maze procedure/chronic combined systolic and diastolic CHF/HTN/HLD ? No longer on anticoagulation ? Hold his antiplatelets ? Continue with his Lipitor but will hold his Lasix and his Coreg for now 3. DM2 ? We will hold his home oral hypoglycemics ? We will continue with sliding scale insulin ? Accu-Cheks AC at bedtime we will make adjustments as necessary 4. Hypothyroidism ? Stable ? Continue with Synthroid DVT: SCDs Charges/Coding Visit Charges Inpatient E&M: 19665 Subs Hosp L2
[2021-09-06 13:08] LABS: Anti-Centromere B Ab <0.2 AI (0.0-0.9); Anti-Chromatin <0.2 AI (0.0-0.9); Anti-Jo <0.2 AI (0.0-0.9); Anti-Scleroderma-70 AB <0.2 AI (0.0-0.9); RNP Ab 0.2 AI (0.0-0.9); SJOGREN'S Anti-SS-A test < 0.2 AI (0.0-0.9); SJOGREN'S Anti-SS-B test < 0.2 AI (0.0-0.9); Smith Ab <0.2 AI (0.0-0.9)
--- NOTE | 2021-09-06 14:32 | OP.EGD_ITS ---
Patient Name: Toni Vo Procedure Date: 09/06/2021 1:46 PM Date of : 1960 Age: 60 Procedure: Upper GI endoscopy Indications: Iron deficiency anemia Providers: Lance Alejandro DO Medicines: Monitored Anesthesia Care Patient Profile: This is a 60 year old male. Refer to note in patient chart for documentation of history and physical. Patient has symptoms. Is status post three years ago. Complications: No immediate complications. Procedure: Pre-Anesthesia Assessment: - Prior to the procedure, a History and Physical was performed, and patient medications and allergies were reviewed. The risks and benefits of the procedure and the sedation options and risks were discussed with the patient. All questions were answered and informed consent was obtained. Patient identification and proposed procedure were verified by the physician in the pre-procedure area. Mental Status Examination: alert and oriented. Airway Examination: normal oropharyngeal airway and neck mobility. Respiratory Examination: clear to auscultation. CV Examination: normal. Prophylactic Antibiotics: The patient does not require prophylactic antibiotics. Prior Anticoagulants: The patient has taken no previous anticoagulant or antiplatelet agents. After reviewing the risks and benefits, the patient was deemed in satisfactory condition to undergo the procedure. The anesthesia plan was to use moderate sedation / analgesia (conscious sedation). Immediately prior to administration of medications, the patient was re-assessed for adequacy to receive sedatives. The heart rate, respiratory rate, oxygen saturations, blood pressure, adequacy of pulmonary ventilation, and response to care were monitored throughout the procedure. The physical status of the patient was re-assessed after the procedure. After obtaining informed consent, the endoscope was passed under direct vision. Throughout the procedure, the patient's blood pressure, pulse, and oxygen saturations were monitored continuously. The gastroscope was introduced through the mouth, and advanced to the second part of duodenum. The upper GI endoscopy was accomplished without difficulty. The patient tolerated the procedure well. Scope In: 2:06:30 PM Scope Out: 2:23:40 PM Total Procedure Duration Time 0 hours 17 minutes 10 seconds Findings: The examined esophagus was normal. Red blood was found in the gastric fundus. Patchy hemorrhagic mucosa with bleeding and stigmata of recent bleeding was found in the gastric fundus. Coagulation for hemostasis using argon plasma at 0.3 liters/minute and 20 solis was successful. Estimated blood loss was minimal. One non-bleeding cratered gastric ulcer with no stigmata of bleeding was found in the prepyloric region of the stomach. The lesion was 6 mm in largest dimension. A 5 mm non-bleeding diverticulum was found in the area of the papilla. Impression: - Normal esophagus. - Red blood in the gastric fundus. - Hemorrhagic gastropathy. - Non-bleeding gastric ulcer with no stigmata of bleeding. - Non-bleeding duodenal diverticulum. - No specimens collected. Recommendation: - Return to the floors - Use Protonix (pantoprazole) 40 mg PO BID for 8 weeks. - Use sucralfate tablets 1 gram PO QID for 1 month. -Repeat upper endoscopy in approximately 6 to 8 weeks for surveillance and treatment of gastric ulcer -Work-up for chronic liver disease as the etiology of recurrent GI bleeding - Continue present medications. Procedure Code(s): --- Professional --- 04334, Esophagogastroduodenoscopy, flexible, transoral; with control of bleeding, any method CPT copyright 2017 [employer]. All rights reserved. The codes documented in this report are preliminary and upon establishment guide review may be revised to meet current compliance requirements. Lance Alejandro DO 09/06/2021 2:31:52 PM This report has been signed electronically. Number of Addenda: 1 Note Initiated On: 09/06/2021 1:46 PM Addendum Number: 1 Addendum Date: 12/20/2021 6:09:53 AM MAC was used as sedation for this procedure. Lance Alejandro DO 12/20/2021 6:09:57 AM This report has been signed electronically.
--- NOTE | 2021-09-06 14:33 | OP.CCLET_ITS ---
12/20/2021 Fabiana Peña [address] [place] [address] Re : Upper GI endoscopy procedure for Toni Vo Dear Dr. Peña This procedure was performed on Monday, September 06, 2021. My impressions and recommendations are as follows: Impressions : - Normal esophagus. - Red blood in the gastric fundus. - Hemorrhagic gastropathy. - Non-bleeding gastric ulcer with no stigmata of bleeding. - Non-bleeding duodenal diverticulum. - No specimens collected. Recommendations : - Return to the floors - Use Protonix (pantoprazole) 40 mg PO BID for 8 weeks. - Use sucralfate tablets 1 gram PO QID for 1 month. -Repeat upper endoscopy in approximately 6 to 8 weeks for surveillance and treatment of gastric ulcer -Work-up for chronic liver disease as the etiology of recurrent GI bleeding - Continue present medications. My findings are described in the full procedure note, which is enclosed. If I can be of further assistance, please feel free to contact me at . Sincerely, Lance Alejandro, 09/06/2021 2:31:52 PM This report has been signed electronically.
[2021-09-06 14:57] LABS: Anti-dsDNA Ab <1 IU/mL (0-9)
[2021-09-06] MEDS: Sucralfate 1 GM Tablet PO (15:35)
[2021-09-06 16:06] LABS: Bedside Glucose 142 mg/dL (74-106)
[2021-09-06 16:10] LABS: Bedside Glucose 131 mg/dL (74-106)
[2021-09-06 17:07] LABS: Cytoplasmic Ab (C-ANCA) <1:20 titer (Neg:<1:20)
[2021-09-06] MEDS: Atorvastatin Calcium 40 MG Tablet PO (21:46)
[2021-09-06] MEDS: MELATONIN 3 MG TABLET PO (21:48)
[2021-09-06 21:55] LABS: Bedside Glucose 147 mg/dL (74-106)
[2021-09-07] VITALS (7 sets, daily range): BP systolic 124–136; BP diastolic 74–90; PULSE 65–83; RESP 16–18; TEMP 36.4–36.9; O2SAT 96–99
[2021-09-07] MEDS: 0.9% Normal Saline 1,000 ML 100 ML IV (04:43)
[2021-09-07] MEDS: Levothyroxine 100 MCG Tablet 200 MCG PO (04:43)
[2021-09-07] MEDS: Sucralfate 1 GM Tablet PO ×2 (04:43→10:34)
[2021-09-07 05:41] LABS: Bedside Glucose 124 mg/dL (74-106)
[2021-09-07 06:30] LABS: Absolute Lymphocyte Count 1.87 X10^3/uL (0.83-4.51); Absolute Neutrophil Count 5.9 X10^3/uL (2.0-7.7); Basophil# 0.04 X10^3/uL; Basophil% 0.5 % (0-1); Eosinophil# 0.11 X10^3/uL; Eosinophils% 1.3 % (0-5); Hematocrit 24.3 % (40-54); Hemoglobin 7.9 g/dL (13.0-16.5); Lymphocyte # 1.87 X10^3/ul (0.83-4.51); Lymphocyte % 21.3 % (19-41); Mean Corp Hgb Conc 32.5 g/dL (32-36); Mean Corpuscular Volume 95.3 fL (80-94); Mean Platelet Vol. 9.7 fl (6.2-12.0); NRBC Flagged by Analyzer 0.8 % (0-5); Neutrophil # 5.92 X10^3/uL (2.7-7.7); Neutrophil % 67.3 % (47-70); Platelet Count 173 K/mm3 (150-450); RBC Distribution Width CV 18.4 % (11.6-14.6); RBC Distribution Width SD 50.1 fl (35.1-43.9); Red Blood Count 2.55 M/mm3 (4.6-6.2); White Blood Count 8.8 K/mm3 (4.4-11.0)
[2021-09-07 06:52] LABS: Anion Gap 4 (5-15); BUN 11 mg/dL (7-18); BUN/Creat Ratio 15.4 RATIO (10-20); Calcium,Total 7.1 mg/dL (8.5-10.1); Chloride 113 mmol/L (98-107); Creatinine, Serum 0.72 mg/dL (0.70-1.30); EST Glomerular Filtration Rate 119 mL/min (>60); Est Glom Filt Rate - Afr Amer 144 mL/min (>60); Glucose 126 mg/dL (74-106); Potassium 3.4 mmol/L (3.5-5.1); Sodium Level 142 mmol/L (136-145)
[2021-09-07] MEDS: Ferrous Sulfate 325 MG Tablet PO (08:30)
[2021-09-07] MEDS: Cholecalciferol (Vit D3) 125 MCG CAPSULE (5,000 UNITS) PO (08:30)
[2021-09-07] MEDS: Potassium Chloride Oral Tablet 20 MEQ 40 MEQ PO (09:16)
[2021-09-07 11:46] LABS: Bedside Glucose 109 mg/dL (74-106)
[2021-09-07 11:59] LABS: AFP, Tumor Marker 2.7 ng/mL (0.0-8.4); Carbohydrate AG 19-9 11 U/mL (0-35); Carcinoembryonic Antigen 5.9 ng/mL (0.0-4.7)
[2021-09-07 12:21] LABS: Perinuclear Ab (P-ANCA) <1:20 titer (Neg:<1:20)
[2021-09-07 12:52] LABS: Hematocrit 24.9 % (40-54); Hemoglobin 7.9 g/dL (13.0-16.5)
--- NOTE | 2021-09-07 13:35 | DCINST_ITS ---
Discharge Instructions Diet Discharge Diet: Low fat / Low cholesterol and Carb Control Diet Activity Discharge Activity: Return to Normal Activity Dressing / Incision Call your doctor if you observe: Fever of 101 or Higher, Shortness of breath, Dizziness, Fainting spells, Swelling in the ankles, Chest pain and Increased palpitations (irregular heartbeat) Follow Up Care Test Results: Test results from this visit will be discussed in further detail at your follow- up appointment, if applicable. Discharge Plan Admission Admit Date/Time: 09/04/21 08:38 Attending Provider: Edinson Drake Primary Care Provider: Fabiana Peña Instructions Additional Instructions / Restrictions: Follow-up with your PCP in 3 to 5 days to obtain outpatient lab work to monitor your hemoglobin as well as your potassium. Discharge Orders/Prescriptions Prescriptions: New sucralfate 1 gram Tablet 1 g PO TIDAC 30 Days Qty: 90 0RF ferrous sulfate [FeroSul] 325 mg (65 mg iron) Tablet 325 mg PO DAILYCM 30 Days Qty: 30 0RF ascorbic acid (vitamin C) [Vitamin C] 500 mg tablet 500 mg PO DAILY Qty: 30 0RF Rx Instructions: Take with Iron tablets pantoprazole 40 mg tablet,delayed release (DR/EC) 40 mg PO BID 30 Days Qty: 60 0RF Continued metformin 500 mg tablet extended release 24 hr 1,000 mg PO BID folic acid 400 mcg tablet 400 mcg PO QHS mecobalamin (vitamin B12) 1,000 mcg tablet,disintegrating 500 mcg PO DAILY cholecalciferol (vitamin D3) 125 mcg (5,000 unit) tablet 25 mcg PO DAILY pregabalin 100 mg capsule 150 mg PO BID levothyroxine 175 mcg tablet 175 mcg PO DAILY vitamin B6-vitamin E-magnesium Tablet 1 tab PO DAILY furosemide 40 mg tablet 40 mg PO DAILY carvedilol 25 mg tablet 25 mg PO BID Rx Instructions: must administer with a meal/food insulin lispro protamin-lispro 100 unit/mL (75-25) insulin pen 26 unit SC BREAKFAST Rx Instructions: 31 units first thing in the morning, 26 units with breakfast, 24 unit with lunch, 22 units with dinner Farxiga 10 mg tablet 10 mg PO DAILY insulin lispro protamin-lispro [Humalog Mix 75-25 KwikPen] 100 unit/mL (75-25) insulin pen 31 unit SUBCUT DAILY Rx Instructions: first thing in the morning after waking up insulin lispro protamin-lispro [Humalog Mix 75-25 KwikPen] 100 unit/mL (75-25) insulin pen 24 unit SUBCUT LUNCH insulin lispro protamin-lispro [Humalog Mix 75-25 KwikPen] 100 unit/mL (75-25) insulin pen 22 unit SUBCUT DINNER atorvastatin 40 mg tablet 40 mg PO QHS Qty: 90 3RF Held aspirin 81 MG tablet 81 mg PO DAILY@0800 Hold Instructions: Resume on 09/12/21. Label Comments: heart health clopidogrel 75 mg tablet 75 mg PO DAILY Hold Instructions: Resume on 09/12/21. Label Comments: TAKE 1 TABLET BY MOUTH ONCE DAILY. TAKE FOR FOUR MONTHS THEN DISCONTINUE. Referrals / Follow Up: Fabiana Peña MD [Primary Care Provider] - Within 1 Week Friend,DO Lance [STAFF PHYSICIAN] - Within 1 Month Disposition Disposition (needs filled in before D/C Order can be placed): Home, Self Care
[2021-09-07 16:31] LABS: Bedside Glucose 125 mg/dL (74-106)
--- NOTE | 2021-09-07 17:19 | DS.PCM_ITS ---
Providers Date of Admission: 09/04/21 Primary Care Physician: Dr. Fabiana Peña MD Consultations 09/04/21 14:34 Consult: Gastroenterology Routine Consulting Provider: [facility] Reason for Consult: GI bleed EMERGENT Consult: No MD Notified: Yes Date Notified: 09/04/21 Time Notified: 15:17 Method of Notification: Text Reason For Visit: GI BLEED WITH DIZZINESS AND ANEMIA Diagnosis Discharge Diagnosis (1) Dizziness: Status: Acute Code(s): R42 - Dizziness and giddiness (2) Orthostatic hypotension: Status: Acute Code(s): I95.1 - Orthostatic hypotension (3) Anemia: Status: Acute Code(s): D64.9 - Anemia, unspecified Plan 1. Orthostatic hypotension with dizziness and anemia which is multifactorial including blood loss, chronic disease, and iron deficiency ? Hemoglobin dropped to 7.0 yesterday afternoon she was transfused 2 units this morning at 7.3, will type and cross for another 2 units and transfuse 1 and hold 1 ? BUN is elevated which could indicate an upper GI bleed source ? Appreciate GIs input ? CT of the abdomen pelvis with 2 liver lesions therefore an MRI was obtained w [facility] read as atypical hemangiomas, he will likely need biopsies in his outpatient for further evaluation and ? Continue with IV fluids and PPI ? We will hold his aspirin and Plavix but he can resume his other home medications ? Iron studies are normal however he does have some inflammatory markers with elevations and his ferritin is low normal therefore he likely is iron deficient and the studies were obtained after blood transfusions therefore we will also treat him as an iron deficiency anemia as well as anemia of chronic disease as well as possible blood loss anemia. We will transfuse him 1 more unit and also give him IV iron as well as his reticulocyte count is elevated ? N.p.o. plan for EGD and colonoscopy today 2. CAD status post stent/paroxysmal A. fib status post Maze procedure/chronic combined systolic and diastolic CHF/HTN/HLD ? No longer on anticoagulation ? Hold his antiplatelets ? Continue with his Lipitor but will hold his Lasix and his Coreg for now 3. DM2 ? We will hold his home oral hypoglycemics ? We will continue with sliding scale insulin ? Accu-Cheks AC at bedtime we will make adjustments as necessary 4. Hypothyroidism ? Stable ? Continue with Synthroid DVT: SCDs Medications at Discharge Home Medications aspirin 81 mg tablet,delayed release 81 mg PO DAILY@0800 heart 06/02/16 folic acid 400 mcg tablet 400 mcg PO QHS Check with primary doctor 03/31/19 cholecalciferol (vitamin D3) 125 mcg (5,000 unit) tablet 25 mcg PO DAILY vitamin 07/16/19 mecobalamin (vitamin B12) 1,000 mcg disintegrating tablet,sublingual 500 mcg PO DAILY vitamin 07/16/19 metformin 500 mg tablet,extended release 24 hr 1,000 mg PO BID diabetes 07/16/19 pregabalin 100 mg capsule 150 mg PO BID Check with primary doctor 05/24/20 atorvastatin 40 mg tablet 40 mg PO QHS #90 tabs 11/05/20 carvedilol 25 mg tablet 25 mg PO BID blood pressure 09/04/21 clopidogrel 75 mg tablet 75 mg PO DAILY heart 09/04/21 dapagliflozin 10 mg tablet (Farxiga) 10 mg PO DAILY diabetes 09/04/21 furosemide 40 mg tablet 40 mg PO DAILY diuretic 09/04/21 insulin lispro protamine-lispro 100 unit/mL (75-25) subcutaneous pen 26 unit subcut BREAKFAST diabetes 09/04/21 insulin lispro protamine-lispro 100 unit/mL (75-25) subcutaneous pen (Humalog Mix 75-25 KwikPen) 22 unit subcut DINNER diabetes 09/04/21 insulin lispro protamine-lispro 100 unit/mL (75-25) subcutaneous pen (Humalog Mix 75-25 KwikPen) 24 unit subcut LUNCH diabetes 09/04/21 insulin lispro protamine-lispro 100 unit/mL (75-25) subcutaneous pen (Humalog Mix 75-25 KwikPen) 31 unit subcut DAILY diabetes 09/04/21 levothyroxine 175 mcg tablet 175 mcg PO DAILY thyroid 09/04/21 vitamin B6-vitamin E-magnesium tablet 1 tab PO DAILY vitamin 09/04/21 ascorbic acid (vitamin C) 500 mg tablet (Vitamin C) 500 mg PO DAILY #30 tabs 09/07/21 ferrous sulfate 325 mg (65 mg iron) tablet (FeroSul) 325 mg PO DAILYCM 30 days #30 tabs 09/07/21 pantoprazole 40 mg tablet,delayed release 40 mg PO BID 30 days #60 tabs 09/07/21 sucralfate 1 gram tablet 1 g PO TIDAC 30 days #90 tabs 09/07/21 Hospital Course Procedures EGD Summary of Care Provided Minutes Spent on Discharge: 45 Hospital Course: Per HPI: DEREK PINA, is a 60 M who presents to the hospital with worsening fatigue and dizziness today.? He states that they have been fairly busy because her grandson had to have a heart transplant.? But his noticed that he was looking much more pale over the last 2 days than he normally does and he says he has been feeling more fatigued and easily winded with activity.? Denies any blood in his stools but he did have a GI bleed about a year ago thought to be a diverticular bleed.? Since that time he had a maze surgery done for his A. fib and so is no longer on anticoagulation.? In the ER rectal was performed and it did not appear to be grossly bloody.? Looking at his hemoglobin, it is where it was last year during his GI bleed which is still lower than his baseline of 12- 13. Hospital Course: 1. Orthostatic hypotension with dizziness and anemia due to both GI bleed and iron deficiency anemia as well as chronic disease anemia?60-year-old male present to the hospital with feelings of lightheadedness and syncope. This been going on intermittently for several months. He does have a history of a prior GI bleed back in November 2020 but at that time it was felt to be due to diverticular disease. He has received 5 units of PRBCs and GI was consulted who performed an EGD which demonstrated blood in the stomach as well as a duodenal ulcer and patchy hemorrhagic mucosa in the gastric fundus. He was continued on his PPI as well as Carafate. He was given 2 iron infusions and discharged on p.o. iron as well as vitamin C to aid absorption secondary to his PPI and Carafate. On the day of discharge he was found to be 7.9 on his hemoglobin in the morning so repeat hemoglobin was done at noon which also showed 7.9 so discharge was discussed. He expressed understanding of the risk benefits of going home and wanted to go home today. He will need to follow-up with gastroenterology in 2 to 3 weeks and his PCP within 3 to 5 days for outpatient monitoring and follow-up of his hemoglobin. Of note he did have a watchman procedure done for his A. fib and has been off of Eliquis however he was supposed to be on Plavix for 3 months so I discussed with the to call the warp dyeing tender and see if he needs to continue the Plavix since he has been off of it for several days. I do recommend that he hold his aspirin until Sunday. 2. CAD status post stent, paroxysmal A. fib status post watchman procedure, chronic combined systolic and diastolic CHF, hypertension, hyperlipidemia, type 2 diabetes, hypothyroidism are all chronic medical conditions which complicate his care. His home medications were continued where appropriate Physical Exam Narrative Const alert, oriented x3 and no apparent distress Constitutional Narrative: Pale General Appearance: cooperative HEENT normocephalic and moist oral mucous membranes Eyes PERRL, EOMs intact bilaterally and conjunctivae normal Neck supple and no JVD Resp normal respiratory effort, no retractions, no use of accessory muscles and clear to auscultation bilaterally Auscultation: Negative for crackles, rales, rhonchi or wheezes Cardio regular rate, regular rhythm, S1 normal heart sound, S2 normal heart sound and no murmurs GI soft to palpation, non-tender and non-distended; Negative for hepatosplenomegaly Extremity no clubbing, cyanosis or edema Skin no rashes or lesions noted Neuro no focal motor deficits and no sensory deficits noted Psych affect normal Appearance: appropriate Weight / BMI Weight Weight: 244 lb 11.41 oz Body Mass Index (BMI) 30.2 ABG / Lab / Microbiology Data Result Diagrams: 09/07/21 12:25 09/07/21 06:20 Laboratory: Laboratory Results - last 24 hr 09/04/21 08:20: Crossmatch See Detail 09/05/21 09:35: c-ANCA Antibody <1:20, Atypical p-ANCA <1:20, p-ANCA Antibody <1:20 09/06/21 06:40: Tumor Marker AFP 2.7, Carcinoembryonic Ag 5.9 H, CA 19-9 Antigen 11 09/06/21 21:45: POC Glucose 147 H 09/07/21 04:40: POC Glucose 124 H 09/07/21 06:20: WBC 8.8, RBC 2.55 L, Hgb 7.9 L, Hct 24.3 L, MCV 95.3 H, MCH 31.0, MCHC 32.5, RDW Std Deviation 50.1 H, RDW Coeff of Marcellus 18.4 H, Plt Count 173, MPV 9.7, Immature Gran % (Auto) 1.600 H, Neut % (Auto) 67.3, Lymph % (Auto) 21.3, Giles % (Auto) 8.0, Eos % (Auto) 1.3, Baso % (Auto) 0.5, Absolute Neuts (auto) 5.9, Absolute Lymphs (auto) 1.87, Nucleated RBC % 0.8 09/07/21 06:20: Sodium 142, Potassium 3.4 L, Chloride 113 H, Carbon Dioxide 25.0, Anion Gap 4 L, BUN 11, Creatinine 0.72, Estim Creat Clear Calc 130.40, Est GFR (MDRD) Af Amer 144, Est GFR (MDRD) Non-Af 119, BUN/Creatinine Ratio 15.4, Glucose 126 H, Calcium 7.1 L 09/07/21 11:38: POC Glucose 109 H 09/07/21 12:25: Hgb 7.9 L, Hct 24.9 L 09/07/21 13:25: Blood Type A POSITIVE, Antibody Screen NEGATIVE, Crossmatch See Detail 09/07/21 16:23: POC Glucose 125 H D/C Instructions Discharge Diet: Low fat / Low cholesterol and Carb Control Diet Call your doctor if you observe: Fever of 101 or Higher, Shortness of breath, Dizziness, Fainting spells, Swelling in the ankles, Chest pain and Increased palpitations (irregular heartbeat) Meaningful Use Info Meaningful Use Diagnoses (Choose all that apply): None applicable Discharge Plan Admission Admit Date/Time: 09/04/21 08:38 Attending Provider: Edinson Drake Primary Care Provider: Fabiana Peña Instructions Additional Instructions / Restrictions: Follow-up with your PCP in 3 to 5 days to obtain outpatient lab work to monitor your hemoglobin as well as your potassium. Discharge Orders/Prescriptions Prescriptions: New sucralfate 1 gram Tablet 1 g PO TIDAC 30 Days Qty: 90 0RF ferrous sulfate [FeroSul] 325 mg (65 mg iron) Tablet 325 mg PO DAILYCM 30 Days Qty: 30 0RF ascorbic acid (vitamin C) [Vitamin C] 500 mg tablet 500 mg PO DAILY Qty: 30 0RF Rx Instructions: Take with Iron tablets pantoprazole 40 mg tablet,delayed release (DR/EC) 40 mg PO BID 30 Days Qty: 60 0RF Continued metformin 500 mg tablet extended release 24 hr 1,000 mg PO BID folic acid 400 mcg tablet 400 mcg PO QHS mecobalamin (vitamin B12) 1,000 mcg tablet,disintegrating 500 mcg PO DAILY cholecalciferol (vitamin D3) 125 mcg (5,000 unit) tablet 25 mcg PO DAILY pregabalin 100 mg capsule 150 mg PO BID levothyroxine 175 mcg tablet 175 mcg PO DAILY vitamin B6-vitamin E-magnesium Tablet 1 tab PO DAILY furosemide 40 mg tablet 40 mg PO DAILY carvedilol 25 mg tablet 25 mg PO BID Rx Instructions: must administer with a meal/food insulin lispro protamin-lispro 100 unit/mL (75-25) insulin pen 26 unit SC BREAKFAST Rx Instructions: 31 units first thing in the morning, 26 units with breakfast, 24 unit with lunch, 22 units with dinner Farxiga 10 mg tablet 10 mg PO DAILY insulin lispro protamin-lispro [Humalog Mix 75-25 KwikPen] 100 unit/mL (75-25) insulin pen 31 unit SUBCUT DAILY Rx Instructions: first thing in the morning after waking up insulin lispro protamin-lispro [Humalog Mix 75-25 KwikPen] 100 unit/mL (75-25) insulin pen 24 unit SUBCUT LUNCH insulin lispro protamin-lispro [Humalog Mix 75-25 KwikPen] 100 unit/mL (75-25) insulin pen 22 unit SUBCUT DINNER atorvastatin 40 mg tablet 40 mg PO QHS Qty: 90 3RF Held aspirin 81 MG tablet 81 mg PO DAILY@0800 Hold Instructions: Resume on 09/12/21. Label Comments: heart health clopidogrel 75 mg tablet 75 mg PO DAILY Hold Instructions: Resume on 09/12/21. Label Comments: TAKE 1 TABLET BY MOUTH ONCE DAILY. TAKE FOR FOUR MONTHS THEN DISCONTINUE. Referrals / Follow Up: Fabiana Peña MD [Primary Care Provider] - Within 1 Week FriendLance DO [STAFF PHYSICIAN] - Within 1 Month Disposition Disposition (needs filled in before D/C Order can be placed): Home, Self Care Charges/Coding Visit Charges Inpatient E&M: 53976 Disch Hosp
--- NOTE | 2021-09-07 18:16 | PN_ITS ---
Subjective Subjective Patient is doing better and has not shown any signs of GI bleeding. He is tolerating a diet. Objective Data Objective Data Vital Signs: Vital Signs Temp Pulse Resp BP Pulse Ox 98.0 F 65 18 134/85 H 99 09/07/21 18:07 09/07/21 18:07 09/07/21 18:07 09/07/21 18:07 09/07/21 18:07 Oxygen Delivery Method Room Air Weight: 244 lb 11.41 oz Body Mass Index (BMI) 30.2 Intake & Output: Intake and Output for Last 24 Hours 09/05/21 09/06/21 09/07/21 23:59 23:59 23:59 Intake Total 1775.16 / 1775.16 3061.50 / 3061.50 1660 / 1660 Output Total 2525 / 2525 1050 / 1050 500 / 500 Balance -749.84 / -749.84 / 1160 / 1160 Lab / Micro Data Result Diagrams: 09/07/21 12:25 09/07/21 06:20 Labs: Laboratory Results - last 24 hr 09/04/21 08:20: Crossmatch See Detail 09/05/21 09:35: c-ANCA Antibody <1:20, Atypical p-ANCA <1:20, p-ANCA Antibody <1:20 09/06/21 06:40: Tumor Marker AFP 2.7, Carcinoembryonic Ag 5.9 H, CA 19-9 Antigen 11 09/06/21 21:45: POC Glucose 147 H 09/07/21 04:40: POC Glucose 124 H 09/07/21 06:20: WBC 8.8, RBC 2.55 L, Hgb 7.9 L, Hct 24.3 L, MCV 95.3 H, MCH 31.0, MCHC 32.5, RDW Std Deviation 50.1 H, RDW Coeff of Marcellus 18.4 H, Plt Count 173, MPV 9.7, Immature Gran % (Auto) 1.600 H, Neut % (Auto) 67.3, Lymph % (Auto) 21.3, [place]endleton % (Auto) 8.0, Eos % (Auto) 1.3, Baso % (Auto) 0.5, Absolute Neuts (auto) 5.9, Absolute Lymphs (auto) 1.87, Nucleated RBC % 0.8 09/07/21 06:20: Sodium 142, Potassium 3.4 L, Chloride 113 H, Carbon Dioxide 25.0, Anion Gap 4 L, BUN 11, Creatinine 0.72, Estim Creat Clear Calc 130.40, Est GFR (MDRD) Af Amer 144, Est GFR (MDRD) Non-Af 119, BUN/Creatinine Ratio 15.4, Glucose 126 H, Calcium 7.1 L 09/07/21 11:38: POC Glucose 109 H 09/07/21 12:25: Hgb 7.9 L, Hct 24.9 L 09/07/21 13:25: Blood Type A POSITIVE, Antibody Screen NEGATIVE, Crossmatch See Detail 09/07/21 16:23: POC Glucose 125 H Rhythm Strip Rhythm Strip: Sinus Tach Rate: 102 Physical Exam Narrative Const alert, oriented x3 and no apparent distress Constitutional Narrative: Pale General Appearance: cooperative HEENT normocephalic and moist oral mucous membranes Eyes PERRL, EOMs intact bilaterally and conjunctivae normal Neck supple and no JVD Resp normal respiratory effort, no retractions, no use of accessory muscles and clear to auscultation bilaterally Auscultation: Negative for crackles, rales, rhonchi or wheezes Cardio regular rate, regular rhythm, S1 normal heart sound, S2 normal heart sound and no murmurs GI soft to palpation, non-tender and non-distended; Negative for hepatosplenomegaly Extremity no clubbing, cyanosis or edema Skin no rashes or lesions noted Neuro no focal motor deficits and no sensory deficits noted Psych affect normal Appearance: appropriate Assessment & Plan Assessment/Plan (1) Liver lesion: PLAN: History markers are all normal except for mildly elevated CEA. He will need to have a colonoscopy as an outpatient and he will need to have a capsule endoscopy to. CEA (2) Acute blood loss anemia: PLAN: He will need to have a capsule endoscopy to evaluate his small bowel for signs of acute blood loss anemia such as AVM, telangiectasia, mass lesion or ulceration. Charges/Coding Visit Charges Inpatient E&M: 62142 Subs Hosp L2
[2021-09-07 19:07] LABS: Endomysial Antibody IgA Negative (Negative)
[2021-09-08 13:39] LABS: Deamidated Gliadin IgA 7 units (0-19); Deamidated Gliadin IgG 3 units (0-19); Immunoglobulin A 204 mg/dL (90-386); t-Transglutaminase IgA <2 U/mL (0-3)
[2021-09-12 10:07] LABS: Immunoglobulin A 205 mg/dL (90-386); Immunoglobulin G 585 mg/dL (603-1613); Immunoglobulin M 32 mg/dL (20-172)
[2021-09-12 11:19] LABS: Immunoglobulin E 5 IU/mL (6-495)
[2021-09-15 16:50] LABS: 5-HIAA, UR 2.9 mg/L (Undefined)
== END 2021-09-07 18:45 | disposition home or self-care (01) | DRG 378 ==
LOC: ED 08:45 → MS3 09:14
PROVIDERS: Anesthesiology; Internal Medicine Gastroenterology; Admitting Provider Family Medicine; Emergency Provider Emergency Medicine; PCP Family Medicine; Visit Provider Family Medicine
PROC: 0DJ08ZZ Inspection of Upper Intestinal Tract, Via Natural or Artificial Opening Endoscopic (ICD-10-PCS; CPT 43235; principal; 2021-09-06 14:40)
DX: K29.71 Gastritis, unspecified, with bleeding (principal); I42.9 Cardiomyopathy, unspecified; D62 Acute posthemorrhagic anemia; I50.42 Chronic combined systolic (congestive) and diastolic (congestive) heart failure; D63.8 Anemia in other chronic diseases classified elsewhere; E86.0 Dehydration; E11.42 Type 2 diabetes mellitus with diabetic polyneuropathy; I48.0 Paroxysmal atrial fibrillation; I11.0 Hypertensive heart disease with heart failure; Z79.4 Long term (current) use of insulin; D18.03 Hemangioma of intra-abdominal structures; I25.10 Atherosclerotic heart disease of native coronary artery without angina pectoris; D50.9 Iron deficiency anemia, unspecified; E03.9 Hypothyroidism, unspecified; E78.5 Hyperlipidemia, unspecified; F17.200 Nicotine dependence, unspecified, uncomplicated; K31.4 Gastric diverticulum; S30.811A Abrasion of abdominal wall, initial encounter; W19.XXXA Unspecified fall, initial encounter; I95.1 Orthostatic hypotension; Z86.73 Personal history of transient ischemic attack (TIA), and cerebral infarction without residual deficits; E66.9 Obesity, unspecified; Z95.1 Presence of aortocoronary bypass graft; Z85.850 Personal history of malignant neoplasm of thyroid; Z79.82 Long term (current) use of aspirin; Z79.02 Long term (current) use of antithrombotics/antiplatelets; Z79.899 Other long term (current) drug therapy; K25.9 Gastric ulcer, unspecified as acute or chronic, without hemorrhage or perforation; Z87.19 Personal history of other diseases of the digestive system; Z68.30 Body mass index [BMI] 30.0-30.9, adult
CPT/HCPCS: 36415; 71045; 74177; 74183; 80048; 82105; 82378; 82533; 82550; 82607; 82728; 82746; 82784; 82785; 82962; 83036; 83497; 83516; 83540; 83550; 83615; 84443; 85014; 85018; 85025; 85045; 85610; 85652; 85730; 86140; 86225; 86235; 86255; 86256; 86301; 86850; 86880; 86900; 86901; 86920; 86922; 93005; 97802; 99285; 99406; A9575; J7030; J7040; J7050; J7120; P9016; Q9967; A4216; J0834; J2405; J2916; J3490

== ENCOUNTER → 2021-09-14 | Outpatient (CLI) | payer OTHER, SELFPAY ==
[2021-09-14 17:50] LABS: Absolute Lymphocyte Count 2.31 X10^3/uL (0.83-4.51); Absolute Neutrophil Count 4.1 X10^3/uL (2.0-7.7); Basophil# 0.03 X10^3/uL; Basophil% 0.4 % (0-1); Eosinophil# 0.16 X10^3/uL; Eosinophils% 2.2 % (0-5); Hematocrit 34.7 % (40-54); Hemoglobin 10.6 g/dL (13.0-16.5); Lymphocyte # 2.31 X10^3/ul (0.83-4.51); Mean Corp Hgb Conc 30.5 g/dL (32-36); Mean Corpuscular Hgb 30.5 pg (27.0-32.0); Monocyte# 0.62 X10^3/uL; Monocyte% 8.6 % (0-10); NRBC Flagged by Analyzer 0 % (0-5); Neutrophil # 4.09 X10^3/uL (2.7-7.7); Neutrophil % 56.5 % (47-70); POSITIVE MORPHOLOGY YES; Platelet Count 288 K/mm3 (150-450); RBC Distribution Width CV 19.9 % (11.6-14.6); RBC Distribution Width SD 71.9 fl (35.1-43.9); Red Blood Count 3.47 M/mm3 (4.6-6.2); White Blood Count 7.2 K/mm3 (4.4-11.0)
[2021-09-14 17:53] LABS: Differential Indicated SCAN CRITERIA MET
[2021-09-14 18:15] LABS: Differential Comment SCANNED
== END | disposition home or self-care (01) ==
LOC: MFPLAB 15:08
PROVIDERS: PCP Family Medicine; Visit Provider Family Medicine
DX: K92.2 Gastrointestinal hemorrhage, unspecified (principal)
CPT/HCPCS: 36415; 85025

== ENCOUNTER → 2021-11-29 | Outpatient (CLI) | payer OTHER, SELFPAY ==
[2021-11-29 10:56] LABS: Creatinine, Serum 1.22 mg/dL (0.70-1.30); EST Glomerular Filtration Rate 64 mL/min (>60); Est Glom Filt Rate - Afr Amer 78 mL/min (>60)
[2021-11-29 11:08] LABS: T4 Free Direct 1.48 ng/dL (0.76-1.46); Thyroid Stim Hormone (TSH) 0.21 uIU/mL (0.358-3.74)
[2021-11-30 11:38] LABS: Carbohydrate Ag 19-9 2261 50 U/mL (0-35); Carcinoembryonic Antigen 11.3 ng/mL (0.0-4.7)
== END | disposition home or self-care (01) ==
LOC: LAB 09:11
PROVIDERS: Internal Medicine Gastroenterology; PCP Family Medicine; Referring Provider Internal Medicine Endocrinology, Diabetes & Metabolism; Visit Provider Internal Medicine Endocrinology, Diabetes & Metabolism
DX: K76.9 Liver disease, unspecified (principal); E11.42 Type 2 diabetes mellitus with diabetic polyneuropathy; E11.65 Type 2 diabetes mellitus with hyperglycemia; C73 Malignant neoplasm of thyroid gland; Z79.4 Long term (current) use of insulin; E89.0 Postprocedural hypothyroidism; E66.9 Obesity, unspecified
CPT/HCPCS: 36415; 82105; 82378; 82565; 84439; 84443; 86301

== ENCOUNTER 2021-12-20 08:57 | Outpatient (CLI) | payer OTHER, SELFPAY ==
[2021-12-20] VITALS (9 sets, daily range): BP systolic 97–130; BP diastolic 50–98; PULSE 85–146; RESP 12–28; TEMP 36.3; O2SAT 28–99; BMI 31.2
--- NOTE | 2021-12-20 | IMM_PTH ---
PATIENT: DEREK PINA LOC: CT U#:[id number] AGE/SX: 61/M ROOM: RE12/20/[address]: Dr. Lance Alejandro DO : 1960 BED: DIS: 12/20/2021 SPEC #: [id number] RECD: 12/21/21 13:35 STATUS: KAYCEE REQ #: [id number] DENZEL: 12/20/21 00:[address]: Lance Alejandro DEPT: IMMUNOHISTOCHEMISTRY RECD BY: Gracie Cano ENTERED: 12/21/21 13:36 SP TYPE: IMMUNO OTHR DR: Dr. Fabiana Peña MD Tissues: Liver, NOS Procedures: SMA (add) CD31 (add) DESMIN (add) FACTOR VIII (add) Vimentin (initial) S-100 (add) PHYSICIAN & INSTITUTION [place] [id number] SPECIMEN INFORMATION: Tissue Source: Liver Clinical Info: Liver lesion Specimen Number: [id number] CPT code: 39707, 32907 x5 METHODOLOGY: Deparaffinized sections of prefer/formalin-fixed tissue or PAP/DQ stained slides are incubated with monoclonal/polyclonal antibodies/oligonucleotide probes. Localization is made via biotin free immunoperoxidase method. Appropriate controls are performed and reacted as expected. Results on target cell population are indicated in the following table: RESULTS: ANTIBODY / CLONE RESULT Vimentin (V9) positive CD31 (YASMANI/70A) positive Factor VIII (R Ag) positive Actin (1A4) positive Desmin (CE-R-11) negative S-100 (4C4.9) negative These tests were developed and their performance characteristics determined by [facility]. They may not have been cleared or approved by the U.S. Food and Drug Administration. The FDA has determined that such clearance or approval is not necessary. The above immunohistochemical/dualISH markers are ordered and reviewed by the Pathologist. INTERPRETATION: Liver, CT-guided core biopsy: Benign vascular proliferation consistent with hemangioma. SJ:gladys 12/22/2021
--- NOTE | 2021-12-20 | ASPIGT_PTH ---
PATIENT: DEREK PINA LOC: CT U#:[id number] AGE/SX: 61/M ROOM: RE12/20/[address]: Dr. Lance Alejandro DO : 1960 BED: DIS: 12/20/2021 SPEC #: [id number] RECD: 12/20/21 11:11 STATUS: KAYCEE REAlyssa #: [id number] DENZEL: 12/20/21 00:[address]: Lance Alejandro DEPT: SURGICAL PATHOLOGY RECD BY: William Monk ENTERED: 12/20/21 11:11 SP TYPE: ASP TRINIDAD CARR DR: Dr. Fabiana Peña MD Tissues: Liver, NOS Procedures: FNA Specimen Adequacy Special Stain Group II Surgery Specimen Level IV Surgery Specimen Level V Imprint (control) HEADER OPERATION: CT-guided liver biopsy PRE-OP DIAGNOSIS: Liver lesion TISSUE SUBMITTED: Liver 18-gauge x5 MICROSCOPIC DIAGNOSIS Liver, CT-guided core biopsy: Benign vascular proliferation, consistent with hemangioma. See comment. SJ:gladys 12/21/2021 COMMENT The specimen is evaluated at the time of biopsy by Dr. Guillermo. Immediate Evaluation = Negative for malignant cells. Focal vascular calcification is noted. Immunohistochemistry ([id number]) supports the above diagnosis. Uninvolved liver shows focal mild portal chronic inflammation, hepatocytes are essentially unremarkable. Case has been reviewed in consultation with Dr. Archibald who concurs with the above diagnosis. IDC:AM MICROSCOPIC DESCRIPTION Slides are reviewed. GROSS DESCRIPTION Received in fixative is one container labeled with the patient's name and designated liver, CT-guided core biopsy. The specimen consists of multiple elongated fragments of jarvis soft tissue measuring in aggregate 1.5 x 0.5 x 0.1 cm. The specimen is totally submitted in one cassette. Three touch imprints are prepared at the time of core biopsy. / SUNDAY:gladys 12/20/2021 TC:1 CPT: 00196, 83540
[2021-12-20 09:14] LABS: Platelet Count 203 K/mm3 (150-450)
[2021-12-20 09:27] LABS: International Normalized Ratio 0.9; Partial Thromboplast Time 28.5 Seconds (24.1-36.2); Prothrombin Time (Protime)PT. 12.1 SECONDS (11.7-14.9)
--- NOTE | 2021-12-20 10:00 | CT_ITS ---
PROCEDURE: CT DIRECTED CORE LIVER BIOPSY INDICATION: Male, 61 years old. Liver lesion with upward trending tumor markers. PHYSICIAN: Dr. ERIN Chu CONSENT: Written informed consent was obtained having explained the risks, benefits and alternatives in detail with the patient who accepted the risks and agreed to proceed. Laboratory review and clinical assessment was performed. CONSCIOUS SEDATION PROTOCOL: The Drugs used were: 2 mg Versed, IV., and 50 mcg Fentanyl, IV. The sedation time was: 38 minutes. Conscious sedation was started at 10:02 AM and terminated at 10:40 AM. The conscious sedation protocol was independently monitored. RADIATION DOSAGE (If Supplied By Facility): CTDIvol = ( 21 ) mGy, DLP = ( 3184.73 ) mGycm Individualized dose optimization techniques were used for this CT. TECHNIQUE: Using CT image guidance with image documentation, a suitable location in the posterior medial aspect of the right lobe of the liver was identified. Using a right lateral approach, puncture of the liver was uneventful with an 18-gauge core needle system. 4, 18-gauge core samples were obtained, and submitted in formalin to the pathologist for further assessment. Followup CT scan revealed no distinct sequelae. CT/Biopsy/Inj or Needle Placement IMPRESSION: 1. CT directed core needle biopsy of the liver, using CT image guidance with image documentation as described. 2. Conscious Sedation protocol utilized with independent monitoring. Electronically Signed: Evgeny Corral MD at 11:23 EDT ,
[2021-12-20] MEDS: Midazolam 2 MG/2 ML Syringe IV (10:02)
[2021-12-20] MEDS: fentaNYL 100 MCG/2 ML Ampul IV (10:03)
[2021-12-20] MEDS: 0.9% Saline Lock 10 ML Syringe IV (10:10)
[2021-12-20] MEDS: Lidocaine 2% (10 ml mdv) 10 ML Vial INFILT (10:25)
== END 2021-12-20 23:59 | disposition home or self-care (01) ==
PROVIDERS: PCP Family Medicine; Visit Provider Internal Medicine Gastroenterology
DX: K76.9 Liver disease, unspecified (principal)
CPT/HCPCS: 47000; 36415; 77012; 85049; 85610; 85730; 88172; 88305; 88307; 88313; 88341; 88342; 99156; 99157; J7050; A4216

== ENCOUNTER → 2022-01-24 | Outpatient (CLI) | payer OTHER, SELFPAY ==
[2022-01-24 16:29] LABS: Microalbumin,Random Urine < 5.0 mg/L (NO RANGE EST.)
[2022-01-24 17:25] LABS: Vitamin D,25 Hydroxy 45.9 ng/mL
[2022-01-24 17:32] LABS: AST(SGOT) 15 U/L (15-37); Alanine Aminotransfer ALT/SGPT 26 U/L (16-61); Albumin, Serum 3.4 g/dL (3.2-5.0); Alkaline Phosphatase 92 U/L (45-117); Anion Gap 10 (5-15); BUN 19 mg/dL (7-18); BUN/Creat Ratio 18.3 RATIO (10-20); Calcium,Total 8.6 mg/dL (8.5-10.1); Chloride 101 mmol/L (98-107); Cholesterol 123 mg/dL (200); Creatinine, Serum 1.04 mg/dL (0.70-1.30); EST Glomerular Filtration Rate 77 mL/min (>60); Est Glom Filt Rate - Afr Amer 93 mL/min (>60); Ferritin 54 ng/mL (26-388); Globulin 3.5 g/dL (2.2-4.2); Glucose 257 mg/dL (74-106); High Density Lipoprotein 45 mg/dL; Potassium 3.8 mmol/L (3.5-5.1); Protein, Total 6.9 g/dL (6.4-8.2); Sodium Level 136 mmol/L (136-145); T4 Free Direct 1.13 ng/dL (0.76-1.46); Triglycerides 136 mg/dL; Very Low Density Lipoprotein 27 mg/dL (5-40)
[2022-01-24 18:23] LABS: PSA,Total - Annual Screen 1.62 ng/mL (0.00-4.00); T4 Total, Thyroxin 7.4 ug/dL (4.5-12.1); Thyroid Stim Hormone (TSH) 2.35 uIU/mL (0.358-3.74)
[2022-01-27 15:27] LABS: Anti-Thyroglobulin AB < 1.0 IU/mL (0.0-0.9); Thyroglobulin, Serum Qt. 1.7 ng/mL (1.4-29.2)
== END | disposition home or self-care (01) ==
LOC: LAB 13:14
PROVIDERS: PCP Family Medicine; Referring Provider Internal Medicine Endocrinology, Diabetes & Metabolism; Visit Provider Internal Medicine Endocrinology, Diabetes & Metabolism
DX: E11.65 Type 2 diabetes mellitus with hyperglycemia (principal); E11.42 Type 2 diabetes mellitus with diabetic polyneuropathy; C73 Malignant neoplasm of thyroid gland; Z79.4 Long term (current) use of insulin; E89.0 Postprocedural hypothyroidism; I10 Essential (primary) hypertension; D64.9 Anemia, unspecified; E55.9 Vitamin D deficiency, unspecified
CPT/HCPCS: 36415; 80053; 80061; 82043; 82306; 82570; 82728; 84153; 84432; 84436; 84439; 84443; 86800; G0103

== ENCOUNTER → 2022-01-30 | Outpatient (CLI) | payer OTHER, SELFPAY ==
[2022-01-30 13:10] LABS: Absolute Lymphocyte Count 2.85 X10^3/uL (0.83-4.51); Absolute Neutrophil Count 5.1 X10^3/uL (2.0-7.7); Basophil# 0.05 X10^3/uL; Basophil% 0.6 % (0-1); Eosinophil# 0.28 X10^3/uL; Eosinophils% 3.1 % (0-5); Hematocrit 45.4 % (40-54); Hemoglobin 14.2 g/dL (13.0-16.5); Lymphocyte # 2.85 X10^3/ul (0.83-4.51); Lymphocyte % 31.5 % (19-41); Mean Corp Hgb Conc 31.3 g/dL (32-36); Mean Corpuscular Hgb 28.3 pg (27.0-32.0); Mean Corpuscular Volume 90.4 fL (80-94); Mean Platelet Vol. 10.1 fl (6.2-12.0); Monocyte# 0.75 X10^3/uL; Monocyte% 8.3 % (0-10); NRBC Flagged by Analyzer 0 % (0-5); Neutrophil # 5.09 X10^3/uL (2.7-7.7); Neutrophil % 56.3 % (47-70); Platelet Count 212 K/mm3 (150-450); RBC Distribution Width CV 15.7 % (11.6-14.6); RBC Distribution Width SD 51.1 fl (35.1-43.9); Red Blood Count 5.02 M/mm3 (4.6-6.2)
== END | disposition home or self-care (01) ==
LOC: LAB 12:22
PROVIDERS: PCP Family Medicine; Visit Provider Internal Medicine Endocrinology, Diabetes & Metabolism
DX: D64.9 Anemia, unspecified (principal)
CPT/HCPCS: 36415; 85025

== ENCOUNTER 2022-04-11 13:50 | Day surgery (SDC) | payer OTHER, SELFPAY ==
[2022-04-11] MEDS: Lactated Ringers 1,000 ML 15 ML IV (14:10)
[2022-04-11 14:31] VITALS: BP 118/74; PULSE 69; RESP 17; TEMP 36.4; O2SAT 96; BMI 31.7
[2022-04-11 14:56] LABS: Bedside Glucose 156 mg/dL (74-106)
--- NOTE | 2022-04-11 15:15 | COLBX_PTH ---
PATIENT: DEREK PINA LOC: EN U#:[id number] AGE/SX: 61/M ROOM: RE04/11/[address]: Dr. Lance Alejandro DO : 1960 BED: DIS: 04/11/2022 SPEC #: [id number] RECD: 04/11/22 17:06 STATUS: KAYCEE HOA #: [id number] DENZEL: 04/11/22 15:[address]: Lance Alejandro DEPT: SURGICAL PATHOLOGY RECD BY: Navneet Anthony ENTERED: 04/12/22 08:31 SP TYPE: COLON BX OT DR: Dr. Fabiana Peña MD Tissues: A - Duodenum, NOS B - COLON BIOPSY C - Transverse colon D - Rectum, NOS Procedures: Surgery Specimen Level IV HEADER OPERATION: Colonoscopy with biopsy, EGD with biopsy and fulguration PRE-OP DIAGNOSIS: Liver lesion, anemia TISSUE SUBMITTED: A ? Duodenal ulcer biopsy, B ? Appendiceal orifice biopsy, C ? Colitis, transverse colon biopsy, D ? Rectal polyp biopsy MICROSCOPIC DIAGNOSIS A. 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 B. Appendiceal orifice, biopsy: Focal acute colitis. See comment. C. Transverse colon, biopsy: Focal acute colitis. See comment. D. Rectal polyp, biopsy: Colonic mucosa with focal hyperplastic change. AM:gladys 04/13/2022 COMMENT B & C. There is focal cryptitis present without expansion of lamina propria, ulceration or significant glandular distortion. Clinical correlation is suggested. MICROSCOPIC DESCRIPTION Slides are reviewed. GROSS DESCRIPTION A - Received in fixative is one container labeled with the patient's name and designated duodenal ulcer biopsy. The specimen consists of two irregular fragments of light jarvis soft tissue that in aggregate measure 0.6 x 0.3 x 0.1 cm. The specimen is totally submitted in one cassette. B - Received in fixative is one container labeled with the patient's name and designated appendiceal orifice biopsy. The specimen consists of multiple irregular fragments of light jarvis soft tissue that in aggregate measure 0.6 x 0.3 x 0.1 cm. The specimen is totally submitted in one cassette. C - Received in fixative is one container labeled with the patient's name and designated colitis, transverse colon biopsy. The specimen consists of one irregular fragment of light jarvis soft tissue that measures 0.3 x 0.3 x 0.1 cm. The specimen is totally submitted in one cassette. D - Received in fixative is one container labeled with the patient's name and designated rectal polyp biopsy. The specimen consists of one irregular fragment of light jarvis soft tissue that measures 0.3 x 0.3 x 0.1 cm. The specimen is totally submitted in one cassette. / SJ:rg 04/12/2022 TC:3 CPT: 42331 x4
--- NOTE | 2022-04-11 15:22 | PCM.HP.BLA ---
History and Physical Date of Admission: 04/11/22 61 M who presents to the office today for follow up visit. Toni established with this clinic through hospitalization at [facility]. He presented to [facility] ED 09.04.21 with lightheadedness with a history of GIB in the setting of Plavix and a hgb of 8.2 that then dropped to 7.0; he was admitted and received 2 units PRBC. Gastroenterology consulted 09.05.21 with EGD performed next day with GIB found and controlled. He was discharged 09.07.21 with a hgb 7.9.? ? CT abd/pel 09.05.21 noting 3cm hepatic lesions within segments 1 and 3, indeterminate; diverticulosis and mild stool burden throughout large bowel. ? ? MRI 09.05.21 finding 26mm posterior medial right lobe and 29mm lesion of left liver lobe: T2 intense, low T1 signal. Cannot r/o neoplasm, not a typical hemangioma.? ? EGD 09.06.21 found red blood in gastric fundus; hemorrhagic gastropathy; non-bleeding gastric ulcer; non-bleeding duodenal diverticulum. No specimens collected.? ? Tumor markers AFP CA 19-9 WNL; elevated CEA 5.9. IgG L585, IgE L5.? ? CT abd/pel 11.03.21 with [facility] noting hepatic nodules. High density nodules: [id number] superior right lobe; 1.1x1.3x1.1 left hepatic lobe. Low density nodules: 4.6x2.4x3.5 right hepatic lobe with blurred margins; 0.8x0.7x0.7 right hepatic lobe with fatty stranding; 3.3s2.6s2.6 with nodular enhancement. 2x1.8cm lesion with peripheral enhancement right hepatic lobe. Colonic diverticulosis. ? Recommend correlation with MRI.? ? Plan last visit 09.16.21:? History of GIB ? secondary to gastric ulcer. Repeat EGD. Increase iron to BID with OJ.? Liver lesion ? repeat CEA 6-8 weeks. Recommend colonoscopy if still elevated. Repeat CT scan in November to evaluate lesion.? Denies any abdominal pain, denies change in bowel habits, denies blood in stool or sputum. ROS Const Constitutional: No anorexia, body ache, chills, excessive sweating, fatigue, fever(s), frequent falls, headache(s), decreased energy, malaise, night sweats, snoring, weakness, weight change, sleep problems, abnormal sleep pattern, change in appetite or other Eyes Eyes: No visual disturbances ENT ENT: No abnormal hearing, headache(s), difficulty swallowing or neck pain Resp Respiratory: No snoring Cardio Cardiology: No leg pain with exertion or excessive sweating Gastro GI: No abdominal pain, belching, bloating, change in bowel habits, change in stool character, coffee ground emesis, constipation, cramping, diarrhea, heartburn, difficulty swallowing, feeling full early, excessive flatus, incontinent of stools, Vomiting blood/hematemesis, Blood in stool, loose stools, Black,tarry stools, nausea/dyspepsia, pain with swallowing, vomiting or other Musc Musculoskeletal: No abnormal gait, joint pain, back pain, deformity, joint swelling, limited range of motion, loss of height, muscle cramps, muscle weakness, decreased muscle mass, myalgias, neck pain, numbness, radiating pain into limb, stiffness, tingling, Arthritis, sciatica, restless legs, leg pain at night, leg pain with exertion or other Skin Skin: No acne, hair loss in leg, change in hair, nail changes, boil, change in skin color, dry skin, redness, excessive hair growth, yellowing of the eye, lesions, itchy eyes, rash, skin pain, skin ulcer, sores, skin swelling, wounds or other Neuro Neurology: No abnormal gait, abnormal hearing, abnormal movements, abnormal speech, behavioral changes, confusion, unsteady gait/balance, dizziness, weakness, frequent falls, headache(s), lack of coordination, loss of vision, memory loss, numbness, tingling, visual disturbances, restless legs, fainting, tremor(s), Increased tone in limbs, paralysis, seizures or other Psych Psychiatric: No abnormal sleep pattern, No lack of enjoyment, No anxiety, No behavioral changes, No change in appetite, No confusion, No depression, No difficulty concentrating, No hopelessness, No irritability, No memory loss, No mood swings, No panic attacks, No paranoia, No Thoughts of harming yourself/Others, No hallucinations, No Behavioral Problems, No Compulsive Behavior, No hyperactivity, No inattentiveness, No obsessions/compulsions, No Temper Tantrums, No suicidal ideation and No other Endo Endocrine: No excessive sweating, fatigue or weight change Aller/Imm Allergy/Immunologic: No itchy eyes James/Lymp Hematologic/Lymphatic: No easy bleeding, easy bruising, enlarged lymph nodes or other Exam Const General: cooperative, healthy appearing, comfortable, no acute distress, well developed and not cushingoid Nutritional Appearance: well nourished Orientation: alert, awake and oriented x3 [facility] Head: normal to inspection Ears: hearing grossly normal bilaterally Nose: external nose normal Mouth: oral mucosae normal Eyes General: appearance normal, both eyes and all related structures Alignment and Position: alignment normal Periorbital: periorbital findings normal Eyelids: eyelids normal Conjunctivae: conjunctivae normal Neck Neck: normal visual inspection Neck mass: No Thyroid: thyroid normal Lymphatic: no lymphadenopathy noted Chest Chest palpation & inspection: normal inspection of the chest Resp Effort & Inspection: normal respiratory effort, able to speak in complete sentences, symmetric chest movement, no audible wheezes and no cough Auscultation: Bilateral: Clear to Auscultation Cardio Rate: regular rate Rhythm: regular rhythm GI Inspection: normal to inspection Skin General: no rashes or lesions noted Neuro General: patient alert, patient awake and patient oriented x3 Cranial Nerves: CN's II-XI intact bilaterally Cognition: normal cognition Speech: speech normal Gait: normal gait Motor: muscle tone normal throughout Extrem General: no edema Psych Appearance: grossly normal Mental Status: mental status grossly normal Mood: congruent mood Affect: normal affect Speech and Movement: speech and movement normal Attitude: cooperative Thought Process: normal Thought Content: normal Judgment: judgment good Quality Reporting Tobacco Screening ([facility] 138) Smoking Status: Light Smoker (<10/day) Assessment and Plan Assessment and Plan (1) Liver lesion: ?Status:?Acute ?Plan: ?Liver lesion: ?Status:?Acute ?Plan: His alpha-fetoprotein is normal, CEA is mildly elevated, CA 19-9 is elevatd.? I will repeat his CEA in approximately 6 to 8 weeks.? If it is still elevated he will need a colonoscopy for evaluation of his lower GI tract.? Also we will repeat the CT scan in approximately 3 months around 12/07/2021 and if that looks worse or any different then he will need a liver biopsy. (2) Anemia: ?Status:?Acute ?Plan: History of GI bleed: ?Status:?Acute ?Plan: GI bleed secondary to gastric ulcer.? Biopsies gastric ulcer did not show any signs of intestinal metaplasia dysplasia or cancer.? He will need a repeat upper endoscopy to make sure that ulcer is healed.? 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 Encouraged him to increase his iron to twice a day with orange juice and repeat his iron studies in 3 months.? After he undergoes liver biopsy we will need to schedule a colonoscopy. I have examined the patient and the H&P has been reviewed. There are no clinical changes since date of exam.
[2022-04-11 16:01] VITALS: BP 112/73; BP 118/74; PULSE 66; RESP 18; TEMP 36.4; O2SAT 97
[2022-04-11 16:05] VITALS: BP 118/74; BP 99/73; PULSE 63; RESP 18; O2SAT 95
--- NOTE | 2022-04-11 16:06 | OP.EGD_ITS ---
Patient Name: Toni Vo Procedure Date: 04/11/2022 3:19 PM Date of : 1960 Age: 61 Procedure: Upper GI endoscopy Indications: Iron deficiency anemia Providers: Lance Alejandro DO Medicines: Monitored Anesthesia Care Patient Profile: This is a 61 year old male. Refer to note in patient chart for documentation of history and physical. Patient has symptoms of acute dyspepsia. Complications: No immediate complications. Procedure: Pre-Anesthesia Assessment: - Prior to the procedure, a History and Physical was performed, and patient medications and allergies were reviewed. The patient is competent. The risks and benefits of the procedure and the sedation options and risks were discussed with the patient. All questions were answered and informed consent was obtained. Patient identification and proposed procedure were verified by the physician in the pre-procedure area. Mental Status Examination: alert and oriented. Airway Examination: normal oropharyngeal airway and neck mobility. Respiratory Examination: clear to auscultation. CV Examination: normal. Prophylactic Antibiotics: The patient does not require prophylactic antibiotics. Prior Anticoagulants: The patient has taken no previous anticoagulant or antiplatelet agents. ASA Grade Assessment: II - A patient with mild systemic disease. After reviewing the risks and benefits, the patient was deemed in satisfactory condition to undergo the procedure. The anesthesia plan was to use moderate sedation / analgesia (conscious sedation). Immediately prior to administration of medications, the patient was re-assessed for adequacy to receive sedatives. The heart rate, respiratory rate, oxygen saturations, blood pressure, adequacy of pulmonary ventilation, and response to care were monitored throughout the procedure. The physical status of the patient was re-assessed after the procedure. After obtaining informed consent, the endoscope was passed under direct vision. Throughout the procedure, the patient's blood pressure, pulse, and oxygen saturations were monitored continuously. The colonoscope was introduced through the mouth, and advanced to the second part of duodenum. The upper GI endoscopy was accomplished without difficulty. The patient tolerated the procedure well. Scope In: 3:31:05 PM Scope Out: 3:36:19 PM Total Procedure Duration Time 0 hours 5 minutes 14 seconds Findings: The examined esophagus was normal. One 5 mm bleeding angiodysplastic lesion was found in the prepyloric region of the stomach. Coagulation for hemostasis using heater probe was successful. Estimated blood loss was minimal. Two non-bleeding superficial duodenal ulcers with no stigmata of bleeding were found in the first portion of the duodenum. The largest lesion was 3 mm in largest dimension. Biopsies were taken with a cold forceps for histology. Verification of patient identification for the specimen was done. Estimated blood loss was minimal. Three 5 mm angiodysplastic lesions with bleeding were found in the duodenal bulb. Coagulation for hemostasis using heater probe was successful. Estimated blood loss was minimal. Impression: - Normal esophagus. - One bleeding angiodysplastic lesion in the stomach. Treated with a heater probe. - Multiple non-bleeding duodenal ulcers with no stigmata of bleeding. Biopsied. - Three bleeding angiodysplastic lesions in the duodenum. Treated with a heater probe. Recommendation: - Discharge patient to home. - Resume previous diet. - Continue present medications. - Await pathology results. Procedure Code(s): --- Professional --- 74169, 59, Esophagogastroduodenoscopy, flexible, transoral; with control of bleeding, any method 97632, 51, Esophagogastroduodenoscopy, flexible, transoral; with biopsy, single or multiple CPT copyright 2017 [employer]. All rights reserved. The codes documented in this report are preliminary and upon armored machine operator review may be revised to meet current compliance requirements. Lance Alejandro DO 04/11/2022 4:06:17 PM This report has been signed electronically. Number of Addenda: 0 Note Initiated On: 04/11/2022 3:19 PM
--- NOTE | 2022-04-11 16:07 | OP.CCLET_ITS ---
04/11/2022 Fabiana Peña [address] [place] [address] Re : Upper GI endoscopy procedure for Toni Vo Dear Dr. Peña This procedure was performed on Monday, April 11, 2022. My impressions and recommendations are as follows: Impressions : - Normal esophagus. - One bleeding angiodysplastic lesion in the stomach. Treated with a heater probe. - Multiple non-bleeding duodenal ulcers with no stigmata of bleeding. Biopsied. - Three bleeding angiodysplastic lesions in the duodenum. Treated with a heater probe. Recommendations : - Discharge patient to home. - Resume previous diet. - Continue present medications. - Await pathology results. My findings are described in the full procedure note, which is enclosed. If I can be of further assistance, please feel free to contact me at . Sincerely, Lance Alejandro, 04/11/2022 4:06:17 PM This report has been signed electronically.
[2022-04-11 16:10] VITALS: BP 113/76; BP 118/74; PULSE 60; RESP 18; O2SAT 95
--- NOTE | 2022-04-11 16:12 | OP.COLON_ITS ---
Patient Name: Toni Vo Procedure Date: 04/11/2022 3:36 PM Date of : 1960 Age: 61 Procedure: Colonoscopy Indications: Iron deficiency anemia Providers: Lance Alejandro DO Medicines: Monitored Anesthesia Care Patient Profile: This is a 61 year old male. Refer to note in patient chart for documentation of history and physical. Patient has symptoms of acute dyspepsia. Last Colonoscopy: within the past 3 years. Complications: No immediate complications. Procedure: Pre-Anesthesia Assessment: - Prior to the procedure, a History and Physical was performed, and patient medications and allergies were reviewed. The patient is competent. The risks and benefits of the procedure and the sedation options and risks were discussed with the patient. All questions were answered and informed consent was obtained. Patient identification and proposed procedure were verified by the physician in the pre-procedure area. Mental Status Examination: alert and oriented. Airway Examination: normal oropharyngeal airway and neck mobility. Respiratory Examination: clear to auscultation. CV Examination: normal. Prophylactic Antibiotics: The patient does not require prophylactic antibiotics. Prior Anticoagulants: The patient has taken no previous anticoagulant or antiplatelet agents. ASA Grade Assessment: II - A patient with mild systemic disease. After reviewing the risks and benefits, the patient was deemed in satisfactory condition to undergo the procedure. The anesthesia plan was to use moderate sedation / analgesia (conscious sedation). Immediately prior to administration of medications, the patient was re-assessed for adequacy to receive sedatives. The heart rate, respiratory rate, oxygen saturations, blood pressure, adequacy of pulmonary ventilation, and response to care were monitored throughout the procedure. The physical status of the patient was re-assessed after the procedure. After I obtained informed consent, the scope was passed under direct vision. Throughout the procedure, the patient's blood pressure, pulse, and oxygen saturations were monitored continuously. The colonoscope was introduced through the anus and advanced to the terminal ileum. The colonoscopy was performed without difficulty. The patient tolerated the procedure well. The quality of the bowel preparation was fair. Scope In: 3:39:23 PM Scope Withdrawal Time 0 hours 11 minutes 55 seconds Scope Out: 3:57:06 PM Total Procedure Duration Time 0 hours 17 minutes 43 seconds Findings: The perianal and digital rectal examinations were normal. Multiple small and large-mouthed diverticula were found in the recto-sigmoid colon, sigmoid colon, descending colon and splenic flexure. There was a medium-sized lipoma, 5 mm in diameter, in the transverse colon. Biopsies were taken with a cold forceps for histology. Verification of patient identification for the specimen was done. Estimated blood loss was minimal. Localized mild mucosal changes characterized by erosions and erythema were found appendiceal orifice. Biopsies were taken with a cold forceps for histology. Verification of patient identification for the specimen was done. Estimated blood loss was minimal. A 5 mm polyp was found in the rectum. The polyp was sessile. The polyp was removed with a cold snare. Resection and retrieval were complete. Verification of patient identification for the specimen was done. Estimated blood loss was minimal. A small amount of stool was found in the rectum, in the recto-sigmoid colon, in the descending colon and in the cecum. Impression: - Preparation of the colon was fair. - Diverticulosis in the recto-sigmoid colon, in the sigmoid colon, in the descending colon and at the splenic flexure. - Medium-sized lipoma in the transverse colon. Biopsied. - Localized mild mucosal changes were found at the appendiceal orifice secondary to colitis. Biopsied. - One 5 mm polyp in the rectum, removed with a cold snare. Resected and retrieved. Recommendation: - Repeat colonoscopy in 5 years for surveillance. - Continue present medications. Procedure Code(s): --- Professional --- 90973, Colonoscopy, flexible; with removal of tumor(s), polyp(s), or other lesion(s) by snare technique 91411, 59, Colonoscopy, flexible; with biopsy, single or multiple CPT copyright 2017 [employer]. All rights reserved. The codes documented in this report are preliminary and upon printed circuit photographer review may be revised to meet current compliance requirements. Lance Alejandro DO 04/11/2022 4:12:12 PM This report has been signed electronically. Number of Addenda: 0 Note Initiated On: 04/11/2022 3:36 PM
--- NOTE | 2022-04-11 16:13 | OP.CCLET_ITS ---
04/11/2022 [address] [place] [address] Re : Colonoscopy procedure for Toni Vo Dear Dr. Peña This procedure was performed on Monday, April 11, 2022. My impressions and recommendations are as follows: Impressions : - Preparation of the colon was fair. - Diverticulosis in the recto-sigmoid colon, in the sigmoid colon, in the descending colon and at the splenic flexure. - Medium-sized lipoma in the transverse colon. Biopsied. - Localized mild mucosal changes were found at the appendiceal orifice secondary to colitis. Biopsied. - One 5 mm polyp in the rectum, removed with a cold snare. Resected and retrieved. Recommendations : - Repeat colonoscopy in 5 years for surveillance. - Continue present medications. My findings are described in the full procedure note, which is enclosed. If I can be of further assistance, please feel free to contact me at . Sincerely, Lance Alejandro, 04/11/2022 4:12:12 PM This report has been signed electronically.
[2022-04-11 16:15] VITALS: BP 116/83; BP 118/74; PULSE 74; RESP 18; TEMP 36.6; O2SAT 96
[2022-04-11 16:48] VITALS: BP 118/74
== END 2022-04-11 16:53 | disposition home or self-care (01) ==
LOC: EN 13:52 → AC 13:54
PROVIDERS: PCP Family Medicine; Referring Provider Family Medicine; Visit Provider Internal Medicine Gastroenterology
PROC: 0DJD8ZZ Inspection of Lower Intestinal Tract, Via Natural or Artificial Opening Endoscopic (ICD-10-PCS; CPT 45378; principal; 2022-04-11 15:10)
DX: K52.9 Noninfective gastroenteritis and colitis, unspecified (principal); I11.0 Hypertensive heart disease with heart failure; I50.42 Chronic combined systolic (congestive) and diastolic (congestive) heart failure; E11.42 Type 2 diabetes mellitus with diabetic polyneuropathy; I48.0 Paroxysmal atrial fibrillation; Z79.4 Long term (current) use of insulin; K63.89 Other specified diseases of intestine; D17.5 Benign lipomatous neoplasm of intra-abdominal organs; F17.200 Nicotine dependence, unspecified, uncomplicated; K62.1 Rectal polyp; K57.30 Diverticulosis of large intestine without perforation or abscess without bleeding; K26.9 Duodenal ulcer, unspecified as acute or chronic, without hemorrhage or perforation; K76.9 Liver disease, unspecified; D64.9 Anemia, unspecified; I25.10 Atherosclerotic heart disease of native coronary artery without angina pectoris; E78.5 Hyperlipidemia, unspecified; E03.9 Hypothyroidism, unspecified; Z86.73 Personal history of transient ischemic attack (TIA), and cerebral infarction without residual deficits; Z95.5 Presence of coronary angioplasty implant and graft; Z79.82 Long term (current) use of aspirin; Z79.899 Other long term (current) drug therapy; Z79.84 Long term (current) use of oral hypoglycemic drugs
CPT/HCPCS: 45380; 45385; 43239; 43255; 82962; 88305; J7120; J2405

== ENCOUNTER → 2022-04-20 | Outpatient (CLI) | payer OTHER, SELFPAY ==
[2022-04-20 15:06] LABS: Absolute Lymphocyte Count 2.21 X10^3/uL (0.83-4.51); Absolute Neutrophil Count 4.3 X10^3/uL (2.0-7.7); Basophil# 0.05 X10^3/uL; Basophil% 0.7 % (0-1); Eosinophil# 0.15 X10^3/uL; Hematocrit 45.7 % (40-54); Hemoglobin 14.4 g/dL (13.0-16.5); Lymphocyte # 2.21 X10^3/ul (0.83-4.51); Mean Corp Hgb Conc 31.5 g/dL (32-36); Mean Corpuscular Hgb 29.6 pg (27.0-32.0); Mean Platelet Vol. 10.2 fl (6.2-12.0); Monocyte# 0.64 X10^3/uL; Monocyte% 8.7 % (0-10); NRBC Flagged by Analyzer 0 % (0-5); Neutrophil # 4.31 X10^3/uL (2.7-7.7); Neutrophil % 58.5 % (47-70); Platelet Count 192 K/mm3 (150-450); RBC Distribution Width CV 13.4 % (11.6-14.6); RBC Distribution Width SD 46.4 fl (35.1-43.9); Red Blood Count 4.86 M/mm3 (4.6-6.2); White Blood Count 7.4 K/mm3 (4.4-11.0)
[2022-04-20 15:16] LABS: Erythrocyte Sedimentation Rate 18 mm/hr (0-20)
[2022-04-20 15:46] LABS: ALB/GLOB Ratio 0.9 RATIO (0.9-2.4); AST(SGOT) 17 U/L (15-37); Alanine Aminotransfer ALT/SGPT 24 U/L (16-61); Albumin, Serum 3.6 g/dL (3.2-5.0); Alkaline Phosphatase 93 U/L (45-117); Anion Gap 10 (5-15); BUN 23 mg/dL (7-18); BUN/Creat Ratio 19.2 RATIO (10-20); CRP < 2.90 mg/L (0.0-3.0); Calcium,Total 8.3 mg/dL (8.5-10.1); Chloride 104 mmol/L (98-107); EST Glomerular Filtration Rate 65 mL/min (>60); Est Glom Filt Rate - Afr Amer 79 mL/min (>60); Globulin 3.8 g/dL (2.2-4.2); Glucose 167 mg/dL (74-106); LDH 160 U/L (87-241); Potassium 3.5 mmol/L (3.5-5.1); Protein, Total 7.4 g/dL (6.4-8.2); Sodium Level 138 mmol/L (136-145)
[2022-04-24 13:07] LABS: Anti-Centromere B Ab <0.2 AI (0.0-0.9); Anti-Chromatin <0.2 AI (0.0-0.9); Anti-Jo <0.2 AI (0.0-0.9); Anti-Scleroderma-70 AB <0.2 AI (0.0-0.9); RNP Ab 0.3 AI (0.0-0.9); SJOGREN'S Anti-SS-A test < 0.2 AI (0.0-0.9); SJOGREN'S Anti-SS-B test < 0.2 AI (0.0-0.9); Smith Ab <0.2 AI (0.0-0.9)
[2022-04-24 13:58] LABS: Anti-dsDNA Ab <1 IU/mL (0-9)
[2022-04-24 15:08] LABS: Endomysial Antibody IgA Negative (Negative)
[2022-04-24 20:37] LABS: Immunoglobulin A 342 mg/dL (61-437); t-Transglutaminase IgA <2 U/mL (0-3)
[2022-04-25 19:07] LABS: Albumin 3.4 g/dL (2.9-4.4); Alpha-1-Globulins 0.3 g/dL (0.0-0.4); Alpha-2-Globulins 0.9 g/dL (0.4-1.0); Cytoplasmic Ab (C-ANCA) <1:20 titer (Neg:<1:20); Gamma Globulin 1.3 g/dL (0.4-1.8); Immunoglobulin A 348 mg/dL (61-437); Immunoglobulin E 6 IU/mL (6-495); Immunoglobulin G 1111 mg/dL (603-1613); Immunoglobulin M 81 mg/dL (20-172); PROEL- TOTAL PROTEIN 6.8 g/dL (6.0-8.5)
[2022-04-25 20:27] LABS: Perinuclear Ab (P-ANCA) <1:20 titer (Neg:<1:20)
== END | disposition home or self-care (01) ==
PROVIDERS: PCP Family Medicine; Referring Provider Internal Medicine Gastroenterology; Visit Provider Internal Medicine Gastroenterology
DX: K52.3 Indeterminate colitis (principal)
CPT/HCPCS: 36415; 80053; 82784; 82785; 83516; 83615; 84165; 85025; 85652; 86140; 86225; 86235; 86255; 86256; 86334

== ENCOUNTER → 2022-04-24 | Outpatient (CLI) | payer OTHER, SELFPAY ==
[2022-04-26 20:18] LABS: Calprotectin, Stool 564 ug/g (0-120)
[2022-04-28 17:41] LABS: Pancreatic Elastase, Fecal 80 (>200)
== END | disposition home or self-care (01) ==
LOC: MTLAB 12:48
PROVIDERS: PCP Family Medicine; Referring Provider Internal Medicine Gastroenterology; Visit Provider Internal Medicine Gastroenterology
DX: K52.3 Indeterminate colitis (principal)
CPT/HCPCS: 82274; 82653; 83630; 83993; 87177; 87209; 87329; 87506

== ENCOUNTER → 2022-11-07 | Outpatient (CLI) | payer OTHER, SELFPAY ==
[2022-11-07 15:20] LABS: Absolute Lymphocyte Count 2.33 X10^3/uL (0.83-4.51); Absolute Neutrophil Count 4.9 X10^3/uL (2.0-7.7); Basophil# 0.03 X10^3/uL; Basophil% 0.4 % (0-1); Eosinophil# 0.09 X10^3/uL; Eosinophils% 1.1 % (0-5); Hematocrit 45.3 % (40-54); Hemoglobin 14.4 g/dL (13.0-16.5); Lymphocyte # 2.33 X10^3/ul (0.83-4.51); Lymphocyte % 28.9 % (19-41); Mean Corp Hgb Conc 31.8 g/dL (32-36); Mean Corpuscular Hgb 29.6 pg (27.0-32.0); Mean Platelet Vol. 9.8 fl (6.2-12.0); Monocyte# 0.72 X10^3/uL; Monocyte% 8.9 % (0-10); NRBC Flagged by Analyzer 0 % (0-5); Neutrophil # 4.87 X10^3/uL (2.7-7.7); Neutrophil % 60.5 % (47-70); Platelet Count 205 K/mm3 (150-450); RBC Distribution Width CV 13.7 % (11.6-14.6); RBC Distribution Width SD 46.6 fl (35.1-43.9); Red Blood Count 4.87 M/mm3 (4.6-6.2); White Blood Count 8.1 K/mm3 (4.4-11.0)
[2022-11-07 16:18] LABS: Anion Gap 10 (5-15); BUN 33 mg/dL (7-18); BUN/Creat Ratio 24.3 RATIO (10-20); Calcium,Total 8.5 mg/dL (8.5-10.1); Chloride 105 mmol/L (98-107); Cholesterol 135 mg/dL (200); Creatinine, Serum 1.36 mg/dL (0.70-1.30); EST Glomerular Filtration Rate 56 mL/min (>60); Est Glom Filt Rate - Afr Amer 68 mL/min (>60); Glucose 126 mg/dL (74-106); High Density Lipoprotein 42 mg/dL; Potassium 3.4 mmol/L (3.5-5.1); Sodium Level 139 mmol/L (136-145); T4 Total, Thyroxin 8.7 ug/dL (4.5-12.1); Thyroid Stim Hormone (TSH) 6.27 uIU/mL (0.358-3.74); Triglycerides 117 mg/dL; Very Low Density Lipoprotein 23 mg/dL (5-40)
[2022-11-07 16:42] LABS: Microalbumin,Random Urine 11.2 mg/L (NO RANGE EST.); Microalbumin:Creatinine Ratio 8.5 mg/g CRE (<30 mg/g CRE)
== END | disposition home or self-care (01) ==
LOC: MFPLAB 13:46
PROVIDERS: PCP Family Medicine; Visit Provider Family Medicine
DX: I10 Essential (primary) hypertension (principal); E03.9 Hypothyroidism, unspecified; K92.2 Gastrointestinal hemorrhage, unspecified
CPT/HCPCS: 36415; 80048; 80061; 82043; 82570; 84436; 84443; 85025

== ENCOUNTER → 2023-03-28 | Outpatient (CLI) | payer OTHER, SELFPAY ==
--- OUTSIDE RECORDS SUMMARY | 2023-03-28 12:22 | XMS RPT_ITS | CCD ---
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 Name Role Phone Fabiana Peña Primary Care Provider [phone] Luz Elena Blount Unavailable Cami BENITEZ, Arturoadeep Unavailable Arnold Duke Unavailable Jose Lawrence MD Unavailable [phone] Magdaleno Vega MD Unavailable PROVIDER, UNKNOWN Admitting Unavailable FRIEND, BABAK Referring Unavailable PROVIDER, UNKNOWN Attending Unavailable FRIEND, BABAK Referring Unavailable PROVIDER, UNKNOWN Attending Unavailable PROVIDER, UNKNOWN Admitting Unavailable Fabiana Peña Saskia Primary Care Provider Cami BENITEZ, Nagapradeep Unavailable Arnold Duke Unavailable Jose Lawrence MD Unavailable Magdaleno Vega MD Unavailable TONY, SHYANN M Referring Unavailable TONY, SHYANN M Attending Unavailable KELSEALLIFF, FABIANA SASKIA Primary Care Unavailable TONY, SHYANN M Referring Unavailable JOLLIFF, FABIANA SASKIA Primary Care Unavailable TONY, SHYANN M Referring Unavailable JOLLIFF, FABIANA SASKIA Primary Care Unavailable KELSEALLIFF, FABIANA SASKIA Primary Care Unavailable JOSE LAWRENCE Referring Unavailable TONY, SHYANN M Referring Unavailable JOLLIFF, FABIANA SASKIA Primary Care Unavailable RICHIE KONG Referring Unavailable JOLLIFF, FABIANA SASKIA Primary Care Unavailable JOLLIFF, FABIANA SASKIA Primary Care Unavailable KAROLYN HEBERT Referring Unavailable FABIANA PEÑA Primary Care Unavailable Allergies Allergy Classification Reported Allergen(s) Allergy Type Date of Onset Reaction(s) Facility (11 sources) Amoxicillin; Translations: [AMOXICILLIN] Drug Allergy 11-03-2018 Other: See Comments [facility] Medications Current Medications Medication Drug Class(es) Dates Sig (Normalized) Sig (Original) perflutren lipid microspheres 1.3 mL in NaCl (PF) 0.9% 10 mL injection (DEFINITY) (9 sources) Start: 04-11-2021 End: 07-11-2022 perflutren lipid microspheres 1.3 mL in NaCl (PF) 0.9% 10 mL injection (DEFINITY) 125 ml sodium chloride 9 mg/ml prefilled syringe (16 sources) Start: 06-20-2021 End: 07-25-2022 sodium chloride 0.9 %, flush, (BD POSIFLUSH) syringe Inject 2-10 mL intravenously as directed. For Echo procedure 10 mL 0 07/25/2021 07/25/2022 Active Completed/Discontinued Medications Medication Drug Class(es) Dates Sig (Normalized) Sig (Original) apixaban 5 mg oral tablet (7 sources) Factor Xa Inhibitor Start: 04-07-2021 End: 07-25-2021 take 1 tablet by mouth twice daily apixaban (ELIQUIS) 5 mg tab(s) Take 1 tablet by mouth twice daily. 60 tablet 2 04/07/2021 07/25/2021 Discontinued (Changing Therapy/Dosage Form) Problems Active Problems Problem Classification Problem Date Documented Date Episodic/Chronic Acute cerebrovascular disease (20 sources) Embolic stroke; Translations: [Cerebral infarction due to embolism of left posterior cerebral artery] Onset: 12-01-2018 12-04-2018 Chronic Cancer of thyroid (10 sources) Papillary thyroid carcinoma; Translations: [Malignant neoplasm of thyroid gland] Onset: 04-11-2016 04-11-2016 Chronic Cardiac dysrhythmias (6 sources) Paroxysmal atrial fibrillation; Translations: [Paroxysmal atrial fibrillation] Onset: 07-25-2021 Chronic Complications of surgical procedures or medical care (1 source) Postprocedural hypothyroidism; Translations: [Postsurgical hypothyroidism] Onset: 07-28-2021 Chronic Congestive heart failure; nonhypertensive (10 sources) Chronic combined systolic and diastolic heart failure; Translations: [Chronic combined systolic (congestive) and diastolic (congestive) heart failure] Onset: 12-01-2018 12-04-2018 Chronic Diabetes mellitus with complications (1 source) Type 2 diabetes mellitus with hyperglycemia; Translations: [Type 2 diabetes mellitus with hyperglycemia, with long-term current use of insulin (HCC)] Onset: 11-01-2021 Chronic Diabetes mellitus without complication (11 sources) Type 2 diabetes mellitus without complication; Translations: [Type 2 diabetes mellitus without complications] Onset: 03-19-2013 Chronic Essential hypertension (11 sources) Essential hypertension; Translations: [Essential (primary) hypertension] Onset: 12-01-2018 Chronic Other circulatory disease (11 sources) Device in situ; Translations: [Presence of other cardiac implants and grafts] Onset: 06-13-2021 06-13-2021 Chronic Other circulatory disease (1 source) Presence of other cardiac implants and grafts; Translations: [Presence of Watchman left atrial appendage closure device] Onset: 06-13-2021 Chronic Other circulatory disease (1 source) History of cerebrovascular accident; Translations: [Personal history of transient ischemic attack (TIA), and cerebral infarction without residual deficits] Episodic Other liver diseases (1 source) Liver disease, unspecified; Translations: [Liver disease, unspecified] Onset: 12-05-2021 Chronic Other nutritional; endocrine; and metabolic disorders (10 sources) Obese class I; Translations: [Obesity, unspecified] Onset: 03-31-2021 03-31-2021 Chronic Substance-related disorders (10 sources) Nicotine dependence; Translations: [Nicotine dependence, unspecified, uncomplicated] Onset: 12-02-2018 12-04-2018 Chronic Thyroid disorders (10 sources) Hypothyroidism; Translations: [Hypothyroidism, unspecified] Onset: 12-01-2018 12-04-2018 Chronic Past or Other Problems Problem Classification Problem Date Documented Da te Episodic/Chronic Gastrointestinal hemorrhage (20 sources) Rectal hemorrhage; Translations: [Hemorrhage of anus and rectum] Onset: 08-23-2011 Episodic Nausea and vomiting (10 sources) Nausea; Translations: [Nausea] Onset: 12-04-2018 12-04-2018 Episodic Other aftercare (1 source) ocean transportation intermediary (current) use of insulin; Translations: [Type 2 diabetes mellitus with hyperglycemia, with long-term current use of insulin (HCC)] Onset: 11-01-2021 Episodic Other circulatory disease (10 sources) Orthostatic hypotension; Translations: [Orthostatic hypotension] Onset: 12-01-2018 12-04-2018 Episodic Other screening for suspected conditions (not mental disorders or infectious disease) (11 sources) Cardiovascular stress test abnormal; Translations: [Abnormal result of other cardiovascular function study] Onset: 12-03-2018 12-04-2018 Episodic Results Test Name Value Interpretation Reference Range Facil ity Vital Signs Date Time Vital Sign Value Performing Clinician Blu delgado 06-28-2022 15:15-0400 Diastolic blood pressure 69 mm[Hg] [facility] 06-28-2022 15:15-0400 Heart rate 85 /min [facility] 06-28-2022 15:15-0400 SaO2% (BldA) [Mass fraction] 94 % [facility] 06-28-2022 15:15-0400 Systolic blood pressure 109 mm[Hg] [facility] 06-28-2022 14:55-0400 [facility] 27 [facility] 06-28-2022 14:17-0400 Body temperature 96.8 [degF] [facility] 07-25-2021 12:11-0400 Body height 191.8 cm Shyann Tony 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 OFFICE.[employer] Work Phone: [facility] 07-25-2021 12:11-0400 Body weight 113.85 kg Shyann Tony MAINTAINER CENTRAL OFFICE.[employer] P[employer]HER Work Phone: [facility] 07-25-2021 12:11-0400 Diastolic blood pressure 60 mm[Hg] Shyann Tony MAINTAINER CENTRAL OFFICE.DO[employer] P[employer]HER Work Phone: [facility] 07-25-2021 12:11-0400 Heart rate 72 /min Shyann Tony MAINTAINER CENTRAL OFFICE.DO[employer] P[employer]HER Work Phone: [facility] 07-25-2021 12:11-0400 Systolic blood pressure 100 mm[Hg] Shyann Tony MAINTAINER CENTRAL OFFICE.DO[employer] P[employer]HER Work Phone: [facility] 06-10-2021 13:17-0400 Diastolic blood pressure 65 mm[Hg] Juan A Hinds MD Work Phone: [facility] 06-10-2021 13:17-0400 Systolic blood pressure 98 mm[Hg] Juan A Hinds MD Work Phone: [facility] 06-10-2021 13:14-0400 Body height 191.8 cm Juan A Hinds MD Work Phone: [facility] 06-10-2021 13:14-0400 Body weight 114.13 kg Juan A Hinds MD Work Phone: [facility] 06-10-2021 13:14-0400 Heart rate 81 /min Juan A Hinds MD Work Phone: [facility] 06-10-2021 13:14-0400 SaO2% (BldA) [Mass fraction] 96 % Juan A Hinds MD Work Phone: [facility] Encounters Encounter Date Encounter Type Care Provider Facility Start: 06-28-2022 End: 06-28-2022 ambulatory SHYANN JIMENEZ Facility:[facility] Start: 06-28-2022 End: 06-28-2022 Patient encounter procedure Transesophageal [facility] Procedures Date Procedure Procedure Detail Performing Clinician Start: 06-28-2022 Echo transthorc r-t 2d w/wo m-mode rec f-up/lmtd Shyann Jimenez MAINTAINER CENTRAL OFFICE.[employer] Work Phone: Start: 10-06-2011 Colonoscopy Juan A beauchamp MD Work Phone: Plan of Treatment Date Care Activity Detail Author Start: 06-29-2023 BP CONTROLLED (<130/80) BP CON TROLLED (<130/80) [facility] Start: 11-17-2022 Influenza vaccination INFLUENZ A (Season Ended) [facility] Start: 07-25-2022 BP CONTROLLED (<130/80) BP CON TROLLED (<130/80) [facility] Start: 06-13-2022 End: 07-25-2022 ECHO TRANSESOPHAGEAL [facility] Work Phone: Immunizations Immunization Date Immunization Notes Care Provider Fa thom 06-13-2021 pneumococcal polysac charide vaccine, 23 valent [facility] 02-07-2021 COVID-19 vaccine, fu ll dose (MODERNA) [facility] 07-02-2020 COVID-19 vaccine, fu ll dose (MODERNA) [facility] 06-02-2020 COVID-19 vaccine, fu ll dose (MODERNA) [facility] 11-15-2019 Seasonal, quadrivale nt, recombinant, injectable influenza vaccine, preservative free [facility] 12-16-2017 influenza, seasonal, injectable, preservative free [facility] 01-10-2016 influenza, seasonal, injectable, preservative free [facility] Payers Date Payer Category Payer Unknown MMO MMO [employer] [id number] 2018-Present [phone] [address] [place] [address] O [id number] 2018 Unknown [id number] 2018 Unknown [id number] 1960 Unknown [id number] 1960 Unknown [id number] Social History Date Type Detail Facility Start: 08-23-2011 End: 06-27-2017 Tobacco smoking status CTIS Smokes tobacco daily [facility] Work Phone: History of tobacco use Cigarette Smoker C [facility] Work Phone: Start: 08-23-2011 End: 07-25-2021 Cigarettes smoked current (pack per day) - Reported 0.5 [facility] Start: 08-23-2011 End: 06-27-2017 Tobacco use and exposure Smokeless tobacco non-user [facility] Work Phone: Start: 06-10-2021 End: 07-25-2021 Alcohol intake Current drinker of alcohol (finding) [facility] Start: 04-11-2016 History SDOH Alcohol Comment rarely [facility] Start: 1960 Sex Assigned At Male C [facility] Start: 05-31-2021 End: 07-25-2021 Exposure to SARS-CoV-2 (event) Not sure [facility] Start: 06-06-2021 End: 06-21-2021 Exposure to SARS-CoV-2 (event) Unable to assess [facility] Work Phone: Clinical Notes 06-10-2021 to 06-28-2022 Nupur Villar RN - 06/28/2022 2:18 PM EDTSbrenda Jimenez APRN.CNP - 07/25/2021 11:00 AM EDTTelephone Encounter - Ny Wheeler RN - 07/22/2021 1:56 PM EDTDestini Yadav RN - 06/10/2021 3:23 PM EDT Note Date & Type Note Facility 06-28-2022 Nurse Note AMBULATORY PATIENT EDUCATION TOPIC: SURVIVAL SKILLS: DEMARIO READINESS TO LEARN COGNITIVE ABILITY: Alert and oriented MOTIVATION TO LEARN: Eager FAMILY SUPPORT: None - Unavailable/disinterested INSTRUCTION PROVIDED TO: Patient PATIENT LEARNS BEST BY: Individual Instruction Verbal Instruction FACTORS AFFECTING LEARNING: None PHYSICAL LIMITATIONS AFFECTING LEARNING: None LEARNING RESPONSE DIAGNOSIS: 1 yr Watchman f/u METHOD OF INSTRUCTION: Individual instruction Verbal instruction PATIENT / FAMILY RESPONSE: Verbalizes understanding of: POST-PROCEDURE INSTRUCTIONS-Correct actions to take to reduce post procedure complications PRE-PROCEDURE INSTRUCTIONS-Correct action to take to follow pre-procedure instructions FOLLOW-UP PLAN: Complete - No need for follow-up SUPPLEMENTAL MATERIAL: Post DEMARIO instructions given Post sedation instructions given REFERRAL (RECOMMENDATION): None Electronically Signed By Nupur Villar RN In Department: CARDIOLOGY documented in this encounter [facility] 07-25-2021 Note HNO ID: [id number] Author: Shyann Jimenez APRN.PAOLA Service: ? Author Type: Nurse Practitioner Type: Progress Notes Filed: 07/25/2021 1:26 PM Note Text: [facility] [place] [facility] Department of Cardiovascular Medicine SECTION OF CARDIAC PACING and ELECTROPHYSIOLOGY OUTPATIENT VISIT DATE July 25, 2021 OUTPATIENT VISIT TYPE ESTABLISHED PRIMARY CARE PHYSICIAN: Fabiana Peña MD ([facility]) [address] [place] [address] REFERRING PHYSICIAN: Dr. Chino Almanza CHIEF COMPLAINT: HISTORY OF PRESENT ILLNESS: Mr. Vo is a 60 year old male who presents today for follow-up visit after watchman implant. He is an established patient of Dr. Lawrence and was seen in March 2021 on consult for atrial fibrillation treatment and watchman discussion. It was decided watchman would be a good option given his history and risk factors. He was referred to Dr. Kong as he implants the watchman device. Because of his history of GI bleeding requiring transfusion and necessitating discontinuation of oral anticoagulation, it was thought Mr. Vo would benefit from consideration for left atrial appendage occlusion. His history is significant for hypertension, diabetes, CAD s/p PCI (LCx 2018), CHF, atrial fibrillation, cerebellar CVA (11/2018), rectal bleeding,papillary thyroid cancer s/p thyroidectomy. He was noted to be in atrial fibrillation during an office visit in May 2020 for which Eliquis was initiated. Subsequently, he developed intestinal bleeding and was admitted to [facility] in 11/2020 and was transfused. Unfortunately, no source of bleed was identified but severe diverticulosis was identified. He was taken off Eliquis and placed on ASA 81mg at that time. He did wear a Zio monitor after his visit with Dr. Lawrence to identify his burden of atrial fibrillation as he was virtually asymptomatic but his CVA was probably embolic in source and he did have a documented EKG of atrial fibrillation. However, no atrial fibrillation was seen on the Zio monitor. He underwent Watchman implant 06/13/2021. Since the implant he continue to feel well. He denies any signs of bleeding. He denies any symptoms of atrial fibrillation, but has not had any symptoms of atrial fibrillation in the past. He denies chest pain, shortness of breath, orthopnea, cough, edema, palpitations, PND, lightheadedness or syncope. PAST CARDIAC HISTORY: See above PAST MEDICAL HISTORY Diagnosis Date - Abnormal stress test 12/03/2018 - Atrial fibrillation (HCC) - Chronic combined systolic and diastolic heart failure (HCC) - Diabetes (HCC) 2013 - Hemorrhage of rectum and anus - HTN (hypertension) - Hypothyroidism - Orthostatic hypotension - Rectal bleeding - Thyroid cancer (HCC) 06/07/2016 Papillary Thyroid Cancer - Type 2 diabetes mellitus without complication, without long-term current use of insulin (HCC) 03/19/2013 PAST SURGICAL HISTORY Procedure Laterality Date - COLONOSCOPY W/BIOPSY SINGLE/MULTIPLE 10/06/11 repeat in 10 years - PAST SURGICAL HISTORY OF recon right ear canal as a child - PAST SURGICAL HISTORY OF left arm laceration repair--extensive - PAST SURGICAL HISTORY OF lump removal left foot - THYROIDECTOMY TOTAL/COMPLETE 06/07/2016 Total Thyroidectomy - VASECTOMY UNI/BI SPX W/POSTOP SEMEN EXAMS SOCIAL HISTORY Social History Tobacco Use - Smoking status: Current Every Day Smoker Packs/day: 0.50 Types: Cigarettes - Smokeless tobacco: Never Used Vaping Use - Vaping Use: Never used Substance Use Topics - Alcohol use: Yes Alcohol/week: 2.5 standard drinks Types: 1 Cans of Beer (12oz) per week Comment: rarely - Drug use: Not Currently FAMILY HISTORY Problem Relation Age of Onset - Cancer Mother - Stroke Mother - Hypertension Mother - Cancer Maternal Grandfather ALLERGIES: ALLERGIES Allergen Reactions - Amoxicillin Other: See Comments MEDICATIONS: levothyroxine 175 mcg cap Take 1 capsule by mouth daily before breakfast. sodium chloride 0.9 %, flush, (BD POSIFLUSH) syringe Inject 2-10 mL intravenously as directed. For Echo procedure sodium chloride 0.9 %, flush, (BD POSIFLUSH) syringe Inject 2-10 mL intravenously as directed. For Echo procedure apixaban (ELIQUIS) 5 mg tab(s) Take 1 tablet by mouth twice daily. atorvastatin (LIPITOR) 40 mg tablet Take 40 mg by mouth once daily. carvedilol (COREG) 25 mg tablet Take 25 mg by mouth twice daily with meals. metFORMIN (GLUCOPHAGE) 1,000 mg tablet Take 1,000 mg by mouth twice daily with meals. pregabalin (LYRICA) 150 mg capsule Take 150 mg by mouth twice daily. furosemide (LASIX) 40 mg tablet Take 40 mg by mouth once daily. dapagliflozin (FARXIGA) 10 mg tablet Take by mouth daily with breakfast. insulin lispro protamin/lispro (HUMALOG MIX 75-25 SUBCUTANEOUS) Inject subcutaneously. 4x a day 31units, 26 (more content not included)... [facility] 07-25-2021 Note HNO ID: [id number] Author: Vivien Campos RN Service: ? Author Type: Registered Nurse Type: Progress Notes Filed: 07/25/2021 4:32 PM Note Text: AMBULATORY PATIENT EDUCATION TOPIC: Procedural: Transesophageal Echo READINESS TO LEARN COGNITIVE ABILITY: Alert and oriented MOTIVATION TO LEARN: Interested FAMILY SUPPORT: Unable to assess - Family not present INSTRUCTION PROVIDED TO: Patient PATIENT LEARNS BEST BY: Individual Instruction Verbal Instruction Demonstration FACTORS AFFECTING LEARNING: None PHYSICAL LIMITATIONS AFFECTING LEARNING: None LEARNING RESPONSE DIAGNOSIS: watchman follow up METHOD OF INSTRUCTION: Individual instruction Verbal instruction PATIENT / FAMILY RESPONSE: Verbalizes understanding of: POST-PROCEDURE INSTRUCTIONS-Correct actions to take to reduce post procedure complications PRE-PROCEDURE INSTRUCTIONS-Correct action to take to follow pre-procedure instructions FOLLOW-UP PLAN: Complete - No need for follow-up SUPPLEMENTAL MATERIAL: None REFERRAL (RECOMMENDATION): None Electronically Signed By Vivien Campos RN In Department: CARDIOLOGY [facility] 07-25-2021 History of Presen t illness Narrative Images from the original note were not included. [facility] [place] [facility] Department of Cardiovascular Medicine SECTION OF CARDIAC PACING and ELECTROPHYSIOLOGY OUTPATIENT VISIT DATE July 25, 2021 OUTPATIENT VISIT TYPE ESTABLISHED PRIMARY CARE PHYSICIAN: Fabiana Peña MD ([facility]) [address] [id number] REFERRING PHYSICIAN: Dr. Chino Almanza CHIEF COMPLAINT: HISTORY OF PRESENT ILLNESS: Mr. Vo is a 60 year old male who presents today for follow-up visit after watchman implant. He is an established patient of Dr. Lawrence and was seen in March 2021 on consult for atrial fibrillation treatment and watchman discussion. It was decided watchman would be a good option given his history and risk factors. He was referred to Dr. Kong as he implants the watchman device. Because of his history of GI bleeding requiring transfusion and necessitating discontinuation of oral anticoagulation, it was thought Mr. Vo would benefit from consideration for left atrial appendage occlusion. His history is significant for hypertension, diabetes, CAD s/p PCI (LCx 2018), CHF, atrial fibrillation, cerebellar CVA (11/2018), rectal bleeding,papillary thyroid cancer s/p thyroidectomy. He was noted to be in atrial fibrillation during an office visit in May 2020 for which Eliquis was initiated. Subsequently, he developed intestinal bleeding and was admitted to [facility] in 11/2020 and was transfused. Unfortunately, no source of bleed was identified but severe diverticulosis was identified. He was taken off Eliquis and placed on ASA 81mg at that time. He did wear a Zio monitor after his visit with Dr. Lawrence to identify his burden of atrial fibrillation as he was virtually asymptomatic but his CVA was probably embolic in source and he did have a documented EKG of atrial fibrillation. However, no atrial fibrillation was seen on the Zio monitor. He underwent Watchman implant 06/13/2021. Since the implant he continue to feel well. He denies any signs of bleeding. He denies any symptoms of atrial fibrillation, but has not had any symptoms of atrial fibrillation in the past. He denies chest pain, shortness of breath, orthopnea, cough, edema, palpitations, PND, lightheadedness or syncope. PAST CARDIAC HISTORY: See above PAST MEDICAL HISTORY Diagnosis Date Abnormal stress test 12/03/2018 Atrial fibrillation (HCC) Chronic combined systolic and diastolic heart failure (HCC) Diabetes (HCC) 2013 Hemorrhage of rectum and anus HTN (hypertension) Hypothyroidism Orthostatic hypotension Rectal bleeding Thyroid cancer (HCC) 06/07/2016 Papillary Thyroid Cancer Type 2 diabetes mellitus without complication, without long-term current use of insulin (HCC) 03/19/2013 PAST SURGICAL HISTORY Procedure Laterality Date COLONOSCOPY W/BIOPSY SINGLE/MULTIPLE 10/06/11 repeat in 10 years PAST SURGICAL HISTORY OF recon right ear canal as a child PAST SURGICAL HISTORY OF left arm laceration repair--extensive PAST SURGICAL HISTORY OF lump removal left foot THYROIDECTOMY TOTAL/COMPLETE 06/07/2016 Total Thyroidectomy VASECTOMY UNI/BI SPX W/POSTOP SEMEN EXAMS SOCIAL HISTORY Social History Tobacco Use Smoking status: Current Every Day Smoker Packs/day: 0.50 Types: Cigarettes Smokeless tobacco: Never Used Vaping Use Vaping Use: Never used Substance Use Topics Alcohol use: Yes Alcohol/week: 2.5 standard drinks Types: 1 Cans of Beer (12oz) per week Comment: rarely Drug use: Not Currently FAMILY HISTORY Problem Relation Age of Onset Cancer Mother Stroke Mother Hypertension Mother Cancer Maternal Grandfather ALLERGIES: ALLERGIES Allergen Reactions Amoxicillin Other: See Comments MEDICATIONS: levothyroxine 175 mcg cap Take 1 capsule by mouth daily before breakfast. sodium chloride 0.9 %, flush, (BD POSIFLUSH) syringe Inject 2-10 mL intravenously as directed. For Echo procedure sodium chloride 0.9 %, flush, (BD POSIFLUSH) syringe Inject 2-10 mL intravenously as directed. For Echo procedure apixaban (ELIQUIS) 5 mg tab(s) Take 1 tablet by mouth twice daily. atorvastatin (LIPITOR) 40 mg tablet Take 40 mg by mouth once daily. carvedilol (COREG) 25 mg tablet Take 25 mg by mouth twice daily with meals. metFORMIN (GLUCOPHAGE) 1,000 mg tablet Take 1,000 mg by mouth twice daily with meals. pregabalin (LYRICA) 150 mg capsule Take 150 mg by mouth twice daily. furosemide (LASIX) 40 mg tablet Take 40 mg by mouth once daily. dapagliflozin (FARXIGA) 10 mg tablet Take by mouth daily with breakfast. insulin lispro protamin/lispro (HUMALOG MIX 75-25 SUBCUTANEOUS) Inject subcutaneously. 4x a day 31units, 26 units, 24 unites, 22 units cholecalciferol, vitamin D3, (VITAMIN D3 ORAL) Take by mouth. FOLIC ACID ORAL Take by mouth. cyanocobalamin (VITAMIN B-12) 1,000 mcg tab Take 1,000 mcg by mouth once daily. vit B complex no.12/niacin,B3, (VITAMIN B COMPLEX NO.12-NIACIN ORAL) Take by mouth. nitroglycerin sublingual (NITROQUICK) 0.4 mg SL tablet Dissolve 1 tablet under the tongue as needed for Chest Pain. aspirin, enteric coated (ASPIRIN, ENTERIC COATED) 81 mg EC tablet Take 81 mg by mouth once daily. REVIEW OF SYSTEMS: General, constitutional: Weight loss or gain- No, Fever or chills-No, Weakness-No, Trouble sleeping-No. Head, Eyes, Ears, Mouth: Headache, head injury-No, Glasses or contact lenses-Yes, Pain-No, Impaired vision-No, Decreased hearing-No, Ringing in ears-No, Nose bleeds-No, Dental difficulties-No, Bleeding gums-No, Dentures-Yes. Neck: Swelling-No, Pain-No, Stiffness-No. Respiratory: Cough-No, Spitting up blood-No, Shortness of breath-No, Wheezing or asthma-No. Musculoskeletal: Muscle or joint pain or stiffness-No, Joint swelling-No. Gastrointestinal: Difficulty swallowing-No, Heartburn-No, Change in bowel habits-No, Blood in stool, Dark black stools-No. Neurological/Psychiatric: Weakness, paralysis-No, Numbness-No, Tingling-No, Tremor-No, Nervousness or anxiety-No, Depressed mood-No, Memory loss-No. Skin: Rash-No, Itching-No. Hematological: Easy bruising-No, Easy bleeding-No. Endocrine: Heat or cold intolerance-No, Excessive sweating-No, Frequent urination-No, Frequent thirst-No. PHYSICAL EXAMINATION: BP 100/60 Pulse 72 Ht 191.8 cm (6' 3.5 ) Wt 113.9 kg (251 lb) BMI 30.96 kg/m General: no distress, in wheelchair, accompanied by family, conversant, pleasant and cooperative Psych: Appropriate affect and insight; alert and oriented to person, place and time Neck : Neck veins are not distended, no carotid bruits; trachea midline Cardiac: Rhythm: regular rate and rhythm, Rate: normal, S1: normal intensity, S2: normal intensity; no edema present (B); radial pulses = (B) Chest: breath sounds: clear, bilaterally; normal respiratory effort with equal expansion Abdomen: Bowel Sounds: Present x4, soft and non-tender Skin: No rash or ulcers; Normal temperature, turgor and texture Musculoskeletal: Normal gait; nails no clubbing or cyanosis HENT: Normal appearing ears and nose; normal hearing CARDIOVASCULAR MEDICINE TESTING: EKG 07/25/2021 reviewed: Sinus Rhythm V-rate 72 bpm AR 212 ms QRS 90 ms QT/QTc 394/431 ms TTE 07/25/2021: CONCLUSIONS: - Exam indication: Watchman follow-up - The left ventricle is normal in size. Left ventricular systolic function is normal. EF = 55 5% (visual est.) No transgastric views to minimize patient discomfort. - The right ventricle is normal in size. Right ventricular systolic function is low normal. - The visualized aorta is borderline dilated with a maximal dimension of 4.0 cm. - There is no patent foramen ovale as detected by Doppler and agitated saline contrast. - S/p Watchman device, appears well-seated without peridevice leaks. Reviewed images with Dr. Kong IMPRESSION: Mr. Vo is a 60 year old male with a history cerebellar embolic stroke and atrial fibrillation. Cerebellar CVA - 11/2018 - Likely embolic in nature - Eliquis started - s/p Watchman FLX implant 06/13/2021 - Stop Eliquis today - Start Plavix 75mg daily. Continue for four months then discontinue - Continue ASA 81mg daily Atrial fibrillation - Documented on EKG 05/2020 - Zio monitor in April 2021 no atrial fibrillation seen - No significant atrial fibrillation burden CHADS2-Vasc Score Breakdown 5 Total Score 1 History of CHF 1 History of hypertension 1 History of diabetes mellitus 2 History of stroke, TIA, or thromboemolism GI Bleed - 11/2020 - On Eliquis at the time - Source not identified, severe diverticulosis - Required transfusion - Switched to ASA 81mg Cardiomyopathy - Echo 10/2017 ef 30% stage II diastolic dysfunction - NM Cardiac Perfusion Stress EF 24% (11/2018) - Echo 05/2021 EF 55% Diabetes - Type 2 - Metformin, Farxiga, and Humalog Hypothyroidism - s/p thyroidectomy secondary to papillary thyroid cancer - Synthroid 175mcg daily Hyperlipdemia - Continue lipitor PLAN AND RECOMMENDATIONS: - Discontinue Eliquis - Start Plavix 75mg daily for 4 months then d/c - Continue ASA 81mg daily - Continue to follow with local route specialist - Contact the office with recurrent dizziness or palpitations - Return in May 2022 for repeat DEMARIO CONTACT INFORMATION: Shyann Jimenez APRN.CNP documented in this encounter [facility] 07-22-2021 Miscellaneous Notes ECHO LAB TELEPHONE INSTRUCTIONS: Learning Response: Instructions provided to: Patient Procedure: DEMARIO Pre procedure education topics: Arrival time, NPO status, Medications and Accompanied by a responsible adult Instructions/Restrictions Patient/Family Response Evaluation: Verbalizes understanding Follow Up Plan and Medication: As directed by physician Instruction/Supplemental Material Given: Appointment Information and Procedure/Test Specific Information: Transesphageal Echocardiogram-DEMARIO Instructed By Ny Wheeler RN. In Department of CARDIOLOGY. documented in this encounter [facility] 06-10-2021 History of Presen t illness Narrative THE FOLLOWING WAS EVALUATED Motivation To Learn: Interested Family/Significant Other Support: Unable to assess - Family not present Cognitive Ability: Alert and oriented Patient Learns Best By: Individual Instruction The Following Influencing Factors Were Barriers To This Education Session: None The Following Physical Limitations Were Barriers To This Education Session: None Instruction Provided To: Patient and Spouse Procedure: Watchman Pre-procedure information reviewed: Patient ID verified Procedure verified Physician verified Explanation of procedure Sedation level during procedure MD medication instructions from EP lab request: Anticoagulation: Start:Eliquis (apixaban) Start medication: 1 week before procedure Stop Antiarrhythmic: No Stop Beta Bal/ Calcium Channel Bal: No ASA: N/A Travel instructions/restrictions Scheduling information Possible same day discharge versus overnight hospital stay Check out time Family waiting area Physician contact with family after procedure Post Procedure Expectations reviewed: Inpatient hospital stay Post procedure antiarrhythmics and anticoagulation will be discussed with Physician, nurse practitioner or Physician hr administrative assistant upon discharge Instructions for transmitting EKG to Monitoring Center 3 month follow up instructions Contact number for information and questions Patient Evaluation: Verbalizes understanding Follow Up Plan: Follow up as directed by MD. Supplemental Material Given: Written Material Patient education regarding radiation exposure. Instructed By Destini Yadav RN, RN. In Department of CARDIOLOGY. documented in this encounter [facility] 06-10-2021 History of Presen t illness Narrative Images from the original note were not included. [facility] [place] [facility] Department of Cardiovascular Medicine SECTION OF CLINICAL CARDIOLOGY OUTPATIENT VISIT DATE June 10, 2021 OUTPATIENT VISIT TYPE NEW PRIMARY CARE PHYSICIAN: Fabiana Peña MD ([facility]) [address] [facility] [address] [place] [address] REFERRING PHYSICIAN: Richie Kong [address] [facility] [id number] CHIEF COMPLAINT: Watchman device HISTORY OF PRESENT ILLNESS: Mr. Vo is a 60 year old male who presents today for shared decision-making before watchman device placement. The patient has history of paroxysmal atrial fibrillation but was diagnosed 2 years ago. He also has history of ischemic stroke 2 years ago resulted in facial weakness and balance problems. The patient has high stroke risk given his hypertension diabetes and history of stroke, he used to take apixaban 5 mg twice daily, he was admitted to the hospital with severe rectal bleeding a year and a half ago requiring blood transfusions. He underwent EGD and colonoscopy but both were unrevealing. He stayed off anticoagulation for a year and a half and just restarted apixaban last week. He saw Dr. Kong in office and the decision was to proceed with watchman device to protect him from stroke and get him off anticoagulation. He is active and is able to walk, without significant limitations. His EKG reveals normal sinus rhythm. He denies chest pain, shortness of breath, orthopnea, cough, edema, palpitations, PND, lightheadedness or syncope. NURSING INTAKE: Mr. Vo is a 60 year old male from [place], [place] here today for cardiovascular evaluation related to pre op clearance. He has a significant medical history of a-fib, heart failure, DM, HTN, hypothyroid, thyroid cancer, orthostatic hypotension. He reports the following symptoms: none. 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 He follows a regular diet. He participates in walking for exercise/activity. Their primary concern for today's visit is pre-op clearance. PAST MEDICAL HISTORY Diagnosis Date Abnormal stress test 12/03/2018 Atrial fibrillation (HCC) Chronic combined systolic and diastolic heart failure (HCC) Diabetes (HCC) 2013 Hemorrhage of rectum and anus HTN (hypertension) Hypothyroidism Orthostatic hypotension Rectal bleeding Thyroid cancer (HCC) 06/07/2016 Papillary Thyroid Cancer Type 2 diabetes mellitus without complication, without long-term current use of insulin (HCC) 03/19/2013 PAST SURGICAL HISTORY Procedure Laterality Date COLONOSCOPY W/BIOPSY SINGLE/MULTIPLE 10/06/11 repeat in 10 years PAST SURGICAL HISTORY OF recon right ear canal as a child PAST SURGICAL HISTORY OF left arm laceration repair--extensive PAST SURGICAL HISTORY OF lump removal left foot THYROIDECTOMY TOTAL/COMPLETE 06/07/2016 Total Thyroidectomy VASECTOMY UNI/BI SPX W/POSTOP SEMEN EXAMS SOCIAL HISTORY Social History Tobacco Use Smoking status: Current Every Day Smoker Packs/day: 0.50 Types: Cigarettes Smokeless tobacco: Never Used Vaping Use Vaping Use: Never used Substance Use Topics Alcohol use: Yes Alcohol/week: 2.5 standard drinks Types: 1 Cans of Beer (12oz) per week Comment: rarely Drug use: Not Currently FAMILY HISTORY Problem Relation Age of Onset Cancer Mother Stroke Mother Hypertension Mother Cancer Maternal Grandfather ALLERGIES: ALLERGIES Allergen Reactions Amoxicillin Other: See Comments MEDICATIONS: furosemide (LASIX) 40 mg tablet Take 40 mg by mouth once daily. apixaban (ELIQUIS) 5 mg tab(s) Take 1 tablet by mouth twice daily. atorvastatin (LIPITOR) 40 mg tablet Take 40 mg by mouth once daily. carvedilol (COREG) 25 mg tablet Take 25 mg by mouth twice daily with meals. metFORMIN (GLUCOPHAGE) 1,000 mg tablet Take 1,000 mg by mouth twice daily with meals. pregabalin (LYRICA) 150 mg capsule Take 150 mg by mouth twice daily. dapagliflozin (FARXIGA) 10 mg tablet Take by mouth daily with breakfast. levothyroxine 200 mcg cap Take 200 mcg by mouth daily before breakfast. insulin lispro protamin/lispro (HUMALOG MIX 75-25 SUBCUTANEOUS) Inject subcutaneously. 4x a day 31units, 26 units, 24 unites, 22 units cholecalciferol, vitamin D3, (VITAMIN D3 ORAL) Take by mouth. FOLIC ACID ORAL Take by mouth. cyanocobalamin (VITAMIN B-12) 1,000 mcg tab Take 1,000 mcg by mouth once daily. vit B complex no.12/niacin,B3, (VITAMIN B COMPLEX NO.12-NIACIN ORAL) Take by mouth. nitroglycerin sublingual (NITROQUICK) 0.4 mg SL tablet Dissolve 1 tablet under the tongue as needed for Chest Pain. aspirin, enteric coated (ASPIRIN, ENTERIC COATED) 81 mg EC tablet Take 81 mg by mouth once daily. REVIEW OF SYSTEMS: GENERAL: Negative for: Weight loss or gain, Fever or Chills, Weakness and Sleep difficulties. HEENT: Negative for: Headache, Impaired Vision, Glasses or contact lenses, Hearing Impairment, Ringing in Ears, Nosebleeds, Poor dental care, Bleeding Gums, Dentures NECK: Negative for: Swelling, Pain, Stiffness RESPIRATORY: Negative for: Cough, Blood in Sputum, Shortness of breath, Wheezing, Apnea GASTROINTESTINAL: Negative for: Trouble swallowing, Heartburn, Change in bowel habits, Blood in stool, Dark black stools MUSCULOSKELETAL: Negative for: Muscle or joint pain, Stiffness , Joint swelling NEUROLOGIC/PSYCHIATRIC: Negative for: Weakness, Paralysis, Numbness, Tingling, Tremor, Nervousness, Depressed mood, Memory loss SKIN: Negative for: Rashes, Itching HEMATOLOGICAL/LYMPHATIC: Negative for: Easy bruising , Easy bleeding ENDOCRINE: Negative for: Heat or cold intolerance, Excessive sweating, Frequent urination, Frequent thirst PHYSICAL EXAMINATION: BP 98/65 (BP Site: Right Arm) Pulse 81 Ht 191.8 cm (6' 3.5 ) Wt 114.1 kg (251 lb 9.6 oz) SpO2 96% BMI 31.03 kg/m General: Well appearing, in no acute distress. Skin: No clubbing, no cyanosis. Eyes: Extra ocular movements intact Oropharynx: Teeth in good repair. Neck: No jugular venous distention, no carotid bruits, carotids have a normal upstroke, no palpable thyromegaly. Lungs: Clear to auscultation bilaterally, no wheezing or rhonchi. Heart: Regular rhythm, PMI not displaced, S1, S2 normal, no S3, no S4, no heaves, no rub and no murmur. Abdomen: Soft, nontender, bowel sounds normal, no palpable organomegaly, no bruits. Extremities: No peripheral edema . Grade 2/4 distal pulses bilaterally. Neuro: Oriented to person, place and time, alert, cooperative, gait coordinated. CARDIOVASCULAR MEDICINE TESTING: Last ECHO Result Conclusion ECHO Collected: 06/10/2021 2:12 PM (Final result) Impression: CONCLUSIONS: - Exam indication: Pre-op for Watchman assessment - The left ventricle is normal in size. Left ventricular systolic function is normal. EF = 55 5% (visual est.) - The right ventricle is normal in size. Right ventricular systolic function is normal. - The visualized aorta is borderline dilated with a maximal dimension of 3.8 cm. - The patient has not had a prior CC echocardiographic exam for comparison. * * * Final * * * Complete Results Zio patch 03/31/21-04/14/21 Last EKG Result Conclusion ECG COMPLETE Collected: 06/10/2021 11:56 AM (Preliminary result) Impression: SINUS RHYTHM WITH 1ST DEGREE AV BLOCK LEFT AXIS DEVIATION ABNORMAL ECG Complete Results DEMARIO 12/03/18 Echocardiography Report: Transesophageal Echo [facility] Date of service: 12/03/2018 12:18:06 PM DISPENSARY Ordering physician: VASYL FARFAN and VASYL FARFAN Indication: Stroke Technologist: Cassandra Moise [facility] Interpreting physician: Juma Christianson MD PATIENT: Name: MR. TONI VO : 1960 Age: 58 years Gender: M Primary rhythm: SVT. Height: 190.50 cm BSA: 2.35 m Weight: 104.50 kg BMI: 28.8 kg/m Pre Heart rate 118 bpm Blood pressure 125/88 mmHg Agitated saline was administered to rule out PFO. Color Doppler was utilized to interrogate the cardiac valves assessed and spectral Doppler was utilized to determine the flow velocities and pressure gradients reported in this exam. Medications Total Dose Versed 2.00 mg Fentanyl 50.00 mcg Agitated Saline 10.00 ml 20mL Viscous Lidocaine, Hurricaine [place] x1 Exam performed under moderate sedation with continuous ECG, pulse oximetry and cardiopulmonary monitoring by nursing, overseen by the performing physician(s), for an intraservice time of 8 min. (Stop Time: 13:02) No specimens collected. No blood loss. The interpreting physician was present for and actively participated in the DEMARIO procedure. MEASUREMENTS: Value Normal Ejection Fraction 30 % (visual est.) EF > 52 FINDINGS: LEFT VENTRICLE The left ventricle is mildly dilated. Left ventricular systolic function is moderately decreased. Diastolic Function: Respiratory Variation Expiration Inspiration % Difference MV Peak E 99.0 cm/s 81.0 cm/s 18.2 % TV Peak E 58.0 cm/s 32.0 cm/s 44.8 % RIGHT VENTRICLE The right ventricle is normal in size. Right ventricular systolic function is normal. LEFT ATRIUM The left atrial cavity is normal in size. The peak emptying velocity from the left atrial appendage is 40.0 cm/s. There is no left atrial appendage thrombus. RIGHT ATRIUM The right atrial cavity is normal in size. MITRAL VALVE The mitral valve leaflets are structurally normal. There is mild (1+) mitral valve regurgitation. TRICUSPID VALVE The tricuspid valve leaflets are structurally normal. There is trace tricuspid valve regurgitation. AORTIC VALVE The aortic valve cusps are structurally normal. There is no aortic valve regurgitation. Tricuspid aortic valve. PULMONIC VALVE The pulmonic valve cusps are structurally normal. There is no pulmonic valve regurgitation. AORTA The visualized aorta is normal in size. There is a mild atheroma. INTERATRIAL SEPTUM There is no patent foramen ovale as detected by agitated saline contrast. PERICARDIUM There is small circumferential pericardial effusion. CONCLUSIONS: - Exam indication: Stroke - The left ventricle is mildly dilated. Left ventricular systolic function is moderately decreased. EF = 30 5% (visual est.) - The right ventricle is normal in size. Right ventricular systolic function is normal. - There are no significant valvular abnormalities. - There is no patent foramen ovale as detected by agitated saline contrast. - The patient has not had a prior CC echocardiographic exam for comparison. Stress test 12/02/18 CONCLUSIONS: 1. SPECT Perfusion Study: Abnormal. 2. Technically limited study secondary to gut activity obscuring the entire inferior wall. As a result, no assessment can be made of the inferior wall. 3. There is moderate (10-20%) ischemia in the territory of the LAD. 4. Left ventricle is moderately dilated. The left ventricle systolic function is severely decreased. 5. Right ventricle is normal in size. The right ventricle systolic function is normal. 6. This is a high risk scan. I have personally reviewed the Electrocardiogram. IMPRESSION: Mr. Vo is a 60 year old male with Hypertension taking carvedilol 25 mg twice daily. Diabetes mellitus taking Metformin 1000 mg twice daily and dapagliflozin 10 mg p.o. daily, and insulin lispro. Hyperlipidemia taking atorvastatin 40 mg. History of rectal bleeding requiring blood transfusion, high has bled score Problem list atrial fibrillation, [id number] score 5, did not tolerate anticoagulation with apixaban and had rectal bleeding, History of ischemic stroke, After discussion with the patient, I agree with the service and important procedure that would get him off apixaban to reduce his risk of bleeding recurrence, while also protecting him from the risk of ischemic stroke PLAN AND RECOMMENDATIONS: Proceed with watchman device placement as planned Continue apixaban 5 mg twice daily for now and discontinued per EP recommendations Continue carvedilol atorvastatin He will continue to follow with his local route specialist I personally interviewed, confirmed and edited the above information as obtained by others. CONTACT INFORMATION: Juan A Hinds MD MSc FACC Section of Clinical Cardiology, [facility] [place]. [address] [place], [place] [id number] [email or web address] 06/10/2021 11:33 PM documented in this encounter [facility] Diagnosis IRB [id number] WATCHAMAN FLX Real World Evidence (WATCH RWE) Examination of participant in clinical trial documented in this encounter [facility] note* Diagnosis Presence of Watchman left atrial appendage closure device- Primary Paroxysmal atrial fibrillation (HCC) Atrial fibrillation documented in this encounter [facility] note* Diagnosis Paroxysmal atrial fibrillation (HCC)- Primary [facility]rial fibrillation [facility] Diagnosis Presence of Watchman left atrial appendage closure device- Primary Paroxysmal atrial fibrillation (HCC) Atrial fibrillation documented in this encounter [facility] note* Diagnosis Presence of Watchman left atrial appendage closure device Paroxysmal atrial fibrillation (HCC) Atrial fibrillation [facility] Outpatient Procedure (Routine) - Pending Review Specialty Diagnoses / Procedures Referred By Eli avila Referred To Contact [facility] Diagnoses Presence of Watchman left atrial appendage closure device Paroxysmal atrial fibrillation (HCC) Procedures ECHO TRANSESOPHAGEAL ECHO TRANSESOPHAG R-T 2D W/PRB IMG ACQUJANNETH I&R Shyann Jimenez APRN.CNP [address] [place] [address] [place] [address] Referral ID Status Reason Start Date Expiration Date Visits Requested Visits Authorized [id number] Pending Review Auto-Generat ed Referral 06/13/2022 06/20/2022 1 1 * Outpatient Procedure (Routine) - Pending Review Specialty Diagnoses / Procedures Referred By Contac t Referred To Contact [facility] Diagnoses Presence of Watchman left atrial appendage closure device Paroxysmal atrial fibrillation (HCC) Procedures ECG COMPLETE ECG ROUTINE ECG W/LEAST 12 LDS W/I&R Shyann Jimenez APRN.CNP [address] [place] [address] [facility] [address] [place] [address] Referral ID Status Reason Start Date Expiration Date Visits Requested Visits Authorized [id number] Pending Review Auto-Generat ed Referral 06/20/2021 06/20/2022 1 1 * Outpatient Procedure (Routine) - Pending Review Specialty Diagnoses / Procedures Referred By Contac t Referred To Contact [facility] Diagnoses Presence of Watchman left atrial appendage closure device Paroxysmal atrial fibrillation (HCC) Procedures ECG COMPLETE ECG ROUTINE ECG W/LEAST 12 LDS W/I&R Shyann Jimenez APRN.CNP [address] [place] [address] [address] Referral ID Status Reason Start Date Expiration Date Visits Requested Visits Authorized [id number] Pending Review Auto-Generat ed Referral 12/20/2021 06/20/2022 1 1 * Outpatient Procedure (Routine) - Pending Review Specialty Diagnoses / Procedures Referred By Contac t Referred To Contact [facility] Diagnoses Presence of Watchman left atrial appendage closure device Paroxysmal atrial fibrillation (HCC) Procedures ECG COMPLETE ECG ROUTINE ECG W/LEAST 12 LDS W/I&R Shyann Jimenez APRN.CNP [address] [place] [address] [address] Referral ID Status Reason Start Date Expiration Date Visits Requested Visits Authorized [id number] Pending Review Auto-Generat ed Referral 07/25/2021 06/20/2022 1 1 * Outpatient Procedure (Routine) - Pending Review Specialty Diagnoses / Procedures Referred By Contac t Referred To Contact [facility] Diagnoses Presence of Watchman left atrial appendage closure device Paroxysmal atrial fibrillation (HCC) Procedures ECHO TRANSESOPHAGEAL ECHO TRANSESOPHAG R-T 2D W/PRB IMG ACQUISRosalino I&R Shyann Jimenez APRN.DOLLY PUSHER [address] [place] [address] [facility] [address] [address] Referral ID Status Reason Start Date Expiration Date Visits Requested Visits Authorized [id number] Pending Review Auto-Generat ed Referral 07/25/2021 06/20/2022 1 1 [facility] Outpatient Procedure (Routine) - Pending Review Specialty Diagnoses / Procedures Referred By Contac t Referred To Contact [facility] Diagnoses Presence of Watchman left atrial appendage closure device Paroxysmal atrial fibrillation (HCC) Procedures ECHO TRANSESOPHAGEAL ECHO TRANSESOPHAG R-T 2D W/PRB IMG SHAHAB I&R Shyann Jimenez APRN.DOLLY PUSHER [address] [place] [address] [address] Referral ID Status Reason Start Date Expiration Date Visits Requested Visits Authorized [id number] Pending Review Auto-Generat ed Referral 06/13/2022 07/25/2022 1 1 [facility] Summary Purpose Family History No Family History Records FoundNo Family History Records FoundNo Family History Records FoundNo Family History Records Found Advance Directives No Advanced Directives Records FoundDocuments on File Type Date Recorded Patient Consultant Expl anation Advance Directive(s) 05/23/2021 10:04 AM Advance Directive(s) 12/01/2018 4:01 PM Latest Code Status on File Code Status Date Activated Date Inactivated Comments Full Code 12/01/2018 6:36 PM 12/04/2018 8:35 PM Full Code Order Discussed With: Patient Documents on File Type Date Recorded Patient Consultant Expl anation Advance Directive(s) 06/13/2021 6:00 AM Advance Directive(s) 05/23/2021 10:04 AM Advance Directive(s) 12/01/2018 4:01 PM Documents on File Type Date Recorded Patient Consultant Expl anation Advance Directive(s) 06/13/2021 6:00 AM Advance Directive(s) 05/23/2021 10:04 AM Advance Directive(s) 12/01/2018 4:01 PM Latest Code Status on File Code Status Date Activated Date Inactivated Comments Full Code 12/01/2018 6:36 PM 12/04/2018 8:35 PM Hospital Course Note HNO ID: [id number] Author: Cyn Farfan Service: Hospital Medicine Author Type: Physician Type: Discharge Summary Filed: 12/04/2018 2:56 PM Note Text: DISCHARGE SUMMARY PATIENT NAME: Toni Vo Code Status: Full Code Highest Readmission Risk Score: 14 The 30 day readmissions risk score is derived from an internally validated risk model which evaluates patient level characteristics, utilization history, medication orders and lab results up until the day of discharge. Patients with a score of 40 or above are considered highest risk for readmission. Specific patient level drivers will be listed at the bottom of the summary. Admission Information Admission Information ADMIT DATE: 12/01/2018 DISCHARGE DATE: 12/04/2018 MY DOCT[facility] AND MEDICAL TEAM: [facility] Doctor: Vasyl Farfan Primary Care Provider: Fabiana Peña MD My Medical Team Members: Treatment Team: Attending Provider: Vasyl Farfan Primary Service: Luke Delvalle Consulting: (more content not included)... Medications Administered Section Inactive Administered Medications - up to 3 most recent administrations Medication Order MAR Action Action Date Dose Rate Site benzocaine 20% (TOPEX) TOPICAL, X (OR/PROCEDURE) PRN, Starting on Sun06/28/22 at 1435, Until Sun06/28/22 at 1435, Intraprocedure Given 06/28/2022 2:35 PM EDT 2 Sprays fentaNYL 50 mcg/mL injection (SUBLIMAZE) INTRAVENOUS, X (OR/PROCEDURE) PRN, Starting on Sun06/28/22 at 1436, Until Sun06/28/22 at 1445, Intraprocedure Given 06/28/2022 2:45 PM EDT 25 mcg Additional Source Comments (unrecognized sect ion and content) No Status Records FoundNo Status Records FoundNo Status Records FoundNo Status Records Found INFORMATION SOURCE (unrecogn ized section and content) DATE CREATED AUTHOR AUTHOR'S ORGANIZ ATION 12/22/2018 [facility] DATE CREATED AUTHOR AUTHOR'S ORGANIZ ATION 12/17/2021 [facility] DATE CREATED AUTHOR AUTHOR'S ORGANIZ ATION 07/02/2022 [facility] Source Comments (unrecognize d section and content) In the event this informatio n is protected by the Federal Confidentiality of Alcohol and Drug Abuse Patient Records regulations: The Federal rules restrict any use of the information to criminally investigate or prosecute any alcohol or drug abuse patient.[facility] the event this information is protected by the Federal Confidentiality of Alcohol and Drug Abuse Patient Records regulations: The Federal rules restrict any use of the information to criminally investigate or prosecute any alcohol or drug abuse patient.[facility] the event this information is protected by the Federal Confidentiality of Alcohol and Drug Abuse Patient Records regulations: The Federal rules restrict any use of the information to criminally investigate or prosecute any alcohol or drug abuse patient.[facility] the event this information is protected by the Federal Confidentiality of Alcohol and Drug Abuse Patient Records regulations: The Federal rules restrict any use of the information to criminally investigate or prosecute any alcohol or drug abuse patient.[facility] the event this information is protected by the Federal Confidentiality of Alcohol and Drug Abuse Patient Records regulations: The Federal rules restrict any use of the information to criminally investigate or prosecute any alcohol or drug abuse patient.[facility] the event this information is protected by the Federal Confidentiality of Alcohol and Drug Abuse Patient Records regulations: The Federal rules restrict any use of the information to criminally investigate or prosecute any alcohol or drug abuse patient.[facility] the event this information is protected by the Federal Confidentiality of Alcohol and Drug Abuse Patient Records regulations: The Federal rules restrict any use of the information to criminally investigate or prosecute any alcohol or drug abuse patient.[facility]In the event this information is protected by the Federal Confidentiality of Alcohol and Drug Abuse Patient Records regulations: The Federal rules restrict any use of the information to criminally investigate or prosecute any alcohol or drug abuse patient.[facility] the event this information is protected by the Federal Confidentiality of Alcohol and Drug Abuse Patient Records regulations: The Federal rules restrict any use of the information to criminally investigate or prosecute any alcohol or drug abuse patient.[facility] System[facility] the event this information is protected by the Federal Confidentiality of Alcohol and Drug Abuse Patient Records regulations: The Federal rules restrict any use of the information to criminally investigate or prosecute any alcohol or drug abuse patient.[facility] Reason for Visit (unrecogniz ed section and content) Reason Comments A-fib Reason Comments Research F/U IRB 21-1031 WATCHAMA N FLX [employer] Evidence (WATCH RWE)-Consent Reason Comments Reminder Call Transesophageal Echo 07/25/21 Reason Comments Reminder Call demario Specialty Diagnoses / Procedures Referred By Contac t Referred To Contact Cardiology / CARD [place] Diagnoses Presence of other cardiac implants and grafts Paroxysmal atrial fibrillation 1 YEAR WATCHMAN FOLLOW UP DX: Presence of Watchman left atrial appendage closure device [Z95.818] Paroxysmal atrial fibrillation (HCC) [I48.0] PT'S CALLED TO MAKE THE APPT Procedures ECHO TRANSTHORC R-T 2D W/WO M-MODE REC F-UP/LMTD TRANSESOPHAGEAL ECHO Main, [facility] Card Function Lab [address] [place] [address] Referral ID Status Reason Start Date Expiration Date Visits Re quested Visits Authorized [id number] Closed 06/12/2022 08/27/2022 1 1 Care Teams (unrecognized sec tion and content) Veterinary Poultry Inspector Relationship Specialty Start Date End Date Fabiana Peña [address] [place], [place] [id number] PCP - General Family Practice 08/15/11 Luz Elena Blount [address] [facility] [address] [place] [address] Referring Endocrinology 03/13/19 Chino Almanza MD [address] [facility] [address] [place] [address] Assistant Produce Manager Cardiology 03/31/21 Arnold Duke [address] [place] [address] Physician Cardiology 04/06/21 Jose Lawrence MD [address] [place] [address] Primary Staff Physician Cardiology 04/07/21 Veterinary Poultry Inspector Relationship Specialty Start Date End Date Fabiana Peña [address] [place] [address] PCP - General Family Practice 08/15/11 Chino Almanza MD [address] [place] [address] Assistant Produce Manager Cardiology 03/31/21 Arnold Duke [address] [facility] [address] [place] [address] Physician Cardiology 04/06/21 Jose Lawrence MD [address] [place], [place] [id number] Primary Staff Physician Cardiology 04/07/21 Magdaleno Vega MD [address] [facility] [place] [address] Referring Endocrinology 06/13/21 Veterinary Poultry Inspector Relationship Specialty Start Date End Date Fabiana Peña [address] [facility] [address] [place] [address] PCP - General Family Practice 08/15/11 Chino Almanza MD [address] [facility] [address] [place] [address] Assistant Produce Manager Cardiology 03/31/21 Arnold Duke [address] [facility] [address] [place] [address] Physician Cardiology 04/06/21 Jose Lawrence MD [address] [place] [address] Primary Staff Physician Cardiology 04/07/21 Magdaleno Vega MD [address] [facility] [place] [address] Referring Endocrinology 06/13/21 Veterinary Poultry Inspector Relationship Specialty Start Date End Date Fabiana Peña [address] [facility] [address] [place] [address] PCP - General Family Practice 08/15/11 Chino Almanza MD [address] [facility] [address] [place] [address] Assistant Produce Manager Cardiology 03/31/21 Arnold Duke [address] [place] [address] Physician Cardiology 04/06/21 Jose Lawrence MD [address] [facility] [place] [address] Primary Staff Physician Cardiology 04/07/21 Magdaleno Vega MD [address] [facility], [place] [address] Referring Endocrinology 06/13/21 Veterinary Poultry Inspector Relationship Specialty Start Date End Date Fabiana Peña [address] [facility] [address] [place] [address] PCP - General Family Practice 08/15/11 Chino Almanza MD [address] [facility] [address] [place] [address] Assistant Produce Manager Cardiology 03/31/21 Arnold Duke [address] [facility] [address] [place] [address] Physician Cardiology 04/06/21 Jose Lawrence MD [address] [facility] [place], [place] [id number] Primary Staff Physician Cardiology 04/07/21 Magdaleno Vega MD [address] [place], [place] [phone] Referring Endocrinology 06/13/21 Veterinary Poultry Inspector Relationship Specialty Start Date End Date Fabiana Peña [address] [facility] [address] [place] [address] PCP - General Family Practice 08/15/11 Chino Almanza MD [address] [place] [address] Assistant Produce Manager Cardiology 03/31/21 Arnold Duke [address] [place] [address] Physician Cardiology 04/06/21 Jose Lawrence MD [address] [place] [address] Primary Staff Physician Cardiology 04/07/21 Magdaleno Vega MD [address] [place] [address] Referring Endocrinology 06/13/21 Veterinary Poultry Inspector Relationship Specialty Start Date End Date Fabiana Peña [address] [facility] [address] [place] [address] PCP - General Family Medicine 08/15/11 Chino Almanza MD [address] [place] [address] Assistant Produce Manager Cardiology 03/31/21 Arnold Duke [address] [place] [address] Physician Cardiology 04/06/21 Jose Lawrence MD [address] [place] [address] Primary Staff Physician Cardiology 04/07/21 Magdaleno Vega MD [address] [place] [address] Referring Endocrinology 06/13/21 Veterinary Poultry Inspector Relationship Specialty Start Date End Date Fabiana Peña [address] [place], [place] [address] PCP - General Family Medicine 08/15/11 Chino Almanza MD [address] [facility] [address] [place], [place] [id number] Assistant Produce Manager Cardiology 03/31/21 Arnold Duke [address] [facility] [address] [place] [address] Physician Cardiology 04/06/21 Jose Lawrence MD [address] [place] [address] Primary Staff Physician Cardiology 04/07/21 Magdaleno Vega MD [address] [place] [address] Referring Endocrinology 06/13/21 FOR RECORDS PERTAINING TO PATIENTS WHO ARE OR HAVE BEEN ENROLLED IN A CHEMICAL DEPENDENCY/SUBSTANCEABUSE PROGRAM, SOME INFORMATION MAY BE OMITTED. This clinical summary was aggregated from multiple sources. Caution should be exercised in using it in the provision of clinical care. This summary normalizes information from multiple sources, and as a consequence, information in this document may materially change the coding, format and clinical context of patient data. In addition, data may be omitted in some cases. CLINICAL DECISIONS SHOULD BE BASED ON THE PRIMARY CLINICAL RECORDS. [employer] [facility]. provides no warranty or guarantee of the accuracy or completeness of information in this document.
[2023-03-28 16:15] LABS: AST(SGOT) 19 U/L (15-37); Alanine Aminotransfer ALT/SGPT 20 U/L (16-61); Albumin, Serum 3.7 g/dL (3.2-5.0); Alkaline Phosphatase 81 U/L (45-117); Anion Gap 6 (5-15); BUN 18 mg/dL (7-18); BUN/Creat Ratio 14.9 RATIO (10-20); Calcium,Total 8.2 mg/dL (8.5-10.1); Chloride 104 mmol/L (98-107); Creatinine, Serum 1.21 mg/dL (0.70-1.30); EST Glomerular Filtration Rate 65 mL/min (>60); Est Glom Filt Rate - Afr Amer 78 mL/min (>60); Globulin 3.8 g/dL (2.2-4.2); Glucose 171 mg/dL (74-106); Potassium 3.3 mmol/L (3.5-5.1); Protein, Total 7.5 g/dL (6.4-8.2); Sodium Level 138 mmol/L (136-145); T4 Free Direct 1.47 ng/dL (0.76-1.46); Thyroid Stim Hormone (TSH) 0.52 uIU/mL (0.358-3.74)
[2023-03-30 17:07] LABS: Anti-Thyroglobulin AB < 1.0 IU/mL (0.0-0.9); Thyroglobulin, Serum Qt. 0.9 ng/mL (1.4-29.2)
== END | disposition home or self-care (01) ==
PROVIDERS: PCP Family Medicine; Referring Provider Internal Medicine Endocrinology, Diabetes & Metabolism; Visit Provider Internal Medicine Endocrinology, Diabetes & Metabolism
DX: E11.9 Type 2 diabetes mellitus without complications (principal); C73 Malignant neoplasm of thyroid gland; E89.0 Postprocedural hypothyroidism
CPT/HCPCS: 36415; 80053; 84432; 84439; 84443; 86800

== ENCOUNTER → 2023-05-02 | Outpatient (CLI) | payer OTHER, SELFPAY ==
[2023-05-02 15:14] LABS: CRP < 2.90 mg/L (0.0-3.0)
[2023-05-02 15:28] LABS: Erythrocyte Sedimentation Rate 12 mm/hr (0-20)
[2023-05-02 16:19] LABS: Anion Gap 4 (5-15); BUN 22 mg/dL (7-18); BUN/Creat Ratio 20.2 RATIO (10-20); Calcium,Total 9.1 mg/dL (8.5-10.1); Chloride 107 mmol/L (98-107); Creatinine, Serum 1.09 mg/dL (0.70-1.30); EST Glomerular Filtration Rate 73 mL/min (>60); Est Glom Filt Rate - Afr Amer 88 mL/min (>60); Glucose 59 mg/dL (74-106); Potassium 3.5 mmol/L (3.5-5.1); Sodium Level 139 mmol/L (136-145)
--- OUTSIDE RECORDS SUMMARY | 2023-05-02 17:48 | XMS RPT_ITS | CCD ---
Author Name Unknown Address [facility] [place] [address] Organization [facility] Care Team Providers Care Cloud Physicist Name Role Phone Fabiana Peña Primary Care Provider Luz Elena Blount Unavailable Cami BENITEZ, Arturoadejailyn Unavailable Arnold Duke Unavailable Jose Reyes MD Unavailable Magdaleno Vega MD Unavailable PROVIDER, UNKNOWN Admitting Unavailable FRIEND, BABAK Referring Unavailable PROVIDER, UNKNOWN Attending Unavailable FRIEND, BABAK Referring Unavailable PROVIDER, UNKNOWN Attending Unavailable PROVIDER, UNKNOWN Admitting Unavailable Fabiana Peña Primary Care Provider [phone] Cami BENITEZ, [place] Unavailable Arnold Duke Unavailable Jose Reyes MD Unavailable [phone] Magdaleno Vega MD Unavailable FABIANA PEÑA Primary Care Unavailable SHYANN JIMENEZ Referring Unavailable FABIANA PEÑA Primary Care Unavailable RICHIE KONG Referring Unavailable FABIANA PEÑA Primary Care Unavailable Allergies Allergy Classification Reported Allergen(s) Allergy Type Date of Onset Reaction(s) Facility (11 sources) Amoxicillin; Translations: [AMOXICILLIN] Drug Allergy 11-03-2018 Other: See Comments [facility] Medications Current Medications Medication Drug Class(es) Dates [...] atrial fibrillation; Translations: [Paroxysmal atrial fibrillation] Onset: 06-28-2022 Chronic Congestive heart failure; nonhypertensive (10 sources) Chronic combined systolic and diastolic heart failure; Translations: [Chronic combined systolic (congestive) and diastolic (congestive) heart failure] Onset: 12-01-2018 12-04-2018 Chronic Diabetes mellitus without complication (11 sources) [...] Translations: [Nausea] Onset: 12-04-2018 12-04-2018 Episodic Other circulatory disease (10 sources) Orthostatic [...] 15:15-0400 Diastolic blood pressure 69 mm[Hg] Transesophageal [facility] 06-28-2022 15:15-0400 Heart rate 85 /min Transesophageal [facility] 06-28-2022 15:15-0400 SaO2% (BldA) [Mass fraction] 94 % Transesophageal Main [facility] 06-28-2022 15:15-0400 Systolic blood pressure 109 mm[Hg] Transesophageal [facility] 06-28-2022 14:55-0400 Respiratory rate 27 /min Transesophageal Main [facility] 06-28-2022 14:17-0400 Body temperature 96.8 [degF] Transesophageal Main [facility] 07-25-2021 12:11-0400 Body height 191.8 cm Shyann Tony INSIDE SALES ENGINEER.BULK PICKER Work Phone: [facility] 07-25-2021 12:11-0400 Body weight 113.85 kg Shyann Tony INSIDE SALES ENGINEER.BULK PICKER Work Phone: [facility] 07-25-2021 12:11-0400 Diastolic blood pressure 60 mm[Hg] Shyann Tony INSIDE SALES ENGINEER.BULK PICKER Work Phone: [facility] 07-25-2021 12:11-0400 Heart rate 72 /min Shyann Tony INSIDE SALES ENGINEER.BULK PICKER Work Phone: [facility] 07-25-2021 12:11-0400 Systolic blood pressure 100 mm[Hg] Shyann Tony INSIDE SALES ENGINEER.BULK PICKER Work Phone: [facility] 06-10-2021 13:17-0400 Diastolic blood pressure 65 mm[Hg] Juan A Hinds MD Work Phone: [facility] 06-10-2021 13:17-0400 Systolic blood pressure 98 mm[Hg] Juan A Hinds MD Work Phone: [facility] 06-10-2021 13:14-0400 Body height 191.8 cm Juan A Hinds MD Work Phone: [facility] 06-10-2021 13:14-0400 Body weight 114.13 kg Juan Apat Hinds MD Work Phone: [facility] 06-10-2021 13:14-0400 Heart rate 81 /min Juan A Hinds MD Work Phone: [facility] 06-10-2021 13:14-0400 SaO2% (BldA) [Mass fraction] 96 % Juan A Hinds MD Work Phone: [facility] Encounters Encounter Date Encounter Type Care Provider Facility Start: 04-03-2023 End: 04-03-2023 ambulatory FABIANA PEÑA Facility:[facility] Start: 06-28-2022 End: 06-28-2022 ambulatory SHYANN JIMENEZ Facility:[facility] Start: 06-28-2022 End: 06-28-2022 Patient encounter procedure Transesophageal Echo [facility] Main [facility] Procedures Date Procedure Procedure Detail Performing Clinician Start: 06-28-2022 Echo transthorc r-t 2d w/wo m-mode rec f-up/lmtd Shyann Jimenez INSIDE SALES ENGINEER.BULK PICKER Work Phone: Start: 10-06-2011 Aura beauchamp MD Work Phone: Plan of Treatment Date Care Activity Detail Author Start: 06-29-2023 BP CONTROLLED (<130/80) BP CON TROLLED (<130/80) [facility] Start: 11-17-2022 Influenza vaccination INFLUENZ A (Season Ended) [facility] Start: 07-25-2022 BP CONTROLLED (<130/80) BP CON TROLLED (<130/80) [facility] Start: 06-13-2022 End: 07-25-2022 ECHO TRANSESOPHAGEAL [facility] Work Phone: Immunizations Immunization Date Immunization Notes Care Provider María tomas 06-13-2021 pneumococcal polysac charide vaccine, 23 valent [facility] 02-07-2021 COVID-19 vaccine, fu ll dose (MODERNA) [facility] 07-02-2020 COVID-19 vaccine, fu ll dose (MODERNA) [facility] 06-02-2020 COVID-19 vaccine, fu ll dose (MODERNA) [facility] 11-15-2019 Seasonal, quadrivale nt, recombinant, injectable influenza vaccine, preservative free [facility] 12-16-2017 influenza, seasonal, injectable, preservative free [facility] 01-10-2016 influenza, seasonal, injectable, preservative free [facility] Payers Date Payer Category Payer Unknown MMO MMO [employer] [id number] 2018-Present [phone] [address] [place] [address] PPO [id number] 2018 Unknown [id number] 2018 Unknown [id number] 1960 Unknown [id number] 1960 Unknown [id number] Social History Date Type Detail Facility Start: 08-23-2011 End: 06-27-2017 Tobacco smoking status RIIS Smokes tobacco daily [facility] Work Phone: History of tobacco use Cigarette Smoker [facility] Work Phone: Start: 08-23-2011 End: 07-25-2021 Cigarettes smoked current (pack per day) - Reported 0.5 [facility] Start: 08-23-2011 End: 06-27-2017 Tobacco use and exposure Smokeless tobacco non-user [facility] Work Phone: Start: 06-10-2021 End: 07-25-2021 Alcohol intake Current drinker of alcohol (finding) [facility] Start: 04-11-2016 History SDOH Alcohol Comment rarely [facility] Start: 1960 Sex Assigned At Male [facility] Start: 05-31-2021 End: 07-25-2021 Exposure to SARS-CoV-2 (event) Not sure [facility] Start: 06-06-2021 End: 06-21-2021 Exposure to SARS-CoV-2 (event) Unable to assess [facility] Work Phone: Clinical Notes 06-10-2021 to 04-03-2023 Nuupr Villar RN - 06/28/2022 2:18 PM Yany Jimenez APRN.PAOLA - 07/25/2021 11:00 AM EDTTelephone Encounter - Ny Wheeler RN - 07/22/2021 1:56 PM EDTDestini Yadav RN - 06/10/2021 3:23 PM EDT Note Date & Type Note Facility 04-03-2023 Note HNO ID: [id number] Author: EFREN FALCON APRN.BULK PICKER Service: ? Author Type: Nurse Practitioner Type: Progress Notes Filed: 04/03/2023 07:43 Note Text: Subjective HPI Nontoxic-appearing male presents to urgent care with chief complaint of upper respiratory tract like infection. Duration of symptoms 3 days. Associated symptoms sore throat, nasal congestion, nasal discharge and nonproductive cough. Patient denies the use of any [id number] medications or home remedies for symptom management. Pain is 3-4 out of 10. Patient states recent sick contacts with similar signs and symptoms. Patient denies any productive cough, fever, chest pain, shortness of breath, pleuritic pain, rash, abdominal pain, nausea, vomiting or change in bowel or bladder habit. Past medical history prescription medications allergies reviewed. .Patient presents with: Nasal Congestion: drainage, headache x 3 days PAST MEDICAL HISTORY Diagnosis Date Abnormal stress [...] HISTORY Procedure Laterality Date COLONOSCOPY W/BIOPSY SINGLE/MULTIPLE 10/06/2011 repeat in 10 years PAST SURGICAL HISTORY OF recon right ear canal as a child PAST SURGICAL HISTORY OF left arm laceration repair--extensive PAST SURGICAL HISTORY OF lump removal left foot THYROIDECTOMY TOTAL/COMPLETE 06/07/2016 Total Thyroidectomy VASECTOMY UNI/BI SPX W/POSTOP SEMEN EXAMS WATCHMAN LEFT ATRIAL APPENDAGE CLOSURE 06/13/2021 ALLERGIES Amoxicillin MEDICATIONS levothyroxine 175 mcg cap Take 1 capsule by mouth daily before breakfast. clopidogrel (PLAVIX) 75 mg tablet Take 1 tablet by mouth once daily. Take for four months then discontinue atorvastatin (LIPITOR) 40 mg tablet Take 40 mg by mouth once daily. carvedilol (COREG) 25 mg tablet Take 25 mg by mouth twice daily with meals. metFORMIN (GLUCOPHAGE) 1,000 mg tablet Take 1,000 mg by mouth twice daily with meals. furosemide (LASIX) 40 mg tablet Take 40 [...] Take 81 mg by mouth once daily. pregabalin (LYRICA) 150 mg capsule Take 150 mg by mouth twice daily. FAMILY HISTORY Problem Relation Age of Onset Cancer Mother Stroke Mother Hypertension Mother Cancer Maternal Grandfather Social History Tobacco Use Smoking status: Every Day Packs/day: .5 Types: Cigarettes Smokeless tobacco: Never Vaping Use Vaping Use: Never used Substance Use Topics Alcohol use: Yes Alcohol/week: 1.0 standard drink of alcohol Types: 1 Cans of Beer (12oz) per week Comment: rarely Drug use: Not Currently BP 110/64 Pulse 80 Temp 36.2 ?C (97.1 ?F) Resp 16 Wt 113.9 kg (251 lb) SpO2 96% BMI 30.96 kg/m? Review of Systems Constitutional: Negative for chills, fever and malaise/fatigue. HENT: Positive for congestion and sore throat. Negative for ear discharge, ear pain and sinus pain. Eyes: Negative for blurred vision, pain, discharge and redness. Respiratory: Positive for cough. Negative for hemoptysis, sputum production, shortness of breath, wheezing and stridor. Cardiovascular: Negative for chest pain. Gastrointestinal: Negative for abdominal pain, diarrhea, nausea and vomiting. Musculoskeletal: Negative for myalgias. Skin: Negative for itching and rash. Neurological: Positive for headaches. Negative for dizziness. Objective Physical Exam Constitutional: General: He is not in acute distress. Appearance: He is not diaphoretic. HENT: Head: Normocephalic. Jaw: No trismus, tenderness, swelling or pain on movement. Nose: Congestion present. Mouth/Throat: Mouth: Mucous membranes are moist. Pharynx: Oropharynx is clear. Uvula midline. Posterior oropharyngeal erythema present. No pharyngeal swelling, oropharyngeal exudate or uvula swelling. Eyes: Conjunctiva/sclera: Conjunctivae normal. Pupils: Pupils are equal, round, and reactive to light. Cardiovascular: Rate and Rhythm: (more content not included)... [facility] 06-28-2022 Nurse Note AMBULATORY PATIENT EDUCATION TOPIC: [...] In Department: CARDIOLOGY documented in this encounter [facility] 07-25-2021 History of Presen t illness Narrative Images from the original note were not included. [facility] Department of Cardiovascular Medicine SECTION OF CARDIAC PACING and ELECTROPHYSIOLOGY OUTPATIENT VISIT DATE July 25, 2021 OUTPATIENT VISIT TYPE ESTABLISHED PRIMARY CARE PHYSICIAN: Fabiana Peña MD ([facility]) [place] [address] REFERRING PHYSICIAN: Dr. Chino Almanza CHIEF COMPLAINT: HISTORY OF PRESENT ILLNESS: Mr. Vo is a 60 year old male who presents today for follow-up visit after watchman implant. He is an established patient of Dr. Reyes and was seen in March 2021 on [...] developed intestinal bleeding and was admitted to [facility] in 11/2020 and was transfused. Unfortunately, no source of bleed was identified but severe diverticulosis was identified. He was taken off Eliquis and placed on ASA 81mg at that time. He did wear a Zio monitor after his visit with Dr. Reyes to identify his burden of atrial fibrillation [...] 07/25/2021 reviewed: Sinus Rhythm V-rate 72 bpm WV 212 ms QRS 90 ms QT/QTc 394/431 [...] daily - Continue to follow with local sustainability manager - Contact the office with recurrent dizziness or palpitations - Return in May 2022 for repeat DEMARIO CONTACT INFORMATION: Shyann Jimenez APRN.PAOLA documented in this encounter [facility] 07-22-2021 Miscellaneous Notes ECHO LAB TELEPHONE INSTRUCTIONS: [...] Department of CARDIOLOGY. documented in this encounter [facility] 06-10-2021 History of Presen t illness Narrative [...] discussed with Physician, nurse practitioner or Physician office support assistant upon discharge Instructions for transmitting EKG to Monitoring Center 3 month follow up instructions Contact number for information and questions Patient Evaluation: Verbalizes understanding Follow Up Plan: Follow up as directed by MD. Supplemental Material Given: Written Material Patient education regarding radiation exposure. Instructed By Destnii Yadav RN, RN. In Department of CARDIOLOGY. documented in this encounter [facility] 06-10-2021 History of Presen t illness Narrative Images from the original note were not included. [facility] Department of Cardiovascular Medicine SECTION OF CLINICAL CARDIOLOGY OUTPATIENT VISIT DATE June 10, 2021 OUTPATIENT VISIT TYPE NEW PRIMARY CARE PHYSICIAN: Fabiana Peña MD ([facility]) [address] [place] [address] REFERRING PHYSICIAN: Richie Kong [address] [facility] [address] CHIEF COMPLAINT: Watchman device HISTORY OF PRESENT [...] is a 60 year old male from [place], [place] here today for cardiovascular evaluation related to pre op clearance. He has a significant medical history of a-fib, heart failure, DM, HTN, hypothyroid, thyroid cancer, orthostatic hypotension. He reports the following symptoms: none. He currently works as a [employer]. He follows a regular diet. He [...] Results DEMARIO 12/03/18 Echocardiography Report: Transesophageal Echo [facility] Date of service: 12/03/2018 12:18:06 PM [facility] Ordering physician: VASYL FARFAN and VASYL FARFAN Indication: Stroke Technologist: Cassandra Moise [facility] Interpreting physician: Juma Christianson MD PATIENT: Name: [...] Saline 10.00 ml 20mL Viscous Lidocaine, Hurricaine Sanford x1 Exam performed under moderate sedation with [...] has bled score Problem list atrial fibrillation, [id number] score 5, did not tolerate anticoagulation with [...] will continue to follow with his local sustainability manager I personally interviewed, confirmed and edited the above information as obtained by others. CONTACT INFORMATION: Juan A Hinds MD MSc FACC Section of Clinical Cardiology, [facility]. [address] [place] [address] 06/10/2021 11:33 PM documented in this encounter [facility] Diagnosis IRB [id number] WATCHAMAN FLX [employer] Evidence (WATCH RWE) Examination of participant in clinical trial [facility] Diagnosis Presence of Watchman left atrial appendage closure device- Primary Paroxysmal atrial fibrillation (HCC) Atrial fibrillation [facility] Diagnosis Paroxysmal atrial fibrillation (HCC)- Primary Atrial fibrillation [facility] Diagnosis Presence of Watchman left atrial appendage closure device- Primary Paroxysmal atrial fibrillation (HCC) Atrial fibrillation documented in this encounter [facility] note* Diagnosis Presence of Watchman left atrial appendage closure device Paroxysmal atrial fibrillation (HCC) Atrial fibrillation documented in this encounter [facility] for referral (narrative)* Outpatient Procedure (Routine) - Pending Review Specialty Diagnoses / Procedures Referred By Contac t Referred To Contact [facility] Diagnoses Presence of Watchman left atrial appendage closure device Paroxysmal atrial fibrillation (HCC) Procedures ECHO TRANSESOPHAGEAL ECHO TRANSESOPHAG R-T 2D W/PRB IMG SHAHAB I&R Shyann Jimenez, INSIDE SALES ENGINEER.BULK PICKER [address] [place] [address] [place] [address] Referral ID Status Reason Start Date Expiration Date Visits Requested Visits Authorized [id number] Pending Review Auto-Generat ed Referral 06/13/2022 06/20/2022 1 1 * Outpatient Procedure (Routine) - Pending Review Specialty Diagnoses / Procedures Referred By Contac t Referred To Contact [facility] Diagnoses Presence of Watchman left atrial appendage closure device Paroxysmal atrial fibrillation (HCC) Procedures ECG COMPLETE ECG ROUTINE ECG W/LEAST 12 LDS W/I&R Shyann Jimenez APRN.CNP [id number] [place] [phone] Referral ID Status Reason Start Date Expiration Date Visits Requested Visits Authorized [id number] Pending Review Auto-Generat ed Referral 06/20/2021 06/20/2022 1 1 * Outpatient Procedure (Routine) - Pending Review Specialty Diagnoses / Procedures Referred By Contac t Referred To Contact [facility] Diagnoses Presence of Watchman left atrial appendage closure device Paroxysmal atrial fibrillation (HCC) Procedures ECG COMPLETE ECG ROUTINE ECG W/LEAST 12 LDS W/I&R Shyann Jimenez APRN.BULK PICKER [id number] [place] [phone] Referral ID Status Reason Start Date Expiration Date Visits Requested Visits Authorized [id number] Pending Review Auto-Generat ed Referral 12/20/2021 06/20/2022 1 1 * Outpatient Procedure (Routine) - Pending Review Specialty Diagnoses / Procedures Referred By Contac t Referred To Contact [facility] Diagnoses Presence of Watchman left atrial appendage closure device Paroxysmal atrial fibrillation (HCC) Procedures ECG COMPLETE ECG ROUTINE ECG W/LEAST 12 LDS W/I&R Shyann Jimenez APRN.CNP [address] [place] [address] [facility] [address] [place] [address] Referral ID Status Reason Start Date Expiration Date Visits Requested Visits Authorized [id number] Pending Review Auto-Generat ed Referral 07/25/2021 06/20/2022 1 1 * Outpatient Procedure (Routine) - Pending Review Specialty Diagnoses / Procedures Referred By Contac t Referred To Contact [facility] Diagnoses Presence of Watchman left atrial appendage closure device Paroxysmal atrial fibrillation (HCC) Procedures ECHO TRANSESOPHAGEAL ECHO TRANSESOPHAG R-T 2D W/PRB IMG ACQUISJ I&R Shyann Jimenez APRN.CNP [address] [place] [address] [facility] [address] [address] Referral ID Status Reason Start Date Expiration Date Visits Requested Visits Authorized [id number] Pending Review Auto-Generat ed Referral 07/25/2021 06/20/2022 1 1 [facility] for referral (narrative)* Outpatient Procedure (Routine) - Pending Review Specialty Diagnoses / Procedures Referred By Contac t Referred To Contact [facility] Diagnoses Presence of Watchman left atrial appendage closure device Paroxysmal atrial fibrillation (HCC) Procedures ECHO TRANSESOPHAGEAL ECHO TRANSESOPHAG R-T 2D W/PRB IMG ACQUISJ I&R Shyann Jimenez APRN.BULK PICKER [address] [place] [address] [facility] [address] [place] [address] Referral ID Status Reason Start Date Expiration Date Visits Requested Visits Authorized [id number] Pending Review Auto-Generat ed Referral 06/13/2022 07/25/2022 1 1 [facility] Summary Purpose Family History No Family History Records FoundNo Family History Records FoundNo Family History Records FoundNo Family History Records Found Advance Directives No Advanced Directives Records FoundDocuments on File Type Date Recorded Patient Machine Operator Assistant Expl anation Advance Directive(s) 05/23/2021 10:04 AM Advance Directive(s) 12/01/2018 4:01 PM Latest Code Status on File Code Status Date Activated Date Inactivated Comments Full Code 12/01/2018 6:36 PM 12/04/2018 8:35 PM Full Code Order Discussed With: Patient Documents on File Type Date Recorded Patient Machine Operator Assistant Expl anation Advance Directive(s) 06/13/2021 6:00 AM Advance Directive(s) 05/23/2021 10:04 AM Advance Directive(s) 12/01/2018 4:01 PM Documents on File Type Date Recorded Patient Machine Operator Assistant Expl anation Advance Directive(s) 06/13/2021 6:00 AM Advance Directive(s) 05/23/2021 10:04 AM Advance Directive(s) 12/01/2018 4:01 PM Latest Code Status on File Code Status Date Activated Date Inactivated Comments Full Code 12/01/2018 6:36 PM 12/04/2018 8:35 PM Hospital Course Note HNO ID: [id number] Author: Cyn Farfan Service: Hospital Medicine Author [...] DATE CREATED AUTHOR AUTHOR'S ORGANIZ ATION 12/22/[address] [facility] [place] [place] [facility] DATE CREATED AUTHOR AUTHOR'S ORGANIZ ATION 12/17/2021 [facility] [facility] DATE CREATED AUTHOR AUTHOR'S ORGANIZ ATION 04/05/2023 [facility] Source Comments (unrecognize d section and content) In the event this informatio n is protected by the Federal Confidentiality of Alcohol and Drug Abuse Patient Records regulations: The Federal rules restrict any use of the information to criminally investigate or prosecute any alcohol or drug abuse patient.[facility] the event this information is protected by the Federal Confidentiality of Alcohol and Drug Abuse Patient Records regulations: The Federal rules restrict any use of the information to criminally investigate or prosecute any alcohol or drug abuse patient.[facility] the event this information is protected by the Federal Confidentiality of Alcohol and Drug Abuse Patient Records regulations: The Federal rules restrict any use of the information to criminally investigate or prosecute any alcohol or drug abuse patient.[facility] the event this information is protected by the Federal Confidentiality of Alcohol and Drug Abuse Patient Records regulations: The Federal rules restrict any use of the information to criminally investigate or prosecute any alcohol or drug abuse patient.[facility] the event this information is protected by the Federal Confidentiality of Alcohol and Drug Abuse Patient Records regulations: The Federal rules restrict any use of the information to criminally investigate or prosecute any alcohol or drug abuse patient.[facility] the event this information is protected by the Federal Confidentiality of Alcohol and Drug Abuse Patient Records regulations: The Federal rules restrict any use of the information to criminally investigate or prosecute any alcohol or drug abuse patient.[facility] Institute[facility] the event this information is protected by the Federal Confidentiality of Alcohol and Drug Abuse Patient Records regulations: The Federal rules restrict any use of the information to criminally investigate or prosecute any alcohol or drug abuse patient.[facility] the event this information is protected by the Federal Confidentiality of Alcohol and Drug Abuse Patient Records regulations: The Federal rules restrict any use of the information to criminally investigate or prosecute any alcohol or drug abuse patient.[facility] the event this information is protected by the Federal Confidentiality of Alcohol and Drug Abuse Patient Records regulations: The Federal rules restrict any use of the information to criminally investigate or prosecute any alcohol or drug abuse patient.[facility] Institute[facility] the event this information is protected by the Federal Confidentiality of Alcohol and Drug Abuse Patient Records regulations: The Federal rules restrict any use of the information to criminally investigate or prosecute any alcohol or drug abuse patient.[facility] Reason for Visit (unrecogniz ed section and [...] M-MODE REC F-UP/LMTD TRANSESOPHAGEAL ECHO Main, [facility] Card Function Lab J1-[address] [place], [place] [id number] Referral ID Status Reason Start Date Expiration Date Visits Re quested Visits Authorized [id number] Closed 06/12/2022 08/27/2022 1 1 Care Teams (unrecognized sec tion and content) Cloud Physicist Relationship Specialty Start Date End Date Fabiana Peña [address] [facility] [address] [place], [place] [id number] PCP - General Family Practice 08/15/11 Luz Elena Blount [address] [facility] [address] [place] [address] Referring Endocrinology 03/13/19 Chino Almanza MD [address] [place], [place] [id number] [employer] Worker Cardiology 03/31/21 Arnold Duke [address] [place] [address] Physician Cardiology 04/06/21 Jose Reyes MD [address] [place] [address] Primary Staff Physician Cardiology 04/07/21 Cloud Physicist Relationship Specialty Start Date End Date Fabiana Peña [address] [facility] [address] [place] [address] PCP - General Family Practice 08/15/11 Chino Almanza MD [address] [place] [address] [employer] Worker Cardiology 03/31/21 Arnold Duke [address] [place] [address] Physician Cardiology 04/06/21 Jose Reyes MD [address] [place], [place] [id number] Primary Staff Physician Cardiology 04/07/21 Magdaleno Vega MD [address] [facility] [place] [address] Referring Endocrinology 06/13/21 Cloud Physicist Relationship Specialty Start Date End Date Fabiana Peña [address] [facility] [address] [place] [address] PCP - General Family Practice 08/15/11 Chino Almanza MD [address] [place] [address] [employer] Worker Cardiology 03/31/21 Arnold Duke [address] [place] [address] Physician Cardiology 04/06/21 Jose Reyes MD [address] [place] [address] Primary Staff Physician Cardiology 04/07/21 Magdaleno Vega MD [address] [place] [address] Referring Endocrinology 06/13/21 Cloud Physicist Relationship Specialty Start Date End Date Fabiana Peña [address] [facility] [address] [place] [address] PCP - General Family Practice 08/15/11 Chino Almanza MD [address] [place] [address] [employer] Worker Cardiology 03/31/21 Arnold Duke [address] [place] [address] Physician Cardiology 04/06/21 Jose Reyes MD [address] [place] [address] Primary Staff Physician Cardiology 04/07/21 Magdaleno Vega MD [address] [place] [address] Referring Endocrinology 06/13/21 Cloud Physicist Relationship Specialty Start Date End Date Fabiana Peña [address] [facility] [address] [place] [address] PCP - General Family Practice 08/15/11 Chino Almanza MD [address] [place] [address] [employer] Worker Cardiology 03/31/21 Arnold Duke [address] [place] [address] Physician Cardiology 04/06/21 Jose Reyes MD [address] [place] [address] Primary Staff Physician Cardiology 04/07/21 Magdaleno Vega MD [address] [facility] [place] [address] Referring Endocrinology 06/13/21 Cloud Physicist Relationship Specialty Start Date End Date Fabiana Peña [address] [facility] [address] [place] [address] PCP - General Family Practice 08/15/11 Chino Almanza MD [address] [place] [address] [employer] Worker Cardiology 03/31/21 Arnold Duke [address] [place] [address] Physician Cardiology 04/06/21 Jose Reyes MD [address] [facility] [address] Primary Staff Physician Cardiology 04/07/21 Magdaleno Vega MD [address] [place] [address] Referring Endocrinology 06/13/21 Cloud Physicist Relationship Specialty Start Date End Date Fabiana Peña [address] [facility] [address] [place] [address] PCP - General Family Medicine 08/15/11 Chino Almanza MD [address] [place] [address] [employer] Worker Cardiology 03/31/21 Arnold Duke [address] [place] [address] Physician Cardiology 04/06/21 Jose Reyes MD [address] [place] [address] Primary Staff Physician Cardiology 04/07/21 Magdaleno Vega MD [address] [place] [address] Referring Endocrinology 06/13/21 Cloud Physicist Relationship Specialty Start Date End Date Fabiana Peña [address] [place], [place] [address] PCP - General Family Medicine 08/15/11 Chino Almanza MD [address] [place], [place] [id number] [employer] Worker Cardiology 03/31/21 Arnold Duke [address] [place] [address] Physician Cardiology 04/06/21 Jose eRyes MD [address] [place] [address] Primary Staff Physician Cardiology 04/07/21 Magdaleno Vega MD [address] [place] [address] Referring Endocrinology 06/13/21 FOR RECORDS [...] BE BASED ON THE PRIMARY CLINICAL RECORDS. [facility]. provides no warranty or guarantee of the accuracy or completeness of information in this document.
[2023-05-04 08:11] LABS: AFP, Tumor Marker 3.1 ng/mL (0.0-8.4); Carbohydrate AG 19-9 22 U/mL (0-35)
== END | disposition home or self-care (01) ==
LOC: LAB 14:03
PROVIDERS: Nurse Practitioner Gerontology; PCP Family Medicine; Referring Provider Internal Medicine Gastroenterology; Visit Provider Internal Medicine Gastroenterology
DX: K50.10 Crohn's disease of large intestine without complications (principal); E87.6 Hypokalemia
CPT/HCPCS: 36415; 80048; 82105; 85652; 86140; 86301

== ENCOUNTER 2023-06-30 10:26 | Emergency (ER) | payer OTHER, SELFPAY ==
[2023-06-30 10:26] VITALS: BP 102/73; PULSE 99; RESP 16; O2SAT 98
[2023-06-30 10:27] VITALS: BP 94/67; PULSE 103; RESP 18; TEMP 37.2; O2SAT 99; BMI 30.3
--- NOTE | 2023-06-30 10:50 | EKG12_ITS ---
Test Reason : Blood Pressure : / mmHG Vent. Rate : 093 BPM Atrial Rate : 093 BPM P-R Int : 192 ms QRS Dur : 086 ms QT Int : 358 ms P-R-T Axes : 081 -45 072 degrees QTc Int : 445 ms Normal sinus rhythm Left anterior fascicular block Cannot rule out Anterior infarct , age undetermined Abnormal ECG Confirmed by KB BENITEZ, LILY ([id number]), index editor LILLY OLIVERA ([id number]) on 07/02/2023 11:08:20 AM Referred By: Confirmed By:LILY QUILES MD
[2023-06-30] MEDS: 0.9% Normal Saline (1000mL) 1,000 ML 1000 ML IV (11:05)
[2023-06-30] MEDS: Ondansetron 4 MG/2 ML Vial IV (11:05)
[2023-06-30] MEDS: Ketorolac 15 MG/ML Vial IV (11:05)
[2023-06-30 11:20] LABS: Absolute Lymphocyte Count 1.36 X10^3/uL (0.83-4.51); Absolute Neutrophil Count 6.7 X10^3/uL (2.0-7.7); Basophil# 0.04 X10^3/uL; Basophil% 0.4 % (0-1); Eosinophil# 0.06 X10^3/uL; Eosinophils% 0.6 % (0-5); Hematocrit 45.6 % (40-54); Hemoglobin 14.6 g/dL (13.0-16.5); Lymphocyte # 1.36 X10^3/ul (0.83-4.51); Lymphocyte % 14.6 % (19-41); Mean Corpuscular Hgb 29.6 pg (27.0-32.0); Mean Corpuscular Volume 92.5 fL (80-94); Mean Platelet Vol. 9.6 fl (6.2-12.0); Monocyte# 1.09 X10^3/uL; Monocyte% 11.7 % (0-10); NRBC Flagged by Analyzer 0 % (0-5); Neutrophil # 6.72 X10^3/uL (2.7-7.7); Neutrophil % 72.3 % (47-70); Platelet Count 166 K/mm3 (150-450); Red Blood Count 4.93 M/mm3 (4.6-6.2); White Blood Count 9.3 K/mm3 (4.4-11.0)
--- NOTE | 2023-06-30 11:20 | RAD_ITS ---
STUDY: X-RAY CHEST REASON FOR EXAM: Male, 62 years old. Atypical chest pain TECHNIQUE: 2 PA and 2 lateral views of the chest. COMPARISON: 09/04/2021 FINDINGS: Chronic interstitial changes in both lung denton without a superimposed acute pulmonary process. There is no demonstrated pleural abnormality. Normal size heart. Normal mediastinum and colton. Normal visualized pulmonary arteries. Normal visualized aortic arch and descending thoracic aorta. Normal visualized thoracic spine. Old healed rib fractures. There is no demonstrated abnormality of the visualized soft tissue structures of the upper abdomen. RAD/Chest PA and Lateral IMPRESSION: Chronic interstitial changes, no superimposed acute pulmonary process Electronically Signed: Srinivas Kirby MD at 11:45 EDT ,
[2023-06-30 11:36] LABS: Anion Gap 4 (5-15); BUN 22 mg/dL (7-18); BUN/Creat Ratio 18.8 RATIO (10-20); Calcium,Total 8.2 mg/dL (8.5-10.1); Chloride 106 mmol/L (98-107); Creatinine, Serum 1.17 mg/dL (0.70-1.30); EST Glomerular Filtration Rate 67 mL/min (>60); Est Glom Filt Rate - Afr Amer 81 mL/min (>60); Estimated Creatinine Clearance 87.72 ml/min; Glucose 242 mg/dL (74-106); Magnesium 1.8 mg/dL (1.6-2.6); Potassium 3.8 mmol/L (3.5-5.1); Sodium Level 136 mmol/L (136-145); Troponin-I HS (w/2H Reflex) 45 pg/mL (3.0-78.0)
[2023-06-30 12:26] VITALS: BP 113/71; PULSE 85; RESP 17; O2SAT 97
[2023-06-30 13:14] VITALS: BP 110/73; PULSE 73; RESP 16; TEMP 36.6; O2SAT 98
[2023-06-30 13:16] LABS: Reflex Troponin-HS? (from REC) Y
--- NOTE | 2023-06-30 13:35 | EX.ED.DYSGE1 ---
HPI History of Present Illness Chief Complaint: Abd Pain Narrative Narrative: Patient is a 62-year-old male who is presenting to the ER today with chief complaint of flulike symptoms for the past several days. Patient had nausea with no vomiting. Patient has been lightheaded, dizzy and the vertigo. He has no chest pain or shortness of breath. Patient is diabetic. Patient's grandchild is with patient at bedside along with . Patient grandchild has appointment this morning for flulike symptoms as well to urgent care, patient presented his symptoms of mild intermittent headache for the past couple days, lightheaded, nausea to the urgent care, and they recommended he come to the ER for evaluation. Patient states he has had intermittent headache for the past 2 or 3 days, this is not the worse headache of his life, not thunderclap, not sudden onset in nature. Patient does not want to be here, patient's wanted him evaluated to be safe. Patient has no bowel or bladder changes. No rash. Patient currently has no chest pain or shortness of breath. Patient's headache is mild, 2/10. No vision or hearing changes. No acute complaints. [facility] Medical History Abnormal stress test Acute blood loss anemia Acute diffuse otitis externa of right ear Anemia Atherosclerosis of coronary artery of [place] heart without angina pectoris Cancer Cardiology follow-up encounter Chronic combined systolic and diastolic heart failure Colitis, indeterminate Cubital tunnel syndrome on right CVA (cerebral vascular accident) Dietary restriction Dupuytren's contracture of right hand Essential hypertension History of echocardiogram History of GI bleed History of stress test History of ulceration Hypertension Hypothyroidism Liver lesion Loss of hearing Low iron Obesity Obesity PAF (paroxysmal atrial fibrillation) Polyneuropathy due to type 2 diabetes mellitus Postoperative primary hypothyroidism Pre-syncope Presence of stent in coronary artery (~12/13/18) Presence of Watchman left atrial appendage closure device (~06/13/21) Restless legs Shortness of breath on exertion Sinusitis, acute Smoker Stroke/cerebrovascular accident Thyroid cancer (03/25/19) Thyroid disease Wears dentures Wears glasses Home Medications aspirin 81 mg tablet,delayed release 81 mg PO DAILY@0800 heart 06/02/16 [History Last Taken 09/03/21 10:00] folic acid 400 mcg tablet 400 mcg PO QHS Check with primary doctor 03/31/19 [History Last Taken 12/19/21 22:00] cholecalciferol (vitamin D3) 25 mcg (1,000 unit) tablet 25 mcg PO DAILY 05/01/22 [History Last Taken Unknown] cyanocobalamin (vitamin B-12) 500 mcg tablet 500 mcg PO DAILY 05/01/22 [History Last Taken Unknown] pyridoxine (vitamin B6) 100 mg tablet 100 mg PO DAILY 05/01/22 [History Last Taken Unknown] atorvastatin 40 mg tablet See Rx Instructions .Route .COMPLEX #90 tabs 10/05/22 [Rx Last Taken Unknown] carvedilol 25 mg tablet See Rx Instructions .Route .COMPLEX #180 TABLETS 10/05/22 [Rx Last Taken Unknown] furosemide 40 mg tablet 40 mg PO DAILY #90 tabs 10/11/22 [Rx Last Taken Unknown] FreeStyle Ingris 3 Sensor (blood-glucose sensor) #2 ea 11/09/22 [Rx Last Taken Unknown] dapagliflozin propanediol 10 mg tablet (Ilanxiga) 10 mg PO DAILY diabetes #90 tabs 11/09/22 [Rx Last Taken Unknown] levothyroxine 175 mcg tablet 175 mcg PO DAILY thyroid #90 tabs 02/19/23 [Rx Last Taken Unknown] sulfasalazine 500 mg tablet,delayed release 0.5 g PO BID #60 tabs 02/19/23 [Rx Last Taken Unknown] potassium chloride 20 mEq tablet,extended release 20 meq PO DAILY #30 tabs 03/29/23 [Rx Last Taken Unknown] Humalog Mix 75-25 KwikPen U-100 insulin 100 unit/mL subcutaneous pen (insulin lispro protamin-lispro) 32 unit (0.32 mL) subcut BID SLIDING SCALE #30 mL 05/01/23 [Rx Last Taken Unknown] metformin 500 mg tablet,extended release 24 hr 1,000 mg (2 x 500 mg) PO BID diabetes #360 tabs 05/02/23 [Rx Last Taken Unknown] dicyclomine 10 mg capsule 20 mg (2 x 10 mg) PO TIDAC #8 CAPSULES 06/30/23 [Rx Last Taken Unknown] ondansetron 4 mg disintegrating tablet 4 mg PO Q8H PRN PRN Nausea #10 tabs 06/30/23 [Rx Last Taken Unknown] Allergy/AdvReac Type Severity Reaction Status Date / Time No Known Allergies Allergy Verified 06/30/23 10:26 Family History Mother Arrhythmia Father CAD (coronary artery disease) possible bypass Other Cancer Diabetes Heart disease Thyroid disorder Surgical History History of ear surgery History of esophagogastroduodenoscopy (EGD) History of thyroidectomy Presence of coronary angioplasty implant and graft (~12/13/18) Social History Smoking Status: Current some day smoker tobacco type: cigarettes how long ago did patient quit smokin year ago alcohol intake: current alcohol intake frequency: holidays/special occasions only substance use type: does not use caffeine: Yes Type: carbonated beverages ROS ROS ED ROS Narrative Unless otherwise stated in this report or unable to obtain because of the patient's clinical or mental status as evidenced by medical record, the patient's positive and negative responses for review of systems for constitutional, eyes, ENT, cardiovascular, respiratory, gastrointestinal, neurological, , musculoskeletal, and integument systems and related systems to the presenting problem are either stated in the history of present illness or were not pertinent or were negative for the symptoms and/or complaints related to the presenting medical problem. EXAM Physical Exam Narrative Exam Narrative: vital signs reviewed and patient is not hypoxic. General: The patient appears well and in no apparent distress. Patient is resting comfortably on cart. Not toxic, lethargic, or listless. Skin: Warm, dry, no pallor noted. There is no rash noted. Head: Normocephalic, atraumatic; No midline or paracervical tenderness to palpation, full range of motion of cervical spine with no difficulty.No tenderness to palpation to bilateral frontal maxillary sinus. Eye: Normal conjunctiva, no drainage, EOMI. PERRL. Ears, Nose, Mouth, and Throat: oral mucosa is moist. Nares patent. Mouth without vesicles. Poor dentition, no secondary signs of infection. Cardiovascular: Regular Rate and Rhythm, no murmurs, gallops, or rubs Respiratory: Patient is in no distress, no accessory muscle use, lungs are clear to auscultation, no wheezing, rales or rhonchi Back: non-tender, no CVA tenderness bilaterally to percussion. NO CTLS midline or paracervicl tenderness to palpation. GI: Soft, Diffuse mild abdominal tenderness to palpation,No peritoneal signs, no masses appreciated. No rebound, guarding, or rigidity noted. Musculoskeletal: The patient has full range of motion of all extremities and joints with no difficulty. Patient has no motor, no sensory deficits. Neurological: A&O x4, normal speech, no focal neurological deficits. Psychiatric: Cooperative Const Vital Signs: 06/30/23 10:27 06/30/23 10:26 06/30/23 10:50 Temperature 99 F Temperature Source Temporal Pulse Rate 103 H 99 Respiratory Rate 18 16 Blood Pressure 94/67 102/73 Blood Pressure Mean 76 82 Pulse Ox 99 98 Oxygen Delivery Method Room Air Room Air Room Air 06/30/23 12:26 06/30/23 13:14 Temperature 97.8 F Temperature Source Pulse Rate 85 73 Respiratory Rate 17 16 Blood Pressure 113/71 110/73 Blood Pressure Mean 85 85 Pulse Ox 97 98 Oxygen Delivery Method Room Air MDM MDM MDM Narrative Medical decision making narrative: Patient feels significant better after 1 L of IV fluids. Patient's lab testing shows no sign of current findings. Patient will follow up with his PCP. RSV, Chivo, influenza testing were negative. EKG x-ray shows no acute findings. No questions at discharge. Lab Data Attestation: I reviewed the patient's lab results. Labs: Laboratory Results - last 24 hr 06/30/23 11:10 WBC 9.3 RBC 4.93 Hgb 14.6 Hct 45.6 MCV 92.5 MCH 29.6 MCHC 32.0 RDW Std Deviation 48.0 H RDW Coeff of Marcellus 14.0 Plt Count 166 MPV 9.6 Immature Gran % (Auto) 0.400 Neut % (Auto) 72.3 H Lymph % (Auto) 14.6 L Davidson % (Auto) 11.7 H Eos % (Auto) 0.6 Baso % (Auto) 0.4 Absolute Neuts (auto) 6.7 Absolute Lymphs (auto) 1.36 Nucleated RBC % 0 Sodium 136 Potassium 3.8 Chloride 106 Carbon Dioxide 26.0 Anion Gap 4 L BUN 22 H Creatinine 1.17 Estim Creat Clear Calc 87.72 Est GFR (MDRD) Af Amer 81 Est GFR (MDRD) Non-Af 67 BUN/Creatinine Ratio 18.8 Glucose 242 H Calcium 8.2 L Magnesium 1.8 Troponin I High Sens 45 Radiography Chest X-Ray - ED: Read by ED Physician (Chest x-ray shows no acute cardiopulmonary disease, no infiltrate, no effusion.) Diagnostic Testing: Clinical Impression(s) from Imaging Studies Chest X-Ray 06/30/23 11:20 IMPRESSION: Chronic interstitial changes, no superimposed acute pulmonary process Electronically Signed: Srinivas Kirby MD at 11:45 EDT Reading Location ID and State: [facility] / [place] , Service support , EKG Initial EKG: Attestation: I personally reviewed and interpreted this EKG as follows: (EKG interpretation. Normal sinus rhythm at 93 beats a minute. Left axis deviation. No acute ST elevation, no acute ectopy. QTc of 445.) Discharge Plan Triage Chief Complaint: Abd Pain ED Provider: Caesar Dawson Dx/Rx/DC Orders Clinical Impression: Abdominal cramping, Headache, Flu-like symptoms, Nausea & vomiting, Nausea Instructions: Abdominal Pain, Self-Care for Headaches, ED Viral Syndrome (Adult), ED Vomiting (Adult) Prescriptions: New ondansetron [ondansetron] 4 mg tablet,disintegrating 4 mg PO Q8H PRN PRN (Reason: Nausea) Qty: 10 0RF dicyclomine 10 mg capsule 20 mg PO TIDAC Qty: 8 0RF No Action folic acid 400 mcg tablet 400 mcg PO QHS cyanocobalamin (vitamin B-12) 500 mcg tablet 500 mcg PO DAILY pyridoxine (vitamin B6) 100 mg tablet 100 mg PO DAILY cholecalciferol (vitamin D3) 25 mcg (1,000 unit) tablet 25 mcg PO DAILY insulin lispro protamin-lispro [Humalog Mix 75-25 KwikPen] 100 unit/mL (75-25) insulin pen 32 unit SUBCUT BID Qty: 30 4RF Farxiga 10 mg tablet 10 mg PO DAILY Qty: 90 1RF (DME) FreeStyle Ingris 3 Sensor Device See Rx Instructions .Route Qty: 2 8RF Rx Instructions: As directed aspirin 81 MG tablet 81 mg PO DAILY@0800 Hold Instructions: Resume on 09/12/21. Patient Comments: heart health atorvastatin 40 mg tablet See Rx Instructions .ROUTE .COMPLEX Qty: 90 3RF Dose Instruction: TAKE 1 TABLET AT BEDTIME Rx Instructions: TAKE 1 TABLET AT BEDTIME carvedilol 25 mg tablet See Rx Instructions .ROUTE .COMPLEX Qty: 180 3RF Dose Instruction: TAKE 1 TABLET TWICE A DAY, ADMINISTER WITH A MEAL/FOOD Rx Instructions: TAKE 1 TABLET TWICE A DAY, ADMINISTER WITH A MEAL/FOOD furosemide 40 mg tablet 40 mg PO DAILY Qty: 90 3RF levothyroxine 175 mcg tablet 175 mcg PO DAILY Qty: 90 1RF sulfasalazine 500 mg tablet,delayed release (DR/EC) 0.5 g PO BID Qty: 60 3RF potassium chloride 20 mEq tablet extended release 20 meq PO DAILY Qty: 30 11RF metformin 500 mg tablet extended release 24 hr 1,000 mg PO BID Qty: 360 1RF Primary Care Provider: Fabiana Peña Referrals: Fabiana Peña MD [Primary Care Provider] - Activity Restrictions/Additional Instructions: Increase fluids at home, Gatorade, Powerade, water. Use Zofran as needed for nausea. You may alternate Tylenol and anti-inflammatories every 4 hours to help with headache Use Bentyl to help with abdominal cramping Disposition Disposition: Home, Self Care Discharge Date/Time: 06/30/23 13:16
== END 2023-06-30 13:16 | disposition home or self-care (01) ==
PROVIDERS: Emergency Provider Emergency Medicine; PCP Family Medicine; Visit Provider Emergency Medicine
DX: R10.9 Unspecified abdominal pain (principal); I48.0 Paroxysmal atrial fibrillation; E11.42 Type 2 diabetes mellitus with diabetic polyneuropathy; R11.2 Nausea with vomiting, unspecified; R51.9 Headache, unspecified; F17.210 Nicotine dependence, cigarettes, uncomplicated; I25.10 Atherosclerotic heart disease of native coronary artery without angina pectoris; Z79.82 Long term (current) use of aspirin; Z79.899 Other long term (current) drug therapy; Z79.84 Long term (current) use of oral hypoglycemic drugs; Z86.73 Personal history of transient ischemic attack (TIA), and cerebral infarction without residual deficits; Z95.5 Presence of coronary angioplasty implant and graft
CPT/HCPCS: 71046; 80048; 83735; 84484; 85025; 87631; 93005; 96374; 96375; 99283; J7030; J2405

== ENCOUNTER → 2023-08-24 | Outpatient (CLI) | payer OTHER, SELFPAY ==
--- NOTE | 2023-08-24 07:23 | US_ITS ---
STUDY: ABDOMINAL ULTRASOUND - RIGHT UPPER QUADRANT; ELASTOGRAPHY REASON FOR VISIT: Male, 62 years old. Fatty infiltration of the liver. TECHNIQUE: Ultrasound evaluation of the right upper quadrant was performed with real-time and static mcnally-scale imaging. Point quantification shear wave elastography was performed ([employer]). TECHNICAL QUALITY: Adequate. COMPARISON: Comparison is made with prior CT scan of the abdomen and pelvis dated September 05, 2021 and MRI of the abdomen dated September 05, 2021. FINDINGS: Liver: The liver measures 15.1 cm. There is increased echogenicity consistent with fatty infiltration. The bile ducts are within normal limits. There is hepatic color flow. The direction of portal flow is hepatopetal. There is a 1 cm x 1.6 cm x 0.9 cm echogenic nodule in the mid portion of the right lobe of the liver. This most likely represents a small hemangioma. There is also evidence of a 3.8 cm x 2.8 cm x 2.9 cm echogenic nodule in the inferior aspect of the right lobe of the liver. This most likely represents a hemangioma. Median liver stiffness measured 11.9 kPa. Gallbladder: Normal distended gallbladder. The gallbladder wall measures 1.6 mm. There is a negative sonographic Olson''s sign. There is no pericholecystic fluid. There are no gallstones. Common Bile Duct (C.B.D.): The common bile duct measures 4.8 mm. Pancreas: Limited visualization of pancreas due to overlying bowel gas. The body and tail portions are obscured due to overlying bowel gas. Right Kidney: Normal size of the right kidney. The right kidney measures 11.8 cm x 5.6 x 5.9 cm. Normal renal cortex. The right cortex measures 1.7 cm. There is no demonstrated renal mass or cyst. There is no right hydronephrosis. US/ABD Limited w/ Elastography IMPRESSION: 1. Liver stiffness measures 11.9 kPa compatible with F2-F3 (Mild to moderate liver fibrosis) Metavir score. 2. Findings suggestive of hemangiomas in the right lobe of the liver as described. Electronically Signed: Evgeny Corral MD at 9:38 EDT ,
== END | disposition home or self-care (01) ==
LOC: US 07:20
PROVIDERS: PCP Family Medicine; Referring Provider Internal Medicine Gastroenterology; Visit Provider Internal Medicine Gastroenterology
DX: K76.0 Fatty (change of) liver, not elsewhere classified (principal)
CPT/HCPCS: 76705; 76981

== ENCOUNTER 2023-09-11 16:36 | Emergency (ER) | payer OTHER, SELFPAY ==
[2023-09-11 16:36] VITALS: BP 138/89; PULSE 66; RESP 18; TEMP 36; O2SAT 98; BMI 30.1
[2023-09-11 18:36] VITALS: BP 123/68; PULSE 68; RESP 16; O2SAT 97
--- NOTE | 2023-09-11 18:56 | EDS_ITS ---
HPI History of Present Illness Chief Complaint: Eye Problem Detail of Chief Complaint: Bilateral eye pain Informant: patient Onset/Context/Timing Location: Bilateral Eyes Onset: Today Context: - (Onset after using plasma cutter without shield) Timing: Continuous Current Severity: Mild Maximum Severity: Severe Worsened by: Bright lights Relieved by: Nothing Associated Symptoms Associated Symptoms - Eyes: Burning, Photophobia and Redness History of injury: UV exposure Narrative Narrative: Patient is a 62-year-old male history of Crohn's, Walkman device left atrium, atherosclerotic heart disease, essential hypertension, 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 Patient is not established with any flight inspector in town. He has no other complaints. Prior similar symptoms: No Recent Illness/Hospitalization: No [facility] Medical History Obesity Cubital tunnel syndrome on right Dupuytren's contracture of right hand Colitis, indeterminate Loss of hearing Wears glasses Wears dentures Cancer Low iron Restless legs Stroke/cerebrovascular accident Dietary restriction History of ulceration Shortness of breath on exertion History of echocardiogram History of stress test Hypertension Cardiology follow-up encounter Smoker Liver lesion Presence of Watchman left atrial appendage closure device (~06/13/21) History of GI bleed Anemia Obesity Polyneuropathy due to type 2 diabetes mellitus Postoperative primary hypothyroidism Acute blood loss anemia PAF (paroxysmal atrial fibrillation) Acute diffuse otitis externa of right ear Thyroid cancer (03/25/19) Atherosclerosis of coronary artery of [place] heart without angina pectoris Presence of stent in coronary artery (~12/13/18) Abnormal stress test Chronic combined systolic and diastolic heart failure CVA (cerebral vascular accident) Essential hypertension Pre-syncope Hypothyroidism Sinusitis, acute Thyroid disease Home Medications ?Medication ?Instructions ?Recorded ?Last Taken ?Type aspirin 81 mg tablet,delayed 81 mg PO DAILY@0800 heart 06/02/16 09/03/21 10:00 History release folic acid 400 mcg tablet 400 mcg PO QHS Check with primary 03/31/19 12/19/21 22:00 History doctor cholecalciferol (vitamin D3) 25 25 mcg PO DAILY 05/01/22 Unknown History mcg (1,000 unit) tablet cyanocobalamin (vitamin B-12) 500 500 mcg PO DAILY 05/01/22 Unknown History mcg tablet pyridoxine (vitamin B6) 100 mg 100 mg PO DAILY 05/01/22 Unknown History tablet atorvastatin 40 mg tablet See Rx Instructions .Route 10/05/22 Unknown Rx .COMPLEX #90 tabs carvedilol 25 mg tablet See Rx Instructions .Route 10/05/22 Unknown Rx .COMPLEX #180 TABLETS furosemide 40 mg tablet 40 mg PO DAILY #90 tabs 10/11/22 Unknown Rx dapagliflozin propanediol 10 mg 10 mg PO DAILY diabetes #90 tabs 11/09/22 Unknown Rx tablet (Farxiga) potassium chloride 20 mEq 20 meq PO DAILY #30 tabs 03/29/23 Unknown Rx tablet,extended release Humalog Mix 75-25 KwikPen U-100 32 unit (0.32 mL) subcut BID 05/01/23 Unknown Rx insulin 100 unit/mL subcutaneous SLIDING SCALE #30 mL pen (insulin lispro protamin-lispro) metformin 500 mg tablet,extended 1,000 mg (2 x 500 mg) PO BID 05/02/23 Unknown Rx release 24 hr diabetes #360 tabs ondansetron 4 mg disintegrating 4 mg PO Q8H PRN PRN Nausea #10 tabs 06/30/23 Unknown Rx tablet FreeStyle Ingris 3 Sensor #2 ea 07/12/23 Unknown Rx (blood-glucose sensor) levothyroxine 175 mcg tablet 175 mcg PO DAILY thyroid #90 tabs 09/06/23 Unknown Rx sulfasalazine 500 mg 500 mg PO BID #60 TABLETS 09/11/23 Unknown Rx tablet,delayed release Allergy/AdvReac Type Severity Reaction Status Date / Time No Known Allergies Allergy Verified 09/11/23 16:38 Family History Mother Arrhythmia Father CAD (coronary artery disease) possible bypass Other Cancer Diabetes Heart disease Thyroid disorder Surgical History History of esophagogastroduodenoscopy (EGD) Presence of coronary angioplasty implant and graft (~12/13/18) History of ear surgery History of thyroidectomy Social History Smoking Status: Current every day smoker tobacco type: cigarettes how long ago did patient quit smokin year ago alcohol intake: current alcohol intake frequency: holidays/special occasions only substance use type: does not use caffeine: Yes Type: carbonated beverages ROS ROS ED Constitutional Constitutional ED: Denies chills or fever(s) Eyes Eyes: Reports blurry vision and other Details: Photophobia ; Denies change in vision or diplopia ENT ENT ED: Reports rhinorrhea and sore throat Hematologic/Lymphatic Hematologic/Lymphatic: Denies easy bleeding or easy bruising Allergic/Immunologic Allergic/Immunologic ED: Denies mouth swelling or tongue swelling EXAM Physical Exam Const Vital Signs: 09/11/23 16:36 Temperature 96.8 F L Temperature Source Temporal Pulse Rate 66 Respiratory Rate 18 Blood Pressure 138/89 H Blood Pressure Mean 105 Pulse Ox 98 Oxygen Delivery Method Room Air Positive well nourished and well developed Constitutional Narrative: Patient is in a dark room wearing sunglasses. General Appearance ED: well developed HEENT atraumatic; Negative for tenderness Nose: external nose normal Neck no lymphadenopathy Resp normal respiratory effort Cardio regular rate and regular rhythm Neuro oriented x3 and CN's II-XII intact bilaterally Sensorium / Orientation: alert Psych Psych Narrative: Normal mood and affect Skin no wounds MDM MDM MDM Narrative Medical decision making narrative: Patient and all likely has UV keratitis. Will anesthetize eyes with tetracaine and stained with foreseen and perform slit-lamp exam. Treatment and Re-Evaluation Narrative: After anesthetizing eyes with tetracaine patient had no more discomfort. The eyes were stained with fluorescein. Under slit-lamp examination patient has punctate uptake throughout the cornea consistent with UV keratitis. Will treat with erythromycin antibiotic and mydriatic agent. He was referred to Dr. Fletcher for follow-up Discharge Plan Triage Chief Complaint: Eye Problem ED Provider: Louis Chavarria Dx/Rx/DC Orders Clinical Impression: UV keratitis, History of diabetes mellitus, type II, History of coronary artery disease Instructions: ED Flash Burn to Eye Prescriptions: No Action folic acid 400 mcg tablet 400 mcg PO QHS cyanocobalamin (vitamin B-12) 500 mcg tablet 500 mcg PO DAILY pyridoxine (vitamin B6) 100 mg tablet 100 mg PO DAILY cholecalciferol (vitamin D3) 25 mcg (1,000 unit) tablet 25 mcg PO DAILY insulin lispro protamin-lispro [Humalog Mix 75-25 KwikPen] 100 unit/mL (75-25) insulin pen 32 unit SUBCUT BID Qty: 30 4RF Farxiga 10 mg tablet 10 mg PO DAILY Qty: 90 1RF aspirin 81 MG tablet 81 mg PO DAILY@0800 Patient Comments: heart health ondansetron [ondansetron] 4 mg tablet,disintegrating 4 mg PO Q8H PRN PRN (Reason: Nausea) Qty: 10 0RF atorvastatin 40 mg tablet See Rx Instructions .ROUTE .COMPLEX Qty: 90 3RF Dose Instruction: TAKE 1 TABLET AT BEDTIME Rx Instructions: TAKE 1 TABLET AT BEDTIME carvedilol 25 mg tablet See Rx Instructions .ROUTE .COMPLEX Qty: 180 3RF Dose Instruction: TAKE 1 TABLET TWICE A DAY, ADMINISTER WITH A MEAL/FOOD Rx Instructions: TAKE 1 TABLET TWICE A DAY, ADMINISTER WITH A MEAL/FOOD furosemide 40 mg tablet 40 mg PO DAILY Qty: 90 3RF potassium chloride 20 mEq tablet extended release 20 meq PO DAILY Qty: 30 11RF metformin 500 mg tablet extended release 24 hr 1,000 mg PO BID Qty: 360 1RF (DME) FreeStyle Ingris 3 Sensor Device See Rx Instructions .Route Qty: 2 8RF Rx Instructions: As directed levothyroxine 175 mcg tablet 175 mcg PO DAILY Qty: 90 1RF sulfasalazine 500 mg tablet,delayed release (DR/EC) 500 mg PO BID Qty: 60 9RF Primary Care Provider: Fabiana Peña Referrals: Fabiana Peña MD [Primary Care Provider] - Caesar Fletcher MD [Med Staff - Active Staff] - 1 Day for another exam Activity Restrictions/Additional Instructions: 1. Call Dr. Fletcher office in the morning for follow-up appointment 2. Apply ointment to both eyes every 6 hours while awake 3. Apply dilating agent every 6 hours until seen by Dr. Fletcher Print Language: Argentine Disposition Disposition: Home, Self Care
[2023-09-11] MEDS: Tetracaine 0.5% Ophthalmic Bottle 1 DRP EACH EYE (18:57)
[2023-09-11] MEDS: Fluorescein 1 MG STRIP 1 STRIP EACH EYE (18:57)
[2023-09-11] MEDS: Erythromycin Base 1 OPTH.TUBE 1 APPLIC EACH EYE (19:32)
[2023-09-11] MEDS: Cyclopentolate 1% 2 ML Bottle 1 DRP EACH EYE (19:32)
[2023-09-11 19:36] VITALS: BP 120/67; PULSE 76; RESP 18; TEMP 36.6; O2SAT 99
== END 2023-09-11 19:38 | disposition home or self-care (01) ==
PROVIDERS: Emergency Provider Emergency Medicine; PCP Family Medicine; Visit Provider Emergency Medicine
DX: H16.8 Other keratitis (principal); I48.0 Paroxysmal atrial fibrillation; E11.42 Type 2 diabetes mellitus with diabetic polyneuropathy; I10 Essential (primary) hypertension; F17.210 Nicotine dependence, cigarettes, uncomplicated; I25.10 Atherosclerotic heart disease of native coronary artery without angina pectoris; E78.5 Hyperlipidemia, unspecified; Z79.82 Long term (current) use of aspirin; Z79.899 Other long term (current) drug therapy; Z79.84 Long term (current) use of oral hypoglycemic drugs; Z86.73 Personal history of transient ischemic attack (TIA), and cerebral infarction without residual deficits; Z95.5 Presence of coronary angioplasty implant and graft
CPT/HCPCS: 99283

== ENCOUNTER → 2023-11-02 | Outpatient (CLI) | payer OTHER, SELFPAY ==
[2023-11-02 14:19] LABS: Absolute Lymphocyte Count 2.54 X10^3/uL (0.83-4.51); Absolute Neutrophil Count 3.6 X10^3/uL (2.0-7.7); Basophil# 0.04 X10^3/uL; Basophil% 0.6 % (0-1); Eosinophil# 0.11 X10^3/uL; Eosinophils% 1.6 % (0-5); Hematocrit 44.2 % (40-54); Hemoglobin 14.1 g/dL (13.0-16.5); Lymphocyte # 2.54 X10^3/ul (0.83-4.51); Lymphocyte % 36.3 % (19-41); Mean Corp Hgb Conc 31.9 g/dL (32-36); Mean Corpuscular Hgb 29.6 pg (27.0-32.0); Mean Corpuscular Volume 92.9 fL (80-94); Mean Platelet Vol. 9.5 fl (6.2-12.0); Monocyte# 0.65 X10^3/uL; Monocyte% 9.3 % (0-10); NRBC Flagged by Analyzer 0 % (0-5); Neutrophil # 3.62 X10^3/uL (2.7-7.7); Neutrophil % 51.8 % (47-70); Platelet Count 183 K/mm3 (150-450); RBC Distribution Width CV 14.2 % (11.6-14.6); RBC Distribution Width SD 48.8 fl (35.1-43.9); Red Blood Count 4.76 M/mm3 (4.6-6.2)
[2023-11-02 14:39] LABS: Microalbumin,Random Urine < 5.0 mg/L (NO RANGE EST.)
[2023-11-02 14:48] LABS: Anion Gap 6 (5-15); BUN 20 mg/dL (7-18); BUN/Creat Ratio 16.7 RATIO (10-20); Calcium,Total 8.5 mg/dL (8.5-10.1); Chloride 105 mmol/L (98-107); Cholesterol 138 mg/dL (200); EST Glomerular Filtration Rate 65 mL/min (>60); Est Glom Filt Rate - Afr Amer 79 mL/min (>60); Glucose 188 mg/dL (74-106); High Density Lipoprotein 47 mg/dL; Potassium 3.9 mmol/L (3.5-5.1); Sodium Level 139 mmol/L (136-145); T4 Total, Thyroxin 8.6 ug/dL (4.5-12.1); Triglycerides 115 mg/dL; Very Low Density Lipoprotein 23 mg/dL (5-40)
== END | disposition home or self-care (01) ==
LOC: LAB 14:00
PROVIDERS: PCP Family Medicine; Referring Provider Internal Medicine Gastroenterology; Visit Provider Internal Medicine Gastroenterology
DX: I10 Essential (primary) hypertension (principal); E03.9 Hypothyroidism, unspecified
CPT/HCPCS: 36415; 80048; 80061; 82043; 82570; 84436; 84443; 85025

== ENCOUNTER → 2023-11-13 | Outpatient (CLI) | payer OTHER, SELFPAY ==
[2023-11-13 15:42] LABS: Protein, Urine (Random) < 6.0 mg/dL (<11.9); Protein:Creat Ratio 256 mg/g CRE (0-200)
[2023-11-13 18:15] LABS: AST(SGOT) 17 U/L (15-37); Alanine Aminotransfer ALT/SGPT 23 U/L (16-61); Albumin, Serum 3.8 g/dL (3.2-5.0); Alkaline Phosphatase 97 U/L (45-117); Anion Gap 7 (5-15); BUN 19 mg/dL (7-18); BUN/Creat Ratio 16.7 RATIO (10-20); Bilirubin, Direct 0.16 mg/dL (0.00-0.30); Calcium,Total 9.3 mg/dL (8.5-10.1); Chloride 103 mmol/L (98-107); Cholesterol 151 mg/dL (200); Creatinine, Serum 1.14 mg/dL (0.70-1.30); EST Glomerular Filtration Rate 69 mL/min (>60); Est Glom Filt Rate - Afr Amer 83 mL/min (>60); Glucose 78 mg/dL (74-106); High Density Lipoprotein 48 mg/dL; Potassium 3.7 mmol/L (3.5-5.1); Protein, Total 7.8 g/dL (6.4-8.2); Sodium Level 138 mmol/L (136-145); T4 Total, Thyroxin 10.7 ug/dL (4.5-12.1); Triglycerides 64 mg/dL; Very Low Density Lipoprotein 13 mg/dL (5-40)
== END | disposition home or self-care (01) ==
LOC: MTLAB 13:46
PROVIDERS: PCP Family Medicine; Referring Provider Family Medicine; Visit Provider Family Medicine
DX: E11.59 Type 2 diabetes mellitus with other circulatory complications (principal); E11.69 Type 2 diabetes mellitus with other specified complication; E03.9 Hypothyroidism, unspecified
CPT/HCPCS: 36415; 80048; 80061; 80076; 82570; 84156; 84436; 84443

== ENCOUNTER → 2024-03-26 | Outpatient (CLI) | payer OTHER, SELFPAY ==
[2024-03-26 12:58] LABS: ALB/GLOB Ratio 1.1 RATIO (0.9-2.4); AST(SGOT) 15 U/L (15-37); Alanine Aminotransfer ALT/SGPT 19 U/L (16-61); Albumin, Serum 3.8 g/dL (3.2-5.0); Alkaline Phosphatase 82 U/L (45-117); Anion Gap 4 (5-15); BUN 16 mg/dL (7-18); BUN/Creat Ratio 10.4 RATIO (10-20); Calcium,Total 8.6 mg/dL (8.5-10.1); Chloride 104 mmol/L (98-107); Cholesterol 158 mg/dL (200); Creatinine, Serum 1.54 mg/dL (0.70-1.30); EST Glomerular Filtration Rate 49 mL/min (>60); Est Glom Filt Rate - Afr Amer 59 mL/min (>60); Globulin 3.6 g/dL (2.2-4.2); Glucose 121 mg/dL (74-106); High Density Lipoprotein 44 mg/dL; Potassium 4.4 mmol/L (3.5-5.1); Protein, Total 7.4 g/dL (6.4-8.2); Sodium Level 139 mmol/L (136-145); T4 Free Direct 1.43 ng/dL (0.76-1.46); Thyroid Stim Hormone (TSH) 0.399 uIU/mL (0.358-3.740); Triglycerides 148 mg/dL; Very Low Density Lipoprotein 30 mg/dL (5-40)
[2024-03-26 13:45] LABS: Microalbumin,Random Urine 8.2 mg/L (NO RANGE EST.); Microalbumin:Creatinine Ratio 11.4 mg/g CRE (<30 mg/g CRE)
[2024-03-27 16:08] LABS: Anti-Thyroglobulin AB < 1.0 IU/mL (0.0-0.9); Thyroglobulin, Serum Qt. 0.9 ng/mL (1.4-29.2)
== END | disposition home or self-care (01) ==
LOC: MTLAB 10:19
PROVIDERS: PCP Family Medicine; Referring Provider Internal Medicine Endocrinology, Diabetes & Metabolism; Visit Provider Internal Medicine Endocrinology, Diabetes & Metabolism
DX: E11.65 Type 2 diabetes mellitus with hyperglycemia (principal); C73 Malignant neoplasm of thyroid gland; E11.42 Type 2 diabetes mellitus with diabetic polyneuropathy; Z79.4 Long term (current) use of insulin; E89.0 Postprocedural hypothyroidism; E78.2 Mixed hyperlipidemia; I10 Essential (primary) hypertension; E66.09 Other obesity due to excess calories; Z68.31 Body mass index [BMI] 31.0-31.9, adult
CPT/HCPCS: 36415; 80053; 80061; 82043; 82570; 84432; 84439; 84443; 86800

== ENCOUNTER → 2024-05-19 | Outpatient (CLI) | payer OTHER, SELFPAY | END | disposition home or self-care (01) | LOC: MFPLAB 13:54 | PROVIDERS: PCP Family Medicine; Referring Provider Family Medicine; Visit Provider Family Medicine | DX: Z12.5 Encounter for screening for malignant neoplasm of prostate (principal) | CPT/HCPCS: 36415; 84153; G0103 ==

== ENCOUNTER → 2024-05-23 | Outpatient (CLI) | payer OTHER, SELFPAY ==
[2024-05-23 17:34] LABS: Erythrocyte Sedimentation Rate 23 mm/hr (0-20)
[2024-05-23 17:56] LABS: CRP < 3.00 mg/L (0.0-3.0)
[2024-05-26 17:08] LABS: EBV Nuclear Antigen IgG < 18.0 U/mL (0.0-17.9)
== END | disposition home or self-care (01) ==
LOC: LAB 15:37
PROVIDERS: PCP Family Medicine; Referring Provider Internal Medicine Gastroenterology; Visit Provider Internal Medicine Gastroenterology
DX: K50.10 Crohn's disease of large intestine without complications (principal)
CPT/HCPCS: 36415; 85652; 86140; 86664

== ENCOUNTER → 2024-10-27 | Outpatient (CLI) | payer OTHER, SELFPAY ==
[2024-10-30 08:13] LABS: Pancreatic Elastase, Fecal > 800 (>200)
[2024-10-30 09:08] LABS: Calprotectin, Stool 766 ug/g (0-120)
== END | disposition home or self-care (01) ==
LOC: MTLAB 10:46
PROVIDERS: Referring Provider Internal Medicine Gastroenterology; Visit Provider Internal Medicine Gastroenterology
DX: K50.10 Crohn's disease of large intestine without complications (principal)
CPT/HCPCS: 82274; 82653; 83630; 83993; 87177; 87209; 87329; 87493; 87506